=== PATIENT | female | born 1930 | race Caucasian/White ===

== ENCOUNTER → 2019-02-25 | Outpatient (CLI) | payer MEDICARE ==
[~2019-02-25] MED LIST: AMLO5TAB2 PO; CALC600T PO; CHOL2000 PO; GABA-488 PO; HYDR-3454 PO; LISI10TA2 PO; LVT.05T PO; MECL-106 PO; METH10TA5 PO; MULT-974 PO; RANI-10 PO; SIMV40TA4 PO; SULF-222 PO
--- NOTE | 2019-02-25 17:41 | Diagnostic Imaging Report ---
INDICATION: Shortness of breath. TIME OF EXAM: 02:31 p.m. Correlation is made with prior study from 02/04/2014. FINDINGS: Heart size is stable. There is some ectasia and tortuosity of the descending thoracic aorta. Lungs are clear. No free air is identified. Bowel gas pattern appears nonobstructed. No pathologic calcifications are seen. There are surgical clips in the right upper quadrant. There is moderate stool in the right and left colon. IMPRESSION: No acute abnormality is detected. Dictated by: Dictated on workstation # [id number]
== END ==
LOC: RAD FS 14:21
PROVIDERS: ATTEND Nurse Practitioner Family
DX: R10.13 Epigastric pain (principal); R53.83 Other fatigue; R53.1 Weakness; R06.02 Shortness of breath
CPT/HCPCS: 74022

== ENCOUNTER 2019-12-19 19:43 | Observation (INO) | payer MEDICARE ==
[~2019-12-19] VITALS: Ht 160 cm; Wt 66.4 kg
[2019-12-19] VITALS (11 sets, daily range): BP systolic 140–206; BP diastolic 67–108
[2019-12-19] MEDS ORDERED: ASPIRIN 81 MG CHEW (CHILDREN'S ASA) PO ONE (20:00)
[2019-12-19 20:09] LABS: ABG BASE EXCESS 3.4 MMOL/L (-2.5-2.5); ABG OXYGEN SATURATION 96 % (94-100); ABG PCO2 40 MMHG (35-45); ABG PH 7.44 (7.37-7.43); ABG PO2 90 MMHG (79-93); ABG TCO2 28.6 MMOL/L (21.0-31.0); ALLENS TEST YES-POS; INSPIRED O2 RA; PATIENT TEMP 36.4; VENTILATOR NO
[2019-12-19 20:12] LABS: BASOPHILS % (AUTO) 0 % (0-10); EOSINOPHILS # (AUTO) 0.1 10^3/uL (0.0-0.3); EOSINOPHILS % (AUTO) 1 % (0-10); HEMATOCRIT 43 % (35-52); HEMOGLOBIN 14.4 G/DL (11.5-16.0); LYMPHOCYTES # (AUTO) 1.5 X 10^3 (1.0-4.0); LYMPHOCYTES % (AUTO) 23 % (12-44); MEAN CORPUSCULAR HEMOGLOBIN 30 PG (25-34); MEAN CORPUSCULAR HGB CONC 33 G/DL (32-36); MEAN CORPUSCULAR VOLUME 91 FL (80-99); MEAN PLATELET VOLUME 8.5 FL (7.4-10.4); MONOCYTES # (AUTO) 0.6 X 10^3 (0.0-1.0); MONOCYTES % (AUTO) 9 % (0-12); NEUTROPHILS # (AUTO) 4.4 X 10^3 (1.8-7.8); NEUTROPHILS % (AUTO) 67 % (42-75); PLATELET COUNT 273 10^3/uL (130-400); RED CELL DISTRIBUTION WIDTH 13.4 % (10.0-14.5); WHITE BLOOD COUNT 6.7 10^3/uL (4.3-11.0)
--- NOTE | 2019-12-19 20:12 | ED Respiratory ---
General Chief Complaint: General Problems/Pain Stated Complaint: SOB/DIFF SWALLOWING Source: patient, family (son via phine) Exam Limitations: no limitations History of Present Illness Date Seen by Provider: Dec 19, 2019 Time Seen by Provider: 19:48 Initial Comments The patient presents to ER by private conveyance with her son and chief complaint the past couple days she's had shortness of breath worse when laying down. She feels a pressure in her chest. She has not taken anything for it. She denies a history of coronary disease stents heart attacks heart failure or dysrhythmias. She says she felt her heart beating fast but not irregularly. She follows with Dr. Turpin a neurologist for her Parkinson's disease and Dr. Tom, PCP. She takes Norvasc for blood pressure, Synthroid but no blood thinners area she has pantoprazole prescribed daily. 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 2019: Discussed the case with her son Nirav over the phone who brought her in. He said that she has not really reveal anything to him until this afternoon that she for the past couple days as had some tightness in her chest and shortness of air and wanted to be brought to the ER to be checked out. They live in [place] follow with Dr. Tom and he thinks that she had an echocardiogram at [facility] about 6 months ago in [place]. Allergies and Home Medications Allergies Coded Allergies: atenolol (Verified Allergy, Intermediate, RASH, 02/04/14) Home Medications Amlodipine Besylate 5 Mg Tablet, 5 MG PO 2100, (Reported) Calcium Carbonate 600 Mg Tablet, 600 MG PO TID Prescribed by: DARRON RICHARDSON on 03/23/14 1233 Cholecalciferol 2,000 Unit Capsule, 4,000 UNIT PO DAILY, (Reported) TAKES 2 (2000MG) CAPSULE Gabapentin 300 Mg Capsule, 600 MG PO HS, (Reported) TAKE 2 (300MG) TABS Hydrocodone Bit/Acetaminophen 1 Each Tablet, 1-2 EACH PO Q4H PRN for PAIN Prescribed by: DARRON RICHARDSON on 03/23/14 1233 Levothyroxine Sodium 50 Mcg Tablet, 1 EACH PO DAILY Prescribed by: DARRON RICHARDSON on 03/23/14 1233 Metoprolol Tartrate 50 Mg Tablet, 40 MG PO BID, (Reported) Multivitamin 1 Each Tablet, 1 TAB PO DAILY, (Reported) Patient Home Medication List Home Medication List Reviewed: Yes Review of Systems Review of Systems Constitutional: No chills, No fever; malaise EENTM: No ear discharge, No ear pain Respiratory: No cough; orthopnea, short of breath Cardiovascular: No chest pain, No Hx of Intervention, No palpitations, No vascular heart diseas Gastrointestinal: No abdominal pain, No nausea, No vomiting Genitourinary: No discharge, No dysuria Musculoskeletal: No back pain, No joint pain Skin: No change in color, No pruritus, No rash Psychiatric/Neurological: See HPI; Denies Headache, Denies Numbness, Denies Paresthesia All Other Systems Reviewed Negative Unless Noted: Yes Past Wvzwrzy-Allhbv-Novexx Hx Patient Social History Alcohol Use: Denies Use Recreational Drug Use: No Smoking Status: Never a Smoker Recent Foreign Travel: No Contact w/Someone Who Travel: No Immunizations Up To Date Date of Pneumonia Vaccine: Apr 19, 2012 Past Medical History Reproductive Disorders: No Female Reproductive Disorders: Denies Sexually Transmitted Disease: No HIV/AIDS: No Hyperthyroidism Loss of Vision: Left Hearing Impairment: Denies Adverse Reaction/Blood Tranf: No Family Medical History Arthritis 19 FATHER 19 MOTHER Cardiovascular disease 19 FATHER Dementia 19 MOTHER Hypertension 19 FATHER Myocardial infarction 19 FATHER No Family History of: AIDS Abdominal aortic aneurysm Alcoholism Alzheimer's disease Asthma Completed stroke Congenital disease Diabetes mellitus Parkinson's disease Prostate cancer Psychosocial problem Respiratory disorder Seizure disorder Thyroid disease Tuberculosis Physical Exam Vital Signs - First Documented 12/19/19 12/19/19 19:52 20:49 Temp 36.4 Pulse 93 Resp 21 B/P (MAP) 206/100 (135) Pulse Ox 96 O2 Delivery Room Air O2 Flow Rate 2.00 Capillary Refill : Height: 5'3.00" Weight: 140lbs. 0.0oz. 63.579896gs; BMI Method:Stated General Appearance: WD/WN, mild distress Eyes: Bilateral Eye Normal Inspection, Bilateral Eye PERRL, Bilateral Eye EOMI HEENT: PERRL/EOMI, normal ENT inspection, pharynx normal Neck: non-tender, full range of motion Respiratory: chest non-tender, lungs clear, normal breath sounds, no respiratory distress, no accessory muscle use Cardiovascular: normal peripheral pulses, regular rate, rhythm Gastrointestinal: non tender, soft Extremities: normal range of motion, non-tender, normal capillary refill Neurologic/Psychiatric: alert, oriented x 3 Skin: normal color, warm/dry Focused Exam Lactate Level 12/19/19 20:03: Lactic Acid Level 1.19 Lactic Acid Level Laboratory Tests Test 12/19/19 20:03 Lactic Acid Level 1.19 MMOL/L (0.50-2.00) Progress/Results/Core Measures Suspected Sepsis SIRS Temperature: Pulse: Respiratory Rate: Laboratory Tests 12/19/19 20:03: White Blood Count 6.7 Blood Pressure / Mean: 12/19/19 20:03: Lactic Acid Level 1.19 Laboratory Tests 12/19/19 20:03: Creatinine 0.84, INR Comment 0.9, Platelet Count 273, Total Bilirubin 0.3 Results/Orders Lab Results Laboratory Tests Test 12/19/19 20:03 12/19/19 20:49 Range/Units White Blood Count 6.7 4.3-11.0 10^3/uL Red Blood Count 4.73 4.35-5.85 10^6/uL Hemoglobin 14.4 11.5-16.0 G/DL Hematocrit 43 35-52 % Mean Corpuscular Volume 91 80-99 FL Mean Corpuscular Hemoglobin 30 25-34 PG Mean Corpuscular Hemoglobin Concent 33 32-36 G/DL Red Cell Distribution Width 13.4 10.0-14.5 % Platelet Count 273 130-400 10^3/uL Mean Platelet Volume 8.5 7.4-10.4 FL Neutrophils (%) (Auto) 67 42-75 % Lymphocytes (%) (Auto) 23 12-44 % Monocytes (%) (Auto) 9 0-12 % Eosinophils (%) (Auto) 1 0-10 % Basophils (%) (Auto) 0 0-10 % Neutrophils # (Auto) 4.4 1.8-7.8 X 10^3 Lymphocytes # (Auto) 1.5 1.0-4.0 X 10^3 Monocytes # (Auto) 0.6 0.0-1.0 X 10^3 Eosinophils # (Auto) 0.1 0.0-0.3 10^3/uL Basophils # (Auto) 0.0 0.0-0.1 10^3/uL Prothrombin Time 12.6 12.2-14.7 SEC INR Comment 0.9 0.8-1.4 Activated Partial Thromboplast Time 28 24-35 SEC Blood Gas Puncture Site L WRIST Blood Gas Patient Temperature 36.4 Arterial Blood pH 7.44 H 7.37-7.43 Arterial Blood Partial Pressure CO2 40 35-45 MMHG Arterial Blood Partial Pressure O2 90 79-93 MMHG Arterial Blood HCO3 27 23-27 MMOL/L Arterial Blood Total CO2 28.6 21.0-31.0 MMOL/L Arterial Blood Oxygen Saturation 96 94-100 % Arterial Blood Base Excess 3.4 H -2.5-2.5 MMOL/L Con Test YES-POS Blood Gas Ventilator Setting NO Blood Gas Inspired Oxygen RA Sodium Level 134 L 135-145 MMOL/L Potassium Level 4.2 3.6-5.0 MMOL/L Chloride Level 99 98-107 MMOL/L Carbon Dioxide Level 25 21-32 MMOL/L Anion Gap 10 5-14 MMOL/L Blood Urea Nitrogen 18 7-18 MG/DL Creatinine 0.84 0.60-1.30 MG/DL Estimat Glomerular Filtration Rate > 60 BUN/Creatinine Ratio 21 Glucose Level 124 H 70-105 MG/DL Lactic Acid Level 1.19 0.50-2.00 MMOL/L Calcium Level 9.4 8.5-10.1 MG/DL Corrected Calcium 9.2 8.5-10.1 MG/DL Total Bilirubin 0.3 0.1-1.0 MG/DL Aspartate Amino Transf (AST/SGOT) 19 5-34 U/L Alanine Aminotransferase (ALT/SGPT) 7 0-55 U/L Alkaline Phosphatase 76 40-136 U/L Troponin I < 0.028 <0.028 NG/ML B-Type Natriuretic Peptide 56.5 <100.0 PG/ML Total Protein 7.6 6.4-8.2 GM/DL Albumin 4.3 3.2-4.5 GM/DL Urine Color YELLOW Urine Clarity CLEAR Urine pH 7.0 5-9 Urine Specific Fiatt 1.015 L 1.016-1.022 Urine Protein NEGATIVE NEGATIVE Urine Glucose (UA) NEGATIVE NEGATIVE Urine Ketones TRACE H NEGATIVE Urine Nitrite NEGATIVE NEGATIVE Urine Bilirubin NEGATIVE NEGATIVE Urine Urobilinogen 0.2 < = 1.0 MG/DL Urine Leukocyte Esterase NEGATIVE NEGATIVE Urine RBC (Auto) 1+ H NEGATIVE Urine RBC 5-10 H /HPF Urine WBC NONE /HPF Urine Squamous Epithelial Cells RARE /HPF Urine Crystals NONE /LPF Urine Bacteria NEGATIVE /HPF Urine Casts NONE /LPF Urine Mucus NEGATIVE /LPF Urine Culture Indicated CULTURE PENDING My Orders Orders - RALPH METZ Cbc With Automated Diff (12/19/19 19:57) Comprehensive Metabolic Panel (12/19/19 19:57) Blood Culture (12/19/19 19:57) Sputum Culture (12/19/19 19:57) Urinalysis (12/19/19 19:57) Urine Culture (12/19/19 19:57) Protime With Inr (12/19/19 19:57) Partial Thromboplastin Time (12/19/19 19:57) Chest 1 View, Ap/Pa Only (12/19/19 19:57) Ed Iv/Invasive Line Start (12/19/19 19:57) Ed Iv/Invasive Line Start (12/19/19 19:57) Ekg Tracing (12/19/19 19:57) Troponin I (12/19/19 19:57) Vital Signs Adult Sepsis Patie Q15M (12/19/19 19:57) O2 (12/19/19 19:57) Remove Rings In Anticipation O (12/19/19 19:57) Lactic Acid Analyzer (12/19/19 19:57) BNP (12/19/19 19:57) Arterial Blood Gas (12/19/19 19:57) Aspirin Chewable Tablet (Baby Aspirin Ch (12/19/19 20:00) Nitroglycerin 0.4 Mg Btl 25's (Nitrostat (12/19/19 20:15) Ondansetron Injection (Zofran Injectio (12/19/19 21:00) Lidocaine 2% Viscous 15 Ml (Xylocaine Vi (12/19/19 21:00) Famotidine Tablet (Pepcid Tablet) (12/19/19 20:46) Antacid Suspension (Mylanta Suspension (12/19/19 21:00) Amlodipine Tablet (Norvasc Tablet) (12/19/19 21:30) Medications Given in ED Current Medications Medications Dose Ordered Sig/Jl Route Start Time Stop Time Status Last Admin Dose Admin Al Hydrox/Mg Hydrox/Simethicone 30 ml ONCE ONCE PO 12/19/19 21:00 12/19/19 21:01 DC 12/19/19 20:55 30 ML Amlodipine Besylate 10 mg ONCE ONCE PO 12/19/19 21:30 12/19/19 21:31 DC 12/19/19 21:28 10 MG Aspirin 324 mg ONCE ONCE PO 12/19/19 20:00 12/19/19 20:01 DC 12/19/19 20:16 324 MG Lidocaine HCl 15 ml ONCE ONCE PO 12/19/19 21:00 12/19/19 21:01 DC 12/19/19 20:55 15 ML Nitroglycerin 0.4 mg NEEDED PRN SL 12/19/19 20:15 12/19/19 20:16 0.4 MG Ondansetron HCl 4 mg ONCE ONCE IVP 12/19/19 21:00 12/19/19 21:01 DC 12/19/19 20:52 4 MG Vital Signs/I&O 12/19/19 12/19/19 19:52 20:49 Temp 36.4 Pulse 93 Resp 21 B/P (MAP) 206/100 (135) Pulse Ox 96 97 O2 Delivery Room Air Nasal Cannula O2 Flow Rate 2.00 Capillary Refill : Progress Note #1: Time: 20:14 Progress Note Hypertensive emergency with elevated blood pressure and chest pain. In the past she has responded well to clonidine. She's had 2 elevated blood pressure since arrival the first one being 225 systolic and the second being 205. Plan to give her some nitroglycerin as she is having orthopnea. She has only trace edema in her legs. Suspect she could be having CHF versus atypical angina. Initial EKG does not demonstrate ST-T wave changes. Her heart rates in the 90s and she's not on beta blockers. She's had no fever but she does complain of shortness of breath so we'll also initiate a septic workup if she has an elevated white coun t. At this time her to hold off giving any IV fluids or antibiotics until we have a clear picture of what happening. Oxygen sats of been 94-96% on room air. We'll see what nitroglycerin does for her symptoms. She is having some minor pressure in the center of her chest radiating up towards the bottom of her throat which she describes as tightness, pressure and fullness. GERD is also in the differential. Progress Note #2: Time: 20:46 Progress Note The patient's blood pressure did experience significant improvement down to 168 from 205 with a single dose of nitroglycerin. She says however her symptoms are unchanged. She still has pressure going up the middle of her chest and starting in her epigastric region. She has a nontender, nonsurgical abdomen on reexamination. She says she has a little bit nauseous or any give her some Zofran and then follow that with a GI cocktail. We discussed CODE STATUS and she is a full code at this time. We discussed staying in the hospital overnight and she is in agreement with this plan. ECG Initial ECG Impression Date: Dec 19, 2019 Initial ECG Impression Time: 19:55 Initial ECG Rate: 92 Initial ECG Rhythm: Normal Sinus Initial ECG Intervals: Normal Initial ECG Impression: Normal Comment Normal sinus rhythm without clinically relevant ST T wave elevation or depression. Diagnostic Imaging Diagonstic Imaging: Xray Plain Films/CT/US/NM/MRI: chest Comments NAME: JOSE ALBERTO DOWD [facility] REC#: [id number] PT STATUS: REG ER : [id number] PHYSICIAN: RALPH METZ MD ADMIT DATE: 12/19/19/ER Draft Date of Exam:12/19/19 CHEST 1 VIEW, AP/PA ONLY INDICATION: Shortness of breath EXAM: Portable chest at 3:36 PM FINDINGS: Heart size and pulmonary vascularity are normal. The lungs are clear. There are no effusions or pneumothoraces. IMPRESSION: Negative chest. Dictated on workstation # [id number] Dict: 12/19/192045 Trans: 12/19/192100 [facility] [phone] Interpreted by: AYANA BENSON MD Electronically signed by: Reviewed: Reviewed by Me Departure Communication (Admissions) Time/Spoke to Admitting Phy: 21:50 Dr. Peralta: Discussed the case and she agrees to accept the patient to the cardiac stepdown. Time/Spoke to Consulting Phy: 21:22 Dr. Calderón: Norvasc 10 mg, serial troponins and echocardiogram in the morning. Impression Primary Impression: Chest pain Qualified Codes: R07.9 - Chest pain, unspecified Additional Impression: Hypertensive emergency Disposition: ADMITTED INPATIENT Condition: Stable Admissions Decision to Admit Reason: Admit from ER (General) Decision to Admit/Date: Dec 19, 2019 Time/Decision to Admit Time: 20:26 Departure-Patient Inst. Referrals: AVEL TOM MD (PCP/Family) Primary Care Physician RALPH METZ Dec 19, 2019 20:12
[2019-12-19] MEDS ORDERED: NITROGLYCERIN 0.4 MG SL TABS BTL 25'S SL PRN ×2 (20:15→22:45)
[2019-12-19 20:25] LABS: INR 0.9 (0.8-1.4); PROTHROMBIN TIME PATIENT 12.6 SEC (12.2-14.7)
--- NOTE | 2019-12-19 20:30 | NUR ---
Pt assisted to bedside commode at this time, x1 assist.
[2019-12-19 20:39] LABS: ALANINE AMINOTRANSFERASE 7 U/L (0-55); ALBUMIN 4.3 GM/DL (3.2-4.5); ALKALINE PHOSPHATASE 76 U/L (40-136); BILIRUBIN,TOTAL 0.3 MG/DL (0.1-1.0); BUN/CREATININE RATIO 21; CALCIUM 9.4 MG/DL (8.5-10.1); CARBON DIOXIDE 25 MMOL/L (21-32); CHLORIDE 99 MMOL/L (98-107); CREATININE SERUM 0.84 MG/DL (0.60-1.30); GFR ESTIMATED > 60; GLUCOSE 124 MG/DL (70-105); POTASSIUM 4.2 MMOL/L (3.6-5.0); SODIUM 134 MMOL/L (135-145); TOTAL PROTEIN 7.6 GM/DL (6.4-8.2)
--- NOTE | 2019-12-19 20:45 | NUR ---
Pt states she still has some epigastric discomfort after 1 NTG
[2019-12-19] MEDS ORDERED: FAMOTIDINE 20 MG (PEPCID) TABLET PO STA (20:46)
[2019-12-19] MEDS ORDERED: LIDOCAINE 2% VISCOUS 15 ML UDC PO ONE (21:00)
[2019-12-19] MEDS ORDERED: ANTACID SUSP 30 ML UDC (MYLANTA) PO ONE (21:00)
[2019-12-19] MEDS ORDERED: ONDANSETRON 4 MG/2 ML (SDV) Z0FRAN IVP ONE (21:00)
[2019-12-19] MEDS ORDERED: CARB1TAB44 PO (21:01)
--- NOTE | 2019-12-19 21:02 | Diagnostic Imaging Report ---
INDICATION: Shortness of breath EXAM: Portable chest at 3:36 PM FINDINGS: Heart size and pulmonary vascularity are normal. The lungs are clear. There are no effusions or pneumothoraces. IMPRESSION: Negative chest. Dictated by: Dictated on workstation # [id number]
[2019-12-19] MEDS ORDERED: ALPR0.5T PO (21:03)
[2019-12-19] MEDS ORDERED: METO50TA15 PO (21:03)
[2019-12-19 21:04] LABS: BILIRUBIN,URINE NEGATIVE (NEGATIVE); CLARITY,URINE CLEAR; COLOR,URINE YELLOW; GLUCOSE, URINE (UA) NEGATIVE (NEGATIVE); KETONES,URINE TRACE (NEGATIVE); LEUKOCYTE ESTERASE ,URINE NEGATIVE (NEGATIVE); NITRITE,URINE NEGATIVE (NEGATIVE); PROTEIN,URINE NEGATIVE (NEGATIVE)
[2019-12-19 21:13] LABS: BACTERIA,URINE NEGATIVE /HPF; SQUAMOUS EPITHELIAL CELL,UR RARE /HPF
--- NOTE | 2019-12-19 21:14 | NUR ---
RECEIVED REPORT FROM CECILY HODGES.
--- NOTE | 2019-12-19 21:22 | NUR ---
Report called to CECILY Lechuga at this time.
[2019-12-19] MEDS ORDERED: amLODIPine 10 MG (NORVASC) TAB PO ONE (21:30)
[2019-12-19] MEDS ORDERED: hydrALAZINE (APESOLINE) 20 MG/ML VIAL IV PRN (22:15)
[2019-12-19] MEDS ORDERED: NITROGLYCERIN 2% OINT 1 GM UNIT DOSE PACKET TOP PRN (22:15)
[2019-12-19] MEDS ORDERED: LOPERAMIDE 2 MG (IMODIUM) TABLET PO PRN (22:15)
[2019-12-19] MEDS ORDERED: HYDROcodone/APAP 5 MG/325 MG (LORTAB) TAB PO PRN (22:15)
[2019-12-19] MEDS ORDERED: DOCUSATE SODIUM 100 MG (COLACE) CAP PO PRN (22:15)
[2019-12-19] MEDS ORDERED: SENNA W/DOCUSATE (SENOKOT S) TABLET PO PRN (22:15)
[2019-12-19] MEDS ORDERED: BISACODYL 10 MG SUPP (DULCOLAX) PR PRN (22:15)
[2019-12-19] MEDS ORDERED: polyethylene glycoL POWDER 17 GM (MIRALAX) PACK PO PRN (22:15)
[2019-12-19] MEDS ORDERED: ACETAMINOPHEN 325 MG TABLET PO PRN (22:15)
[2019-12-19] MEDS ORDERED: ONDANSETRON 4 MG/2 ML (SDV) Z0FRAN IVP PRN (22:15)
[2019-12-19] MEDS ORDERED: ALPRAZolam 0.25 MG (XANAX) TAB PO PRN (22:15)
[2019-12-19] MEDS ORDERED: CALCIUM CARBONATE 500 MG (TUMS) TAB.CHEW PO PRN (22:15)
[2019-12-19] MEDS ORDERED: cloNIDine 0.1 MG (CATAPRES) TAB PO PRN (22:15)
[2019-12-19] MEDS ORDERED: MELATONIN 3 MG TABLET PO PRN (22:15)
[2019-12-19] MEDS ORDERED: ENOXAPARIN 40 MG/0.4 ML (LOVENOX) SYR SC SCH (22:15)
[2019-12-19] MEDS ORDERED: diphenhydrAMINE 25 MG TAB (BENADRYL) PO PRN (22:15)
[2019-12-19] MEDS ORDERED: LACTULOSE SYRUP 10GM/15ML (ENULOSE) 30ML UDC PO PRN (22:15)
[2019-12-19] MEDS ORDERED: fentaNYL INJECTION 100 MCG/2 ML AMP IVP PRN (22:15)
[2019-12-19] MEDS ORDERED: ONDANSETRON 4 MG (ZOFRAN) ORAL DISSOLVE TAB PO PRN (22:15)
[2019-12-19] MEDS ORDERED: guaiFENesin/CODEINE (ROBITUSSIN AC) 10ML UDC PO PRN (22:15)
--- NOTE | 2019-12-19 22:18 | NUR ---
JOSE ALBERTO DOWD admitted to room CU4-1, with an admitting diagnosis of HYPERTENSIVE EMERGENCY AND ANGINA, on 12/19/19 from ER via STRETCHER, accompanied by STAFF. JOSE ALBERTO DOWD introduced to surroundings, call light, bed controls, phone, TV, temperature control, lights, meal times, smoking policy, visitor policy, side rail policy, bathrooms and showers. Patient Rights given to patient in the handbook.JOSE ALBERTO DOWD verbalizes understanding that [facility] is not responsible for the loss or damage to any personal effects or valuables that are kept in the patients possession during their hospitalization.
[2019-12-19] MEDS ORDERED: morphine INJ 4 MG/ML 1 ML (VIAL/SYRINGE) IV PRN (22:45)
[2019-12-19] MEDS ORDERED: ALPRAZolam 0.5 MG (XANAX) TAB PO PRN (22:45)
[2019-12-19] MEDS ORDERED: ANTACID SUSP 30 ML UDC (MYLANTA) PO PRN (22:45)
[2019-12-20 00:15] VITALS: BP 104/61
--- NOTE | 2019-12-20 00:35 | NUR ---
THIS RN CONTACTED DR. MARTÍNEZ ABOUT PT BP. THIS RN INFORMED DR. MARTÍNEZ THAT PT WAS GIVEN HYDRALAZINE 10MG IV FOR BP 170S/100S AND MOST RECENT BP IS 97/57. NEW ORDERS OBTAINED, SEE ORDER HX.
[2019-12-20] MEDS ORDERED: NS IV 1000 ML 1,000 ML IV SCH (00:45)
[2019-12-20 01:00] VITALS: BP 105/61
[2019-12-20 01:23] VITALS: BP 143/73
[2019-12-20 02:00] VITALS: BP 132/65
[2019-12-20 03:14] LABS: BASOPHILS % (AUTO) 0 % (0-10); EOSINOPHILS # (AUTO) 0.1 10^3/uL (0.0-0.3); EOSINOPHILS % (AUTO) 1 % (0-10); HEMATOCRIT 42 % (35-52); HEMOGLOBIN 14.2 G/DL (11.5-16.0); LYMPHOCYTES # (AUTO) 1.8 X 10^3 (1.0-4.0); LYMPHOCYTES % (AUTO) 24 % (12-44); MEAN CORPUSCULAR HEMOGLOBIN 31 PG (25-34); MEAN CORPUSCULAR HGB CONC 34 G/DL (32-36); MEAN CORPUSCULAR VOLUME 91 FL (80-99); MEAN PLATELET VOLUME 8.7 FL (7.4-10.4); MONOCYTES # (AUTO) 0.7 X 10^3 (0.0-1.0); MONOCYTES % (AUTO) 9 % (0-12); NEUTROPHILS # (AUTO) 4.8 X 10^3 (1.8-7.8); NEUTROPHILS % (AUTO) 65 % (42-75); PLATELET COUNT 284 10^3/uL (130-400); RED CELL DISTRIBUTION WIDTH 13.3 % (10.0-14.5); WHITE BLOOD COUNT 7.4 10^3/uL (4.3-11.0)
[2019-12-20 03:43] LABS: ALANINE AMINOTRANSFERASE 8 U/L (0-55); ALBUMIN 4.1 GM/DL (3.2-4.5); ALKALINE PHOSPHATASE 76 U/L (40-136); BILIRUBIN,TOTAL 0.4 MG/DL (0.1-1.0); BUN/CREATININE RATIO 21; CALCIUM 9.4 MG/DL (8.5-10.1); CARBON DIOXIDE 24 MMOL/L (21-32); CHLORIDE 101 MMOL/L (98-107); CREATININE SERUM 0.78 MG/DL (0.60-1.30); GFR ESTIMATED > 60; GLUCOSE 101 MG/DL (70-105); POTASSIUM 4.2 MMOL/L (3.6-5.0); SODIUM 136 MMOL/L (135-145); TOTAL PROTEIN 7.3 GM/DL (6.4-8.2)
[2019-12-20 04:00] VITALS: BP 145/80
--- NOTE | 2019-12-20 04:59 | NUR ---
THIS RN CALLED TELE ICU ABOUT PT ANXIETY LEVEL. THIS RN REPORTED THAT THE PT HAS PO XANAX BUT AT THIS TIME IS NPO. NEW ORDERS OBTAINED, SEE ORDER HX.
[2019-12-20] MEDS ORDERED: diphenhydrAMINE 50 MG/ML INJ (BENADRYL) IVP ONE (05:00)
[2019-12-20] MEDS ORDERED: LEVOTHYROXINE 112 MCG (LEVOTHROID) TAB PO SCH (06:30)
[2019-12-20 08:00] VITALS: BP 149/72
[2019-12-20] MEDS ORDERED: RT-ALBUTEROL SULF 2.5 MG/3 ML PRE-MIX VIAL INH SCH (08:00)
[2019-12-20] MEDS ORDERED: SINEMET 25/100 (CARBIDOPA/LEVODOPA) TAB PO SCH (09:00)
[2019-12-20] MEDS ORDERED: amLODIPine 10 MG (NORVASC) TAB PO SCH (09:00)
[2019-12-20] MEDS ORDERED: ASPIRIN E.C. 81 MG (ECOTRIN) TAB PO SCH (09:00)
--- NOTE | 2019-12-20 09:11 | Short Stay Summary-Hospitalist ---
History of Present Illness Date Seen 12/20/19 Attending Physician Majo Peralta DO PCP Jose Kang MD Referring Physician Date of Admission Dec 19, 2019 at 20:45 Home Medications & Allergies Home Medications Reviewed patient Home Medication Reconciliation performed by pharmacy medication reconciliations deburring technician and/or nursing. Patients Allergies have been reviewed. Allergies Allergies Coded Allergies atenolol (Verified Allergy, Intermediate, RASH, 02/04/14) Past Zxnljbg-Pxsjly-Fjslas Hx Patient Social History Alcohol Use: Denies Use Recreational Drug Use: No Smoking Status: Never a Smoker 2nd Hand Smoke Exposure: Yes ( SMOKED) Recent Foreign Travel: No Contact w/other who traveled: No Recent Hopitalizations: No Recent Infectious Disease Expo: No Immunizations Up To Date Tetanus Booster (TDap): Unknown Date of Pneumonia Vaccine: Apr 19, 2017 Date of Influenza Vaccine: Apr 20, 2019 Seasonal Allergies Seasonal Allergies: No Past Medical History Surgeries: Thyroidectomy Cardiac: Hypertension Reproductive: No Sexually Transmitted Disease: No HIV/AIDS: No Female Reproductive Disorders: Denies Endocrine: Hyperthyroidism Loss of Vision: Left Hearing Impairment: Denies Psychosocial: Sleep Difficulties History of Blood Disorders: No Adverse Reaction to Blood Arnold: No Family History Arthritis 19 FATHER 19 MOTHER Cardiovascular disease 19 FATHER Dementia 19 MOTHER Hypertension 19 FATHER Myocardial infarction 19 FATHER No Family History of: AIDS Abdominal aortic aneurysm Alcoholism Alzheimer's disease Asthma Completed stroke Congenital disease Diabetes mellitus Parkinson's disease Prostate cancer Psychosocial problem Respiratory disorder Seizure disorder Thyroid disease Tuberculosis Physical Exam Physical Exam Vital Signs Vital Signs - First Documented 12/19/19 12/19/19 19:52 20:49 Temp 36.4 Pulse 93 Resp 21 B/P (MAP) 206/100 (135) Pulse Ox 96 O2 Delivery Room Air O2 Flow Rate 2.00 Capillary Refill : Less Than 3 Seconds Height, Weight, BMI Height: 5'3.00" Weight: 140lbs. 0.0oz. 63.215352ck; 25.70 BMI Method:Stated Eyes: Bilateral Eye Normal Inspection, Bilateral Eye PERRL, Bilateral Eye EOMI Results Results/Procedures Labs Laboratory Tests 12/19/19 20:03 12/20/19 02:40 Patient resulted labs reviewed. Clinical Quality Measures DVT/VTE Risk/Contraindication: Risk Factor Score Per Nursin RFS Level Per Nursing on Admit: 3=High MAJO PERALTA DO Dec 20, 2019 09:11
--- NOTE | 2019-12-20 10:27 | History & Physical ---
History of Present Illness HPI/Chief Complaint CC: Hypertensive urgency HPI: This is an 89yoWF Pt of Dr. Kang, who has a PMH of Parkinson's, who presented to the ER with weakness and elevated BP with chest pain, Troponins all negative, hypertension managed with multiple meds, she was monitored on cardiac step-down unit and is currently stable. Pt appears to need inpatient rehab for progressive weakness due to Parkinson's and Dr. Conrad is her neurologist and she wants me to evaluate her home medications and restart. At this current time BP is 140/86. Echocardiogram was completed and cardiology was consulted. Source: patient Exam Limitations: no limitations Date Seen 12/20/19 Time Seen by a Provider: 09:30 Attending Physician Majo Martínez Pankaj K MD Referring Physician Date of Admission Dec 19, 2019 at 20:45 Home Medications & Allergies Home Medications Reviewed patient Home Medication Reconciliation performed by pharmacy medication reconciliations phone technician and/or nursing. Patients Allergies have been reviewed. Allergies Allergies Coded Allergies atenolol (Verified Allergy, Intermediate, RASH, 02/04/14) Past Lkeyiyx-Twvqwm-Tapaly Hx Past Med/Social Hx: Reviewed Nursing Past Med/Soc Hx, Reviewed and Corrections made Patient Social History Marrital Status: single Employed/Student: retired Alcohol Use: Denies Use Recreational Drug Use: No Smoking Status: Never a Smoker 2nd Hand Smoke Exposure: Yes ( SMOKED) Recent Foreign Travel: No Contact w/other who traveled: No Recent Hopitalizations: No Recent Infectious Disease Expo: No Immunizations Up To Date Tetanus Booster (TDap): Unknown Date of Pneumonia Vaccine: Apr 19, 2017 Date of Influenza Vaccine: Apr 20, 2019 Seasonal Allergies Seasonal Allergies: No Past Medical History Surgeries: Thyroidectomy Cardiac: Hypertension Neurological: Parkinson's Disease Reproductive: No Sexually Transmitted Disease: No HIV/AIDS: No Female Reproductive Disorders: Denies Endocrine: Hyperthyroidism Loss of Vision: Left Hearing Impairment: Denies Psychosocial: Sleep Difficulties History of Blood Disorders: No Adverse Reaction to Blood Arnold: No Family History Arthritis 19 FATHER 19 MOTHER Cardiovascular disease 19 FATHER Dementia 19 MOTHER Hypertension 19 FATHER Myocardial infarction 19 FATHER No Family History of: AIDS Abdominal aortic aneurysm Alcoholism Alzheimer's disease Asthma Completed stroke Congenital disease Diabetes mellitus Parkinson's disease Prostate cancer Psychosocial problem Respiratory disorder Seizure disorder Thyroid disease Tuberculosis Review of Systems Constitutional: see HPI Cardiovascular: chest pain Physical Exam Physical Exam Vital Signs Vital Signs - First Documented 12/19/19 12/19/19 19:52 20:49 Temp 36.4 Pulse 93 Resp 21 B/P (MAP) 206/100 (135) Pulse Ox 96 O2 Delivery Room Air O2 Flow Rate 2.00 Capillary Refill : Less Than 3 Seconds Height, Weight, BMI Height: 5'3.00" Weight: 140lbs. 0.0oz. 63.839657zf; 25.70 BMI Method:Stated General Appearance: No Apparent Distress, WD/WN Eyes: Bilateral Eye Normal Inspection, Bilateral Eye PERRL, Bilateral Eye EOMI HEENT: PERRL/EOMI, TMs Normal, Normal ENT Inspection, Pharynx Normal Neck: Full Range of Motion, Normal Inspection, Non Tender, Supple, Carotid Bruit Respiratory: Chest Non Tender, Lungs Clear, Normal Breath Sounds, No Accessory Muscle Use, No Respiratory Distress Cardiovascular: Regular Rate, Rhythm, No Edema, No Gallop, No JVD, No Murmur, Normal Peripheral Pulses Gastrointestinal: Normal Bowel Sounds, No Organomegaly, No Pulsatile Mass, Non Tender, Soft Back: Normal Inspection, No CVA Tenderness, No Vertebral Tenderness Extremity: Normal Capillary Refill, Normal Inspection, Normal Range of Motion, Non Tender, No Calf Tenderness, No Pedal Edema Neurologic/Psychiatric: Alert, Oriented x3, No Motor/Sensory Deficits, Normal Mood/Affect Skin: Normal Color, Warm/Dry Lymphatic: No Adenopathy Results Results/Procedures Labs Laboratory Tests 12/19/19 20:03 12/20/19 02:40 Patient resulted labs reviewed. Assessment/Plan Admission Diagnosis Assessment: Chest pain due to HTN urgency PD Weakness Plan: IRF BP meds Cards Admission Status: Observation Diagnosis/Problems Diagnosis/Problems (1) Chest pain Status: Acute Qualifiers: Chest pain type: unspecified Qualified Codes: R07.9 - Chest pain, unspecified (2) Hypertensive emergency Status: Acute Clinical Quality Measures DVT/VTE Risk/Contraindication: Risk Factor Score Per Nursin RFS Level Per Nursing on Admit: 3=High MAJO MARTÍNEZ DO Dec 20, 2019 10:26
--- NOTE | 2019-12-20 12:00 | NUR ---
pt transported to [facility] by PT via wheel chair.
--- NOTE | 2019-12-20 13:41 | Consultation-Cardiology ---
HPI-Cardiology Cardiology Consultation: Date of Consultation 12/20/19 Date of Admission Attending Physician Majo Peralta DO Admitting Physician Jose Kang MD Consulting Physician Ashok CALDERÓN MD HPI: Time Seen by a Provider: 09:00 Chief Complaint: Severe hypertension. This is a 89-year-old lady who presents with shortness of breath. She also presented with significant hypertension. She follows with a neurologist for Parkinson's. She also has history of Graves' disease. She also complained of chest tightness. She denies active smoking and pertinent family history. Review of Systems-Cardiology Review of Systems Constitutional: As described under HPI; No As described under HPI, No no symptoms reported, No chills, No fever, No lightheadedness Eyes: No As described under HPI, No no symptoms reported, No blindness, No blurred vision, No contact lenses, No drainage, No decreased acuity, No foreign body sensation, No pain, No vision change Ears/Nose/Throat: No As described under HPI, No no symptoms reported, No chronic hearing loss, No ear discharge, No ear pain, No nasal drainage, No ulcerations Respiratory: No no symptoms reported; As described under HPI; No As described under HPI, No cough, No orthopnea; shortness of breath; No SOB with excertion Cardiovascular: No no symptoms reported; As described under HPI; No As descri bed under HPI, No chest pain, No edema, No irregular heart rate, No lightheadedness, No palpitations; other (chest tightness.) Gastrointestinal: No no symptoms reported, No As described under HPI, No abdomen distended, No abdominal pain, No blood streaked bowels, No constipation, No diarrhea, No nausea, No vomiting, No stool coloration changes Genitourinary: No As described under HPI, No burning, No dysuria, No discharge, No frequency, No flank pain, No hematuria, No urgency : Yes : No Skin: No rash, No skin related problems, No ulcerations Psychiatric/Neurological: No anxiety, No depression, No seizure, No focal weakness, No syncope Hematologic: No bleeding abnormalities All Other Systems Reviewed Negative Unless Noted: Yes SYW-Upijtv-Fbmoyk Hx Patient Social History Alcohol Use: Denies Use Recreational Drug Use: No Smoking Status: Never a Smoker 2nd Hand Smoke Exposure: Yes ( SMOKED) Recent Foreign Travel: No Recent Infectious Disease Expo: No Hospitalization with Isolation: Denies Immunizations Up To Date Tetanus Booster (TDap): Unknown Date of Pneumonia Vaccine: Apr 19, 2017 Date of Influenza Vaccine: Apr 20, 2019 Past Medical History PMH As described under Assessment. Family Medical History Family History: Arthritis 19 FATHER 19 MOTHER Cardiovascular disease 19 FATHER Dementia 19 MOTHER Hypertension 19 FATHER Myocardial infarction 19 FATHER No Family History of: AIDS Abdominal aortic aneurysm Alcoholism Alzheimer's disease Asthma Completed stroke Congenital disease Diabetes mellitus Parkinson's disease Prostate cancer Psychosocial problem Respiratory disorder Seizure disorder Thyroid disease Tuberculosis Allergies and Home Medications Allergies Coded Allergies: atenolol (Verified Allergy, Intermediate, RASH, 02/04/14) Home Medications Amlodipine Besylate 5 Mg Tablet, 5 MG PO 2100, (Reported) Calcium Carbonate 600 Mg Tablet, 600 MG PO TID Prescribed by: DARRON RICHARDSON on 03/23/14 1233 Cholecalciferol 2,000 Unit Capsule, 4,000 UNIT PO DAILY, (Reported) TAKES 2 (2000MG) CAPSULE Gabapentin 300 Mg Capsule, 600 MG PO HS, (Reported) TAKE 2 (300MG) TABS Hydrocodone Bit/Acetaminophen 1 Each Tablet, 1-2 EACH PO Q4H PRN for PAIN Prescribed by: DARRON RICHARDSON on 03/23/14 1233 Levothyroxine Sodium 50 Mcg Tablet, 1 EACH PO DAILY Prescribed by: DARRON RICHARDSON on 03/23/14 1233 Metoprolol Tartrate 50 Mg Tablet, 40 MG PO BID, (Reported) Multivitamin 1 Each Tablet, 1 TAB PO DAILY, (Reported) Patient Home Medication List Home Medication List Reviewed: Yes Physical Exam-Cardiology Physical Exam Vital Signs/I&O 12/20/19 12/20/19 12/20/19 12/20/19 02:00 03:00 03:36 04:00 Temp 36.6 Pulse 92 96 99 Resp 14 9 15 B/P (MAP) 132/65 (87) 145/80 (101) Pulse Ox 93 96 96 O2 Delivery Room Air Room Air Room Air 12/20/19 12/20/19 12/20/19 12/20/19 06:48 07:01 08:00 12:00 Temp 36.7 Pulse 103 105 86 Resp 21 20 B/P (MAP) 149/72 (97) Pulse Ox 95 94 95 O2 Delivery Room Air Room Air Room Air Capillary Refill : Less Than 3 Seconds Constitutional: appears stated age, AAO x 3; No apparent distress; well- developed, well-nourished HEENT: PERRL; No discharge; hearing is well preserved, oral hygience is good; No ulceration, No xanthelasmas are seen Neck: No carotid bruit; carotid pulses are 2 + bilaterally Respiratory: chest is bilaterally symmetric, lungs clear to auscultation Cardiovascular: regular rate-rhythm, S1 and S2 Gastrointestinal: soft, audible bowel sounds; No spleenomegaly Rectal: deferred Extremities: normal range of motion, non-tender, normal inspection; No clubbing, No cyanosis; no lower extremity edema bilateral; No significant edema Neurologic/Psychiatric: no motor/sensory deficits, alert, normal mood/affect, oriented x 3, power is 5/5 both on sides Skin: normal color, warm/dry; No rash, No ulcerations Data Review Labs Laboratory Tests 12/19/19 20:03: White Blood Count 6.7, Red Blood Count 4.73, Hemoglobin 14.4, Hematocrit 43, Mean Corpuscular Volume 91, Mean Corpuscular Hemoglobin 30, Mean Corpuscular Hemoglobin Concent 33, Red Cell Distribution Width 13.4, Platelet Count 273, Mean Platelet Volume 8.5, Neutrophils (%) (Auto) 67, Lymphocytes (%) (Auto) 23, Monocytes (%) (Auto) 9, Eosinophils (%) (Auto) 1, Basophils (%) (Auto) 0, Neutrophils # (Auto) 4.4, Lymphocytes # (Auto) 1.5, Monocytes # (Auto) 0.6, Eosinophils # (Auto) 0.1, Basophils # (Auto) 0.0, Prothrombin Time 12.6, INR Comment 0.9, Activated Partial Thromboplast Time 28, Blood Gas Puncture Site L WRIST, Blood Gas Patient Temperature 36.4, Arterial Blood pH 7.44H, Arterial Blood Partial Pressure CO2 40, Arterial Blood Partial Pressure O2 90, Arterial Blood HCO3 27, Arterial Blood Total CO2 28.6, Arterial Blood Oxygen Saturation 96, Arterial Blood Base Excess 3.4H, Con Test YES-POS, Blood Gas Ventilator Setting NO, Blood Gas Inspired Oxygen RA, Sodium Level 134L, Potassium Level 4.2, Chloride Level 99, Carbon Dioxide Level 25, Anion Gap 10, Blood Urea Nitrogen 18, Creatinine 0.84, Estimat Glomerular Filtration Rate > 60, BUN/Creatinine Ratio 21, Glucose Level 124H, Lactic Acid Level 1.19, Calcium Level 9.4, Corrected Calcium 9.2, Total Bilirubin 0.3, Aspartate Amino Transf (AST/SGOT) 19, Alanine Aminotransferase (ALT/SGPT) 7, Alkaline Phosphatase 76, Troponin I < 0.028, B-Type Natriuretic Peptide 56.5, Total Protein 7.6, Albumin 4.3 12/19/19 20:49: Urine Color YELLOW, Urine Clarity CLEAR, Urine pH 7.0, Urine Specific Venus 1.015L, Urine Protein NEGATIVE, Urine Glucose (UA) NEGATIVE, Urine Ketones TRACEH, Urine Nitrite NEGATIVE, Urine Bilirubin NEGATIVE, Urine Urobilinogen 0.2, Urine Leukocyte Esterase NEGATIVE, Urine RBC (Auto) 1+H, Urine RBC 5-10H, Urine WBC NONE, Urine Squamous Epithelial Cells RARE, Urine Crystals NONE, Urine Bacteria NEGATIVE, Urine Casts NONE, Urine Mucus NEGATIVE, Urine Culture Indicated CULTURE PENDING 12/20/19 02:40: White Blood Count 7.4, Red Blood Count 4.62, Hemoglobin 14.2, Hematocrit 42, Mean Corpuscular Volume 91, Mean Corpuscular Hemoglobin 31, Mean Corpuscular Hem oglobin Concent 34, Red Cell Distribution Width 13.3, Platelet Count 284, Mean Platelet Volume 8.7, Neutrophils (%) (Auto) 65, Lymphocytes (%) (Auto) 24, Monocytes (%) (Auto) 9, Eosinophils (%) (Auto) 1, Basophils (%) (Auto) 0, Neutrophils # (Auto) 4.8, Lymphocytes # (Auto) 1.8, Monocytes # (Auto) 0.7, Eosinophils # (Auto) 0.1, Basophils # (Auto) 0.0, Sodium Level 136, Potassium Le sabrina 4.2, Chloride Level 101, Carbon Dioxide Level 24, Anion Gap 11, Blood Urea Nitrogen 16, Creatinine 0.78, Estimat Glomerular Filtration Rate > 60, BUN/Creatinine Ratio 21, Glucose Level 101, Calcium Level 9.4, Corrected Calcium 9.3, Total Bilirubin 0.4, Aspartate Amino Transf (AST/SGOT) 20, Alanine Aminotransferase (ALT/SGPT) 8, Alkaline Phosphatase 76, Total Protein 7.3, Albumin 4.1 ECG Impression ECG Initial ECG Rhythm: Normal Sinus Initial ECG Impression: Normal A/P-Cardiology Assessment/Admission Diagnosis Severe hypertension, Chest tightness, Hypertension, Parkinson's. Plan Severe hypertension, amlodipine 10 mg given overnight. Improved blood pressure. Chest tightness, troponin and EKG negative. Echocardiogram is recommended. Parkinson's. Defer to the primary team. Thank you for your consultation. Please call me if you have any questions. Miladys Calderón MD, FACP, FACC, FSCAI, FHRS, CCDS Interventional Cardiology Cardiac Electrophysiology Vascular Medicine and Endovascular Interventions Clinical Quality Measures DVT/VTE Risk/Contraindication: Risk Factor Score Per Nursin RFS Level Per Nursing on Admit: 3=High Ashok CALDERÓN MD Dec 20, 2019 13:41
[2019-12-20] MEDS ORDERED: AMLO5TAB9 PO (13:50)
[2019-12-20] MEDS ORDERED: CARB1TAB19 PO (13:50)
[2019-12-20] MEDS ORDERED: PANT40TA3 PO (13:50)
[2019-12-20] MEDS ORDERED: LEVO112T55 PO (13:50)
[2019-12-20] MEDS ORDERED: GABA300C PO ×2 (13:50)
[2019-12-20] MEDS ORDERED: DCS100C PO (14:06)
[2019-12-20] MEDS ORDERED: GABAPENTIN 600 MG (NEURONTIN) TAB PO SCH (21:00)
== END 2019-12-20 12:00 | disposition designated cancer center or children's hospital (05) ==
LOC: EDUNIT# 19:43 → ER 19:44 → ICU 20:45
PROVIDERS: ADMIT Internal Medicine; ATTEND Internal Medicine
DX: I16.1 Hypertensive emergency (principal); I10 Essential (primary) hypertension; R07.9 Chest pain, unspecified; E05.90 Thyrotoxicosis, unspecified without thyrotoxic crisis or storm; G47.9 Sleep disorder, unspecified; G20 Parkinson's disease; Z79.82 Long term (current) use of aspirin; Z79.899 Other long term (current) drug therapy; Z88.8 Allergy status to other drugs, medicaments and biological substances; Z79.891 Long term (current) use of opiate analgesic; Z82.61 Family history of arthritis
CPT/HCPCS: 36415; 71045; 80053; 81000; 82805; 83605; 83880; 84484; 85025; 85610; 85730; 87040; 87088; 93005; 93306

== ENCOUNTER 2019-12-20 10:45 | Inpatient (IN) | payer MEDICARE ==
[~2019-12-20] VITALS: Ht 160 cm; Wt 64.8 kg
[~2019-12-20 10:45] MED LIST changes: +ALPR0.5T PO; +CARB1TAB44 PO; +METO50TA15 PO
[2019-12-20 11:30] VITALS: BP 122/80
[2019-12-20] MEDS ORDERED: ONDANSETRON 4 MG (ZOFRAN) ORAL DISSOLVE TAB PO PRN (11:30)
[2019-12-20] MEDS ORDERED: ALPRAZolam 0.25 MG (XANAX) TAB PO PRN (11:30)
[2019-12-20] MEDS ORDERED: LACTULOSE SYRUP 10GM/15ML (ENULOSE) 30ML UDC PO PRN (11:30)
[2019-12-20] MEDS ORDERED: guaiFENesin/CODEINE (ROBITUSSIN AC) 10ML UDC PO PRN (11:30)
[2019-12-20] MEDS ORDERED: MELATONIN 3 MG TABLET PO PRN (11:30)
[2019-12-20] MEDS ORDERED: DOCUSATE SODIUM 100 MG (COLACE) CAP PO PRN (11:30)
[2019-12-20] MEDS ORDERED: BISACODYL 10 MG SUPP (DULCOLAX) PR PRN (11:30)
[2019-12-20] MEDS ORDERED: diphenhydrAMINE 25 MG TAB (BENADRYL) PO PRN (11:30)
[2019-12-20] MEDS ORDERED: LOPERAMIDE 2 MG (IMODIUM) TABLET PO PRN (11:30)
[2019-12-20] MEDS ORDERED: CALCIUM CARBONATE 500 MG (TUMS) TAB.CHEW PO PRN (11:30)
[2019-12-20] MEDS ORDERED: FLEET ENEMA ADULT 1 EA BTL PR PRN (11:30)
--- OUTSIDE RECORDS SUMMARY | 2019-12-20 12:40 | XMS REPORT ---
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[employer] [facility] [place] Address [address] [place] [address] Care Team Providers Care Hr Coordinator Name Role Phone NO, LOCAL PHYSICIAN Unavailable Unavailable RANDY PARIKH Unavailable Unavailable Unavailable Avel Tom Unavailable Unavailable RANDY PARIKH MD Unavailable Unavailable RANDY PARIKH MD Unavailable Unavailable LEIF ALSTON, MARIELLA Pulido Unavailable Unavailable Sita'HAKAN BERNAL SPECIAL EDUCATION CURRICULUM SPECIALIST Unavailable Unavailable AVEL TOM Unavailable Unavailable Unavailable Unavailable Unavailable Unavailable Unavailable Unavailable Unavailable Unavailable Allergies No Information Medications No Information Problems Active Problems Problem Normalized Date Last Normalized Normalized Provider Fa cility Classification Problem(s) Recorded Problem Problem Sta tus Duration Blindness and Diplopia Episodic Active MARIELLA YADAV [facility] Via vision defects , MD Cheema (1 source.) [facility] () Esophageal Esophageal Chronic Active MARIELLA LEIF [facility] V ia disorders (1 reflux , MD Cheema source.) [facility] ([id number]) 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 [facility] V ia lipid hypercholester , MD Cheema metabolism (1 [facility] source.) [place] ([address]) 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 [facility] Via disorders (6 goiter without , MD Cheema sources.) mention of [facility] thyrotoxic [place] crisis or ([address]) storm Translations: [ NONTOX MULTINODUL GOITER, IATROGEN HYPOTHYROID NEC, 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 Unspecified Chronic Active RANDY PARIKH [facility] V ia hypertension essential , MD Cheema (2 sources.) hypertension [facility] (50071) Past or Other Problems Problem Normalized Date Last Normalized Normalized Provider Fa cility Classification Problem(s) Recorded Problem Problem Sta tus Duration Abdominal pain Epigastric Episodic Completed HAKAN O'DELL [facility] Via (2 sources.) pain [facility] (14608) Other Follow-up Episodic Completed MARIELLA YADAV [facility] Via aftercare (1 examination, , [facility] source.) following Hospital - other surgery [place] ([address]) Other lower Shortness of Episodic Completed HAKAN CORDERO H V ia respiratory breath [facility] disease (2 Hospital - sources.) [place] ([address]) Procedures The data below is from unstructured sourcesNo known history of procedures. Immunizations Normalized Immunization Date Notes Care Provider Facili ty Immunization influenza, high dose 06-30-2019 no information no name Co [facility] seasonal, [facility] preservative-free - [facility] ([id number]) pneumococcal 05-02-2015 no information no name [facility] conjugate vaccine, [facility] (23220[facility] pneumococcal 06-30-2019 no information no name [facility] polysaccharide [facility] vaccine, 23 valent - [facility] (65778) zoster vaccine, live 08-23-2012 no information no name Co [facility] (98304) Results Test Name Value Interpretation Reference Range Date Time Fa cility (Normalized) (Normalized) (Medline Reference) laboratory on 2019-07-01 Albumin 3.9 g/dL (N) 3.4 - 5.4 g/dL [facility] [Mass/Vol] [facility] (89605) Albumin/Globulin 1.6 {ratio} (N) 1 - 2.5 {ratio} Comm [facility] [Mass ratio] [facility] (53871) ALP [Catalytic 82 U/L (N) 44 - 147 U/L [facility] Health activity/Vol] [facility] (37538) ALT [Catalytic 10 U/L (N) 4 - 40 U/L Community ealt activity/Vol] [facility] (89663) AST [Catalytic 13 U/L (N) 10 - 34 U/L [facility] Health activity/Vol] [facility] (06276) Basophils (Bld) 0.032 10*3/uL (N) 0 - 0.3 10*3/uL [facility] [#/Vol] [facility] (82812) Basophils/100 0.6 % (N) 0.5 - 1 % [facility] WBC (Bld) [facility] (75064) Bilirubin 0.5 mg/dL (N) 0.1 - 1.2 mg/dL [facility] Health [Mass/Vol] [facility] (42758) Calcium 9.3 mg/dL (N) 8.5 - 10.2 mg/dL [facility] [Mass/Vol] [facility] (71542) Chloride 100 mmol/L (N) 95 - 106 mmol/L [facility] Health [Moles/Vol] [facility] (29562) Cholesterol 233 mg/dL (H) 180 - 200 mg/dL [facility] [Mass/Vol] [facility] (00852) Cholesterol in 57 mg/dL (N) [facility] h HDL [Mass/Vol] [facility] (74271) Cholesterol in 154 mg/dL (H) 0 - 100 mg/dL [facility] LDL [Mass/Vol] [facility] (81739) Cholesterol non 176 mg/dL (H) [facility] HDL [Mass/Vol] [facility] (58052) Cholesterol.tota 4.1 {ratio} (N) [facility] Hea lth l/Cholesterol in [facility] HDL [Mass ratio] [facility] (04629) CO2 [Moles/Vol] 29 mmol/L (N) 23 - 29 mmol/L [facility] (66314) Creatinine 0.98 mg/dL (H) [facility] [Mass/Vol] [facility] (68772) Eosinophils 0.081 10*3/uL (N) 0.05 - 0.5 [facility] (Bld) [#/Vol] 10*3/uL [facility] (54322) Eosinophils/100 1.5 % (N) 1 - 4 % [facility] Health WBC (Bld) [facility] (68023) Erythrocyte 12.9 % (N) 11.6 - 14.6 % Community H ealth distribution [facility] width (RBC) [facility] [Ratio] (48190) GFR/1.73 sq M 60 (N) 90 - 120 Community [facility] alth predicted among mL/min/{1.73_m2} mL/min/{1.73_m2} Center o f [facility] blacks MDRD [facility] (S/P/Bld) [Vol (53618) rate/Area] GFR/1.73 sq 52 (L) 90 - 120 [facility]al th M.predicted MDRD mL/min/{1.73_m2} mL/min/{1.73_m2} [facility] (S/P/Bld) [Vol [facility] rate/Area] (89419) Globulin (S) 2.5 g/dL (N) 2 - 3.5 g/dL [facility] [Mass/Vol] [facility] (47597) Glucose 112 mg/dL (H) 60 - 125 mg/dL [facility] [Mass/Vol] [facility] (55725) Hematocrit (Bld) 41.8 % (N) 36.1 - 50.3 % [facility] [Volume [facility]] [facility] (35673) Hemoglobin (Bld) 13.8 g/dL (N) 12.1 - 17.2 g/dL [facility] [Mass/Vol] [facility] (48567) Lymphocytes 1.544 10*3/uL (N) 0.9 - 2.9 [facility] He alth (Bld) [#/Vol] 10*3/uL [facility] (88257) Lymphocytes/100 28.6 % (N) 20 - 40 % [facility] WBC (Bld) [facility] (52197) MCH (RBC) 30.9 pg (N) 27 - 31 pg [facility] [Entitic mass] [facility] (09767) MCHC (RBC) 33.0 g/dL (N) 32 - 36 g/dL [facility] [Mass/Vol] [facility] (80921) MCV (RBC) 93.7 fL (N) 80 - 100 fL [facility] [Entitic vol] [facility] (42352) Monocytes (Bld) 0.373 10*3/uL (N) 0.3 - 0.9 [facility] Health [#/Vol] 10*3/uL [facility] (92450) Monocytes/100 6.9 % (N) 2 - 8 % [facility] WBC (Bld) [facility] (08388) Neutrophils 3.37 10*3/uL (N) 1.7 - 7 10*3/uL [facility] Health (Bld) [#/Vol] [facility] (82985) Neutrophils/100 62.4 % (N) 40 - 60 % [facility] WBC (Bld) [facility] (94965) Platelet mean 9.1 fL (N) 7.2 - 11.7 fL [facility] volume (Bld) [facility] [Entitic vol] [facility] (40551) Platelets (Bld) 244 10*3/uL (N) 150 - 450 [facility] [#/Vol] 10*3/uL [facility] (46832) Potassium 4.2 mmol/L (N) 3.7 - 5.2 mmol/L [facility] [Moles/Vol] [facility] (85642) Protein 6.4 g/dL (N) 6.4 - 8.3 g/dL [facility] [Mass/Vol] [facility] (88244) RBC (Bld) 4.46 10*6/uL (N) 4.2 - 6.1 [facility] Hea lth [#/Vol] 10*6/uL [facility] (85330) Sodium 137 mmol/L (N) 135 - 145 mmol/L [facility] [Moles/Vol] [facility] (60333) Triglyceride 103 mg/dL (N) 0 - 150 mg/dL [facility] [Mass/Vol] [facility] (09822) TSH Qn 0.75 m[IU]/L (N) 0.4 - 4 m[IU]/L [facility] (59145) Urea nitrogen 16 mg/dL (N) 7 - 20 mg/dL [facility] [Mass/Vol] [facility] (49743) Urea 16 mg/mg (N) 6 - 22 mg/mg [facility] nitrogen/Creatin [facility] [Mass ratio] [facility] (52517) WBC (Bld) 5.4 10*3/uL (N) 3.5 - 10.5 [facility] [#/Vol] 10*3/uL [facility] (53648) laboratory on 2019-02-25 Albumin 4.2 g/dL (N) 3.4 - 5.4 g/dL [facility] Health [Mass/Vol] [facility] (90108) Albumin/Globulin 1.5 {ratio} (N) 1 - 2.5 {ratio} [facility] [Mass ratio] [facility] (46583) ALP [Catalytic 76 U/L (N) 44 - 147 U/L [facility] activity/Vol] [facility] (42914) ALT [Catalytic 10 U/L (N) 4 - 40 U/L Community ealth activity/Vol] [facility] (83884) AST [Catalytic 15 U/L (N) 10 - 34 U/L [facility] Health activity/Vol] [facility] (42431) Basophils (Bld) 0.032 10*3/uL (N) 0 - 0.3 10*3/uL [facility] [#/Vol] [facility] (76278) Basophils/100 0.5 % (N) 0.5 - 1 % [facility] WBC (Bld) [facility] (06035) Bilirubin 0.5 mg/dL (N) 0.1 - 1.2 mg/dL [facility] Health [Mass/Vol] [facility] (59063) Calcium 9.8 mg/dL (N) 8.5 - 10.2 mg/dL [facility] [Mass/Vol] [facility] (93615) Chloride 97 mmol/L (L) 95 - 106 mmol/L [facility] [Moles/Vol] [facility] (16807) CO2 [Moles/Vol] 29 mmol/L (N) 23 - 29 mmol/L [facility] (91801) Creatinine 0.79 mg/dL (N) [facility] Healt h [Mass/Vol] [facility] (51722) Eosinophils 0.013 10*3/uL (L) 0.05 - 0.5 [facility] He alth (Bld) [#/Vol] 10*3/uL [facility] (17105) Eosinophils/100 0.2 % (N) 1 - 4 % [facility] WBC (Bld) [facility] (26574) Erythrocyte 13.2 % (N) 11.6 - 14.6 % [facility] ealth distribution [facility] width (RBC) [facility] [Ratio] (48131) Free T4 1.8 ng/dL (N) 0.9 - 2.2 ng/dL [facility] [Mass/Vol] [facility] (47903) GFR/1.73 sq M 78 (N) 90 - 120 [facility] al[facility] predicted among mL/min/{1.73_m2} mL/min/{1.73_m2} [place] o f [facility] blacks MDRD [facility] (S/P/Bld) [Vol (15125) rate/Area] GFR/1.73 sq 67 (N) 90 - 120 [facility] M.predicted MDRD mL/min/{1.73_m2} mL/min/{1.73_m2} [facility] (S/P/Bld) [Vol [facility] rate/Area] (13923) Globulin (S) 2.8 g/dL (N) 2 - 3.5 g/dL [facility] [Mass/Vol] [facility] (25332) Glucose 91 mg/dL (N) 60 - 125 mg/dL [facility] [Mass/Vol] [facility] (26370) Hematocrit (Bld) 43.9 % (N) 36.1 - 50.3 % [facility] [Volume [facility]] [facility] (73150) Hemoglobin (Bld) 14.3 g/dL (N) 12.1 - 17.2 g/dL [facility] [Mass/Vol] [facility] (83685) Lymphocytes 1.312 10*3/uL (N) 0.9 - 2.9 [facility] alth (Bld) [#/Vol] 10*3/uL [facility] (06358) Lymphocytes/100 20.5 % (N) 20 - 40 % [facility] Health WBC (Bld) [facility] (83088) MCH (RBC) 30.5 pg (N) 27 - 31 pg [facility] [Entitic mass] [facility] (28337) MCHC (RBC) 32.6 g/dL (N) 32 - 36 g/dL [facility] He alth [Mass/Vol] [facility] (97389) MCV (RBC) 93.6 fL (N) 80 - 100 fL [facility] Hea lth [Entitic vol] [facility] (97577) Monocytes (Bld) 0.627 10*3/uL (N) 0.3 - 0.9 [facility] [#/Vol] 10*3/uL [facility] (32473) Monocytes/100 9.8 % (N) 2 - 8 % [facility] He alth WBC (Bld) [facility] (30716) Natriuretic 58 pg/mL (N) 0 - 100 pg/mL [facility] ealth peptide B (Bld) [facility] [Mass/Vol] [facility] (25519) Neutrophils 4.416 10*3/uL (N) 1.7 - 7 10*3/uL [facility] (Bld) [#/Vol] [facility] (79710) Neutrophils/100 69 % (N) 40 - 60 % [facility] WBC (Bld) [facility] (66734) Platelet mean 8.8 fL (N) 7.2 - 11.7 fL [facility] Health volume (Bld) [facility] [Entitic vol] [facility] (41370) Platelets (Bld) 333 10*3/uL (N) 150 - 450 [facility] Health [#/Vol] 10*3/uL [facility] (03471) Potassium 3.9 mmol/L (N) 3.7 - 5.2 mmol/L [facility] [Moles/Vol] [facility] (54792) Protein 7.0 g/dL (N) 6.4 - 8.3 g/dL [facility] [Mass/Vol] [facility] (70764) RBC (Bld) 4.69 10*6/uL (N) 4.2 - 6.1 [facility] [#/Vol] 10*6/uL [facility] () Sodium 135 mmol/L (N) 135 - 145 mmol/L [facility] [Moles/Vol] [facility] () TSH Qn 4.57 m[IU]/L (H) 0.4 - 4 m[IU]/L [facility] () Urea nitrogen 14 mg/dL (N) 7 - 20 mg/dL [facility] [Mass/Vol] [facility] () Urea NOT APPLICABLE (no code) [facility] h nitrogen/Creatin [facility] [Mass ratio] [facility] () WBC (Bld) 6.4 10*3/uL (N) 3.5 - 10.5 [facility] Heal th [#/Vol] 10*3/uL [facility] () Vital Signs The data below is from unstructured sources Vital Response Date/Time Temperature (Fahrenheit) 97.9 degree s F (97.6 - 99.5) Temperature (Calculated Celsius) 36. 24230 degrees C (36.4 - 37.5) Temperature Source Tympanic Pulse Rate (adult) 94 bpm (60 - 90) Respiratory Rate 20 bpm (12 - 24) O2 Sat by Pulse Oximetry 97 % (88 - 100) Blood Pressure 152/90 mm Hg Pain Pain Intensity 0 Height (Feet) 5 feet Height (Inches) 3.00 inches Height (Calculated Centimeters) 160. 523657 cm Weight (Pounds) 143 pounds Weight (Ounces) 0.0 oz Weight (Calculated Grams) 17801.710 gm Weight (Calculated Kilograms) 64.863 710 kilograms Calculated BMI 25.33 Vital Response Date/Time Temperature (Fahrenheit) 97.6 degree s F (97.6 - 99.5) Temperature (Calculated Celsius) 36. 27752 degrees C (36.4 - 37.5) Temperature Source Temporal Pulse Rate (adult) 99 bpm (60 - 90) Respiratory Rate 16 bpm (12 - 24) O2 Sat by Pulse Oximetry 98 % (88 - 100) Blood Pressure 167/85 mm Hg Pain Pain Intensity 0 Height (Feet) 5 feet Height (Inches) 3.00 inches Height (Calculated Centimeters) 160. 367010 cm Weight (Pounds) 140 pounds Weight (Ounces) 0.0 oz Weight (Calculated Grams) 85359.932 gm Weight (Calculated Kilograms) 63.502 932 kilograms Calculated BMI 24.80 Vital Response Date/Time Temperature (Fahrenheit) 97.6 degree s F (97.6 - 99.5) Temperature (Calculated Celsius) 36. 63730 degrees C (36.4 - 37.5) Temperature Source Temporal Pulse Rate (adult) 99 bpm (60 - 90) Respiratory Rate 16 bpm (12 - 24) O2 Sat by Pulse Oximetry 98 % (88 - 100) Blood Pressure 167/85 mm Hg Pain Pain Intensity 0 Height (Feet) 5 feet Height (Inches) 3.00 inches Height (Calculated Centimeters) 160. 100290 cm Weight (Pounds) 140 pounds Weight (Ounces) 0.0 oz Weight (Calculated Grams) 84126.932 gm Weight (Calculated Kilograms) 63.502 932 kilograms Calculated BMI 24.80 Interventions No Information Plan of Treatment The data below is from unstructured sources Discharge Date 02/08/14 3:20pm Disposition 30 STILL A PATIENT Instructions/Education Provided Hypo natremia (DC) Acute Abdominal Pain (ED) Forms Provided Follow-Up Appts. PDI Medical Prescriptions See Medications Sectio n Care Plan and Goals PT NEEDS AN APPT WITH DR. YADAV IN 2 WEEKS FROM DISCHARGE - DIAGNOSIS OF THYROID NODULE. PT NEEDS APPT WITH DR. PARIKH IN 2-3 WEEKS FROM DISCHARGE - NURSING STAFF TO MAKE THESE APPTS FOR THE PATIENT BEFORE SHE IS DISCHARGED TO HOME Discharge Date 03/23/14 2:15pm Disposition 30 STILL A PATIENT Instructions/Education Provided Tota l Thyroidectomy (DC) Forms Provided PDI Surgical Prescriptions See Medications Sectio n Referrals MARIELLA YADAV MD (Unspe cified) 2 Weeks Address: [address] [place] [id number] Discharge Date 03/23/14 2:15pm Disposition 30 STILL A PATIENT Instructions/Education Provided Tota l Thyroidectomy (DC) Forms Provided PDI Surgical Prescriptions See Medications Sectio n Referrals MARIELLA YADAV MD (Unspe cified) 2 Weeks [facility] [place] [id number] Goals No Information Social History No Information Functional Status The data below is from unstructured sources Query Response Date Volodymyr rded Patient Orientation Person Place Time Situation February 08, 2014 3:39pm Comprehension Ability Understands Co ncepts February 08, 2014 8:00am Query Response Date Volodymyr rded Patient Orientation Person Place Time Situation Normal For Age March 23, 2014 2:49pm Query Response Date Volodymyr rded Patient Orientation Person Place Time Situation Normal For Age March 23, 2014 2:49pm Mental Status No Information Encounters Encounter Normalized Encounter Encounter Diagnosis Care Provi meet Organization Date Type 02-04-2014 Evaluation and no information no name no organ ization name - management of 02-08-2014 inpatient 07-01-2019 Patient encounter no information no name no or ganization name procedure 02-25-2019 Patient encounter no information no name no or ganization name procedure 02-25-2019 Patient encounter no information no name no or ganization name procedure 01-26-2019 Patient encounter no information no name no or ganization name procedure 01-24-2019 Patient encounter no information no name no or ganization name procedure 01-24-2019 Patient encounter no information no name no or ganization name procedure 03-22-2014 Patient encounter no information no name no or ganization name - procedure 03-23-2014 no information Pre-operative no name no organization name examination, unspecified Medical Equipment No Information Payers No Information Advance Directives Directive Response Recor ded Date/Time Advance Directives No 8:56pm Health Care Power of Wound Care Coordinator No 02/04/14 8:56pm Organ Donor No 02/04/14 8:56pm Resuscitation Status Full Code 02/04/14 8:56pm Resuscitation Status Full Code 02/04/14 10:19pm Directive Response Recor ded Date/Time Advance Directives Yes 0 03/22/14 1:26pm Health Care Power of Wound Care Coordinator No 03/22/14 1:26pm Organ Donor No 03/22/14 1:26pm Directive Response Recor ded Date/Time Advance Directives Yes 0 03/22/14 1:26pm Health Care Power of Wound Care Coordinator No 03/22/14 1:26pm Organ Donor No 03/22/14 1:26pm Resuscitation Status Full Code 03/22/14 1:26pm Resuscitation Status Full Code 03/22/14 10:55am Discharge Instructions Patient Instructions Physician Instructions New, Converted, or Re-newed RX: Call to Patient Pharmacy Plan of Care/Instructions/FU: PT NEEDS AN APPT WITH DR. YADAV IN 2 WEEKS FROM DISCHARGE - DIAGNOSIS OF THYROID NODULE. PT NEEDS APPT WITH DR. PARIKH IN 2-3 WEEKS FROM DISCHARGE - NURSING STAFF TO MAKE THESE APPTS FOR THE PATIENT BEFORE SHE IS DISCHARGED TO HOME Activity as Tolerated: Yes Dicharge Diet: Regular Diet Return to the hospital for: CHEST PAIN, SHORTNESS OF BREATH, DIZZINESS, CONFUSION, SIGNS OR SYMPTOMS OF A LIFETHREATENING ILLNESS OR INJURY No hospital discharge instructions.No hospital discharge instructions. Additional Source Comments This clinical document has been generated using [employer] software that has been certified by the Office of the National Coordinator for Health Information Technology (ONC 15.99.04.3023.Diam.31.00.0.139526) and the National Committee for [employer] T[employer] (NCQA, as an eMeasure certified technology). FOR RECORDS PERTAINING TO PATIENTS WHO ARE OR HAVE BEEN ENROLLED IN A CHEMICAL D EPENDENCY/SUBSTANCE ABUSE PROGRAM, SOME INFORMATION MAY BE OMITTED. This clinica l summary was aggregated from multiple sources. Caution should be exercised in using it in the provision of clinical care. This summary normalizes information from multiple sources, and as a consequence, information in this document may ma terially change the coding, format and clinical context of patient data. In ivonne tion, data may be omitted in some cases. CLINICAL DECISIONS SHOULD BE BASED ON T HE PRIMARY CLINICAL RECORDS. [employer] provides no warranty or guara ntee of the accuracy or completeness of information in this document.The followi ng information is based on time limited clinical information
--- OUTSIDE RECORDS SUMMARY | 2019-12-20 12:41 | XMS REPORT | Continuity of Care Document ---
Author Organization Unknown Address Unknown Phone Unavailable Allergies Active Description Code Type Severity Reaction Onset Reported/Identified Relationship to Patient Clinical Status Yes atenolol Drug N/A N/A Yes NKA Drug N/A N/A Yes atenolol [id number] Drug Allergy Moderate RASH 02/04/2014 Medications There is no data. 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 03/23/2014 LEIF ALSTON, MARIELLA Pulido Ot 368.2 DIPLOPIA 03/23/2014 MARIELLA YADAV MD Ot 401.9 HYPERTENSION NOS 03/23/2014 LEIF ALSTON, MARIELLA Pulido Ot 530.81 ESOPHAGEAL REFLUX 01/13/2015 [place] Final 401.9 Unspecified Essential Hypertension 01/13/2015 [place] Admitting 788.41 Urinary Frequency 01/13/2015 [place] Final 788.64 Urinary Hesitancy 02/25/2019 LEIF ALSTON, MARIELLA Pulido Ot 241.0 NONTOX UNINODULAR GOITER 02/25/2019 MARIELLA YADAV MD Ot 241.0 NONTOX UNINODULAR GOITER 02/25/2019 MARIELLA YADAV MD Ot 241.0 NONTOX UNINODULAR GOITER 02/25/2019 MARIELLA YADAV MD Ot V72.84 EXAM PRE-OPERATIVE NOS 02/25/2019 LEIF ALSTON, MARIELLA Pulido Ot V67.09 SURGERY FOLLOW-UP, OTHER SURGERY 03/02/2019 O'DELL, HAKAN K UROLOGY TEACHER Ot R06.02 SHORTNESS OF BREATH 03/02/2019 O'DELL, HAKAN K UROLOGY TEACHER Ot R10.13 EPIGASTRIC PAIN 03/02/2019 O'DELL, HAKAN K UROLOGY TEACHER Ot R53 .1 WEAKNESS 03/02/2019 O'DELL, HAKAN K UROLOGY TEACHER Ot R53.83 OTHER FATIGUE 03/18/2019 O'DELL, HAKAN K UROLOGY TEACHER Ot R06.02 SHORTNESS OF BREATH 03/18/2019 O'DELL, HAKAN K UROLOGY TEACHER Ot R10.13 EPIGASTRIC PAIN 03/18/2019 O'DELL, HAKAN K UROLOGY TEACHER Ot R53 .1 WEAKNESS 03/18/2019 O'DELL, HAKAN K UROLOGY TEACHER Ot R53.83 OTHER FATIGUE 03/31/2019 O'DELL, HAKAN K UROLOGY TEACHER Ot R06.02 SHORTNESS OF BREATH 03/31/2019 O'DELL, HAKAN K UROLOGY TEACHER Ot R10.13 EPIGASTRIC PAIN 03/31/2019 O'DELL, HAKAN K UROLOGY TEACHER Ot R53 .1 WEAKNESS 03/31/2019 O'DELL, HAKAN K UROLOGY TEACHER Ot R53.83 OTHER FATIGUE Procedures There is no data. Results Test Result Range TSH w/ FREE T4 - 02/25/19 14:25 TSH 4.57 mIU/L 0.40-4.50 T4, FREE 1.8 ng/dL 0.8-1.8 BNP - 02/25/19 14:25 B TYPE NATRIURETIC PEPTIDE (BNP) 58 pg/mL <100 LIPID PANEL - 07/01/19 09:20 CHOLESTEROL, TOTAL 233 mg/dL <200 HDL CHOLESTEROL 57 mg/dL >50 TRIGLYCERIDES 103 mg/dL <150 LDL-CHOLESTEROL 154 mg/dL (calc) NRG CHOL/HDLC RATIO 4.1 (calc) <5.0 NON HDL CHOLESTEROL 176 mg/dL (calc) <13 0 CMP - 07/01/19 09:20 GLUCOSE 112 mg/dL 65-99 UREA NITROGEN (BUN) 16 mg/dL 7-25 CREATININE 0.98 mg/dL 0.60-0.88 eGFR NON-AFR. MACANESE 52 mL/min/1.73m2 > OR = 60 eGFR 60 mL/min/1.73m2 > OR = 60 BUN/CREATININE RATIO 16 (calc) 6-22 SODIUM 137 mmol/L 135-146 POTASSIUM 4.2 mmol/L 3.5-5.3 CHLORIDE 100 mmol/L 98-110 CARBON DIOXIDE 29 mmol/L 20-32 CALCIUM 9.3 mg/dL 8.6-10.4 PROTEIN, TOTAL 6.4 g/dL 6.1-8.1 ALBUMIN 3.9 g/dL 3.6-5.1 GLOBULIN 2.5 g/dL (calc) 1.9-3.7 ALBUMIN/GLOBULIN RATIO 1.6 (calc) 1.0-2. 5 BILIRUBIN, TOTAL 0.5 mg/dL 0.2-1.2 ALKALINE PHOSPHATASE 82 U/L 33-130 AST 13 U/L 10-35 ALT 10 U/L 6-29 CBC - 07/01/19 09:20 WHITE BLOOD CELL COUNT 5.4 Thousand/uL 3 .8-10.8 RED BLOOD CELL COUNT 4.46 Million/uL 3.8 0-5.10 HEMOGLOBIN 13.8 g/dL 11.7-15.5 HEMATOCRIT 41.8 % 35.0-45.0 MCV 93.7 fL 80.0-100.0 MCH 30.9 pg 27.0-33.0 MCHC 33.0 g/dL 32.0-36.0 RDW 12.9 % 11.0-15.0 PLATELET COUNT 244 Thousand/uL 140-400 MPV 9.1 fL 7.5-12.5 ABSOLUTE NEUTROPHILS 3370 cells/uL 1500- 7800 ABSOLUTE LYMPHOCYTES 1544 cells/uL 850-3 900 ABSOLUTE MONOCYTES 373 cells/uL 200-950 ABSOLUTE EOSINOPHILS 81 cells/uL 15-500 ABSOLUTE BASOPHILS 32 cells/uL 0-200 NEUTROPHILS 62.4 % NRG LYMPHOCYTES 28.6 % NRG MONOCYTES 6.9 % NRG EOSINOPHILS 1.5 % NRG BASOPHILS 0.6 % NRG TSH - 07/01/19 09:20 TSH 0.75 mIU/L 0.40-4.50 Arterial blood gas measurement - 0 20:03 Blood pCO2 40 mm[Hg] 35-45 Blood pO2 90 mm[Hg] 79-93 Arterial blood bicarbonate measurement (moles/volume) 27 mmol/L 23-27 Arterial blood base excess by calculation 3.4 mmol /L -2.5-2.5 Arterial blood oxygen saturation measurement 96 % 94-100 * Inhaled oxygen flow rate RA NRG Arterial blood pH measurement with patient temperature correction 7.44 7.37-7.43 Arterial blood carbon dioxide, total measurement (mole s/volume) 28.6 mmol/L 21.0-31.0 Body site L WRIST NRG Assessment of wrist artery patency prior to arterial p uncture YES-POS NRG Setting of ventilation mode NO NR G Measurement of body temperature 36.4 NRG Complete blood count (CBC) with automate d white blood cell (WBC) differential - 12/19/19 20:03 Blood leukocytes automated count (number/volume) 6.7 10*3/uL 4.3-11.0 Blood erythrocytes automated count (number/volume) 4.73 10*6/uL 4.35-5.85 Venous blood hemoglobin measurement (mass/volume) 14.4 g/dL 11.5-16.0 Blood hematocrit (volume fraction) 43 % 35-52 Automated erythrocyte mean corpuscular volume 91 [ foz_us] 80-99 Automated erythrocyte mean corpuscular h emoglobin (mass per erythrocyte) 30 pg 25-34 Automated erythrocyte mean corpuscular h emoglobin concentration measurement (mass/volume) 33 g/dL 32-36 Automated erythrocyte distribution width ratio 13. 4 % 10.0- 14.5 Automated blood platelet count (count/volume) 273 10*3/uL 130-400 Automated blood platelet mean volume measurement 8.5 [foz_us] 7.4-10.4 Automated blood neutrophils/100 leukocytes 67 % 42-75 Automated blood lymphocytes/100 leukocytes 23 % 12-44 Blood monocytes/100 leukocytes 9 % 0-12 Automated blood eosinophils/100 leukocytes 1 % 0-10 Automated blood basophils/100 leukocytes 0 % 0-10 Blood neutrophils automated count (number/volume) 4.4 10*3 1.8-7.8 Blood lymphocytes automated count (number/volume) 1.5 10*3 1.0-4.0 Blood monocytes automated count (number/volume) 0. 6 10*3 0.0-1.0 Automated eosinophil count 0.1 10*3/uL 0 .0-0.3 Automated blood basophil count (count/volume) 0.0 10*3/uL 0.0-0.1 Blood lactic acid measurement (moles/vol ume) - 12/19/19 20:03 Blood lactic acid measurement (moles/volume) 1.19 mmol/L 0.50-2.00 PT panel in platelet poor plasma by coag ulation assay - 12/19/19 20:03 Prothrombin time (PT) in platelet poor plasma by coagu lation assay 12.6 s 12.2-14.7 INR in platelet poor plasma or blood by coagulation as say 0.9 0.8-1.4 Activated partial thromboplastin time (a PTT) in platelet poor plasma bycoagulation assay - 12/19/19 20:03 Activated partial thromboplastin time (a PTT) in platelet poor plasma bycoagulation assay 28 s 24-35 Comprehensive metabolic panel - 12/19/19 20:03 Serum or plasma sodium measurement (moles/volume) 134 mmol/L 135-145 Serum or plasma potassium measurement (moles/volume) 4.2 mmol/L 3.6-5.0 Serum or plasma chloride measurement (moles/volume) 99 mmol/L 98-107 Carbon dioxide 25 mmol/L 21-32 Serum or plasma anion gap determination (moles/volume) 10 mmol/L 5-14 Serum or plasma urea nitrogen measurement (mass/volume ) 18 mg/dL 7-18 Serum or plasma creatinine measurement (mass/volume) 0.84 mg/dL 0.60-1.30 Serum or plasma urea nitrogen/creatinine mass ratio 21 NRG Serum or plasma creatinine measurement w ith calculation of estimated glomerular filtration rate > NRG Serum or plasma glucose measurement (mass/volume) 124 mg/dL 70-105 Serum or plasma calcium measurement (mass/volume) 9.4 mg/dL 8.5-10.1 Serum or plasma total bilirubin measurement (mass/volu me) 0.3 mg/dL 0.1-1.0 Serum or plasma alkaline phosphatase ankush surement (enzymatic activity/volume) 76 U/L 40-136 Serum or plasma aspartate aminotransfera se measurement (enzymatic activity/volume) 19 U/L 5-34 Serum or plasma alanine aminotransferase measurement (enzymatic activity/volume) 7 U/L 0-55 Serum or plasma protein measurement (mass/volume) 7.6 g/dL 6.4-8.2 Serum or plasma albumin measurement (mass/volume) 4.3 g/dL 3.2-4.5 CALCIUM CORRECTED 9.2 mg/dL 8.5-10.1 Serum or plasma troponin i.cardiac measu rement (mass/volume) - 12/19/19 20:03 Serum or plasma troponin i.cardiac measurement (mass/v olume) < ng/mL <0.028 Serum or plasma lithium measurement (mol es/volume) - 12/19/19 20:03 BNP PT 56.5 pg/mL <100.0 Complete urinalysis with reflex to cultu re - 12/19/19 20:49 Urine color determination YELLOW NRG Urine clarity determination CLEAR NR G Urine pH measurement by test strip 7.0 5-9 Specific gravity of urine by test strip 1.015 1.016-1.022 Urine protein assay by test strip, semi-quantitative NEGATIVE NEGATIVE Urine glucose detection by automated test strip NE GATIVE NEGATIVE Erythrocytes detection in urine sediment by light micr oscopy 1+ NEGATIVE Urine ketones detection by automated test strip TR NOA NEGATIVE Urine nitrite detection by test strip NEGATIVE NEGATIVE Urine total bilirubin detection by test strip NEGA TIVE NEGATIVE Urine urobilinogen measurement by automated test strip (mass/volume) 0.2 mg/dL < = 1.0 Urine leukocyte esterase detection by dipstick NEG ATIVE NEGATIVE Automated urine sediment erythrocyte cou nt by microscopy (number/high power field) [HPF] NRG Automated urine sediment leukocyte count by microscopy (number/high power field) NONE NRG Bacteria detection in urine sediment by light microsco py NEGATIVE NRG Squamous epithelial cells detection in u rine sediment by light microscopy RARE NRG Crystals detection in urine sediment by light microsco py NONE NRG Casts detection in urine sediment by light microscopy NONE NRG Mucus detection in urine sediment by light microscopy NEGATIVE NRG Complete urinalysis with reflex to culture CULTURE PENDING NRG Complete blood count (CBC) with automate d white blood cell (WBC) differential - 12/20/19 02:40 Blood leukocytes automated count (number/volume) 7.4 10*3/uL 4.3-11.0 Blood erythrocytes automated count (number/volume) 4.62 10*6/uL 4.35-5.85 Venous blood hemoglobin measurement (mass/volume) 14.2 g/dL 11.5-16.0 Blood hematocrit (volume fraction) 42 % 35-52 Automated erythrocyte mean corpuscular volume 91 [ foz_us] 80-99 Automated erythrocyte mean corpuscular h emoglobin (mass per erythrocyte) 31 pg 25-34 Automated erythrocyte mean corpuscular h emoglobin concentration measurement (mass/volume) 34 g/dL 32-36 Automated erythrocyte distribution width ratio 13. 3 % 10.0- 14.5 Automated blood platelet count (count/volume) 284 10*3/uL 130-400 Automated blood platelet mean volume measurement 8.7 [foz_us] 7.4-10.4 Automated blood neutrophils/100 leukocytes 65 % 42-75 Automated blood lymphocytes/100 leukocytes 24 % 12-44 Blood monocytes/100 leukocytes 9 % 0-12 Automated blood eosinophils/100 leukocytes 1 % 0-10 Automated blood basophils/100 leukocytes 0 % 0-10 Blood neutrophils automated count (number/volume) 4.8 10*3 1.8-7.8 Blood lymphocytes automated count (number/volume) 1.8 10*3 1.0-4.0 Blood monocytes automated count (number/volume) 0. 7 10*3 0.0-1.0 Automated eosinophil count 0.1 10*3/uL 0 .0-0.3 Automated blood basophil count (count/volume) 0.0 10*3/uL 0.0-0.1 Comprehensive metabolic panel - 12/20/19 02:40 Serum or plasma sodium measurement (moles/volume) 136 mmol/L 135-145 Serum or plasma potassium measurement (moles/volume) 4.2 mmol/L 3.6-5.0 Serum or plasma chloride measurement (moles/volume) 101 mmol/L 98-107 Carbon dioxide 24 mmol/L 21-32 Serum or plasma anion gap determination (moles/volume) 11 mmol/L 5-14 Serum or plasma urea nitrogen measurement (mass/volume ) 16 mg/dL 7-18 Serum or plasma creatinine measurement (mass/volume) 0.78 mg/dL 0.60-1.30 Serum or plasma urea nitrogen/creatinine mass ratio 21 NRG Serum or plasma creatinine measurement w ith calculation of estimated glomerular filtration rate > NRG Serum or plasma glucose measurement (mass/volume) 101 mg/dL 70-105 Serum or plasma calcium measurement (mass/volume) 9.4 mg/dL 8.5-10.1 Serum or plasma total bilirubin measurement (mass/volu me) 0.4 mg/dL 0.1-1.0 Serum or plasma alkaline phosphatase ankush surement (enzymatic activity/volume) 76 U/L 40-136 Serum or plasma aspartate aminotransfera se measurement (enzymatic activity/volume) 20 U/L 5-34 Serum or plasma alanine aminotransferase measurement (enzymatic activity/volume) 8 U/L 0-55 Serum or plasma protein measurement (mass/volume) 7.3 g/dL 6.4-8.2 Serum or plasma albumin measurement (mass/volume) 4.1 g/dL 3.2-4.5 CALCIUM CORRECTED 9.3 mg/dL 8.5-10.1 Encounters ACCT No. Visit Date/Time Discharge Status Pt. Type Provider Facility Loc./Unit Complaint [id number] 07/01/2019 09:15:00 07/01/2019 23:59: 59 CLS Outpatient [facility] [id number] 07/01/2019 09:15:00 Document Registration [id number] 02/25/2019 13:40:00 Document Registration [id number] 02/25/2019 14:21:00 019 23:59:59 CLS Outpatient HAKAN CORDERO APRN [facility] RAD FS R10.13 R53.83 R53.1 R06 .02 [id number] 04/14/2014 13:39:00 23:59:59 CLS Outpatient MARIELLA YADAV MD [facility] LAB TOTAL THYROIDECTOMY [id number] 03/22/2014 07:05:00 014 14:15:00 DIS Outpatient MARIELLA YADAV MD [facility] SDC THYROID NODULES [id number] 03/21/2014 10:47:00 014 23:59:59 CLS Outpatient MARIELLA YADAV MD [facility] PREOP THYROID NODULES [id number] 03/09/2014 13:30:00 014 23:59:59 CLS Outpatient MARIELLA YADAV MD [facility] RAD LEFT THYROID NODULE [id number] 02/23/2014 10:37:00 014 23:59:59 CLS Outpatient LEIF ALSTON, MARIELLA Pulido [facility] LAB THRYROID NODULES [id number] 02/04/2014 20:10:00 15:20:00 DIS Inpatient JL ALSTON, RANDY Chowdhury [facility] 4TH ACUTE HYPONATREMIA;WEAK NESS [id number] 12/19/2019 19:44:[address] Emergency ISAÍAS ALSTON, RALPH Marrufo [facility] ER SOB/DIFF SWALLOWING [id number] 01/13/2015 15:55:00 5 18:44:00 DIS Emergency Mendoza Barreto [facility] ER Genitourinary
--- OUTSIDE RECORDS SUMMARY | 2019-12-20 12:41 | XMS REPORT | Clinical Summary ---
Author Author [facility] Address Unknown Phone Unavailable Care Team Providers Care Binding Machine Operator Name Role Phone PCP Unavailable Allergies No Known Allergies Medications End Date Status Medication Sig Dispensed Refills Start Date Active methimazole (TAPAZOLE) 5 take 1 tablet 30 0 MG tablet (5MG) by 2 oral route every day Active simvastatin (ZOCOR) 40 MG take 1 tablet 0 06/19 tablet (40MG) by 0 oral route every day in the evening Active lisinopril take 1 tablet 0 (PRINIVIL,ZESTRIL) 5 MG (5MG) by 3 tablet oral route every day Active gabapentin (NEURONTIN) take 1 0 0 300 MG capsule capsule 0 (300MG) by oral route at bedtime daily Active .reconcile (MEDICATION No Sig 1 0 LIST IMPORTED) 3 Active Problems Problem Noted Date 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 Immunizations Name Administration Dates Next Due Influenza IIV3 PFree 06/02/2011 Family History Medical History Relation Name Comments Other Other Mother - Other Other Father - Other Other Family History Comm ents - granddaughters (daughter's daughters have hypothryoidi sm although her grandaughters' father had hypothyro idism) Relation Name Status Comments Father Alive Mother Alive Other Other Other Social History Date Tobacco Use Types Packs/Day Years Used Never Smoker Sex Assigned at Date Recorded Not on file Industry Job Start Date Occupation Not on file Not on file Not on file Travel End Travel History Travel Start No recent travel history available. Last Filed Vital Signs Reading Time Taken Comments Vital Sign 140/82 06/18/2011 1:14 PM [employer] Blood Pressure - - Pulse - - Temperature - - Respiratory Rate - - Oxygen Saturation - - Inhaled Oxygen Concentration 59.9 kg (132 lb) 06/18/2011 1:14 PM [employer] DEVELOP[employer]NA[employer] Weight 160 cm (5' 3") 03/06/2011 2:54 PM CDT Height 23.38 03/06/2011 2:54 PM CDT Body Mass Index Plan of Treatment Health Maintenance Due Date Last Done Comments DTaP,Tdap,and Td Vaccines 10/13/1950 (1 - Tdap) Zoster Recombinant 10/13/1981 Vaccine (RZV,Shingrix) (1 of 2 - [facility] 2 Dose Standard) Pneumo-Vaccine: 65+Yrs (1 10/13/1996 of 1 - PPSV23) Influenza Vaccine (Season 03/20/2020 06/02/2011 Ended) Pneumo-Vaccine: Peds (0-5 Aged Out No longer el igible based on patient's age to Yrs) & At-Risk Patients complete this topic (6-64 Yrs) Results Not on filefrom Last 3 Months
--- NOTE | 2019-12-20 13:36 | ST Cognitive Linguistic Eval ---
Speech Evaluation-General Medical Diagnosis Hypertensive Emergency, Angina Onset Date: Dec 19, 2019 Therapy Diagnosis Therapy Diagnosis: Cognitive-communication Referral Referring Physician: Dr. Peralta Medical History Pertinent Medical History: HTN, Parkinson's Reviewed History: Yes Social History Current Living Status: Alone Speech PLF-Current Status Prior Level of Function Patient lives home alone, however her son does live next door and frequently checks on her. She states her son does "everything" for me. Subjective Patient was pleasant and compliant for the cognitive assessment. Language Eval: Auditory Comprehends Simple Yes/No Ques: Functional Indent/Objects Multiple Rahman: Functional Ident/Pics in Multiple Rahman: Functional Follows 1-Step Commands: Functional Follows Complex Directions: Mild Follows General Conversations: Mild Patient participated in q/a, however she does require additional response time for most questions presented related to self and needs. Language Eval: Verbal Language Completes Spontaneous Greeting: Functional Produces Auto, Serial Info: Functional Imitates Simple Words/Phrases: Functional Word Finding: Mild Requests Basic Needs: Functional States Basic Personal Info: Mild Expresses Complex Ideas: Moderate Objective Cognitive Domain Attention: WNL Memory: Mild Problem Solving: Functional Executive Functions: Mild Visuospatial Skills: Moderate Composite Severity Rating: Mild Objective Formal/Standardized Tests [facility] Mental Status ([facility]) Results 23/30, Mild Neurocognitive Disorder range of function Oral Motor/Speech Production Within normal limits given processing time Impression Patient is a pleasant 89 y/o female who was admitted via ED due to Hypertensive Emergency and Angina. Patient was given the SLUMS with a score of 23/30 obtained. Patient's score is within the MNCD range of function. This score qualifies the patient for further ST services. ST services will focus on safety and independence in order to return home safely. Speech Patient Assess Expression of Ideas/Wants: Exhibits (3) Understanding Verbal Content: Usually Understands (3) Brief Interview-Mental Status: Yes Repetition of Three Words: Three (3) Temporal Orientation: Year: Correct (3) Temporal Orientation: Month: Accurate within 5 days(2) Temporal Orientation: Day: Correct (1) Recall : Wear to say "Sock": Yes,after cueing (1) Recall : Color: Yes, after cueing (1) Recall : Bed: Yes,after cueing (1) Memory/Recall Ability: Current season, That he or she is in a hsp/hsp unit Speech Short Term Goals Short Term Goals Short Term Goals 1) Patient will complete memory tasks related to her daily needs at 90% with minimal cuing. 2) Patient will complete problem solving tasks related to her daily needs at 90% with minimal cuing. 3) Patient will complete safety awareness tasks related to her daily needs at 90% with minimal cuing. Speech Inbound Sales Representative Goals Shelter Goals Patient will improve cognitive-communication necessary for safety and daily living tasks with minimal assist. Speech-Plan Patient/Family Goals Patient/Family Goals: Patient plans on returning home where she lives alone. Her son lives next door and attends to her needs. Treatment Plan Speech Therapy Treatment Plan: Continue Plan of Care Treatment Duration: Dec 30, 2019 Frequency: 5 times per week Estimated Hrs Per Day: .5 hour per day Rehab Potential: Fair Barriers to Learning: Patient's decreased cognitive status Pt/Family Agrees to Plan: Yes Safety Risks/Education Teaching Recipient: Patient Teaching Methods: Discussion Response to Teaching: Verbalize Understanding Education Topics Provided: Safety within her room and communication of wants/needs Time Speech Therapy Time In: 13:10 Speech Therapy Time Out: 13:25 Total Billed Time: 15 Billed Treatment Time 1, SPSNDCOMFAUSTO Ambrosio Dec 20, 2019 13:36
[2019-12-20 13:45] VITALS: BP 120/73
[2019-12-20] MEDS ORDERED: LEVO112T55 PO (13:50)
[2019-12-20] MEDS ORDERED: PANT40TA3 PO (13:50)
[2019-12-20] MEDS ORDERED: CARB1TAB19 PO (13:50)
[2019-12-20] MEDS ORDERED: AMLO5TAB9 PO (13:50)
[2019-12-20] MEDS ORDERED: GABA300C PO ×2 (13:50)
[2019-12-20] MEDS ORDERED: DCS100C PO (14:06)
--- NOTE | 2019-12-20 14:08 | NUR ---
PT WAS TRANSFERRED FROM ICU TO IRF- I DID NOT SPEAK WITH THIS PT BEFORE SHE WAS SENT TO IRF I HAVE SPOKEN WITH THE PT (SHE HAD HER BOTTLES WITH HER) AND HER SON AND WENT THRU THE EXT MED HISTORY TO COMPLETE THE MED REC AMLODIPINE 5MG- THE BOTTLE SAYS 1 TAB BID HOWEVER THE PT WAS TOLD FROM HER PCP TO DECREASE AND ONLY TAKE TAB ONCE DAILY. THE LAST TIME IT WAS PICKED UP WAS 03-17-2019 #180- THE PT THEN HAD A YEAR SUPPLY AFTER THE DIRECTION CHANGE. SON (VIKY) TAKES CARE OF HER MEDICATION AND WHEN I SPOKE WITH HIM HE CONFIRMED HOW SHE TAKES ALL HER MEDS OTC MEDS: DOK 100MG
--- NOTE | 2019-12-20 14:30 | Physical Therapy Evaluation ---
PT Evaluation-General Medical Diagnosis Admission Date Dec 20, 2019 at 11:30 Medical Diagnosis: Hypertensive Emergency, Angina Onset Date: Dec 19, 2019 Therapy Diagnosis Therapy Diagnosis: impaired mobility, strength, endurance, balance Height/Weight Height (Feet): 5 Height (Inches): 3.00 Weight (Pounds): 140 Weight (Ounces): 0.0 Precautions Precautions/Isolations: Fall Prevention, Standard Precautions Referral Physician: Majo Peralta DO Reason for Referral: Evaluation/Treatment Medical History Pertinent Medical History: HTN, Parkinson's Reviewed History: Yes Social History Current Living Status: Alone Entry Into Home: Level Entry Patient states her son lives by her and can assist her. Prior Prior Level of Function SCALE: Activities may be completed with or without assistive devices. 3-Ktrhurpmbx-msdikle completes the activity by him/herself with no assistance from a helper. 5-Set-up or Clean-up Assistance-helper sets up or cleans up; patient completes activity. [place] assists only prior to or following the activity. 4-Supervision or Touching Assistance-helper provides verbal cues and/or touching/steadying and/or contact guard assistance as patient completes activity. Assistance may be provided throughout the activity or intermittently. 3-Partial/Moderate Assistance-helper does LESS THAN HALF the effort. [place] lifts, holds or supports trunk or limbs, but provides less than half the effort. 2-Substantial/Maximal Assistance-helper does MORE THAN HALF the effort. [place] lifts or holds trunk or limbs and provides more than half the effort. 7-Atzgccqsh-gxxduk does ALL the effort. Patient does none of the effort to complete the activity. Or, the assistance of 2 or more helpers is required for the patient to complete the activity. If activity was not attempted, code reason: 7-Patient Refused. 9-Not Applicable-not attempted and the patient did not perform the activity before the current illness, exacerbation or injury. 10-Not Attempted due to Environmental Limitations-(lack of equipment, weather restraints, etc.). 88-Not Attempted due to Medical Conditions or Safety Concerns. Bed Mobility: 6 Transfers (B,C,W/C): 6 Gait: 6 Indoor Mobility (Ambulation): Independent Patient states she was ambulating independently using a rolling walker in her home. PT Evaluation-Current Subjective Patient in bed pre tx, agrees to PT, has no complaints of pain. Pt/Family Goals to be independent at home Objective Patient Orientation: Person, Confused, Place ROM/Strength ROM Lower Extremities WNL Strength Lower Extremities 4/5 gross BLE Neuromuscular (Tone, Coordination, Reflexes) no abnormal clonus, negative babinski Sensory Vision: Hearing: Sensation Right Lower Extremit: Intact Sensation Left Lower Extremity: Intact Transfers Roll Left to Right (QC): 6 Sit to Lying (QC): 4 Lying to Sitting/Side of Bed(Q: 3 Sit to Stand (QC): 3 Chair/Qpw-yt-Xufyd Xfer(QC): 3 Toilet Transfer (QC): 3 Car Transfer (QC): 3 Patient performs bed mobility with independence, supine to sit with min assist, sit to supine with independence, sit <-> stand min assist, transfers min assist, toilet transfer min assist, car transfer min assist. Patient needs assist with balance immediately after standing and help guiding walker, cues for positioning and hand placement. Gait Does the Patient Walk?: Yes Mode of Locomotion: Walk Anticipated Mode of Locomotion: Walk Walk 10 feet (QC): 4 Walk 50 ft with 2 Turns(QC): 88 Walk 150 ft (QC): 88 Walking 10ft/uneven surface-QC: 88 Distance: 40' Gait Assistive Device: FWW Comments/Gait Description Patient can ambulate 40' with a rolling walker with CGA. She has a festinating gait, needs cues for larger steps, tends to veer to the left. Wheelchair Training Does the Pt Use a Wheelchair?: Yes Wheel 50 ft with 2 turns (QC): 1 Wheel 150 ft (QC): 1 Type of Wheelchair: Manual Stairs 1 Step (curb) (QC): 88 4 Steps (QC): 88 12 Steps (QC): 88 Balance Sitting Static: Normal Sitting Dynamic: Normal Standing Static: Poor Standing Dynamic: Poor Picking up an Object (QC): 88 Treatment Co-treated with OT for 10 min, PT performed bed mobility, transfers, ambulation, OT performed UE positioning and safety cues and assistance. Assessment/Needs Patient has impaired mobility, strength, endurance, balance. She has poor safety awareness. Patient in recliner post tx with nurse call, phone, tray, all needs met. Rehab Potential: Fair PT Short Term Goals Short Term Goals Time Frame: Dec 27, 2019 Roll Left & Right: 6 Sit to lyin Lying to sitting on side of be: 4 Sit to stand: 4 Chair/bvq-ix-chukd transfer: 4 Walk 10 feet: 4 Walk 50 feet with two turns: 4 PT [facility] Goals Manufacturing Technologist Goals PT Manufacturing Technologist Goals Time Frame: Jan 10, 2020 Roll Left & Right (QC): 6 Sit to Lying (QC): 6 Lying-Sitting on Side/Bed(QC): 6 Sit to Stand (QC): 5 Chair/Bza-fq-Zybnp Xfer(QC): 5 Toilet Transfer (QC): 5 Car Transfer (QC): 5 Does the Patient Walk: Yes Walk 10 feet (QC): 5 Walk 50ft with 2 Turns (QC): 5 Walk 150 ft (QC): 5 Walking 10ft on Uneven Surface: 4 1 Step (curb) (QC): 88 4 Steps (QC): 88 12 Steps (QC): 88 Picking up an Object (QC): 88 Wheel 50 feet with 2 turns (QC: 9 Wheel 150 feet: 9 PT Plan Problem List Problem List: Activity Tolerance, Functional Strength, Safety, Balance, Gait, Transfer, Bed Mobility, ROM Treatment/Plan Treatment Plan: Continue Plan of Care Treatment Plan: Bed Mobility, Education, Functional Activity Victor Manuel, Functional Strength, Group Therapy, Gait, Safety, Therapeutic Exercise, Transfers Treatment Duration: Jan 10, 2020 Frequency: At least 5 of 7 days/Wk (IRF) Estimated Hrs Per Day: 1.5 hours per day Patient and/or Family Agrees t: Yes Safety Risks/Education Patient Education: Gait Training, Transfer Techniques, Correct Positioning, Safety Issues Teaching Recipient: Patient Teaching Methods: Demonstration, Discussion Response to Teaching: Reinforcement Needed Discharge Recommendations Plan Patient will perform bed mobility and transfer training, balance and endurance training, functional strengthening, stair training, gait training, and education, to improve functional mobility and independence at home. Therapy Discharge Recommendati: Other, See Comments (NH), Home & Family Time/GCodes Time In: 1130 Time Out: 1200 Total Billed Treatment Time: 20 Total Billed Treatment 1 visit EVM 10' PT eval from [id number], OT eval from [id number], co-treat from [id number]. ROBY THOMPSON PT Dec 20, 2019 14:30
--- NOTE | 2019-12-20 14:38 | Occupational Therapy Eval ---
OT Evaluation-General/PLF Medical Diagnosis Admission Date Dec 20, 2019 at 11:30 Medical Diagnosis: Hypertensive Emergency, Angina Onset Date: Dec 19, 2019 Therapy Diagnosis Therapy Diagnosis: Weakness Height/Weight Height (Feet): 5 Height (Inches): 3.00 Weight (Pounds): 140 Weight (Ounces): 0.0 Precautions Precautions/Isolations: Fall Prevention, Standard Precautions Weight Bear Status Weight Bearing Restriction: Weight Bearing/Tolerated Referral Physician: Dr. Peralta Referral Reason: Activity Tolerance, Self Care, Evaluation/Treatment, Strength ening/ROM Medical History Pertinent Medical History: HTN, Parkinson's Additional Medical History Thyroidectomy, HTN, Parkinsons, blindness in left eye Current History Pt. states that she began not feeling well at home. States that she called her son. Pt. is unable to give more information. Reviewed History: Yes Social History Home: Single Level Current Living Status: Alone Entry Into Home: Stairs With Railing Steps Into Home: 2 ADL-Prior Level of Function SCALE: Activities may be completed with or without assistive devices. 9-Utwdavrzap-xmosnjw completes the activity by him/herself with no assistance from a helper. 5-Set-up or Clean-up Assistance-helper sets up or cleans up; patient completes activity. [place] assists only prior to or following the activity. 4-Supervision or Touching Assistance-helper provides verbal cues and/or touching/steadying and/or contact guard assistance as patient completes activity. Assistance may be provided throughout the activity or intermittently. 3-Partial/Moderate Assistance-helper does LESS THAN HALF the effort. [place] lifts, holds or supports trunk or limbs, but provides less than half the effort. 2-Substantial/Maximal Assistance-helper does MORE THAN HALF the effort. [place] lifts or holds trunk or limbs and provides more than half the effort. 7-Godczwhrp-zvkdbj does ALL the effort. Patient does none of the effort to complete the activity. Or, the assistance of 2 or more helpers is required for the patient to complete the activity. If activity was not attempted, code reason: 7-Patient Refused. 9-Not Applicable-not attempted and the patient did not perform the activity before the current illness, exacerbation or injury. 10-Not Attempted due to Environmental Limitations-(lack of equipment, weather restraints, etc.). 88-Not Attempted due to Medical Conditions or Safety Concerns. ADL PLOF Comments Pt. reports that she was independent with daily tasks. States that she only sponge bathes, as she is afraid of getting into the shower at home. Pt. reports that she ambulates with a walker, but does not usually leave the house. States that her son gets her groceries for her. Self Care: Unknown Functional Cognition: Unknown Drive Self: No OT Current Status Subjective No pain reported. Appearance Pt. is agreeable to therapy. Mental Status/Objective Patient Orientation: Person, Place Attachments: IV Current Glasses/Contacts: Yes Upper Extremity ROM Pt. is able to flex bilateral shoulders to approximately 90 degrees. ADL-Treatment Eating (QC): 5 Oral Hygiene (QC): 4 Shower/Bathe Self (QC): 3 (Mod assist for balance in stance.) Upper Body Dressing (QC): 88 Lower Body Dressing (QC): 88 On/Off Footwear (QC): 3 Toileting Hygiene (QC): 3 (Mod assist for balance in stance.) Other Treatments Pt. participated in co-treatment throughout day with OT/PT due to fatigue, and need of two skilled therapists. Pt. demonstrates difficulty with balance and endurance overall. Pt. demonstrates slow movements with activity. OT facilitated ADL skills while PT facilitated transfers and mobility. Pt. spongebathed in room with need of assistance for balance and mobility, as well as reaching all placed efficiently. Pt. transferred with mod x 1-2 for balance and progression of steps. Stood in parallel bar several times with cues to weight shift and reach overhead. Worked on dynamic balance and standing. Pt. taken back to room and transferred to bed with mod assist. SBA for sit-supine. All needs met. Education OT Patient Education: Correct positioning, Exercise program, Modified ADL techniques, Progress toward Goal/Update tx plan, Purpose of tx/functional activities, Reviewed precautions, Rehab process, Transfer techniques Teaching Recipient: Patient Teaching Methods: Demonstration, Discussion Response to Teaching: Verbalize Understanding, Return Demonstration OT Short Term Goals Short Term Goals Time Frame: Dec 27, 2019 Eatin Oral hygiene: 5 Toileting hygiene: 4 Shower/bathe self: 4 Upper body dressin Lower body dressin Putting on/taking off footwear: 4 OT Group Home Goals Group Home Goals Time Frame: Jan 03, 2020 Eating (QC): 6 Oral Hygiene (QC): 5 Toileting Hygiene (QC): 4 Shower/Bathe Self (QC): 4 Upper Body Dressing (QC): 5 Lower Body Dressing (QC): 4 On/Off Footwear (QC): 4 Additional Goals: 1-Demonstrate ADL Tasks, 2-Verbalize Understanding, 3- ImproveStrength/Victor Manuel 1=Demonstrate adherence to instructed precautions during ADL tasks. 2=Patient will verbalize/demonstrate understanding of assistive devices/modifications for ADL. 3=Patient will improve strength/tolerance for activity to enable patient to perform ADL's. OT Education/Plan Problem List/Assessment Assessment: Decreased Activ Tolerance, Decreased UE Strength, Dependent Transfers, Impaired Funct Balance, Impaired I ADL's, Impaired Self-Care Skills Discharge Recommendations Plan/Recommendations: Continue POC Therapy Discharge Recommendati: Post Acute OT Treatment Plan/Plan of Care Treatment,Training & Education: Yes Patient would benefit from OT for education, treatment and training to promote independence in ADL's, mobility, safety and/or upper extremity function for ADL's. Plan of Care: ADL Retraining, Functional Mobility, UE Funct Exercise/Act Treatment Duration: Jan 03, 2020 Frequency: At least 5 of 7 days/Wk (IRF) Estimated Hrs Per Day: 1.5 hours per day Agreement: Yes Rehab Potential: Fair Time/GCodes Start Time: 11:40 Stop Time: 14:30 Total Time Billed (hr/min): 90 Billed Treatment Time 4231-7888- 1, EVH x 10minutes [id number] Co-treatment with PT x 10. No charge. 8187-0093 1, FA x 15minutes 9094-5202 1, ADL x 30minutes, FA x 25minutes. Co-treatment with PT. Please see above note for designated roles. LILIAN MOLINA OT Dec 20, 2019 14:38
--- NOTE | 2019-12-20 15:06 | Physical Therapy Daily Note ---
PT Daily Note-Current Subjective Patient in recliner pre tx, agrees to PT, has no complaints of pain. Will be co-treating with OT due to poor patient mobility, strength, endurance, balance, poor safety awareness, the need to coordinate UE and LE during activity, to reduce risk of falls. Appearance Patient in bed post tx with nurse call, phone, tray, all needs met, bed alarm on. Mental Status Patient Orientation: Person, Place, Situation Transfers SCALE: Activities may be completed with or without assistive devices. 7-Lxezsqynoq-oosmjtw completes the activity by him/herself with no assistance from a helper. 5-Set-up or Clean-up Assistance-helper sets up or cleans up; patient completes activity. [place] assists only prior to or following the activity. 4-Supervision or Touching Assistance-helper provides verbal cues and/or touching/steadying and/or contact guard assistance as patient completes activity. Assistance may be provided throughout the activity or intermittently. 3-Partial/Moderate Assistance-helper does LESS THAN HALF the effort. [place] lifts, holds or supports trunk or limbs, but provides less than half the effort. 2-Substantial/Maximal Assistance-helper does MORE THAN HALF the effort. [place] lifts or holds trunk or limbs and provides more than half the effort. 8-Guefqtpsh-edmfrx does ALL the effort. Patient does none of the effort to complete the activity. Or, the assistance of 2 or more helpers is required for the patient to complete the activity. If activity was not attempted, code reason: 7-Patient Refused. 9-Not Applicable-not attempted and the patient did not perform the activity before the current illness, exacerbation or injury. 10-Not Attempted due to Environmental Limitations-(lack of equipment, weather restraints, etc.). 88-Not Attempted due to Medical Conditions or Safety Concerns. Roll Left & Right (QC): 6 Sit to Lying (QC): 6 Lying to Sitting/Side of Bed(Q: 6 Sit to Stand (QC): 3 Chair/Uvk-iu-Oyvir Xfer(QC): 3 Toilet Transfer (QC): 3 Patient bathes in the recliner with OT, PT assists with standing balance and safety, then she has to use the restroom, ambulates to restroom and uses toilet, min assist for toilet transfer. Gait Training Distance: 10'x2 Walk 10 feet (QC): 3 Gait Assistive Device: FWW slow ambulation, festinating gait, needs assist guiding walker and with balance and cues to take bigger steps Exercises activity standing in parallel bars reaching activity (3 tries) Treatments bathing, dressing, bed mobility and transfers, ambulation, balance training, standing. PT worked on bed mobility and transfers, ambulation, standing balance, balance and positioning during bathing, toileting, OT worked on b athing, toileting, reaching activity Assessment Current Status: Fair Progress Needs frequent safety cues, forgets to lock WC wheels or reach for armrests. PT Short Term Goals Short Term Goals Time Frame: Dec 27, 2019 Roll Left & Right: 6 Sit to lyin Lying to sitting on side of be: 4 Sit to stand: 4 Chair/bdk-bh-jcksr transfer: 4 Walk 10 feet: 4 Walk 50 feet with two turns: 4 PT Usp Goals Usp Goals PT Fire Equipment Operator Goals Time Frame: Jan 10, 2020 Roll Left & Right (QC): 6 Sit to Lying (QC): 6 Lying-Sitting on Side/Bed(QC): 6 Sit to Stand (QC): 5 Chair/Lfl-ud-Sniuu Xfer(QC): 5 Toilet Transfer (QC): 5 Car Transfer (QC): 5 Does the Patient Walk: Yes Walk 10 feet (QC): 5 Walk 50ft with 2 Turns (QC): 5 Walk 150 ft (QC): 5 Walking 10ft on Uneven Surface: 4 1 Step (curb) (QC): 88 4 Steps (QC): 88 12 Steps (QC): 88 Picking up an Object (QC): 88 Wheel 50 feet with 2 turns (QC: 9 Wheel 150 feet: 9 PT Plan Problem List Problem List: Activity Tolerance, Functional Strength, Safety, Balance, Gait, Transfer, Bed Mobility, ROM Treatment/Plan Treatment Plan: Continue Plan of Care Treatment Plan: Bed Mobility, Education, Functional Activity Victor Manuel, Functional Strength, Group Therapy, Gait, Safety, Therapeutic Exercise, Transfers Treatment Duration: Jan 10, 2020 Frequency: At least 5 of 7 days/Wk (IRF) Estimated Hrs Per Day: 1.5 hours per day Patient and/or Family Agrees t: Yes Safety Risks/Education Patient Education: Gait Training, Transfer Techniques, Correct Positioning, Safety Issues Teaching Recipient: Patient Teaching Methods: Demonstration, Discussion Response to Teaching: Reinforcement Needed Time/GCodes Time In: 1335 Time Out: 1430 Total Billed Treatment Time: 55 Total Billed Treatment 1 visit FA 55' Co-treated with OT for 55' ROBY THOMPSON PT Dec 20, 2019 15:05
[2019-12-20 16:43] VITALS: BP 146/76
--- NOTE | 2019-12-20 17:54 | PM&R Post Admission Assessment ---
PM&R HP Date of Visit: Dec 20, 2019 Time of Visit: 12:00 History of Present Illness CC: HTN urgency with increasing weakness and worsened Parkinson's disease HPI: This is an 89yoWF clinic patient of Dr Kang who presents to IRF in need of close BP monitoring and med changes along with strengthening in order to return home and live independently and lives next door to her son. She sees Dr Johnson for PD and recently saw him and changed some meds last month at the visit. Patient reports weakness and near falls at home. Cardiology will continue to monitor her closely given advanced age and HTN labile status. Past Rmoffub-Juqxng-Gtvmvp Hx Past Med/Social Hx: Reviewed Nursing Past Med/Soc Hx, Reviewed and Corrections made Patient Social History Marrital Status: single Employed/Student: retired Alcohol Use: Denies Use Recreational Drug Use: No Smoking Status: Never a Smoker 2nd Hand Smoke Exposure: Yes ( SMOKED) Physical Abuse Screen: No Sexual Abuse: No Recent Foreign Travel: No Contact w/other who traveled: No Recent Hopitalizations: No Recent Infectious Disease Expo: No Immunizations Up To Date Tetanus Booster (TDap): Unknown Date of Pneumonia Vaccine: Apr 19, 2017 Date of Influenza Vaccine: Apr 20, 2019 Seasonal Allergies Seasonal Allergies: No Past Medical History Surgeries: Orthopedic, Thyroidectomy Cardiac: High Cholesterol, Hypertension Neurological: Parkinson's Disease Reproductive: No Sexually Transmitted Disease: No HIV/AIDS: No Female Reproductive Disorders: Denies Gastrointestinal: Chronic Constipation Musculoskeletal: Arthritis, Chronic Back Pain Endocrine: Hyperthyroidism Loss of Vision: Left Hearing Impairment: Denies Psychosocial: Sleep Difficulties, Anxiety History of Blood Disorders: No Adverse Reaction to Blood Arnold: No Family History Arthritis 19 FATHER 19 MOTHER Cardiovascular disease 19 FATHER Dementia 19 MOTHER Hypertension 19 FATHER Myocardial infarction 19 FATHER No Family History of: AIDS Abdominal aortic aneurysm Alcoholism Alzheimer's disease Asthma Completed stroke Congenital disease Diabetes mellitus Parkinson's disease Prostate cancer Psychosocial problem Respiratory disorder Seizure disorder Thyroid disease Tuberculosis Prior Level of Function Bed Mobility: 6 Transfers: 6 Gait: 6 Indoor Mobility (Ambulation): Independent Self Care: Unknown Functional Cognition: Unknown Drive Self: No Current Level of Fuctioning Roll Left to Right: 6 Sit to Lyin Lying to Sitting/Side of Bed: 6 Sit to Stand: 3 Chair/Nbq-mj-Rykni Xfer: 3 Car Transfer: 3 Does the Patient Walk: Yes Mode of Locomotion: Walk Anticipated Mode of Locomotion: Walk Walk 10 feet: 3 Walk 50 ft with 2 Turns: 88 Walk 150 ft: 88 Walking 10ft on uneven surface: 88 Gait Assistive Device: FWW Does the Pt Use a Wheelchair: Yes Wheel 50 ft with 2 turns: 1 Wheel 150 ft: 1 Type of Wheelchair: Manual 1 Step (curb): 88 4 Steps: 88 12 Steps: 88 Picking up an Object: 88 Eatin Oral Hygiene: 4 Shower/Bathe Self: 3 (Mod assist for balance in stance.) Upper Body Dressin Lower Body Dressin On/Off Footwear: 3 Toileting Hygiene: 3 (Mod assist for balance in stance.) PM&R Allergy/Meds/Data Review Allergies Coded Allergies: atenolol (Verified Allergy, Intermediate, RASH, 02/04/14) Home Medications Scheduled Alprazolam (Xanax), 0.5 MG PO HS, (Reported) Amlodipine Besylate (Amlodipine Besylate), 2.5 MG PO DAILY, (Reported) Carbidopa/Levodopa (Carbidopa-Levodopa 25-100 Tab), 1 EA PO Q2H, (Reported) Docusate Sodium (Dok), 100 MG PO DAILY, (Reported) Gabapentin (Neurontin), 600 MG PO HS, (Reported) Gabapentin (Neurontin), 300 MG PO DAILY, (Reported) Levothyroxine Sodium (Levothyroxine Sodium), 112 MCG PO DAILY, (Reported) Pantoprazole Sodium (Pantoprazole Sodium), 40 MG PO DAILY, (Reported) Discontinued Medications Amlodipine Besylate (Amlodipine Besylate), 5 MG PO 2100, (Reported) Discontinued Reason: No Longer Taking Calcium Carbonate (Calcarb 600), 600 MG PO TID Discontinued Reason: No Longer Taking Carbidopa/Levodopa (Carbidopa-Levo 25-100 mg Odt), 1 EACH PO, (Reported) Discontinued Reason: Duplicate Order Cholecalciferol (Vitamin D), 4,000 UNIT PO DAILY, (Reported) Discontinued Reason: No Longer Taking Hydrocodone Bit/Acetaminophen (Vicodin 5-300 Mg Tablet), 1-2 EACH PO Q4H PRN for PAIN Discontinued Reason: No Longer Taking Levothyroxine Sodium (Levothyroxine 50 Mcg Tab), 1 EACH PO DAILY Discontinued Reason: Duplicate Order Metoprolol Tartrate (Metoprolol Tartrate), 40 MG PO BID, (Reported) Discontinued Reason: No Longer Taking Current Medications Current Medications Reviewed Review of Systems Constitutional: see HPI, malaise, weakness EENTM: no symptoms reported Respiratory: no symptoms reported Cardiovascular: chest pain Gastrointestinal: constipation Genitourinary: no symptoms reported Musculoskeletal: joint pain, muscle stiffness Skin: no symptoms reported Psychiatric/Neurological: Anxiety, Depressed All Other Systems Reviewed Negative Unless Noted: Yes Physical Exam Physical Exam Vital Signs Vital Signs - First Documented 12/20/19 12/20/19 11:30 16:43 Temp 36.4 Pulse 90 Resp 18 B/P (MAP) 122/80 Pulse Ox 96 O2 Delivery Room Air Capillary Refill : Height, Weight, BMI Height: 5'3.00" Weight: 140lbs. 0.0oz. [id number]; 26.01 BMI Method:Stated General Appearance: No Apparent Distress, WD/WN, Chronically ill Eyes: Bilateral Eye Normal Inspection, Bilateral Eye PERRL HEENT: PERRL/EOMI, Normal ENT Inspection, Pharynx Normal Neck: Full Range of Motion, Normal Inspection, Non Tender, Supple, Carotid Bruit Respiratory: Chest Non Tender, Lungs Clear, Normal Breath Sounds, No Accessory Muscle Use, No Respiratory Distress Cardiovascular: Regular Rate, Rhythm, No Edema, No Gallop, No JVD, No Murmur, Normal Peripheral Pulses Gastrointestinal: Normal Bowel Sounds, No Organomegaly, No Pulsatile Mass, Non Tender, Soft Back: Normal Inspection, No CVA Tenderness, No Vertebral Tenderness Extremity: Normal Capillary Refill, Normal Inspection, Normal Range of Motion, Non Tender, No Calf Tenderness, No Pedal Edema Neurologic/Psychiatric: Alert, Oriented x3, No Motor/Sensory Deficits, Normal Mood/Affect, meat puller II-XII Norm as Tested, Abnormal Gait, Depressed Affect, Other (tremor noted upper extremities) Skin: Normal Color, Warm/Dry Lymphatic: No Adenopathy PM&R Medical Assessment & Plan REHAB/MEDICAL ASSESSMENT AND PLAN: REHAB IMPAIRMENT GROUP: HTN urgency with PD ETIOLOGIC DIAGNOSIS: HTN urgency with PD The comorbidities that impact the patients function and/or functional outcome by: lives alone next door to son, severe PD, advanced age, HTN urgency requiring multiple med additions, fall risk REHAB PLAN: The patient is being admitted to our comprehensive inpatient rehabilitation facility and can tolerate the intensity of service consisting of at least: 180 minutes of therapy a day, 5 out of 7 days a week Rehab treatment will consist of: PT OT will focus on regaining function in order to strengthen and prevent falls and improve ADL independence in order to return home to live independently The patient/family has a good understanding of our discharge process and will benefit from an interdisciplinary inpatient rehabilitation program. The patient has potential to make improvement and is in need of at least two of the [facility] multidisciplinary therapies including but not limited to physical, occupational, speech, and prosthetics and orthotics. Additionally the patient will need services from respiratory, nutritional services, wound care, psychology, etc. (Customize this to each patient). Given the patients complex condition and risk of further medical complications, rehabilitation services cannot be safely or effectively provided at a lower level of care such as a jail facility. BARRIERS TO DISCHARGE: lives alone, advanced age ESTIMATED LOS: 7 days DISPOSITION: Home RELEVANT CHANGES SINCE PREADMISSION SCREENING: I have compared the patients medical and functional status at the time of the preadmission screening and there are: no changes PROGNOSIS: Good REHABILITATION GOALS: 1. PT OT will focus on regaining function in order to strengthen and prevent falls and improve ADL independence in order to return home to live independently All the above goals were reviewed with the patient and he/she is in agreement. By signing this document, I acknowledge that I have personally performed a full physical examination on this patient within 24 hours of admission to this inpatient rehabilitation facility and have determined the patient to be able to tolerate the above course of treatment at an intensive level for a reasonable period of time. I will be completing a detailed individualized Plan of Care for this patient by day #4 of the patients stay based upon the Preadmission Screen, the Post-Admission Evaluation, and the therapy evaluations. Admission Dx/Comorbidities: (1) Parkinson disease ICD Codes: G20 - Parkinson's disease (2) Constipation ICD Codes: K59.00 - Constipation, unspecified (3) Weakness Status: Acute ICD Codes: R53.1 - Weakness (4) Hyponatremia Status: Acute ICD Codes: E87.1 - Hypo-osmolality and hyponatremia (5) Hypertensive emergency Status: Acute ICD Codes: I16.1 - Hypertensive emergency (6) Chest pain Status: Acute ICD Codes: R07.9 - Chest pain, unspecified TIMUR MARTÍNEZ DO Dec 20, 2019 17:53
[2019-12-20] MEDS: SINEMET 25/100 (CARBIDOPA/LEVODOPA) TAB PO SCH ×3 (18:06→22:12)
--- NOTE | 2019-12-20 19:07 | NUR ---
bedside report received from YAMILEX TONY, assume care of pt
[2019-12-20] MEDS: GABAPENTIN 300 MG (NEURONTIN) CAP PO SCH (20:50)
[2019-12-20] MEDS: ALPRAZolam 0.5 MG (XANAX) TAB PO SCH (20:50)
[2019-12-20] MEDS: SENNA W/DOCUSATE (SENOKOT S) TABLET PO SCH (20:50)
--- NOTE | 2019-12-20 20:50 | NUR ---
pt states very sensitive to laxatives if you give me too many I will have it dripping into bathroom, took Senokot but refused miralax, pt stated wanted to sleep tonight, I informed pt has med due every 2hrs, she stated you can give it to me when i am awake
[2019-12-20] MEDS: polyethylene glycoL POWDER 17 GM (MIRALAX) PACK PO SCH (20:54)
[2019-12-20] MEDS ORDERED: DOCUSATE SODIUM 100 MG (COLACE) CAP PO SCH (21:00)
[2019-12-20 22:10] VITALS: BP 127/68
[2019-12-20] MEDS: ENOXAPARIN 40 MG/0.4 ML (LOVENOX) SYR SC SCH (22:13)
[2019-12-21] MEDS: SINEMET 25/100 (CARBIDOPA/LEVODOPA) TAB PO SCH ×12 (02:00→22:25)
[2019-12-21 04:53] LABS: BASOPHILS % (AUTO) 0 % (0-10); EOSINOPHILS # (AUTO) 0.2 10^3/uL (0.0-0.3); EOSINOPHILS % (AUTO) 3 % (0-10); HEMATOCRIT 39 % (35-52); HEMOGLOBIN 12.9 G/DL (11.5-16.0); LYMPHOCYTES % (AUTO) 32 % (12-44); MEAN CORPUSCULAR HEMOGLOBIN 31 PG (25-34); MEAN CORPUSCULAR HGB CONC 34 G/DL (32-36); MEAN CORPUSCULAR VOLUME 93 FL (80-99); MEAN PLATELET VOLUME 8.8 FL (7.4-10.4); MONOCYTES # (AUTO) 0.7 X 10^3 (0.0-1.0); MONOCYTES % (AUTO) 11 % (0-12); NEUTROPHILS # (AUTO) 3.4 X 10^3 (1.8-7.8); NEUTROPHILS % (AUTO) 54 % (42-75); PLATELET COUNT 265 10^3/uL (130-400); RED CELL DISTRIBUTION WIDTH 13.4 % (10.0-14.5); WHITE BLOOD COUNT 6.2 10^3/uL (4.3-11.0)
[2019-12-21 05:06] LABS: ALBUMIN 3.7 GM/DL (3.2-4.5); CHLORIDE 102 MMOL/L (98-107); SODIUM 136 MMOL/L (135-145)
[2019-12-21 05:07] LABS: CALCIUM 8.8 MG/DL (8.5-10.1)
[2019-12-21 05:08] LABS: GLUCOSE 86 MG/DL (70-105); TOTAL PROTEIN 6.3 GM/DL (6.4-8.2)
[2019-12-21 05:09] LABS: CARBON DIOXIDE 26 MMOL/L (21-32)
[2019-12-21 05:10] LABS: BILIRUBIN,TOTAL 0.6 MG/DL (0.1-1.0)
[2019-12-21 05:12] LABS: ALKALINE PHOSPHATASE 72 U/L (40-136); CREATININE SERUM 0.84 MG/DL (0.60-1.30); GFR ESTIMATED > 60
[2019-12-21 05:13] LABS: BUN/CREATININE RATIO 26
[2019-12-21 05:15] LABS: ALANINE AMINOTRANSFERASE < 6 U/L (0-55)
[2019-12-21 05:27] VITALS: BP 144/76
[2019-12-21] MEDS: LEVOTHYROXINE 112 MCG (LEVOTHROID) TAB PO SCH (06:13)
--- NOTE | 2019-12-21 09:13 | PM&R Progress Note ---
Subjective HPI/CC On Admission Date Seen by Provider: Dec 21, 2019 Time Seen by Provider: 09:15 Subjective/Events-last exam Pt is incontinent a bit Slight confusion noted, speech therapy will see her for cognition today Bowels are not moving, she likes to take prune juice Has a lot of random questions, unsure of really how to answer some of them May need some additional help at home, she lives next door to her son Denies any SOB or chest pain Conferred with RN Reviewed therapy notes Checked meds and labs Review of Systems General: Fatigue Neurological: Weakness, Numbness, Incoordination, Confusion Objective Exam Vital Signs Vital Signs Date Time Temp Pulse Resp B/P (MAP) Pulse Ox O2 Delivery O2 Flow Rate FiO2 12/21/19 17:33 36.6 71 18 143/79 (100) 94 Room Air Capillary Refill : Less Than 3 Seconds General Appearance: No Apparent Distress, WD/WN, Chronically ill HEENT: PERRL/EOMI, Normal ENT Inspection, Pharynx Normal Neck: Full Range of Motion, Normal Inspection, Non Tender, Supple, Carotid Bruit Respiratory: Chest Non Tender, Lungs Clear, Normal Breath Sounds, No Accessory Muscle Use, No Respiratory Distress Cardiovascular: Regular Rate, Rhythm, No Edema, No Gallop, No JVD, No Murmur, Normal Peripheral Pulses Gastrointestinal: Normal Bowel Sounds, No Organomegaly, No Pulsatile Mass, Non Tender, Soft Back: Normal Inspection, No CVA Tenderness, No Vertebral Tenderness Extremity: Normal Capillary Refill, Normal Inspection, Normal Range of Motion, Non Tender, No Calf Tenderness, No Pedal Edema Neurologic/Psychiatric: Alert, Oriented x3, No Motor/Sensory Deficits, Normal Mood/Affect, community relations director II-XII Norm as Tested, Abnormal Gait, Depressed Affect, Other (tremor noted upper extremities) Skin: Normal Color, Warm/Dry Lymphatic: No Adenopathy Results/Procedures Lab Laboratory Tests 12/21/19 04:33 Patient resulted labs reviewed. FIM Transfers Therapy Code Descriptions/Definitions Functional [place] Measure: 0=Not Assessed/NA 4=Minimal Assistance 1=Total Assistance 5=Supervision or Setup 2=Maximal Assistance 6=Modified [place] 3=Moderate Assistance 7=Complete IndependenceSCALE: Activities may be completed with or without assistive devices. 0-Bjfuuuiqew-vdfmnia completes the activity by him/herself with no assistance from a helper. 5-Set-up or Clean-up Assistance-helper sets up or cleans up; patient completes activity. [place] assists only prior to or following the activity. 4-Supervision or Touching Assistance-helper provides verbal cues and/or touching/steadying and/or contact guard assistance as patient completes activity. Assistance may be provided throughout the activity or intermittently. 3-Partial/Moderate Assistance-helper does LESS THAN HALF the effort. [place] lifts, holds or supports trunk or limbs, but provides less than half the effort. 2-Substantial/Maximal Assistance-helper does MORE THAN HALF the effort. [place] l ifts or holds trunk or limbs and provides more than half the effort. 1-Xruwzuezj-dnnqau does ALL the effort. Patient does none of the effort to complete the activity. Or, the assistance of 2 or more helpers is required for the patient to complete the activity. If activity was not attempted, code reason: 7-Patient Refused. 9-Not Applicable-not attempted and the patient did not perform the activity before the current illness, exacerbation or injury. 10-Not Attempted due to Environmental Limitations-(lack of equipment, weather restraints, etc.). 88-Not Attempted due to Medical Conditions or Safety Concerns. Roll Left to Right (QC): 6 Sit to Lying (QC): 6 Sit to Stand (QC): 3 Chair/Sco-dj-Xowxk Xfer(QC): 3 Car Transfer (QC): 3 Gait Training Does the Patient Walk?: Yes Distance: 10'x2 Walk 10 feet (QC): 3 Walk 50 ft with 2 Turns(QC): 88 Walk 150 ft (QC): 88 Walking 10ft/uneven surface-QC: 88 Gait Assistive Device: FWW Wheelchair Training Does the Pt Use a Wheelchair?: Yes Wheel 50 ft with 2 turns (QC): 1 Wheel 150 ft (QC): 1 Type of Wheelchair: Manual Stair Training 1 Step (curb) (QC): 88 4 Steps (QC): 88 12 Steps (QC): 88 Balance Picking up an Object (QC): 88 ADL-Treatment Eating (QC): 5 Oral Hygiene (QC): 4 Shower/Bathe Self (QC): 3 (Mod assist for balance in stance.) Upper Body Dressing (QC): 88 Lower Body Dressing (QC): 88 On/Off Footwear (QC): 3 Toileting Hygiene (QC): 3 (Mod assist for balance in stance.) Assessment/Plan Assessment and Plan Assess & Plan/Chief Complaint Assessment: Parkinson's Weakness Near falls HTN urgency Advanced age Plan: IRF protocol ST management Evaluate social needs for DC at home Monitor closely especially BP (1) Parkinson disease (2) Constipation (3) Weakness Status: Acute (4) Hyponatremia Status: Acute (5) Hypertensive emergency Status: Acute (6) Chest pain Status: Acute TIMUR MARTÍNEZ DO Dec 21, 2019 09:13
--- NOTE | 2019-12-21 09:13 | Individualized Plan of Care ---
Individualized Plan of Care Rehab Nursing IPOC Order Admission Date Dec 20, 2019 at 11:30 Current Orders Orders Admission Order(Inpt,Obs,Sdc) (12/20/19 11:19) Vital Signs: Per Unit Policy ( 08,16,00 (12/20/19 11:19) Skinny Lara 09,21 (12/20/19 11:19) Sequential Compression Device Q4H (12/20/19 11:19) Transcriber-Inpt Rehab Con (12/20/19 11:19) Rehab Nursing Orders-Ipoc (12/20/19 11:19) Physical Therapy Rehab Orders (12/20/19 11:19) Occupational Therapy Rehab Ord (12/20/19 11:19) Speech Therapy Rehab Orders (12/20/19 11:19) Cbc With Automated Diff (12/21/19 06:00) Comprehensive Metabolic Panel (12/21/19 06:00) General/Regular (12/20/19 Dinner) Intake & Output 06,14, (12/20/19 11:19) Precautions (Aru) (12/20/19 11:19) Weekly Weight WEEK (12/20/19 11:19) Rehab-Intensity Of Therapy (12/20/19 11:19) Initiate Admission Nursing Pro .admission (12/20/19 11:19) Alprazolam Tablet (Xanax Tablet) (12/20/19 11:30) Calcium Carbonate Chew Tablet (Antacid C (12/20/19 11:30) Diphenhydramine Tablet (Benadryl Tablet) (12/20/19 11:30) Docusate Sodium Capsule (Colace Capsule) (12/20/19 21:00) Docusate Sodium Capsule (Colace Capsule) (12/20/19 11:30) Bisacodyl Suppository (Dulcolax Supposit (12/20/19 11:30) Lactulose Oral Solution (Enulose Oral So (12/20/19 11:30) Na Phos/Na Biphos Enema (Fleet Enema Km (12/20/19 11:30) Guaifenesin/Codeine Syrup (Robitussin Ac (12/20/19 11:30) Loperamide Tablet (Imodium Tablet) (12/20/19 11:30) Enoxaparin Injection (Lovenox Injection) (12/20/19 23:00) Melatonin Tablet (Melatonin Tablet) (12/20/19 11:30) Polyethylene Glycol Powder Pkt (Miralax (12/20/19 21:00) Ondansetron Oral Dissolve Tab (Zofran (12/20/19 11:30) Senna S Tablet (Senokot S Tablet) (12/20/19 21:00) Transfer - Bed/Room/Location (12/20/19 11:30) Ambulate 08,12,20 (12/20/19 13:12) Sequential Compression Device Q4H (12/20/19 13:12) Dvt/Vte Risk - Notifiy Physici Q4H (12/20/19 13:12) Clonidine Tablet (Catapres Tablet) (12/20/19 13:30) Patient Visit (12/20/19 ) Speech Sound Lang Comp (12/20/19 ) Patient Visit (12/20/19 ) Pt Eval Moderate Complexity (12/20/19 ) Functional Activities, Ea 15 (12/20/19 ) Alprazolam Tablet (Xanax Tablet) (12/20/19 21:00) Amlodipine Tablet (Norvasc Tablet) (12/21/19 09:00) Carbidopa/Levodopa 25/100 (Sinemet 25/10 (12/20/19 18:00) Docusate Sodium Capsule (Colace Capsule) (12/21/19 09:00) Gabapentin Capsule/Tablet (Neurontin Cap (12/21/19 09:00) Gabapentin Capsule/Tablet (Neurontin Cap (12/20/19 21:00) Levothyroxine Tablet (Synthroid Tablet) (12/21/19 06:30) Pantoprazole Tablet (Protonix Tablet) (12/21/19 09:00) Patient Visit (12/21/19 ) Gait Training, Ea 15 Min (12/21/19 ) Exercise Therap, Ea 15 Min (12/21/19 ) Patient Visit (12/21/19 ) Treat. Speech/Lang/Voice (12/21/19 ) Patient Visit (12/21/19 ) Functional Activities, Ea 15 (12/21/19 ) Exercise Therap, Ea 15 Min (12/21/19 ) Rehab Nursing Orders: Ongoing Assess. of Function Status, Bladder Management, Bladder Scan, Bladder Training, Bowel Management, Bowel Training, Disease Management & Educaiton, DVT Prophylaxis, Fall Prevention, Fluid/Electrolyte/Nutrition Mgmt, Infection Prevention, Medication Management & Education, Management of Risks & Complications, Management of Skin Intergrity, Nutrition Management, Pain Management, Patient/Family Support, Safety Management Intensity of Therapy to be met Patient to be seen: Min.3h per day/5 of 7d PT IPOC Problem List: Activity Tolerance, Functional Strength, Safety, Balance, Gait, Transfer, Bed Mobility, ROM Treatment Plan: Continue Plan of Care Bed Mobility, Education, Functional Activity Victor Manuel, Functional Strength, Group Therapy, Gait, Safety, Therapeutic Exercise, Transfers Treatment Duration: Jan 10, 2020 Frequency: At least 5 of 7 days/Wk (IRF) Estimated Hrs Per Day: 1.5 hours per day OT IPOC Problems: Decreased Activ Tolerance, Decreased UE Strength, Dependent Transfers, Impaired Funct Balance, Impaired I ADL's, Impaired Self-Care Skills OT Treatment, Training and Edu: Yes Plan of Care: ADL Retraining, Functional Mobility, UE Funct Exercise/Act Treatment Duration: Jan 03, 2020 Frequency: At least 5 of 7 days/Wk (IRF) Estimated Hrs Per Day: 1.[address] IPOC Speech Therapy Treatment Plan: Continue Plan of Care Treatment Duration: Dec 30, 2019 Frequency: 5 times per week Estimated Hrs Per Day: .5 hour per day Transcriber/Case Mgmt Transcriber/Case Managemen: Discharge Planning Dietitian/Product Development Scientist Dietitian/Product Development Scientist to monitor nutritional status and make changes and/or recommendations as needed and work with speech pathology on dietary upgrades as the occur. Physician IPOC Medical Issues being managed closely and that require the 24 hour availability of a physician: Recent HTN urgency with PD and advanced age at risk for decompensation and further decline in status requiring close 24/7 physician supervision Medical Issues: Bowel/Bladder Function, DVT Prophylaxis, Falls Precautions, Flu id/Electrolyte/Nutrition Balance, Infection Protection, Pain Management Brief Synthesis of Preadmission Screen, Post-Admission Evaluation, and Therapy Evaluations: PT OT ST will all focus on regaining function in all areas of ADL's and ambulation and fall prevention skills in order to safely return home Medical Prognosis: Good Anticipated Length of Stay: 7 days TIMUR MARTÍNEZ DO Dec 21, 2019 09:13
--- NOTE | 2019-12-21 09:16 | Physical Therapy Daily Note ---
PT Daily Note-Current Subjective Pt sitting in recliner upon arrival. Pt agrees to PT, reporting slept well and no pain when asked. Pain Location: No Pain Reported Mental Status Patient Orientation: Person, Place Transfers SCALE: Activities may be completed with or without assistive devices. 7-Ahjsmcnzaa-xuihfeu completes the activity by him/herself with no assistance from a helper. 5-Set-up or Clean-up Assistance-helper sets up or cleans up; patient completes activity. [place] assists only prior to or following the activity. 4-Supervision or Touching Assistance-helper provides verbal cues and/or touching/steadying and/or contact guard assistance as patient completes activity. Assistance may be provided throughout the activity or intermittently. 3-Partial/Moderate Assistance-helper does LESS THAN HALF the effort. [place] lifts, holds or supports trunk or limbs, but provides less than half the effort. 2-Substantial/Maximal Assistance-helper does MORE THAN HALF the effort. [place] lifts or holds trunk or limbs and provides more than half the effort. 9-Juupacjbu-homawy does ALL the effort. Patient does none of the effort to complete the activity. Or, the assistance of 2 or more helpers is required for the patient to complete the activity. If activity was not attempted, code reason: 7-Patient Refused. 9-Not Applicable-not attempted and the patient did not perform the activity before the current illness, exacerbation or injury. 10-Not Attempted due to Environmental Limitations-(lack of equipment, weather restraints, etc.). 88-Not Attempted due to Medical Conditions or Safety Concerns. Sit to Stand (QC): 4 Weight Bearing Full Weight Bearing Full Weight Bearing Gait Training Does the Patient Walk?: Yes Distance: 150' Walk 10 feet (QC): 4 Walk 50 ft with 2 Turns(QC): 4 Walk 150 ft (QC): 4 Gait Persons Needed: 1 Wheelchair Training Does the Pt Use a Wheelchair?: Yes Wheel 50 ft with 2 turns (QC): 4 Wheel 150 ft (QC): 4 Type of Wheelchair: Manual Exercises Seated Therapy Exercises: Ankle pumps, Long arc quads, Hip flexion, Kicking activity, Hip abd/add, Glut set Seated Reps: 15 NuStep Minutes: 10 NuStep Workload: 2 Treatments Pt completes Seated EX in chair before transferring to standing. Pt ambulates in hallway. Pt uses NuStep for 10m at 2. Pt propels WCH back to room to rest awaiting OT. Pt has all needs met. Assessment Current Status: Good Progress Pt demonstrates Parkinson behavior during Rx. PT Short Term Goals Short Term Goals Time Frame: Dec 27, 2019 Roll Left & Right: 6 Sit to lyin Lying to sitting on side of be: 4 Sit to stand: 4 Chair/irb-us-xumxb transfer: 4 Walk 10 feet: 4 Walk 50 feet with two turns: 4 PT Retirement Benefits Specialist Goals Senior Care Goals PT Retirement Benefits Specialist Goals Time Frame: Jan 10, 2020 Roll Left & Right (QC): 6 Sit to Lying (QC): 6 Lying-Sitting on Side/Bed(QC): 6 Sit to Stand (QC): 5 Chair/Iwq-xq-Apqil Xfer(QC): 5 Toilet Transfer (QC): 5 Car Transfer (QC): 5 Does the Patient Walk: Yes Walk 10 feet (QC): 5 Walk 50ft with 2 Turns (QC): 5 Walk 150 ft (QC): 5 Walking 10ft on Uneven Surface: 4 1 Step (curb) (QC): 88 4 Steps (QC): 88 12 Steps (QC): 88 Picking up an Object (QC): 88 Wheel 50 feet with 2 turns (QC: 9 Wheel 150 feet: 9 PT Plan Problem List Problem List: Activity Tolerance, Functional Strength, Safety, Balance, Gait Treatment/Plan Treatment Plan: Continue Plan of Care Treatment Plan: Bed Mobility, Education, Functional Activity Victor Manuel, Functional Strength, Group Therapy, Gait, Safety, Therapeutic Exercise, Transfers Treatment Duration: Jan 10, 2020 Frequency: At least 5 of 7 days/Wk (IRF) Estimated Hrs Per Day: 1.5 hours per day Patient and/or Family Agrees t: Yes Safety Risks/Education Patient Education: Gait Training, Transfer Techniques, Correct Positioning, W/C Management, Safety Issues Teaching Recipient: Patient Teaching Methods: Discussion Response to Teaching: Reinforcement Needed Time/GCodes Time In: 815 Time Out: 900 Total Billed Treatment Time: 45 Total Billed Treatment 1, GT (15m) & EX x2 (30m) DAVID SY SERVICE CONTROL OPERATOR Dec 21, 2019 09:16
[2019-12-21] MEDS: GABAPENTIN 300 MG (NEURONTIN) CAP PO SCH ×2 (09:35→20:46)
[2019-12-21] MEDS: SENNA W/DOCUSATE (SENOKOT S) TABLET PO SCH ×2 (09:35→20:46)
[2019-12-21] MEDS: DOCUSATE SODIUM 100 MG (COLACE) CAP PO SCH (09:35)
[2019-12-21] MEDS: PANTOPRAZOLE 40 MG (PROTONIX) TAB PO SCH (09:38)
[2019-12-21] MEDS: polyethylene glycoL POWDER 17 GM (MIRALAX) PACK PO SCH ×2 (09:38→20:47)
[2019-12-21] MEDS: amLODIPine 5 MG (NORVASC) TAB PO SCH (09:48)
--- NOTE | 2019-12-21 10:45 | NUR ---
Pastoral care visit.
--- NOTE | 2019-12-21 11:05 | Occupational Ther Daily Note ---
OT Current Status-Daily Note Subjective No pain reported. Appearance Pt. up in chair. Agrees to work with OT. Mental Status/Objective Patient Orientation: Person ADL-Treatment Therapy Code Descriptions/Definitions Functional [place] Measure: 0=Not Assessed/NA 4=Minimal Assistance 1=Total Assistance 5=Supervision or Setup 2=Maximal Assistance 6=Modified [place] 3=Moderate Assistance 7=Complete IndependenceSCALE: Activities may be completed with or without assistive devices. 1-Dtdwtqvsdi-beuuyws completes the activity by him/herself with no assistance from a helper. 5-Set-up or Clean-up Assistance-helper sets up or cleans up; patient completes activity. [place] assists only prior to or following the activity. 4-Supervision or Touching Assistance-helper provides verbal cues and/or touching/steadying and/or contact guard assistance as patient completes activity. Assistance may be provided throughout the activity or intermittently. 3-Partial/Moderate Assistance-helper does LESS THAN HALF the effort. [place] lifts, holds or supports trunk or limbs, but provides less than half the effort. 2-Substantial/Maximal Assistance-helper does MORE THAN HALF the effort. [place] lifts or holds trunk or limbs and provides more than half the effort. 7-Gvuprswcc-mpdjtt does ALL the effort. Patient does none of the effort to complete the activity. Or, the assistance of 2 or more helpers is required for the patient to complete the activity. If activity was not attempted, code reason: 7-Patient Refused. 9-Not Applicable-not attempted and the patient did not perform the activity before the current illness, exacerbation or injury. 10-Not Attempted due to Environmental Limitations-(lack of equipment, weather restraints, etc.). 88-Not Attempted due to Medical Conditions or Safety Concerns. Oral Hygiene (QC): 4 (SBA) Shower/Bathe Self (QC): 4 (CGA in stance and cues for initiating tasks. Increased time needed.) Upper Body Dressing (QC): 4 (SBA) Lower Body Dressing (QC): 3 (Mod assist to don brief and pants over feet and over hips in stance.) On/Off Footwear: 4 Other Treatment Pt. agrees to shower. Increased time needed to complete tasks. Pt. able to bring feet up to her to doff/don slipper socks. Pt. dressed after shower with assist to get pants over feet and over hips in stance. Transferred back to wheelchair and completed grooming tasks at sink. Pt. practiced propelling wheelchair to therapy gym and back. Mod assist needed and increased time. Pt. transferred to chair in room and all needs met. Education OT Patient Education: Correct positioning, Modified ADL techniques, Progress toward Goal/Update tx plan, Purpose of tx/functional activities, Reviewed precautions, Rehab process, Transfer techniques Teaching Recipient: Patient Teaching Methods: Demonstration, Discussion Response to Teaching: Return Demonstration, Reinforcement Needed OT Short Term Goals Short Term Goals Time Frame: Dec 27, 2019 Eatin Oral hygiene: 5 Toileting hygiene: 4 Shower/bathe self: 4 Upper body dressin Lower body dressin Putting on/taking off footwear: 4 OT Junior Designer Goals Junior Designer Goals Time Frame: Jan 03, 2020 Eating (QC): 6 Oral Hygiene (QC): 5 Toileting Hygiene (QC): 4 Shower/Bathe Self (QC): 4 Upper Body Dressing (QC): 5 Lower Body Dressing (QC): 4 On/Off Footwear (QC): 4 Additional Goals: 1-Demonstrate ADL Tasks, 2-Verbalize Understanding, 3- ImproveStrength/Victor Manuel 1=Demonstrate adherence to instructed precautions during ADL tasks. 2=Patient will verbalize/demonstrate understanding of assistive devices/modifications for ADL. 3=Patient will improve strength/tolerance for activity to enable patient to perform ADL's. OT Education/Plan Problem List/Assessment Assessment: Decreased Activ Tolerance, Impaired Bed Mobility, Impaired Funct Balance, Impaired I ADL's, Impaired Self-Care Skills Discharge Recommendations Plan/Recommendations: Continue POC Therapy Discharge Recommendati: Scheduled Assistance, Meals on Wheels, Home & Family, Post Acute OT Treatment Plan/Plan of Care Treatment,Training & Education: Yes Patient would benefit from OT for education, treatment and training to promote independence in ADL's, mobility, safety and/or upper extremity function for ADL's. Plan of Care: ADL Retraining, Functional Mobility, UE Funct Exercise/Act Treatment Duration: Jan 03, 2020 Frequency: At least 5 of 7 days/Wk (IRF) Estimated Hrs Per Day: 1.5 hours per day Agreement: Yes Rehab Potential: Fair Time/GCodes Start Time: 09:00 Stop Time: 10:15 Total Time Billed (hr/min): 75 Billed Treatment Time 1, ADL x 5 LILIAN MOLINA OT Dec 21, 2019 11:05
--- NOTE | 2019-12-21 11:46 | Speech Therapy Daily Note ---
Speech Daily Progress Note Subjective Date Seen by Provider: Dec 21, 2019 Time Seen by Provider: 00:30 Patient was pleasant and compliant with therapy today. Patient was very talkative. Objective Patient completed a series of q/a related to her daily needs with 85% given minimal cues. Assessment Assessment Current Status: Good Progress Treatment Plan Continue Plan of Care Speech Short Term Goals Short Term Goals Short Term Goals 1) Patient will complete memory tasks related to her daily needs at 90% with minimal cuing. 2) Patient will complete problem solving tasks related to her daily needs at 90% with minimal cuing. 3) Patient will complete safety awareness tasks related to her daily needs at 90% with minimal cuing. Speech Commercial Real Estate Assistant Goals Commercial Real Estate Assistant Goals Patient will improve cognitive-communication necessary for safety and daily living tasks with minimal assist. Speech-Plan Patient/Family Goals Patient/Family Goals: Patient plans on returning to her home where she receives assistance from her son. Treatment Plan Speech Therapy Treatment Plan: Continue Plan of Care Treatment Duration: Dec 30, 2019 Frequency: 5 times per week Estimated Hrs Per Day: .5 hour per day Rehab Potential: Fair Barriers to Learning: Patient's mild cognitive deficits Pt/Family Agrees to Plan: Yes Safety Risks/Education Teaching Recipient: Patient Teaching Methods: Demonstration, Discussion Response to Teaching: Verbalize Understanding, Return Demonstration Education Topics Provided: Continued safety within her room and communication of wants/needs Time Speech Therapy Time In: 11:00 Speech Therapy Time Out: 11:30 Total Billed Time: 30 Billed Treatment Time 1ENRIKE [address] ST Dec 21, 2019 11:46
--- NOTE | 2019-12-21 13:43 | Physical Therapy Daily Note ---
PT Daily Note-Current Subjective Pt sitting in recliner upon arrival. Pt agrees to PT. Mental Status Patient Orientation: Person, Place Transfers SCALE: Activities may be completed with or without assistive devices. 0-Psktynwmfb-ijbzron completes the activity by him/herself with no assistance from a helper. 5-Set-up or Clean-up Assistance-helper sets up or cleans up; patient completes activity. [place] assists only prior to or following the activity. 4-Supervision or Touching Assistance-helper provides verbal cues and/or touchi ng/steadying and/or contact guard assistance as patient completes activity. Assistance may be provided throughout the activity or intermittently. 3-Partial/Moderate Assistance-helper does LESS THAN HALF the effort. [place] lifts, holds or supports trunk or limbs, but provides less than half the effort. 2-Substantial/Maximal Assistance-helper does MORE THAN HALF the effort. [place] lifts or holds trunk or limbs and provides more than half the effort. 0-Njtfivocb-aalgng does ALL the effort. Patient does none of the effort to complete the activity. Or, the assistance of 2 or more helpers is required for the patient to complete the activity. If activity was not attempted, code reason: 7-Patient Refused. 9-Not Applicable-not attempted and the patient did not perform the activity before the current illness, exacerbation or injury. 10-Not Attempted due to Environmental Limitations-(lack of equipment, weather restraints, etc.). 88-Not Attempted due to Medical Conditions or Safety Concerns. Sit to Stand (QC): 4 Toilet Transfer (QC): 4 Weight Bearing Full Weight Bearing Full Weight Bearing Treatments Pt transfers from recliner to standing and uses restroom before returning to recliner. Pt completes Seated EX in chair before resting, all needs met & call light in hand. PT Short Term Goals Short Term Goals Time Frame: Dec 27, 2019 Roll Left & Right: 6 Sit to lyin Lying to sitting on side of be: 4 Sit to stand: 4 Chair/ytq-tu-dspdf transfer: 4 Walk 10 feet: 4 Walk 50 feet with two turns: 4 PT Half-Way Goals Supervisor Powdered Metal Goals PT Supervisor Powdered Metal Goals Time Frame: Jan 10, 2020 Roll Left & Right (QC): 6 Sit to Lying (QC): 6 Lying-Sitting on Side/Bed(QC): 6 Sit to Stand (QC): 5 Chair/Plv-ep-Noljs Xfer(QC): 5 Toilet Transfer (QC): 5 Car Transfer (QC): 5 Does the Patient Walk: Yes Walk 10 feet (QC): 5 Walk 50ft with 2 Turns (QC): 5 Walk 150 ft (QC): 5 Walking 10ft on Uneven Surface: 4 1 Step (curb) (QC): 88 4 Steps (QC): 88 12 Steps (QC): 88 Picking up an Object (QC): 88 Wheel 50 feet with 2 turns (QC: 9 Wheel 150 feet: 9 PT Plan Problem List Problem List: Activity Tolerance, Functional Strength, Safety, Balance, Gait, Transfer Treatment/Plan Treatment Plan: Continue Plan of Care Treatment Plan: Bed Mobility, Education, Functional Activity Victor Manuel, Functional Strength, Group Therapy, Gait, Safety, Therapeutic Exercise, Transfers Treatment Duration: Jan 10, 2020 Frequency: At least 5 of 7 days/Wk (IRF) Estimated Hrs Per Day: 1.5 hours per day Patient and/or Family Agrees t: Yes Safety Risks/Education Patient Education: Gait Training, Transfer Techniques, Correct Positioning, Safety Issues Teaching Recipient: Patient Teaching Methods: Discussion Response to Teaching: Verbalize Understanding Time/GCodes Time In: 1300 Time Out: 1330 Total Billed Treatment Time: 30 Total Billed Treatment 1, FA (15m) & EX (15m) DAVID SY TOOL DESIGN DRAFTER Dec 21, 2019 13:43
--- NOTE | 2019-12-21 14:17 | NUR ---
"RD ASSESSMENT PMHx: hypercholesterolemia; HTN; Parkinson's disease; chronic constipation PT INTERACTION: Pt was awake and pleasant during nutrition assessment. Pt states current appetite is pretty good, and it is better here than it was at home. Note avg PO intake 50% x1d, per chart review. Pt states following a regular diet at home and has no issues with chewing/swallowing food. Pt states some recent issues with nausea, and constipation, and that she is unsure of her last BM. Note pt currently on bowel regimen of colace BID; senna BID; and miralax BID, per chart review. Pt states she has probably gained some weight, but unsure of amount/timeframe. Note unable to determine recent wt hx, per chart review. ABNORMAL NUTRITION-RELATED LAB VALUES LOW: Pro 6.3 HIGH: BUN 22 Est. kcal needs: 3184-5072 kcal | 25-30 kcal/kg Est. Pro needs: 53-67 g Pro | 0.8-1.0 g Pro/kg PES STATEMENT: Inadequate oral intake (NI-2.1) related to loss of appetite | nausea | constipation as evidenced by pt interview | avg PO intake 50% x1d INTERVENTION: Continue with current diet order of Regular diet. Pt may benefit from nutrition supplementation if PO intake declines. Encouraged pt to eat when able. Will continue to follow and reassess as pt needs, intake, and status change. MONITOR/EVALUATE: PO Intake; Plan of Care; Hydration Status; Weight Status; Lab Values Jazmin Donaldson, MS, RD, LD"
[2019-12-21 17:33] VITALS: BP 143/79
--- NOTE | 2019-12-21 19:20 | NUR ---
bedside report received from ARMANI TONY
[2019-12-21 20:24] VITALS: BP 137/81
--- NOTE | 2019-12-21 20:27 | NUR ---
took all laxatives, v/s [id number]
[2019-12-21] MEDS: ALPRAZolam 0.5 MG (XANAX) TAB PO SCH (20:46)
--- NOTE | 2019-12-21 22:15 | NUR ---
to bathroom then back to bed, side rails up x4, bed alarm on
[2019-12-21] MEDS: ENOXAPARIN 40 MG/0.4 ML (LOVENOX) SYR SC SCH (22:26)
[2019-12-22] MEDS: SINEMET 25/100 (CARBIDOPA/LEVODOPA) TAB PO SCH ×11 (02:00→20:52)
[2019-12-22 05:23] VITALS: BP 137/70
[2019-12-22] MEDS: LEVOTHYROXINE 112 MCG (LEVOTHROID) TAB PO SCH (06:22)
--- NOTE | 2019-12-22 07:05 | PM&R Progress Note ---
Subjective HPI/CC On Admission Date Seen by Provider: Dec 22, 2019 Time Seen by Provider: 09:30 Subjective/Events-last exam Dr. Johnson was notified on the Sinemet and we have a good regimen scheduled that she doesn't have to take Sinemet during the night Bowels are moving Pt a little bit confused Improved incontinence overall She reports that her bowels are moving so unsure on that Conferred with RN Reviewed therapy notes Checked meds and labs Review of Systems General: Fatigue Gastrointestinal: Constipation Neurological: Weakness, Incoordination, Confusion Objective Exam Vital Signs Vital Signs Date Time Temp Pulse Resp B/P (MAP) Pulse Ox O2 Delivery O2 Flow Rate FiO2 12/22/19 21:00 Room Air 12/22/19 17:28 36.3 77 18 159/84 (109) 96 Capillary Refill : Less Than 3 Seconds General Appearance: No Apparent Distress, WD/WN, Chronically ill HEENT: PERRL/EOMI, Normal ENT Inspection, Pharynx Normal Neck: Full Range of Motion, Normal Inspection, Non Tender, Supple, Carotid Bruit Respiratory: Chest Non Tender, Lungs Clear, Normal Breath Sounds, No Accessory Muscle Use, No Respiratory Distress Cardiovascular: Regular Rate, Rhythm, No Edema, No Gallop, No JVD, No Murmur, Normal Peripheral Pulses Gastrointestinal: Normal Bowel Sounds, No Organomegaly, No Pulsatile Mass, Non Tender, Soft Back: Normal Inspection, No CVA Tenderness, No Vertebral Tenderness Extremity: Normal Capillary Refill, Normal Inspection, Normal Range of Motion, Non Tender, No Calf Tenderness, No Pedal Edema Neurologic/Psychiatric: Alert, Oriented x3, No Motor/Sensory Deficits, Normal Mood/Affect, supervisor alteration workroom II-XII Norm as Tested, Abnormal Gait, Depressed Affect, Other (tremor noted upper extremities) Skin: Normal Color, Warm/Dry Lymphatic: No Adenopathy Results/Procedures Lab Patient resulted labs reviewed. FIM Transfers Therapy Code Descriptions/Definitions Functional [place] Measure: 0=Not Assessed/NA 4=Minimal Assistance 1=Total Assistance 5=Supervision or Setup 2=Maximal Assistance 6=Modified [place] 3=Moderate Assistance 7=Complete IndependenceSCALE: Activities may be completed with or without assistive devices. 6-Fekeyrozxz-dorzefv completes the activity by him/herself with no assistance from a helper. 5-Set-up or Clean-up Assistance-helper sets up or cleans up; patient completes activity. [place] assists only prior to or following the activity. 4-Supervision or Touching Assistance-helper provides verbal cues and/or touching/steadying and/or contact guard assistance as patient completes activity. Assistance may be provided throughout the activity or intermittently. 3-Partial/Moderate Assistance-helper does LESS THAN HALF the effort. [place] lifts, holds or supports trunk or limbs, but provides less than half the effort. 2-Substantial/Maximal Assistance-helper does MORE THAN HALF the effort. [place] lifts or holds trunk or limbs and provides more than half the effort. 0-Ugguvwsmk-mewucs does ALL the effort. Patient does none of the effort to complete the activity. Or, the assistance of 2 or more helpers is required for the patient to complete the activity. If activity was not attempted, code reason: 7-Patient Refused. 9-Not Applicable-not attempted and the patient did not perform the activity before the current illness, exacerbation or injury. 10-Not Attempted due to Environmental Limitations-(lack of equipment, weather restraints, etc.). 88-Not Attempted due to Medical Conditions or Safety Concerns. Roll Left to Right (QC): 6 Sit to Lying (QC): 6 Sit to Stand (QC): 4 Chair/Aoq-fe-Nxagc Xfer(QC): 3 Car Transfer (QC): 3 Gait Training Does the Patient Walk?: Yes Distance: 150' Walk 10 feet (QC): 4 Walk 50 ft with 2 Turns(QC): 4 Walk 150 ft (QC): 4 Walking 10ft/uneven surface-QC: 88 Gait Persons Needed: 1 Gait Assistive Device: FWW Wheelchair Training Does the Pt Use a Wheelchair?: Yes Wheel 50 ft with 2 turns (QC): 4 Wheel 150 ft (QC): 4 Type of Wheelchair: Manual Stair Training 1 Step (curb) (QC): 88 4 Steps (QC): 88 12 Steps (QC): 88 Balance Picking up an Object (QC): 88 ADL-Treatment Eating (QC): 5 Oral Hygiene (QC): 4 (SBA) Shower/Bathe Self (QC): 4 (CGA in stance and cues for initiating tasks. Increased time needed.) Upper Body Dressing (QC): 4 (SBA) Lower Body Dressing (QC): 3 (Mod assist to don brief and pants over feet and over hips in stance.) On/Off Footwear (QC): 4 Toileting Hygiene (QC): 3 (Mod assist for balance in stance.) Assessment/Plan Assessment and Plan Assess & Plan/Chief Complaint Assessment: Parkinson's Weakness Near falls HTN urgency Advanced age Plan: IRF protocol ST management Evaluate social needs for DC at home Monitor closely especially BP Change Sinemet to Dr Alex mora (1) Parkinson disease (2) Constipation (3) Weakness Status: Acute (4) Hyponatremia Status: Acute (5) Hypertensive emergency Status: Acute (6) Chest pain Status: Acute TIMUR MARTÍNEZ DO Dec 22, 2019 07:05
[2019-12-22] MEDS: GABAPENTIN 300 MG (NEURONTIN) CAP PO SCH ×2 (08:21→20:52)
[2019-12-22] MEDS: PANTOPRAZOLE 40 MG (PROTONIX) TAB PO SCH (08:22)
[2019-12-22] MEDS: amLODIPine 5 MG (NORVASC) TAB PO SCH (08:23)
[2019-12-22] MEDS: DOCUSATE SODIUM 100 MG (COLACE) CAP PO SCH (08:25)
[2019-12-22] MEDS: SENNA W/DOCUSATE (SENOKOT S) TABLET PO SCH ×2 (08:25→20:52)
[2019-12-22] MEDS: polyethylene glycoL POWDER 17 GM (MIRALAX) PACK PO SCH ×2 (08:25→20:56)
--- NOTE | 2019-12-22 09:11 | Physical Therapy Daily Note ---
PT Daily Note-Current Subjective Pt sitting in recliner upon arrival. Pt agrees to PT. Mental Status Patient Orientation: Person, Place, Situation Transfers SCALE: Activities may be completed with or without assistive devices. 2-Gwuiejexsl-jbzdfsi completes the activity by him/herself with no assistance from a helper. 5-Set-up or Clean-up Assistance-helper sets up or cleans up; patient completes activity. [place] assists only prior to or following the activity. 4-Supervision or Touching Assistance-helper provides verbal cues and/or touching/steadying and/or contact guard assistance as patient completes activity. Assistance may be provided throughout the activity or intermittently. 3-Partial/Moderate Assistance-helper does LESS THAN HALF the effort. [place] lifts, holds or supports trunk or limbs, but provides less than half the effort. 2-Substantial/Maximal Assistance-helper does MORE THAN HALF the effort. [place] lifts or holds trunk or limbs and provides more than half the effort. 2-Vsnmvxlzy-bygidv does ALL the effort. Patient does none of the effort to complete the activity. Or, the assistance of 2 or more helpers is required for the patient to complete the activity. If activity was not attempted, code reason: 7-Patient Refused. 9-Not Applicable-not attempted and the patient did not perform the activity before the current illness, exacerbation or injury. 10-Not Attempted due to Environmental Limitations-(lack of equipment, weather restraints, etc.). 88-Not Attempted due to Medical Conditions or Safety Concerns. Sit to Stand (QC): 4 Toilet Transfer (QC): 4 Weight Bearing Full Weight Bearing Full Weight Bearing Gait Training Does the Patient Walk?: Yes Distance: 150' Walk 10 feet (QC): 4 Walk 50 ft with 2 Turns(QC): 4 Walk 150 ft (QC): 4 Gait Persons Needed: 1 Gait Assistive Device: FWW Pt walks with festinating gait but is able to correct with standing break and picking up feet when advancing. Exercises Seated Therapy Exercises: Ankle pumps, Long arc quads, Hip flexion, Kicking activity, Hip abd/add, Glut set Seated Reps: 15 Treatments Pt completes Seated Ex in recliner before needing to use restroom. Pt ambulates in hallway before taking RB, then more ambulating. Pt returns to room at end of Rx to rest with all needs met, call light in hand. Assessment Current Status: Good Progress Pt takes RB as needed and is improving with activity tolerance and strength during activity. PT Short Term Goals Short Term Goals Time Frame: Dec 27, 2019 Roll Left & Right: 6 Sit to lyin Lying to sitting on side of be: 4 Sit to stand: 4 Chair/nxy-jx-kqdll transfer: 4 Walk 10 feet: 4 Walk 50 feet with two turns: 4 PT Longterm Goals Longterm Goals PT C Software Developer Goals Time Frame: Jan 10, 2020 Roll Left & Right (QC): 6 Sit to Lying (QC): 6 Lying-Sitting on Side/Bed(QC): 6 Sit to Stand (QC): 5 Chair/Esk-nq-Lfkzs Xfer(QC): 5 Toilet Transfer (QC): 5 Car Transfer (QC): 5 Does the Patient Walk: Yes Walk 10 feet (QC): 5 Walk 50ft with 2 Turns (QC): 5 Walk 150 ft (QC): 5 Walking 10ft on Uneven Surface: 4 1 Step (curb) (QC): 88 4 Steps (QC): 88 12 Steps (QC): 88 Picking up an Object (QC): 88 Wheel 50 feet with 2 turns (QC: 9 Wheel 150 feet: 9 PT Plan Problem List Problem List: Activity Tolerance, Functional Strength, Gait Treatment/Plan Treatment Plan: Continue Plan of Care Treatment Plan: Bed Mobility, Education, Functional Activity Victor Manuel, Functional Strength, Group Therapy, Gait, Safety, Therapeutic Exercise, Transfers Treatment Duration: Jan 10, 2020 Frequency: At least 5 of 7 days/Wk (IRF) Estimated Hrs Per Day: 1.5 hours per day Patient and/or Family Agrees t: Yes Safety Risks/Education Patient Education: Gait Training, Transfer Techniques, Correct Positioning, Safety Issues Teaching Recipient: Patient Teaching Methods: Discussion Response to Teaching: Verbalize Understanding Time/GCodes Time In: 815 Time Out: 900 Total Billed Treatment Time: 45 Total Billed Treatment 1, GT x2 (25m) & EX (20m) DAVID SY FIREFIGHTING EQUIPMENT SPECIALIST Dec 22, 2019 09:10
--- NOTE | 2019-12-22 10:48 | Occupational Ther Daily Note ---
OT Current Status-Daily Note Subjective No pain reported. Pt. does report that she feels very hungry at one point, and requests a snack. Appearance Pt. is sitting up in chair. Agrees to work with OT. Mental Status/Objective Patient Orientation: Person, Place ADL-Treatment Therapy Code Descriptions/Definitions Functional [place] Measure: 0=Not Assessed/NA 4=Minimal Assistance 1=Total Assistance 5=Supervision or Setup 2=Maximal Assistance 6=Modified [place] 3=Moderate Assistance 7=Complete IndependenceSCALE: Activities may be completed with or without assistive devices. 1-Udbklsjgkj-dchizcp completes the activity by him/herself with no assistance from a helper. 5-Set-up or Clean-up Assistance-helper sets up or cleans up; patient completes activity. [place] assists only prior to or following the activity. 4-Supervision or Touching Assistance-helper provides verbal cues and/or touching/steadying and/or contact guard assistance as patient completes activity. Assistance may be provided throughout the activity or intermittently. 3-Partial/Moderate Assistance-helper does LESS THAN HALF the effort. [place] lifts, holds or supports trunk or limbs, but provides less than half the effort. 2-Substantial/Maximal Assistance-helper does MORE THAN HALF the effort. [place] lifts or holds trunk or limbs and provides more than half the effort. 2-Rluwwwemj-kowxxs does ALL the effort. Patient does none of the effort to complete the activity. Or, the assistance of 2 or more helpers is required for the patient to complete the activity. If activity was not attempted, code reason: 7-Patient Refused. 9-Not Applicable-not attempted and the patient did not perform the activity before the current illness, exacerbation or injury. 10-Not Attempted due to Environmental Limitations-(lack of equipment, weather restraints, etc.). 88-Not Attempted due to Medical Conditions or Safety Concerns. Eating (QC): 5 (Set up with leeroy crackers and peanut butter.) Oral Hygiene (QC): 4 (SBA to open containers, hand pt. bucket to spit, and cues to sequence.) Shower/Bathe Self (QC): 7 (Pt. showered yesterday and so declines bathing this date.) Upper Body Dressing (QC): 4 Lower Body Dressing (QC): 3 (Min assist to don brief and pants with AE. Increased time and cues needed.) On/Off Footwear: 4 (SBA to doff/don slipper socks. OT brought in sock aide, but pt. is able to bring feet up to her.) Toileting Hygiene (QC): 4 (CGA in stance to pull pants over hips.) Toilet Transfer (QC): 4 Other Treatment After ADLs in room, pt. was taken to therapy gym. Completed 5 minutes on arm bike at min resistance for overall strengthening for daily tasks. Pt. able to complete. Works on self propulsion back to room. Very slow and cues for grasping wheelchair in correct places. Pt. transferred back to chair in room with CGA. All needs met. Education OT Patient Education: Correct positioning, Modified ADL techniques, Progress toward Goal/Update tx plan, Purpose of tx/functional activities, Reviewed precau tions, Rehab process, Transfer techniques Teaching Recipient: Patient Teaching Methods: Demonstration, Discussion Response to Teaching: Verbalize Understanding, Return Demonstration OT Short Term Goals Short Term Goals Time Frame: Dec 27, 2019 Eatin Oral hygiene: 5 Toileting hygiene: 4 Shower/bathe self: 4 Upper body dressin Lower body dressin Putting on/taking off footwear: 4 OT M[facility] Goals [employer] Goals Time Frame: Jan 03, 2020 Eating (QC): 6 Oral Hygiene (QC): 5 Toileting Hygiene (QC): 4 Shower/Bathe Self (QC): 4 Upper Body Dressing (QC): 5 Lower Body Dressing (QC): 4 On/Off Footwear (QC): 4 Additional Goals: 1-Demonstrate ADL Tasks, 2-Verbalize Understanding, 3- ImproveStrength/Victor Manuel 1=Demonstrate adherence to instructed precautions during ADL tasks. 2=Patient will verbalize/demonstrate understanding of assistive devices/modifications for ADL. 3=Patient will improve strength/tolerance for activity to enable patient to perform ADL's. OT Education/Plan Problem List/Assessment Assessment: Decreased Activ Tolerance, Dependent Transfers, Impaired Bed Mobility, Impaired Funct Balance, Impaired I ADL's, Impaired Self-Care Skills Discharge Recommendations Plan/Recommendations: Continue POC Therapy Discharge Recommendati: Scheduled Assistance, Home & Family, Post Acute OT Equpiment Recommendations-D/C: Hip Kit Treatment Plan/Plan of Care Treatment,Training & Education: Yes Patient would benefit from OT for education, treatment and training to promote independence in ADL's, mobility, safety and/or upper extremity function for ADL's. Plan of Care: ADL Retraining, Functional Mobility, UE Funct Exercise/Act Treatment Duration: Jan 03, 2020 Frequency: At least 5 of 7 days/Wk (IRF) Estimated Hrs Per Day: 1.5 hours per day Agreement: Yes Rehab Potential: Fair Time/GCodes Start Time: 09:00 Stop Time: 10:15 Total Time Billed (hr/min): 75 Billed Treatment Time 1, ADL x 60minutes, Ex x 15minutes LILIAN MOLINA OT Dec 22, 2019 10:48
--- NOTE | 2019-12-22 10:50 | NUR ---
This RN spoke with Dr. Johnson, pt's neurologist in [place], who stated that pt does need her Sinemet Q2 hours but gave this RN spacific times to administer. also told this RN that if pt starts to hallucinate or have delusions, to call him and he would make changes to her medication as Sinemet can have that side effect.
--- NOTE | 2019-12-22 12:04 | Physical Therapy Daily Note ---
PT Daily Note-Current Subjective Pt sitting in recliner upon arrival. Pt agrees to PT. Pain Location: No Pain Reported Mental Status Patient Orientation: Person, Place Transfers SCALE: Activities may be completed with or without assistive devices. 9-Ynuwpijeld-ynfvvzf completes the activity by him/herself with no assistance from a helper. 5-Set-up or Clean-up Assistance-helper sets up or cleans up; patient completes activity. [place] assists only prior to or following the activity. 4-Supervision or Touching Assistance-helper provides verbal cues and/or touching/steadying and/or contact guard assistance as patient completes activity. Assistance may be provided throughout the activity or intermittently. 3-Partial/Moderate Assistance-helper does LESS THAN HALF the effort. [place] lifts, holds or supports trunk or limbs, but provides less than half the effort. 2-Substantial/Maximal Assistance-helper does MORE THAN HALF the effort. [place] lifts or holds trunk or limbs and provides more than half the effort. 5-Jkvlwfotv-xaxolk does ALL the effort. Patient does none of the effort to complete the activity. Or, the assistance of 2 or more helpers is required for the patient to complete the activity. If activity was not attempted, code reason: 7-Patient Refused. 9-Not Applicable-not attempted and the patient did not perform the activity before the current illness, exacerbation or injury. 10-Not Attempted due to Environmental Limitations-(lack of equipment, weather restraints, etc.). 88-Not Attempted due to Medical Conditions or Safety Concerns. Sit to Stand (QC): 4 Toilet Transfer (QC): 4 Weight Bearing Full Weight Bearing Full Weight Bearing Gait Training Does the Patient Walk?: Yes Distance: 20' Walk 10 feet (QC): 4 Gait Persons Needed: 1 Gait Assistive Device: FWW Pt working through festinating gait by picking feet up to advance. Treatments Pt reviewing Ex with pt and pt needs to use restroom. Pt transfers to standing, uses restroom then returns to recliner to rest. Pt has all needs met at end of Rx, call light in hand. Assessment Current Status: Good Progress Pt is gaining strength, demonstrated with improved body control. PT Short Term Goals Short Term Goals Time Frame: Dec 27, 2019 Roll Left & Right: 6 Sit to lyin Lying to sitting on side of be: 4 Sit to stand: 4 Chair/vkv-yp-jhpaf transfer: 4 Walk 10 feet: 4 Walk 50 feet with two turns: 4 PT Usp Goals Inspector Packer Goals PT Inspector Packer Goals Time Frame: Jan 10, 2020 Roll Left & Right (QC): 6 Sit to Lying (QC): 6 Lying-Sitting on Side/Bed(QC): 6 Sit to Stand (QC): 5 Chair/Afp-qj-Hqvxp Xfer(QC): 5 Toilet Transfer (QC): 5 Car Transfer (QC): 5 Does the Patient Walk: Yes Walk 10 feet (QC): 5 Walk 50ft with 2 Turns (QC): 5 Walk 150 ft (QC): 5 Walking 10ft on Uneven Surface: 4 1 Step (curb) (QC): 88 4 Steps (QC): 88 12 Steps (QC): 88 Picking up an Object (QC): 88 Wheel 50 feet with 2 turns (QC: 9 Wheel 150 feet: 9 PT Plan Problem List Problem List: Activity Tolerance, Safety, Gait Treatment/Plan Treatment Plan: Continue Plan of Care Treatment Plan: Bed Mobility, Education, Functional Activity Victor Manuel, Functional Strength, Group Therapy, Gait, Safety, Therapeutic Exercise, Transfers Treatment Duration: Jan 10, 2020 Frequency: At least 5 of 7 days/Wk (IRF) Estimated Hrs Per Day: 1.5 hours per day Patient and/or Family Agrees t: Yes Safety Risks/Education Patient Education: Gait Training, Correct Positioning, Safety Issues Teaching Recipient: Patient Teaching Methods: Discussion Response to Teaching: Verbalize Understanding Time/GCodes Time In: 1130 Time Out: 1200 Total Billed Treatment Time: 30 Total Billed Treatment 1, FA x2 (30m) DAVID SY PTA Dec 22, 2019 12:04
--- NOTE | 2019-12-22 14:33 | NUR ---
CM/SS ADMISSION Patient was admitted to ARU for Hypertensive Emergency, Angina, from [facility] 12/20/19 after a two day OBS stay. Patient resides home alone and plans to return there upon discharge. She has 3 children, her son resides "next door" and is available to assist as needed. Her two daughters reside in [place] but have reached out to designer writer regarding assisting with discharge planning. PCP: Jose Kang MD, [facility] PHARMACY: [facility] INSURANCE: Medicare, [employer] Supplement DME: Patient has 4WW with seat. Cast Associate is partnering with OT regarding tub transfer bench exploration and with therapy team regarding other recommendations. HHC: Recommended for RN to monitor Rx changes, HTN, etc, PT/OT for Parkinson's Disease and weakness, and Bath Aid. HOME DELIVERED MEALS: Patient requested meal service, designer writer contacted [facility]Claire, . Coordinated a call between patient and Claire, patient will be accepted into service upon discharge. BARRIERS TO DISCHARGE: Patient is age 89, resides alone, has likely been functioning at home within her own limitations, adjusting to her limits as they progress. Bath assistance is highly recommended, patient has been sponge bathing but said it sure would be great to shower at home. Discussed assisted living options, patient had good understanding of the amenities and also the cost, which seemed to be the hold back. She stated she wanted to remain at home at this time. CONTACTS: Nirav Coleman, Son [address] [place], [place] [address] Nirav owns [employer] in [facility]. Geeta Hawkins, Daughter [address] [place] [address] Jeane Minor, Daughter [address] [place] [address] Patient, and daughter Geeta, understand the purpose and process of the weekly patient care conference and that her next review will be Thursday, December 28, 2019. 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
--- NOTE | 2019-12-22 15:02 | Speech Therapy Daily Note ---
Speech Daily Progress Note Subjective Date Seen by Provider: Dec 22, 2019 Time Seen by Provider: 00:30 Patient was resting in her recliner watching television when I entered her room. Objective Patient completed a series of problem solving scenarios presented verbally with 85% accuracy given minimal cues. Assessment Assessment Current Status: Good Progress Treatment Plan Continue Plan of Care Speech Short Term Goals Short Term Goals Short Term Goals 1) Patient will complete memory tasks related to her daily needs at 90% with minimal cuing. 2) Patient will complete problem solving tasks related to her daily needs at 90% with minimal cuing. 3) Patient will complete safety awareness tasks related to her daily needs at 90% with minimal cuing. Speech Physical Education Aide Goals Prison Goals Patient will improve cognitive-communication necessary for safety and daily living tasks with minimal assist. Speech-Plan Patient/Family Goals Patient/Family Goals: Patient plans on returning to her home where she lives alone. Her son lives next door and assists with her daily needs. Treatment Plan Speech Therapy Treatment Plan: Continue Plan of Care Treatment Duration: Dec 30, 2019 Frequency: 5 times per week Estimated Hrs Per Day: .5 hour per day Rehab Potential: Fair Barriers to Learning: Patient has mild cognitive deficits. Pt/Family Agrees to Plan: Yes Safety Risks/Education Teaching Recipient: Patient Teaching Methods: Discussion Response to Teaching: Verbalize Understanding Education Topics Provided: Continued safety within her room and communication of wants/needs Time Speech Therapy Time In: 13:30 Speech Therapy Time Out: 14:00 Total Billed Time: 30 Billed Treatment Time [address] Dec 22, 2019 15:02
[2019-12-22 17:28] VITALS: BP 159/84
[2019-12-22] MEDS: ALPRAZolam 0.5 MG (XANAX) TAB PO SCH (20:51)
[2019-12-22] MEDS: ENOXAPARIN 40 MG/0.4 ML (LOVENOX) SYR SC SCH (23:07)
[2019-12-23] MEDS: cloNIDine 0.1 MG (CATAPRES) TAB PO PRN (02:03)
[2019-12-23] MEDS: LEVOTHYROXINE 112 MCG (LEVOTHROID) TAB PO SCH (05:40)
[2019-12-23] MEDS: SINEMET 25/100 (CARBIDOPA/LEVODOPA) TAB PO SCH ×8 (05:40→21:56)
[2019-12-23 06:00] VITALS: BP 130/63
--- NOTE | 2019-12-23 06:43 | PM&R Progress Note ---
Subjective HPI/CC On Admission Date Seen by Provider: Dec 23, 2019 Time Seen by Provider: 10:00 Subjective/Events-last exam I told her we spoke to Dr. Johnson and we were notified on the Sinemet and we have a good regimen scheduled that she doesn't have to take Sinemet during the night Bowels are moving Pt a little bit confused at times and asks us to let her son know everything about her meds since he takes care of all of that for her and she tells me this every single day SLUMS 23 Improved incontinence overall She reports that her bowels are moving so unsure on that Conferred with RN Reviewed therapy notes Checked meds and labs Review of Systems General: Fatigue Neurological: Weakness, Incoordination, Confusion Objective Exam Vital Signs Vital Signs Date Time Temp Pulse Resp B/P (MAP) Pulse Ox O2 Delivery O2 Flow Rate FiO2 12/23/19 06:00 36.3 94 18 130/63 (85) 95 Room Air Capillary Refill : Less Than 3 Seconds General Appearance: No Apparent Distress, WD/WN, Chronically ill HEENT: PERRL/EOMI, Normal ENT Inspection, Pharynx Normal Neck: Full Range of Motion, Normal Inspection, Non Tender, Supple, Carotid Bruit Respiratory: Chest Non Tender, Lungs Clear, Normal Breath Sounds, No Accessory Muscle Use, No Respiratory Distress Cardiovascular: Regular Rate, Rhythm, No Edema, No Gallop, No JVD, No Murmur, Normal Peripheral Pulses Gastrointestinal: Normal Bowel Sounds, No Organomegaly, No Pulsatile Mass, Non Tender, Soft Back: Normal Inspection, No CVA Tenderness, No Vertebral Tenderness Extremity: Normal Capillary Refill, Normal Inspection, Normal Range of Motion, Non Tender, No Calf Tenderness, No Pedal Edema Neurologic/Psychiatric: Alert, Oriented x3, No Motor/Sensory Deficits, Normal Mood/Affect, academic associate II-XII Norm as Tested, Abnormal Gait, Depressed Affect, Other (tremor noted upper extremities) Skin: Normal Color, Warm/Dry Lymphatic: No Adenopathy Results/Procedures Lab Patient resulted labs reviewed. FIM Transfers Therapy Code Descriptions/Definitions Functional [place] Measure: 0=Not Assessed/NA 4=Minimal Assistance 1=Total Assistance 5=Supervision or Setup 2=Maximal Assistance 6=Modified [place] 3=Moderate Assistance 7=Complete IndependenceSCALE: Activities may be completed with or without assistive devices. 1-Iwziutdeex-enkkqrm completes the activity by him/herself with no assistance from a helper. 5-Set-up or Clean-up Assistance-helper sets up or cleans up; patient completes activity. [place] assists only prior to or following the activity. 4-Supervision or Touching Assistance-helper provides verbal cues and/or touching/steadying and/or contact guard assistance as patient completes activity. Assistance may be provided throughout the activity or intermittently. 3-Partial/Moderate Assistance-helper does LESS THAN HALF the effort. [place] lifts, holds or supports trunk or limbs, but provides less than half the effort. 2-Substantial/Maximal Assistance-helper does MORE THAN HALF the effort. [place] lifts or holds trunk or limbs and provides more than half the effort. 6-Zdcvfwxve-rayisj does ALL the effort. Patient does none of the effort to complete the activity. Or, the assistance of 2 or more helpers is required for the patient to complete the activity. If activity was not attempted, code reason: 7-Patient Refused. 9-Not Applicable-not attempted and the patient did not perform the activity before the current illness, exacerbation or injury. 10-Not Attempted due to Environmental Limitations-(lack of equipment, weather restraints, etc.). 88-Not Attempted due to Medical Conditions or Safety Concerns. Roll Left to Right (QC): 6 Sit to Lying (QC): 6 Sit to Stand (QC): 4 Chair/Ozc-qz-Jxpfy Xfer(QC): 3 Car Transfer (QC): 3 Gait Training Does the Patient Walk?: Yes Distance: 20' Walk 10 feet (QC): 4 Walk 50 ft with 2 Turns(QC): 4 Walk 150 ft (QC): 4 Walking 10ft/uneven surface-QC: 88 Gait Persons Needed: 1 Gait Assistive Device: FWW Wheelchair Training Does the Pt Use a Wheelchair?: Yes Wheel 50 ft with 2 turns (QC): 4 Wheel 150 ft (QC): 4 Type of Wheelchair: Manual Stair Training 1 Step (curb) (QC): 88 4 Steps (QC): 88 12 Steps (QC): 88 Balance Picking up an Object (QC): 88 ADL-Treatment Eating (QC): 5 (Set up with leeroy crackers and peanut butter.) Oral Hygiene (QC): 4 (SBA to open containers, hand pt. bucket to spit, and cues to sequence.) Shower/Bathe Self (QC): 7 (Pt. showered yesterday and so declines bathing this date.) Upper Body Dressing (QC): 4 Lower Body Dressing (QC): 3 (Min assist to don brief and pants with AE. Increased time and cues needed.) On/Off Footwear (QC): 4 (SBA to doff/don slipper socks. OT brought in sock aide, but pt. is able to bring feet up to her.) Toileting Hygiene (QC): 4 (CGA in stance to pull pants over hips.) Toilet Transfer (QC): 4 Assessment/Plan Assessment and Plan Assess & Plan/Chief Complaint Assessment: Parkinson's Weakness Near falls HTN urgency Advanced age Cognitive deficit SLUMS Plan: IRF protocol ST management Evaluate social needs for DC at home Monitor closely especially BP Change Sinemet to Dr Alex mora (1) Parkinson disease (2) Constipation (3) Weakness Status: Acute (4) Hyponatremia Status: Acute (5) Hypertensive emergency Status: Acute (6) Chest pain Status: Acute TIMUR MARTÍNEZ DO Dec 23, 2019 06:42
--- NOTE | 2019-12-23 08:57 | Physical Therapy Daily Note ---
PT Daily Note-Current Subjective Pt. pleasant and cooperative, agrees to Rx. States she didnt go to bed til late and feels tired. Pt. comments on her right knee "crunching" but states she really doesnt have pain in it Pain Location: No Pain Reported Mental Status Patient Orientation: Person, Place pt. confused at times and states that she realizes it and asks questions to be reoriented etc. Transfers SCALE: Activities may be completed with or without assistive devices. 6-Lqtslefqlr-figqirh completes the activity by him/herself with no assistance from a helper. 5-Set-up or Clean-up Assistance-helper sets up or cleans up; patient completes activity. [place] assists only prior to or following the activity. 4-Supervision or Touching Assistance-helper provides verbal cues and/or touching/steadying and/or contact guard assistance as patient completes activity. Assistance may be provided throughout the activity or intermittently. 3-Partial/Moderate Assistance-helper does LESS THAN HALF the effort. [place] lifts, holds or supports trunk or limbs, but provides less than half the effort. 2-Substantial/Maximal Assistance-helper does MORE THAN HALF the effort. [place] lifts or holds trunk or limbs and provides more than half the effort. 1-Nejkgirop-qekpgm does ALL the effort. Patient does none of the effort to complete the activity. Or, the assistance of 2 or more helpers is required for the patient to complete the activity. If activity was not attempted, code reason: 7-Patient Refused. 9-Not Applicable-not attempted and the patient did not perform the activity before the current illness, exacerbation or injury. 10-Not Attempted due to Environmental Limitations-(lack of equipment, weather restraints, etc.). 88-Not Attempted due to Medical Conditions or Safety Concerns. Sit to Stand (QC): 6 Chair/Ivs-ru-Mnktd Xfer(QC): 5 Toilet Transfer (QC): 6 Weight Bearing Full Weight Bearing Full Weight Bearing Gait Training Does the Patient Walk?: Yes Walk 10 feet (QC): 4 Walk 50 ft with 2 Turns(QC): 4 Walk 150 ft (QC): 4 Gait Persons Needed: 1 Gait Assistive Device: FWW pt. flexed over FWW, veers to left throughout entire walk. some festination w hich pt. self corrected with instruction. poor clearance L foot. Slow but no LOB Stair Training Stair Training: Handrails/: 2 handrails #of Steps: 4 4 Steps (QC): 4 Stairs: Pattern: Step to pt. with audible crepitus right knee upon descending step initiating with left on 1st step and pt. was then instructed to initiate descent with right LE. pt. nervous on steps but managed well with min assist and instruction for sequence Exercises Seated Therapy Exercises: Ankle pumps, Sit to stand, Long arc quads, Hip flexion, Hip abd/add Seated Reps: 15 NuStep Minutes: 12 NuStep Workload: 4 Neuromuscular pt. utilized nustep to facilitate larger movement coordinating upper and lower extremity movement mimicking gait etc. Pt also did leg presses on Nustep x 15. Assessment Current Status: Good Progress gives full effort and shows progress in all phases. PT Short Term Goals Short Term Goals Time Frame: Dec 27, 2019 Roll Left & Right: 6 Sit to lyin Lying to sitting on side of be: 4 Sit to stand: 4 Chair/ybk-hs-wcuni transfer: 4 Walk 10 feet: 4 Walk 50 feet with two turns: 4 PT Correction Goals [place] Machine Operator Helper Goals PT Correction Goals Time Frame: Jan 10, 2020 Roll Left & Right (QC): 6 Sit to Lying (QC): 6 Lying-Sitting on Side/Bed(QC): 6 Sit to Stand (QC): 5 Chair/Zim-io-Hmzze Xfer(QC): 5 Toilet Transfer (QC): 5 Car Transfer (QC): 5 Does the Patient Walk: Yes Walk 10 feet (QC): 5 Walk 50ft with 2 Turns (QC): 5 Walk 150 ft (QC): 5 Walking 10ft on Uneven Surface: 4 1 Step (curb) (QC): 88 4 Steps (QC): 88 12 Steps (QC): 88 Picking up an Object (QC): 88 Wheel 50 feet with 2 turns (QC: 9 Wheel 150 feet: 9 PT Plan Treatment/Plan Treatment Plan: Continue Plan of Care Treatment Plan: Bed Mobility, Education, Functional Activity Victor Manuel, Functional Strength, Group Therapy, Gait, Safety, Therapeutic Exercise, Transfers Treatment Duration: Jan 10, 2020 Frequency: At least 5 of 7 days/Wk (IRF) Estimated Hrs Per Day: 1.5 hours per day Patient and/or Family Agrees t: Yes Safety Risks/Education Patient Education: Gait Training, Transfer Techniques, Steps, Correct Positioning, Disease Process, Safety Issues Teaching Recipient: Patient Teaching Methods: Demonstration, Discussion Response to Teaching: Verbalize Understanding, Return Demonstration, Reinforcement Needed Time/GCodes Time In: 800 Time Out: 900 Total Billed Treatment Time: 60 Total Billed Treatment 1,EX35m,GT15m,FA10m ELOY WARD METAL BED ASSEMBLER Dec 23, 2019 08:57
[2019-12-23] MEDS: PANTOPRAZOLE 40 MG (PROTONIX) TAB PO SCH (09:15)
[2019-12-23] MEDS: amLODIPine 5 MG (NORVASC) TAB PO SCH (09:16)
[2019-12-23] MEDS: GABAPENTIN 300 MG (NEURONTIN) CAP PO SCH ×2 (09:16→21:56)
[2019-12-23] MEDS: SENNA W/DOCUSATE (SENOKOT S) TABLET PO SCH ×2 (09:21→21:55)
[2019-12-23] MEDS: DOCUSATE SODIUM 100 MG (COLACE) CAP PO SCH (09:22)
[2019-12-23] MEDS: polyethylene glycoL POWDER 17 GM (MIRALAX) PACK PO SCH ×2 (09:23→21:56)
--- NOTE | 2019-12-23 10:50 | Occupational Ther Daily Note ---
OT Current Status-Daily Note Subjective Pt seen in room, up in recliner, agreeable to OT and ADLs. No pain mentioned. Appearance Alert, cooperative ADL-Treatment Pt got up from recliner with SBA and walked CGA, FWW to shower. Cues for shower transfer but done CGA. Pt able to get up/down from shower bench with SBA, using grab bars. Pt completed shower, including washing her hair, with setup, just needing help to wash her back. Used hand held shower. Able to wash and dry feet without help. Doffed/pants and slipper socks using dressing stick, with cues to sit to take pants off, supervision. Donned shirt with setup. Donned underwear but struggled a little with L LE. Pt reported, "I always have trouble with this leg". Pt educ to dress L leg first and she was able to put slacks on easier. SBA to stand to pull pants up. Pt walked CGA, FWW to recliner to don socks with setup. Walked SBA, FWW to sink, cue to get closer to sing to brush her teeth. Pt educ mod technique for applying toothpaste. Pt brushed teeth SBA and combed hair mod I. All ADLs took longer than usual. Therapy Code Descriptions/Definitions Functional [place] Measure: 0=Not Assessed/NA 4=Minimal Assistance 1=Total Assistance 5=Supervision or Setup 2=Maximal Assistance 6=Modified [place] 3=Moderate Assistance 7=Complete IndependenceSCALE: Activities may be completed with or without assistive devices. 7-Gzusnjvifw-vqiaket completes the activity by him/herself with no assistance from a helper. 5-Set-up or Clean-up Assistance-helper sets up or cleans up; patient completes activity. [place] assists only prior to or following the activity. 4-Supervision or Touching Assistance-helper provides verbal cues and/or touching/steadying and/or contact guard assistance as patient completes activity. Assistance may be provided throughout the activity or intermittently. 3-Partial/Moderate Assistance-helper does LESS THAN HALF the effort. [place] lifts, holds or supports trunk or limbs, but provides less than half the effort. 2-Substantial/Maximal Assistance-helper does MORE THAN HALF the effort. [place] lifts or holds trunk or limbs and provides more than half the effort. 8-Nxtkwodmp-jdvdwq does ALL the effort. Patient does none of the effort to complete the activity. Or, the assistance of 2 or more helpers is required for the patient to complete the activity. If activity was not attempted, code reason: 7-Patient Refused. 9-Not Applicable-not attempted and the patient did not perform the activity before the current illness, exacerbation or injury. 10-Not Attempted due to Environmental Limitations-(lack of equipment, weather restraints, etc.). 88-Not Attempted due to Medical Conditions or Safety Concerns. Oral Hygiene (QC): 4 (SBA) Shower/Bathe Self (QC): 5 (setup) Upper Body Dressing (QC): 5 (setup) Lower Body Dressing (QC): 4 (Supervision) On/Off Footwear: 5 (setup) Other Treatment Pt walked CGA, FWW to gym, taking two standing recovery breaks. Able to manage FWW well walking to gym but when walking back to room, had more difficulty with walker drifting to L side. No LOB observed. In gym, pt completed 8 minutes bilat UE exercise on arm bike set at 20W resistance, taking a couple brief recovery periods throughout. To strengthen arms to help with transfers, ADLs and functional mobility. Cues for hand and walker placement when transferring to chairs, for safety. Pt returned to room and was left up in recliner, all needs met, chair alarm on. Education OT Patient Education: Modified ADL techniques, Progress toward Goal/Update tx plan, Purpose of tx/functional activities, Safety issues, Transfer techniques Teaching Recipient: Patient Teaching Methods: Demonstration, Discussion Response to Teaching: Verbalize Understanding, Return Demonstration, Reinforcement Needed OT Short Term Goals Short Term Goals Time Frame: Dec 27, 2019 Eatin Oral hygiene: 5 Toileting hygiene: 4 Shower/bathe self: 4 Upper body dressin Lower body dressin Putting on/taking off footwear: 4 OT Ingredient Handler Goals [facility] Goals Time Frame: Jan 03, 2020 Eating (QC): 6 Oral Hygiene (QC): 5 Toileting Hygiene (QC): 4 Shower/Bathe Self (QC): 4 Upper Body Dressing (QC): 5 Lower Body Dressing (QC): 4 On/Off Footwear (QC): 4 Additional Goals: 1-Demonstrate ADL Tasks, 2-Verbalize Understanding, 3- ImproveStrength/Victor Manuel 1=Demonstrate adherence to instructed precautions during ADL tasks. 2=Patient will verbalize/demonstrate understanding of assistive devices/modifications for ADL. 3=Patient will improve strength/tolerance for activity to enable patient to perform ADL's. OT Education/Plan Discharge Recommendations Plan/Recommendations: Continue POC Treatment Plan/Plan of Care Patient would benefit from OT for education, treatment and training to promote independence in ADL's, mobility, safety and/or upper extremity function for ADL's. Plan of Care: ADL Retraining, Functional Mobility, UE Funct Exercise/Act Treatment Duration: Jan 03, 2020 Frequency: At least 5 of 7 days/Wk (IRF) Estimated Hrs Per Day: 1.5 hours per day Agreement: Yes Rehab Potential: Fair Time/GCodes Start Time: 09:00 Stop Time: 10:30 Total Time Billed (hr/min): 90 Billed Treatment Time visit, 55 minutes ADL, 35 minutes exercise MANNY RECINOS OT Dec 23, 2019 10:50
--- NOTE | 2019-12-23 13:25 | Physical Therapy Daily Note ---
PT Daily Note-Current Subjective Pt. up in recliner, agrees to Rx. Pain Location: No Pain Reported Mental Status Patient Orientation: Person, Place Transfers SCALE: Activities may be completed with or without assistive devices. 0-Nutivkbjnn-ddzllky completes the activity by him/herself with no assistance from a helper. 5-Set-up or Clean-up Assistance-helper sets up or cleans up; patient completes activity. [place] assists only prior to or following the activity. 4-Supervision or Touching Assistance-helper provides verbal cues and/or touching/steadying and/or contact guard assistance as patient completes act ivity. Assistance may be provided throughout the activity or intermittently. 3-Partial/Moderate Assistance-helper does LESS THAN HALF the effort. [place] lifts, holds or supports trunk or limbs, but provides less than half the effort. 2-Substantial/Maximal Assistance-helper does MORE THAN HALF the effort. [place] lifts or holds trunk or limbs and provides more than half the effort. 2-Kdqsqgogo-fpilui does ALL the effort. Patient does none of the effort to complete the activity. Or, the assistance of 2 or more helpers is required for the patient to complete the activity. If activity was not attempted, code reason: 7-Patient Refused. 9-Not Applicable-not attempted and the patient did not perform the activity before the current illness, exacerbation or injury. 10-Not Attempted due to Environmental Limitations-(lack of equipment, weather restraints, etc.). 88-Not Attempted due to Medical Conditions or Safety Concerns. Roll Left & Right (QC): 6 Sit to Lying (QC): 6 Lying to Sitting/Side of Bed(Q: 6 Sit to Stand (QC): 6 Chair/Nxp-sf-Qinlq Xfer(QC): 5 Toilet Transfer (QC): 6 Weight Bearing Full Weight Bearing Full Weight Bearing Gait Training Does the Patient Walk?: Yes Gait Assistive Device: FWW 165 ft x 2 slow, veers left, needs instruction for = use R and L on FWW. head down posture, needs instruction for alignment Exercises Supine Ex: Bridging, Ankle pumps, Quad Set, Rolling, Glut sets, Lower trunk rotation, Heel Slides, Short Arc Quads, Scooting, Straight leg raise, Hip abd/add Supine Reps: 20 Assessment Current Status: Good Progress PT Short Term Goals Short Term Goals Time Frame: Dec 27, 2019 Roll Left & Right: 6 Sit to lyin Lying to sitting on side of be: 4 Sit to stand: 4 Chair/fug-eg-xanvf transfer: 4 Walk 10 feet: 4 Walk 50 feet with two turns: 4 PT Milling Machine Operator Goals Senior Care Goals PT Senior Care Goals Time Frame: Jan 10, 2020 Roll Left & Right (QC): 6 Sit to Lying (QC): 6 Lying-Sitting on Side/Bed(QC): 6 Sit to Stand (QC): 5 Chair/Cnp-pi-Ujskw Xfer(QC): 5 Toilet Transfer (QC): 5 Car Transfer (QC): 5 Does the Patient Walk: Yes Walk 10 feet (QC): 5 Walk 50ft with 2 Turns (QC): 5 Walk 150 ft (QC): 5 Walking 10ft on Uneven Surface: 4 1 Step (curb) (QC): 88 4 Steps (QC): 88 12 Steps (QC): 88 Picking up an Object (QC): 88 Wheel 50 feet with 2 turns (QC: 9 Wheel 150 feet: 9 PT Plan Treatment/Plan Treatment Plan: Continue Plan of Care Treatment Plan: Bed Mobility, Education, Functional Activity Victor Manuel, Functional Strength, Group Therapy, Gait, Safety, Therapeutic Exercise, Transfers Treatment Duration: Jan 10, 2020 Frequency: At least 5 of 7 days/Wk (IRF) Estimated Hrs Per Day: 1.5 hours per day Patient and/or Family Agrees t: Yes Safety Risks/Education Patient Education: Gait Training, Transfer Techniques, Correct Positioning, Disease Process, Safety Issues Teaching Recipient: Patient Teaching Methods: Demonstration, Discussion Response to Teaching: Verbalize Understanding, Return Demonstration, Reinforcement Needed Time/GCodes Time In: 1300 Time Out: 1330 Total Billed Treatment Time: 30 Total Billed Treatment 1,GT15m,EX15m ELOY WARD 3RD PRESSMAN Dec 23, 2019 13:25
[2019-12-23 16:40] VITALS: BP 147/82
[2019-12-23] MEDS: ALPRAZolam 0.5 MG (XANAX) TAB PO SCH (21:55)
[2019-12-23] MEDS: ENOXAPARIN 40 MG/0.4 ML (LOVENOX) SYR SC SCH (23:34)
[2019-12-24] MEDS: cloNIDine 0.1 MG (CATAPRES) TAB PO PRN (02:35)
[2019-12-24 05:20] VITALS: BP 171/79
[2019-12-24] MEDS: SINEMET 25/100 (CARBIDOPA/LEVODOPA) TAB PO SCH ×8 (06:28→20:31)
[2019-12-24] MEDS: LEVOTHYROXINE 112 MCG (LEVOTHROID) TAB PO SCH (06:28)
--- NOTE | 2019-12-24 07:54 | PM&R Progress Note ---
Subjective HPI/CC On Admission Date Seen by Provider: Dec 24, 2019 Time Seen by Provider: 13:00 Subjective/Events-last exam Talked about her chronic constipation and she would like to use something on a regular basis but does not like Miralax Bowels are moving Pt a little bit confused at times and asks us to let her son know everything about her meds since he takes care of all of that for her and she tells me this every single day SLUMS 23 Improved incontinence overall She reports that her bowels are moving since she had a large one this morning Conferred with RN Reviewed therapy notes Checked meds and labs Review of Systems General: Fatigue Neurological: Weakness, Confusion Objective Exam Vital Signs Vital Signs Date Time Temp Pulse Resp B/P (MAP) Pulse Ox O2 Delivery O2 Flow Rate FiO2 12/24/19 09:00 Room Air 12/24/19 05:20 36.0 85 18 171/79 (109) 95 Capillary Refill : Less Than 3 Seconds General Appearance: No Apparent Distress, WD/WN, Chronically ill HEENT: PERRL/EOMI, Normal ENT Inspection, Pharynx Normal Neck: Full Range of Motion, Normal Inspection, Non Tender, Supple, Carotid Bruit Respiratory: Chest Non Tender, Lungs Clear, Normal Breath Sounds, No Accessory Muscle Use, No Respiratory Distress Cardiovascular: Regular Rate, Rhythm, No Edema, No Gallop, No JVD, No Murmur, Normal Peripheral Pulses Gastrointestinal: Normal Bowel Sounds, No Organomegaly, No Pulsatile Mass, Non Tender, Soft Back: Normal Inspection, No CVA Tenderness, No Vertebral Tenderness Extremity: Normal Capillary Refill, Normal Inspection, Normal Range of Motion, Non Tender, No Calf Tenderness, No Pedal Edema Neurologic/Psychiatric: Alert, Oriented x3, No Motor/Sensory Deficits, Normal Mood/Affect, 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 FIM Transfers Therapy Code Descriptions/Definitions Functional [place] Measure: 0=Not Assessed/NA 4=Minimal Assistance 1=Total Assistance 5=Supervision or Setup 2=Maximal Assistance 6=Modified [place] 3=Moderate Assistance 7=Complete IndependenceSCALE: Activities may be completed with or without assistive devices. 7-Tihgrmyjqq-oyhvtyx completes the activity by him/herself with no assistance from a helper. 5-Set-up or Clean-up Assistance-helper sets up or cleans up; patient completes activity. [place] assists only prior to or following the activity. 4-Supervision or Touching Assistance-helper provides verbal cues and/or touching/steadying and/or contact guard assistance as patient completes activity. Assistance may be provided throughout the activity or intermittently. 3-Partial/Moderate Assistance-helper does LESS THAN HALF the effort. [place] lifts, holds or supports trunk or limbs, but provides less than half the effort. 2-Substantial/Maximal Assistance-helper does MORE THAN HALF the effort. [place] lifts or holds trunk or limbs and provides more than half the effort. 8-Zwsjnfaov-fuwavy does ALL the effort. Patient does none of the effort to c omplete the activity. Or, the assistance of 2 or more helpers is required for the patient to complete the activity. If activity was not attempted, code reason: 7-Patient Refused. 9-Not Applicable-not attempted and the patient did not perform the activity before the current illness, exacerbation or injury. 10-Not Attempted due to Environmental Limitations-(lack of equipment, weather restraints, etc.). 88-Not Attempted due to Medical Conditions or Safety Concerns. Roll Left to Right (QC): 6 Sit to Lying (QC): 6 Sit to Stand (QC): 6 Chair/Wpv-co-Ryzec Xfer(QC): 5 Car Transfer (QC): 3 Gait Training Does the Patient Walk?: Yes Distance: 20' Walk 10 feet (QC): 4 Walk 50 ft with 2 Turns(QC): 4 Walk 150 ft (QC): 4 Walking 10ft/uneven surface-QC: 88 Gait Persons Needed: 1 Gait Assistive Device: FWW Wheelchair Training Does the Pt Use a Wheelchair?: Yes Wheel 50 ft with 2 turns (QC): 4 Wheel 150 ft (QC): 4 Type of Wheelchair: Manual Stair Training Stair Training: Handrails/: 2 handrails #of Steps: 4 1 Step (curb) (QC): 88 4 Steps (QC): 4 12 Steps (QC): 88 Stairs: Pattern: Step to Balance Picking up an Object (QC): 88 ADL-Treatment Eating (QC): 5 (Set up with leeroy crackers and peanut butter.) Oral Hygiene (QC): 4 (SBA) Shower/Bathe Self (QC): 5 (setup) Upper Body Dressing (QC): 5 (setup) Lower Body Dressing (QC): 4 (Supervision) On/Off Footwear (QC): 5 (setup) Toileting Hygiene (QC): 4 (CGA in stance to pull pants over hips.) Toilet Transfer (QC): 4 Assessment/Plan Assessment and Plan Assess & Plan/Chief Complaint Assessment: Parkinson's Weakness Near falls HTN urgency Advanced age Cognitive deficit 23/30 SLUMS Plan: IRF protocol ST management Evaluate social needs for DC at home Monitor closely especially BP Change Sinemet to Dr Alex mora BM regimen and maintain at home at DC (1) Parkinson disease (2) Constipation (3) Weakness Status: Acute (4) Hyponatremia Status: Acute (5) Hypertensive emergency Status: Acute (6) Chest pain Status: Acute TIMUR MARTÍNEZ DO Dec 24, 2019 07:54
[2019-12-24] MEDS: DOCUSATE SODIUM 100 MG (COLACE) CAP PO SCH (08:44)
[2019-12-24] MEDS: SENNA W/DOCUSATE (SENOKOT S) TABLET PO SCH ×2 (08:44→20:31)
[2019-12-24] MEDS: GABAPENTIN 300 MG (NEURONTIN) CAP PO SCH ×2 (08:44→20:34)
[2019-12-24] MEDS: PANTOPRAZOLE 40 MG (PROTONIX) TAB PO SCH (08:44)
[2019-12-24] MEDS: polyethylene glycoL POWDER 17 GM (MIRALAX) PACK PO SCH ×2 (08:45→20:34)
[2019-12-24] MEDS: amLODIPine 5 MG (NORVASC) TAB PO SCH (12:03)
--- NOTE | 2019-12-24 12:04 | Physical Therapy Daily Note ---
PT Daily Note-Current Subjective Pt in recliner upon arrival; agrees to PT tx. Pain Numeric Pain Scale: 0-No Pain Location: No Pain Reported Mental Status Patient Orientation: Person, Time, Situation Transfers SCALE: Activities may be completed with or without assistive devices. 6-Horpiymcpf-ztclfzv completes the activity by him/herself with no assistance from a helper. 5-Set-up or Clean-up Assistance-helper sets up or cleans up; patient completes activity. [place] assists only prior to or following the activity. 4-Supervision or Touching Assistance-helper provides verbal cues and/or touching/steadying and/or contact guard assistance as patient completes activity. Assistance may be provided throughout the activity or intermittently. 3-Partial/Moderate Assistance-helper does LESS THAN HALF the effort. [place] lifts, holds or supports trunk or limbs, but provides less than half the effort. 2-Substantial/Maximal Assistance-helper does MORE THAN HALF the effort. [place] lifts or holds trunk or limbs and provides more than half the effort. 7-Gvrobtcdo-rwgbzx does ALL the effort. Patient does none of the effort to complete the activity. Or, the assistance of 2 or more helpers is required for the patient to complete the activity. If activity was not attempted, code reason: 7-Patient Refused. 9-Not Applicable-not attempted and the patient did not perform the activity before the current illness, exacerbation or injury. 10-Not Attempted due to Environmental Limitations-(lack of equipment, weather restraints, etc.). 88-Not Attempted due to Medical Conditions or Safety Concerns. Weight Bearing Full Weight Bearing Full Weight Bearing Gait Training Does the Patient Walk?: Yes Distance: 15' x2 Gait Persons Needed: 1 Gait Assistive Device: FWW Pt ambulates w/ FWW to and from the bathroom at [facility]. Exercises Seated Therapy Exercises: Ankle pumps, Long arc quads, Kicking activity, Hip abd/add (Manual resistance) Seated Reps: 20 Treatments Seated ex completed. Pt ambulates to the bathroom w/ FWW at [facility]. Pt scoots forward/backward independently in recliner; transfers at [facility]. Pt in recliner w/ chair alarm on, bed side table and call light w/in reach and all needs met at end of tx. Assessment Current Status: Fair Progress Pt cheerful and optimistic to complete therapy tx. PT Short Term Goals Short Term Goals Time Frame: Dec 27, 2019 Roll Left & Right: 6 Sit to lyin Lying to sitting on side of be: 4 Sit to stand: 4 Chair/kpw-nf-tenlg transfer: 4 Walk 10 feet: 4 Walk 50 feet with two turns: 4 PT Care Home Goals Large Animal Veterinarian Goals PT Care Home Goals Time Frame: Jan 10, 2020 Roll Left & Right (QC): 6 Sit to Lying (QC): 6 Lying-Sitting on Side/Bed(QC): 6 Sit to Stand (QC): 5 Chair/Pil-fd-Kijer Xfer(QC): 5 Toilet Transfer (QC): 5 Car Transfer (QC): 5 Does the Patient Walk: Yes Walk 10 feet (QC): 5 Walk 50ft with 2 Turns (QC): 5 Walk 150 ft (QC): 5 Walking 10ft on Uneven Surface: 4 1 Step (curb) (QC): 88 4 Steps (QC): 88 12 Steps (QC): 88 Picking up an Object (QC): 88 Wheel 50 feet with 2 turns (QC: 9 Wheel 150 feet: 9 PT Plan Problem List Problem List: Safety, Balance, Gait, Transfer Treatment/Plan Treatment Plan: Continue Plan of Care Treatment Plan: Bed Mobility, Education, Functional Activity Victor Manuel, Functional Strength, Group Therapy, Gait, Safety, Therapeutic Exercise, Transfers Treatment Duration: Jan 10, 2020 Frequency: At least 5 of 7 days/Wk (IRF) Estimated Hrs Per Day: 1.5 hours per day Patient and/or Family Agrees t: Yes Safety Risks/Education Patient Education: Gait Training, Correct Positioning, Safety Issues Teaching Recipient: Patient Teaching Methods: Discussion Response to Teaching: Verbalize Understanding Time/GCodes Time In: 1108 Time Out: 1122 Total Billed Treatment Time: 14 Total Billed Treatment 1, Ex (14m) GABRIELLA ULRICH ROUSTABOUT Dec 24, 2019 12:04
[2019-12-24 16:30] VITALS: BP 124/74
[2019-12-24] MEDS: ALPRAZolam 0.5 MG (XANAX) TAB PO SCH (20:31)
[2019-12-24] MEDS: ENOXAPARIN 40 MG/0.4 ML (LOVENOX) SYR SC SCH (23:44)
[2019-12-25 06:00] VITALS: BP 151/74
[2019-12-25] MEDS: SINEMET 25/100 (CARBIDOPA/LEVODOPA) TAB PO SCH ×8 (06:06→20:40)
[2019-12-25] MEDS: LEVOTHYROXINE 112 MCG (LEVOTHROID) TAB PO SCH (06:06)
[2019-12-25 08:00] VITALS: BP 129/64
[2019-12-25] MEDS: GABAPENTIN 300 MG (NEURONTIN) CAP PO SCH ×2 (08:46→20:40)
[2019-12-25] MEDS: PANTOPRAZOLE 40 MG (PROTONIX) TAB PO SCH (08:46)
[2019-12-25] MEDS: amLODIPine 5 MG (NORVASC) TAB PO SCH (08:46)
[2019-12-25] MEDS: SENNA W/DOCUSATE (SENOKOT S) TABLET PO SCH ×2 (08:46→19:57)
[2019-12-25] MEDS: DOCUSATE SODIUM 100 MG (COLACE) CAP PO SCH (08:47)
[2019-12-25] MEDS: polyethylene glycoL POWDER 17 GM (MIRALAX) PACK PO SCH ×2 (08:48→19:57)
--- NOTE | 2019-12-25 11:00 | NUR ---
NO CONFUSION NOTED. COMPLAIN SOB AGAIN. ROOM SAT 95%. DOES HAVE INCREASED EDEMA IN LOWER EXTREMITIES. KNEE HIGH TEDS PUT ON AND WILL INFORM DR. MARTÍNEZ.
--- NOTE | 2019-12-25 11:46 | PM&R Progress Note ---
Subjective HPI/CC On Admission Date Seen by Provider: Dec 25, 2019 Time Seen by Provider: 11:45 Subjective/Events-last exam Talked about her chronic constipation again although she had a large BM this morning per RN and she did not seem to remember that Pt a little bit confused at times and asks us to let her son know everything about her meds since he takes care of all of that for her and she tells me this every single day SLUMS 23 but she seems to have a focus on her bowels Improved incontinence overall Edema noted in lower legs Conferred with RN Reviewed therapy notes Checked meds and labs Review of Systems General: Fatigue Cardiovascular: Edema Neurological: Confusion Objective Exam Vital Signs Vital Signs Date Time Temp Pulse Resp B/P (MAP) Pulse Ox O2 Delivery O2 Flow Rate FiO2 12/25/19 09:00 Room Air 12/25/19 06:00 36.9 70 18 151/74 (99) 93 Capillary Refill : Less Than 3 Seconds General Appearance: No Apparent Distress, WD/WN, Chronically ill HEENT: PERRL/EOMI, Normal ENT Inspection, Pharynx Normal Neck: Full Range of Motion, Normal Inspection, Non Tender, Supple, Carotid Bruit Respiratory: Chest Non Tender, Lungs Clear, Normal Breath Sounds, No Accessory Muscle Use, No Respiratory Distress Cardiovascular: Regular Rate, Rhythm, No Edema, No Gallop, No JVD, No Murmur, Normal Peripheral Pulses Gastrointestinal: Normal Bowel Sounds, No Organomegaly, No Pulsatile Mass, Non Tender, Soft Back: Normal Inspection, No CVA Tenderness, No Vertebral Tenderness Extremity: Normal Capillary Refill, Normal Inspection, Normal Range of Motion, Non Tender, No Calf Tenderness, No Pedal Edema Neurologic/Psychiatric: Alert, Oriented x3, No Motor/Sensory Deficits, Normal Mood/Affect, 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 FIM Transfers Therapy Code Descriptions/Definitions Functional [place] Measure: 0=Not Assessed/NA 4=Minimal Assistance 1=Total Assistance 5=Supervision or Setup 2=Maximal Assistance 6=Modified [place] 3=Moderate Assistance 7=Complete IndependenceSCALE: Activities may be completed with or without assistive devices. 8-Emrxkjgjtm-sfchjhd completes the activity by him/herself with no assistance from a helper. 5-Set-up or Clean-up Assistance-helper sets up or cleans up; patient completes activity. [place] assists only prior to or following the activity. 4-Supervision or Touching Assistance-helper provides verbal cues and/or touching/steadying and/or contact guard assistance as patient completes activity. Assistance may be provided throughout the activity or intermittently. 3-Partial/Moderate Assistance-helper does LESS THAN HALF the effort. [place] lifts, holds or supports trunk or limbs, but provides less than half the effort. 2-Substantial/Maximal Assistance-helper does MORE THAN HALF the effort. [place] l ifts or holds trunk or limbs and provides more than half the effort. 4-Pwvmojyqe-cyknxg does ALL the effort. Patient does none of the effort to complete the activity. Or, the assistance of 2 or more helpers is required for the patient to complete the activity. If activity was not attempted, code reason: 7-Patient Refused. 9-Not Applicable-not attempted and the patient did not perform the activity before the current illness, exacerbation or injury. 10-Not Attempted due to Environmental Limitations-(lack of equipment, weather restraints, etc.). 88-Not Attempted due to Medical Conditions or Safety Concerns. Roll Left to Right (QC): 6 Sit to Lying (QC): 6 Sit to Stand (QC): 6 Chair/Mgr-mp-Xspeu Xfer(QC): 5 Car Transfer (QC): 3 Gait Training Does the Patient Walk?: Yes Distance: 15' x2 Walk 10 feet (QC): 4 Walk 50 ft with 2 Turns(QC): 4 Walk 150 ft (QC): 4 Walking 10ft/uneven surface-QC: 88 Gait Persons Needed: 1 Gait Assistive Device: FWW Wheelchair Training Does the Pt Use a Wheelchair?: Yes Wheel 50 ft with 2 turns (QC): 4 Wheel 150 ft (QC): 4 Type of Wheelchair: Manual Stair Training Stair Training: Handrails/: 2 handrails #of Steps: 4 1 Step (curb) (QC): 88 4 Steps (QC): 4 12 Steps (QC): 88 Stairs: Pattern: Step to Balance Picking up an Object (QC): 88 ADL-Treatment Eating (QC): 5 (Set up with leeroy crackers and peanut butter.) Oral Hygiene (QC): 4 (SBA) Shower/Bathe Self (QC): 5 (setup) Upper Body Dressing (QC): 5 (setup) Lower Body Dressing (QC): 4 (Supervision) On/Off Footwear (QC): 5 (setup) Toileting Hygiene (QC): 4 (CGA in stance to pull pants over hips.) Toilet Transfer (QC): 4 Assessment/Plan Assessment and Plan Assess & Plan/Chief Complaint Assessment: Parkinson's Weakness Near falls HTN urgency Advanced age Cognitive deficit 23/30 SLUMS Edema Plan: IRF protocol ST management Evaluate social needs for DC at home Monitor closely especially BP Change Sinemet to Dr Alex mora BM regimen and maintain at home at DC Lasix 20mg once VITA/NOA wraps (1) Parkinson disease (2) Constipation (3) Weakness Status: Acute (4) Hyponatremia Status: Acute (5) Hypertensive emergency Status: Acute (6) Chest pain Status: Acute TIMUR MARTÍNEZ DO Dec 25, 2019 11:46
[2019-12-25] MEDS ORDERED: FUROSEMIDE 20 MG (LASIX) TAB PO NR (15:00)
[2019-12-25 17:05] VITALS: BP 157/75
[2019-12-25] MEDS: ALPRAZolam 0.5 MG (XANAX) TAB PO SCH (20:40)
[2019-12-25] MEDS: ENOXAPARIN 40 MG/0.4 ML (LOVENOX) SYR SC SCH (22:52)
[2019-12-26 05:15] VITALS: BP 185/79
[2019-12-26 05:59] LABS: BASOPHILS % (AUTO) 0 % (0-10); EOSINOPHILS # (AUTO) 0.1 10^3/uL (0.0-0.3); EOSINOPHILS % (AUTO) 3 % (0-10); HEMATOCRIT 38 % (35-52); HEMOGLOBIN 12.6 G/DL (11.5-16.0); LYMPHOCYTES # (AUTO) 1.6 X 10^3 (1.0-4.0); LYMPHOCYTES % (AUTO) 32 % (12-44); MEAN CORPUSCULAR HEMOGLOBIN 30 PG (25-34); MEAN CORPUSCULAR HGB CONC 33 G/DL (32-36); MEAN CORPUSCULAR VOLUME 93 FL (80-99); MEAN PLATELET VOLUME 8.8 FL (7.4-10.4); MONOCYTES # (AUTO) 0.6 X 10^3 (0.0-1.0); MONOCYTES % (AUTO) 12 % (0-12); NEUTROPHILS # (AUTO) 2.6 X 10^3 (1.8-7.8); NEUTROPHILS % (AUTO) 53 % (42-75); PLATELET COUNT 292 10^3/uL (130-400); RED CELL DISTRIBUTION WIDTH 13.4 % (10.0-14.5); WHITE BLOOD COUNT 4.8 10^3/uL (4.3-11.0)
[2019-12-26 06:10] LABS: ALBUMIN 3.7 GM/DL (3.2-4.5); CHLORIDE 100 MMOL/L (98-107); POTASSIUM 4.3 MMOL/L (3.6-5.0); SODIUM 136 MMOL/L (135-145)
[2019-12-26 06:11] LABS: CALCIUM 8.9 MG/DL (8.5-10.1)
[2019-12-26 06:12] LABS: GLUCOSE 86 MG/DL (70-105); TOTAL PROTEIN 6.3 GM/DL (6.4-8.2)
[2019-12-26 06:13] LABS: CARBON DIOXIDE 28 MMOL/L (21-32)
[2019-12-26 06:14] LABS: BILIRUBIN,TOTAL 0.3 MG/DL (0.1-1.0)
[2019-12-26 06:15] LABS: ALKALINE PHOSPHATASE 65 U/L (40-136)
[2019-12-26] MEDS: LEVOTHYROXINE 112 MCG (LEVOTHROID) TAB PO SCH (06:15)
[2019-12-26] MEDS: SINEMET 25/100 (CARBIDOPA/LEVODOPA) TAB PO SCH ×8 (06:15→20:14)
[2019-12-26 06:16] LABS: CREATININE SERUM 0.85 MG/DL (0.60-1.30); GFR ESTIMATED > 60
[2019-12-26 06:17] LABS: BUN/CREATININE RATIO 20
[2019-12-26 06:19] LABS: ALANINE AMINOTRANSFERASE 27 U/L (0-55)
--- NOTE | 2019-12-26 09:36 | PM&R Progress Note ---
Subjective HPI/CC On Admission Date Seen by Provider: Dec 26, 2019 Time Seen by Provider: 09:45 Subjective/Events-last exam Had to have TUMS for indigestion Bowels are moving very well Overall doing very well but she seems to have some confidence problems Confusion persists at times No falls Participating in all therapy HTN seems to be doing well Gave her one dose of Lasix 20 Mg by mouth and that really helped the lower extremity edema Conferred with RN Reviewed therapy notes Checked meds and labs Review of Systems General: Fatigue Neurological: Weakness Objective Exam Vital Signs Vital Signs Date Time Temp Pulse Resp B/P (MAP) Pulse Ox O2 Delivery O2 Flow Rate FiO2 12/26/19 17:26 37.2 82 16 158/82 (107) 94 Room Air Capillary Refill : Less Than 3 Seconds General Appearance: No Apparent Distress, WD/WN, Chronically ill HEENT: PERRL/EOMI, Normal ENT Inspection, Pharynx Normal Neck: Full Range of Motion, Normal Inspection, Non Tender, Supple, Carotid Bruit Respiratory: Chest Non Tender, Lungs Clear, Normal Breath Sounds, No Accessory Muscle Use, No Respiratory Distress Cardiovascular: Regular Rate, Rhythm, No Edema, No Gallop, No JVD, No Murmur, Normal Peripheral Pulses Gastrointestinal: Normal Bowel Sounds, No Organomegaly, No Pulsatile Mass, Non Tender, Soft Back: Normal Inspection, No CVA Tenderness, No Vertebral Tenderness Extremity: Normal Capillary Refill, Normal Inspection, Normal Range of Motion, Non Tender, No Calf Tenderness, No Pedal Edema Neurologic/Psychiatric: Alert, Oriented x3, No Motor/Sensory Deficits, Normal Mood/Affect, 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 FIM Transfers Therapy Code Descriptions/Definitions Functional [place] Measure: 0=Not Assessed/NA 4=Minimal Assistance 1=Total Assistance 5=Supervision or Setup 2=Maximal Assistance 6=Modified [place] 3=Moderate Assistance 7=Complete IndependenceSCALE: Activities may be completed with or without assistive devices. 6-Ddsvhqqxab-njyquhg completes the activity by him/herself with no assistance from a helper. 5-Set-up or Clean-up Assistance-helper sets up or cleans up; patient completes activity. [place] assists only prior to or following the activity. 4-Supervision or Touching Assistance-helper provides verbal cues and/or touching/steadying and/or contact guard assistance as patient completes activity. Assistance may be provided throughout the activity or intermittently. 3-Partial/Moderate Assistance-helper does LESS THAN HALF the effort. [place] lif ts, holds or supports trunk or limbs, but provides less than half the effort. 2-Substantial/Maximal Assistance-helper does MORE THAN HALF the effort. [place] lifts or holds trunk or limbs and provides more than half the effort. 6-Spvvzkvxp-uymzop does ALL the effort. Patient does none of the effort to complete the activity. Or, the assistance of 2 or more helpers is required for the patient to complete the activity. If activity was not attempted, code reason: 7-Patient Refused. 9-Not Applicable-not attempted and the patient did not perform the activity before the current illness, exacerbation or injury. 10-Not Attempted due to Environmental Limitations-(lack of equipment, weather restraints, etc.). 88-Not Attempted due to Medical Conditions or Safety Concerns. Roll Left to Right (QC): 6 Sit to Lying (QC): 6 Sit to Stand (QC): 6 Chair/Cvq-tn-Dsnkl Xfer(QC): 5 Car Transfer (QC): 3 Gait Training Does the Patient Walk?: Yes Distance: 15' x2 Walk 10 feet (QC): 4 Walk 50 ft with 2 Turns(QC): 4 Walk 150 ft (QC): 4 Walking 10ft/uneven surface-QC: 88 Gait Persons Needed: 1 Gait Assistive Device: FWW Wheelchair Training Does the Pt Use a Wheelchair?: Yes Wheel 50 ft with 2 turns (QC): 4 Wheel 150 ft (QC): 4 Type of Wheelchair: Manual Stair Training Stair Training: Handrails/: 2 handrails #of Steps: 4 1 Step (curb) (QC): 88 4 Steps (QC): 4 12 Steps (QC): 88 Stairs: Pattern: Step to Balance Picking up an Object (QC): 88 ADL-Treatment Eating (QC): 5 (Set up with leeroy crackers and peanut butter.) Oral Hygiene (QC): 4 (SBA) Shower/Bathe Self (QC): 5 (setup) Upper Body Dressing (QC): 5 (setup) Lower Body Dressing (QC): 4 (Supervision) On/Off Footwear (QC): 5 (setup) Toileting Hygiene (QC): 4 (CGA in stance to pull pants over hips.) Toilet Transfer (QC): 4 Assessment/Plan Assessment and Plan Assess & Plan/Chief Complaint Assessment: Parkinson's Weakness Near falls HTN urgency Advanced age Cognitive deficit 23/30 SLUMS Edema Plan: IRF protocol ST management Evaluate social needs for DC at home Monitor closely especially BP Change Sinemet to Dr Alex mora BM regimen and maintain at home at DC Lasix 20mg once yesterday with good results VITA/NOA wraps (1) Parkinson disease (2) Constipation (3) Weakness Status: Acute (4) Hyponatremia Status: Acute (5) Hypertensive emergency Status: Acute (6) Chest pain Status: Acute TIMUR MARTÍNEZ DO Dec 26, 2019 09:35
--- NOTE | 2019-12-26 09:37 | Physical Therapy Daily Note ---
PT Daily Note-Current Subjective Pt. up in recliner, agrees to Rx. Pain Location: No Pain Reported Mental Status Patient Orientation: Person, Place Transfers SCALE: Activities may be completed with or without assistive devices. 1-Hlfhjoojqi-erytyyq completes the activity by him/herself with no assistance from a helper. 5-Set-up or Clean-up Assistance-helper sets up or cleans up; patient completes activity. [place] assists only prior to or following the activity. 4-Supervision or Touching Assistance-helper provides verbal cues and/or touching/steadying and/or contact guard assistance as patient completes act ivity. Assistance may be provided throughout the activity or intermittently. 3-Partial/Moderate Assistance-helper does LESS THAN HALF the effort. [place] lifts, holds or supports trunk or limbs, but provides less than half the effort. 2-Substantial/Maximal Assistance-helper does MORE THAN HALF the effort. [place] lifts or holds trunk or limbs and provides more than half the effort. 1-Qsoflemgv-vxemkc does ALL the effort. Patient does none of the effort to complete the activity. Or, the assistance of 2 or more helpers is required for the patient to complete the activity. If activity was not attempted, code reason: 7-Patient Refused. 9-Not Applicable-not attempted and the patient did not perform the activity before the current illness, exacerbation or injury. 10-Not Attempted due to Environmental Limitations-(lack of equipment, weather restraints, etc.). 88-Not Attempted due to Medical Conditions or Safety Concerns. Roll Left & Right (QC): 6 Sit to Lying (QC): 6 Lying to Sitting/Side of Bed(Q: 6 Sit to Stand (QC): 6 Chair/Mlg-rb-Ljewl Xfer(QC): 6 Toilet Transfer (QC): 6 Car Transfer (QC): 6 instructed in safe car TRF with pt. following well Weight Bearing Full Weight Bearing Full Weight Bearing Gait Training Does the Patient Walk?: Yes Walk 10 feet (QC): 5 Walk 50 ft with 2 Turns(QC): 5 Walk 150 ft (QC): 5 Gait Persons Needed: 1 Gait Assistive Device: FWW festination episodes today, some freezing x 3 with cuing pt. able to initiate movement and responds to instruction successfully Exercises Supine Ex: Bridging, Ankle pumps, Rolling, Heel Slides, Scooting, Straight leg raise Supine Reps: 15 NuStep Minutes: 10 NuStep Workload: 3 Neuromuscular Nustep utilized to promote larger steps and arm swing simulation Treatments toileted SBA and directed to TP and hand soap etc. stood to wash hands SBA Assessment Current Status: Good Progress follows instruction , has some difficulty steering FWW and needs directed where to go during gait training PT Short Term Goals Short Term Goals Time Frame: Dec 27, 2019 Roll Left & Right: 6 Sit to lyin Lying to sitting on side of be: 4 Sit to stand: 4 Chair/rcr-he-taklt transfer: 4 Walk 10 feet: 4 Walk 50 feet with two turns: 4 PT Buyer [place] Goals Skilled Nursing Goals PT Buyer [place] Goals Time Frame: Jan 10, 2020 Roll Left & Right (QC): 6 Sit to Lying (QC): 6 Lying-Sitting on Side/Bed(QC): 6 Sit to Stand (QC): 5 Chair/Rhd-uy-Wdvfv Xfer(QC): 5 Toilet Transfer (QC): 5 Car Transfer (QC): 5 Does the Patient Walk: Yes Walk 10 feet (QC): 5 Walk 50ft with 2 Turns (QC): 5 Walk 150 ft (QC): 5 Walking 10ft on Uneven Surface: 4 1 Step (curb) (QC): 88 4 Steps (QC): 88 12 Steps (QC): 88 Picking up an Object (QC): 88 Wheel 50 feet with 2 turns (QC: 9 Wheel 150 feet: 9 PT Plan Treatment/Plan Treatment Plan: Continue Plan of Care Treatment Plan: Bed Mobility, Education, Functional Activity Victor Manuel, Functional Strength, Group Therapy, Gait, Safety, Therapeutic Exercise, Transfers Treatment Duration: Jan 10, 2020 Frequency: At least 5 of 7 days/Wk (IRF) Estimated Hrs Per Day: 1.5 hours per day Patient and/or Family Agrees t: Yes Safety Risks/Education Patient Education: Gait Training, Transfer Techniques, Correct Positioning, Disease Process, Safety Issues Teaching Recipient: Patient Teaching Methods: Demonstration, Discussion Response to Teaching: Verbalize Understanding, Return Demonstration, Reinforcement Needed Time/GCodes Time In: 845 Time Out: 930 Total Billed Treatment Time: 45 Total Billed Treatment 1,GT15m,EX20m,FA10m ELOY WARD ADOLESCENT COUNSELOR Dec 26, 2019 09:37
--- NOTE | 2019-12-26 10:29 | NUR ---
Delay in 0800 Sinemet dose patient takes med every 2 hours. This rn called pharmacy to see if should give 0800 dose or non admin since it is already after 1000 and next Sinemet dose is due. Pharmacist states to hold 0800 dose.
[2019-12-26] MEDS: DOCUSATE SODIUM 100 MG (COLACE) CAP PO SCH (10:35)
[2019-12-26] MEDS: SENNA W/DOCUSATE (SENOKOT S) TABLET PO SCH ×2 (10:35→20:16)
[2019-12-26] MEDS: polyethylene glycoL POWDER 17 GM (MIRALAX) PACK PO SCH ×2 (10:35→20:16)
[2019-12-26] MEDS: GABAPENTIN 300 MG (NEURONTIN) CAP PO SCH ×2 (10:39→20:16)
[2019-12-26] MEDS: PANTOPRAZOLE 40 MG (PROTONIX) TAB PO SCH (10:39)
[2019-12-26] MEDS: amLODIPine 5 MG (NORVASC) TAB PO SCH (11:05)
[2019-12-26] MEDS: cloNIDine 0.1 MG (CATAPRES) TAB PO PRN (11:46)
--- NOTE | 2019-12-26 11:46 | Occupational Ther Daily Note ---
OT Current Status-Daily Note Subjective Pt. does not report pain. Appearance Pt. up in chair. Agrees to work with OT. Mental Status/Objective Patient Orientation: Person ADL-Treatment Therapy Code Descriptions/Definitions Functional [place] Measure: 0=Not Assessed/NA 4=Minimal Assistance 1=Total Assistance 5=Supervision or Setup 2=Maximal Assistance 6=Modified [place] 3=Moderate Assistance 7=Complete IndependenceSCALE: Activities may be completed with or without assistive devices. 0-Paqcotyjct-istyldb completes the activity by him/herself with no assistance from a helper. 5-Set-up or Clean-up Assistance-helper sets up or cleans up; patient completes activity. [place] assists only prior to or following the activity. 4-Supervision or Touching Assistance-helper provides verbal cues and/or touching/steadying and/or contact guard assistance as patient completes activity. Assistance may be provided throughout the activity or intermittently. 3-Partial/Moderate Assistance-helper does LESS THAN HALF the effort. [place] lifts, holds or supports trunk or limbs, but provides less than half the effort. 2-Substantial/Maximal Assistance-helper does MORE THAN HALF the effort. [place] lifts or holds trunk or limbs and provides more than half the effort. 9-Fnrzjbzbj-joztrg does ALL the effort. Patient does none of the effort to complete the activity. Or, the assistance of 2 or more helpers is required for the patient to complete the activity. If activity was not attempted, code reason: 7-Patient Refused. 9-Not Applicable-not attempted and the patient did not perform the activity before the current illness, exacerbation or injury. 10-Not Attempted due to Environmental Limitations-(lack of equipment, weather restraints, etc.). 88-Not Attempted due to Medical Conditions or Safety Concerns. Eating (QC): 5 (Set up) Shower/Bathe Self (QC): 3 (Min assist to wash rear briana area and cues for sequencing and safety.) Upper Body Dressing (QC): 4 (SBA) Lower Body Dressing (QC): 3 (Pt. required assistance to don brief and pants over left foot. Attempted using DS and different techniques. Pt. able to don over right foot, and over hips in stance.) On/Off Footwear: 2 Toileting Hygiene (QC): 1 (Pt. incontinent of bowel in brief. Pt. able to urinate in toilet and cleanse front briana area, but unable to reach effectively t o cleanse rear briana area.) Toilet Transfer (QC): 4 (CGA) Other Treatment Pt. agrees to shower. Pt. ambulates to toilet and doffs brief. Noted incontinence of stool. Pt. unaware she had gone. After toileting, ambulated to shower. Noted that pt. did not attempt to use washcloths, or soap, but held water on self. Stated that she was "all done." OT gently encouraged her to use the cloth and soap, and assisted with briana area. After drying in shower, pt. donned clothing with assist. Transferred to chair in room and stated that she was very shaky, and needed something to eat quickly. Pt. states that she does this a lot at home, and does not know why. OT notified nursing who checked pt. out. Blood sugar 95, and BP 153/97. 02 sats at 95%. Pt. sat and rested, and then ambulated to bed. Transferred to bed with SBA. Pt. laid and did not attempt to cover self up. OT encouraged pt., as though she were home. Required assistance for this. OT brought in tub transfer bench and educated pt. on use while pt. in bed. Will attempt transfer at another time. Pt. is apprehensive of using shower at all. OT encouraged her to have someone in the house while showering, even with chair. OT is concerned about pt's safety at home, without constant supervision. All needs met in room. Education OT Patient Education: Correct positioning, Modified ADL techniques, Progress toward Goal/Update tx plan, Purpose of tx/functional activities, Reviewed p recautions, Rehab process, Transfer techniques Teaching Recipient: Patient Teaching Methods: Demonstration, Discussion Response to Teaching: Verbalize Understanding, Return Demonstration OT Short Term Goals Short Term Goals Time Frame: Dec 27, 2019 Eatin Oral hygiene: 5 Toileting hygiene: 4 Shower/bathe self: 4 Upper body dressin Lower body dressin Putting on/taking off footwear: 4 OT Dean Of Faculty Goals [facility] Goals Time Frame: Jan 03, 2020 Eating (QC): 6 Oral Hygiene (QC): 5 Toileting Hygiene (QC): 4 Shower/Bathe Self (QC): 4 Upper Body Dressing (QC): 5 Lower Body Dressing (QC): 4 On/Off Footwear (QC): 4 Additional Goals: 1-Demonstrate ADL Tasks, 2-Verbalize Understanding, 3- ImproveStrength/Victor Manuel 1=Demonstrate adherence to instructed precautions during ADL tasks. 2=Patient will verbalize/demonstrate understanding of assistive devices/modifications for ADL. 3=Patient will improve strength/tolerance for activity to enable patient to perform ADL's. OT Education/Plan Problem List/Assessment Assessment: Decreased Activ Tolerance, Decreased Safety Aware, Decreased UE Strength, Dependent Transfers, Impaired Bed Mobility, Impaired Cognition, Impaired Funct Balance, Impaired I ADL's, Impaired Self-Care Skills Discharge Recommendations Plan/Recommendations: Continue POC Therapy Discharge Recommendati: 24 Hour Supervision, Post Acute OT Equpiment Recommendations-D/C: Extended Bath Bench, Hip Kit Treatment Plan/Plan of Care Treatment,Training & Education: Yes Patient would benefit from OT for education, treatment and training to promote independence in ADL's, mobility, safety and/or upper extremity function for ADL's. Plan of Care: ADL Retraining, Functional Mobility, UE Funct Exercise/Act Treatment Duration: Jan 03, 2020 Frequency: At least 5 of 7 days/Wk (IRF) Estimated Hrs Per Day: 1.5 hours per day Agreement: Yes Rehab Potential: Fair Time/GCodes Start Time: 10:15 Stop Time: 11:30 Total Time Billed (hr/min): 75 Billed Treatment Time 1, ADL x 5 LILIAN MOLINA OT Dec 26, 2019 11:46
--- NOTE | 2019-12-26 13:44 | Speech Therapy Daily Note ---
Speech Daily Progress Note Subjective Date Seen by Provider: Dec 26, 2019 Time Seen by Provider: 00:30 Patient stated she had a bad day yesterday (Thursday) due to difficulty breathing. Objective Patient completed a series of q/a for safety awareness with 95% with minimal cues. Assessment Assessment Current Status: Good Progress Treatment Plan Continue Plan of Care Speech Short Term Goals Short Term Goals Short Term Goals 1) Patient will complete memory tasks related to her daily needs at 90% with minimal cuing. 2) Patient will complete problem solving tasks related to her daily needs at 90% with minimal cuing. 3) Patient will complete safety awareness tasks related to her daily needs at 90% with minimal cuing. Speech Fpc Goals Fpc Goals Patient will improve cognitive-communication necessary for safety and daily living tasks with minimal assist. Speech-Plan Patient/Family Goals Patient/Family Goals: Patient plans on returning home where her son lives next door and is very involved with her daily. Treatment Plan Speech Therapy Treatment Plan: Continue Plan of Care Treatment Duration: Dec 30, 2019 Frequency: 5 times per week Estimated Hrs Per Day: .5 hour per day Rehab Potential: Fair Barriers to Learning: Patient's recent health needs. Pt/Family Agrees to Plan: Yes Safety Risks/Education Teaching Recipient: Patient Teaching Methods: Demonstration, Discussion Response to Teaching: Verbalize Understanding, Return Demonstration Education Topics Provided: Continued safety and communication Time Speech Therapy Time In: 09:30 Speech Therapy Time Out: 10:00 Total Billed Time: 30 Billed Treatment Time 1EN[address] Dec 26, 2019 13:44
--- NOTE | 2019-12-26 14:13 | Physical Therapy Daily Note ---
PT Daily Note-Current Subjective Pt. in bed, just finished lunch. Agrees to Rx. Pain Location: No Pain Reported Transfers SCALE: Activities may be completed with or without assistive devices. 7-Kweuaneoia-fmfxnpb completes the activity by him/herself with no assistance from a helper. 5-Set-up or Clean-up Assistance-helper sets up or cleans up; patient completes activity. [place] assists only prior to or following the activity. 4-Supervision or Touching Assistance-helper provides verbal cues and/or touching/steadying and/or contact guard assistance as patient completes activity. Assistance may be provided throughout the activity or intermittently. 3-Partial/Moderate Assistance-helper does LESS THAN HALF the effort. [place] lifts, holds or supports trunk or limbs, but provides less than half the effort. 2-Substantial/Maximal Assistance-helper does MORE THAN HALF the effort. [place] lifts or holds trunk or limbs and provides more than half the effort. 7-Tbqvkfknk-qtpwqk does ALL the effort. Patient does none of the effort to complete the activity. Or, the assistance of 2 or more helpers is required for the patient to complete the activity. If activity was not attempted, code reason: 7-Patient Refused. 9-Not Applicable-not attempted and the patient did not perform the activity before the current illness, exacerbation or injury. 10-Not Attempted due to Environmental Limitations-(lack of equipment, weather restraints, etc.). 88-Not Attempted due to Medical Conditions or Safety Concerns. sup to sit and sit to stand and sit to sup all CGA. Pt. required instruction in efficient sit to stand as she was retropulsive initially Weight Bearing Full Weight Bearing Full Weight Bearing Gait Training Does the Patient Walk?: Yes Gait Assistive Device: FWW 150ft, 100 ft FWW CG to SBA practicing chair approaches for safety etc. instructed again in this Exercises Supine Ex: Bridging, Ankle pumps, Heel Slides, Hip abd/add Supine Reps: 8 Seated Therapy Exercises: Ankle pumps, Sit to stand, Long arc quads, Hip flexion, Hip abd/add Seated Reps: 15 Assessment Current Status: Good Progress PT Short Term Goals Short Term Goals Time Frame: Dec 27, 2019 Roll Left & Right: 6 Sit to lyin Lying to sitting on side of be: 4 Sit to stand: 4 Chair/ije-tz-ervim transfer: 4 Walk 10 feet: 4 Walk 50 feet with two turns: 4 PT Entry Level Civil Engineer Goals Jail Goals PT Entry Level Civil Engineer Goals Time Frame: Jan 10, 2020 Roll Left & Right (QC): 6 Sit to Lying (QC): 6 Lying-Sitting on Side/Bed(QC): 6 Sit to Stand (QC): 5 Chair/Suv-qg-Gxsca Xfer(QC): 5 Toilet Transfer (QC): 5 Car Transfer (QC): 5 Does the Patient Walk: Yes Walk 10 feet (QC): 5 Walk 50ft with 2 Turns (QC): 5 Walk 150 ft (QC): 5 Walking 10ft on Uneven Surface: 4 1 Step (curb) (QC): 88 4 Steps (QC): 88 12 Steps (QC): 88 Picking up an Object (QC): 88 Wheel 50 feet with 2 turns (QC: 9 Wheel 150 feet: 9 PT Plan Treatment/Plan Treatment Plan: Continue Plan of Care Treatment Plan: Bed Mobility, Education, Functional Activity Victor Manuel, Functional Strength, Group Therapy, Gait, Safety, Therapeutic Exercise, Transfers Treatment Duration: Jan 10, 2020 Frequency: At least 5 of 7 days/Wk (IRF) Estimated Hrs Per Day: 1.5 hours per day Patient and/or Family Agrees t: Yes Safety Risks/Education Patient Education: Gait Training, Transfer Techniques, Correct Positioning, Disease Process, Safety Issues Teaching Recipient: Patient Teaching Methods: Demonstration, Discussion Response to Teaching: Verbalize Understanding, Return Demonstration, Reinforcement Needed Time/GCodes Time In: 1330 Time Out: 1400 Total Billed Treatment Time: 30 Total Billed Treatment 1,GT20,EX10 ELOY WARD ROUGH PLANER TENDER Dec 26, 2019 14:13
[2019-12-26 17:26] VITALS: BP 158/82
--- NOTE | 2019-12-26 19:12 | NUR ---
bedside report received from YAMILEX TONY, assume care of pt
[2019-12-26] MEDS: ALPRAZolam 0.5 MG (XANAX) TAB PO SCH (20:14)
--- NOTE | 2019-12-26 20:14 | NUR ---
pt refused Senokot & miralax, pt alert & oriented x4, side rails up x4, bed alarm on
[2019-12-26 20:25] VITALS: BP 129/56
[2019-12-26] MEDS: ENOXAPARIN 40 MG/0.4 ML (LOVENOX) SYR SC SCH (23:07)
[2019-12-27 06:00] VITALS: BP 122/64
[2019-12-27] MEDS: SINEMET 25/100 (CARBIDOPA/LEVODOPA) TAB PO SCH ×8 (06:15→21:43)
[2019-12-27] MEDS: LEVOTHYROXINE 112 MCG (LEVOTHROID) TAB PO SCH (06:15)
--- NOTE | 2019-12-27 06:23 | PM&R Progress Note ---
Subjective HPI/CC On Admission Date Seen by Provider: Dec 27, 2019 Time Seen by Provider: 09:30 Subjective/Events-last exam Pt doing pretty well Confusion is chronic Talks about her bowels a lot Very somatic now reporting feeling shaky and there is really no evidence of any organic basis to that symptom Tried to reassure Talked about her medication that her son manages DC planning Conferred with RN Reviewed therapy notes Checked meds and labs Review of Systems General: Fatigue Neurological: Confusion Objective Exam Vital Signs Vital Signs Date Time Temp Pulse Resp B/P (MAP) Pulse Ox O2 Delivery O2 Flow Rate FiO2 12/27/19 19:07 79 119/72 (88) 12/27/19 17:44 36.4 18 95 Room Air Capillary Refill : Less Than 3 Seconds General Appearance: No Apparent Distress, WD/WN, Chronically ill HEENT: PERRL/EOMI, Normal ENT Inspection, Pharynx Normal Neck: Full Range of Motion, Normal Inspection, Non Tender, Supple, Carotid Bruit Respiratory: Chest Non Tender, Lungs Clear, Normal Breath Sounds, No Accessory Muscle Use, No Respiratory Distress Cardiovascular: Regular Rate, Rhythm, No Edema, No Gallop, No JVD, No Murmur, Normal Peripheral Pulses Gastrointestinal: Normal Bowel Sounds, No Organomegaly, No Pulsatile Mass, Non Tender, Soft Back: Normal Inspection, No CVA Tenderness, No Vertebral Tenderness Extremity: Normal Capillary Refill, Normal Inspection, Normal Range of Motion, Non Tender, No Calf Tenderness, No Pedal Edema Neurologic/Psychiatric: Alert, Oriented x3, No Motor/Sensory Deficits, Normal Mood/Affect, bookmobile clerk II-XII Norm as Tested, Abnormal Gait, Depressed Affect, Other (tremor noted upper extremities) Skin: Normal Color, Warm/Dry Lymphatic: No Adenopathy Results/Procedures Lab Patient resulted labs reviewed. FIM Transfers Therapy Code Descriptions/Definitions Functional [place] Measure: 0=Not Assessed/NA 4=Minimal Assistance 1=Total Assistance 5=Supervision or Setup 2=Maximal Assistance 6=Modified Mower 3=Moderate Assistance 7=Complete IndependenceSCALE: Activities may be completed with or without assistive devices. 5-Cvwgltaety-itiwbnl completes the activity by him/herself with no assistance from a helper. 5-Set-up or Clean-up Assistance-helper sets up or cleans up; patient completes activity. [place] assists only prior to or following the activity. 4-Supervision or Touching Assistance-helper provides verbal cues and/or touching/steadying and/or contact guard assistance as patient completes acti vity. Assistance may be provided throughout the activity or intermittently. 3-Partial/Moderate Assistance-helper does LESS THAN HALF the effort. [place] lifts, holds or supports trunk or limbs, but provides less than half the effort. 2-Substantial/Maximal Assistance-helper does MORE THAN HALF the effort. [place] lifts or holds trunk or limbs and provides more than half the effort. 3-Dkgjljtmz-duyxvw does ALL the effort. Patient does none of the effort to complete the activity. Or, the assistance of 2 or more helpers is required for the patient to complete the activity. If activity was not attempted, code reason: 7-Patient Refused. 9-Not Applicable-not attempted and the patient did not perform the activity before the current illness, exacerbation or injury. 10-Not Attempted due to Environmental Limitations-(lack of equipment, weather restraints, etc.). 88-Not Attempted due to Medical Conditions or Safety Concerns. Roll Left to Right (QC): 6 Sit to Lying (QC): 6 Sit to Stand (QC): 6 Chair/Nfr-gk-Hjdaf Xfer(QC): 6 Car Transfer (QC): 6 Gait Training Does the Patient Walk?: Yes Distance: 15' x2 Walk 10 feet (QC): 5 Walk 50 ft with 2 Turns(QC): 5 Walk 150 ft (QC): 5 Walking 10ft/uneven surface-QC: 88 Gait Persons Needed: 1 Gait Assistive Device: FWW Wheelchair Training Does the Pt Use a Wheelchair?: Yes Wheel 50 ft with 2 turns (QC): 4 Wheel 150 ft (QC): 4 Type of Wheelchair: Manual Stair Training Stair Training: Handrails/: 2 handrails #of Steps: 4 1 Step (curb) (QC): 88 4 Steps (QC): 4 12 Steps (QC): 88 Stairs: Pattern: Step to Balance Picking up an Object (QC): 88 ADL-Treatment Eating (QC): 5 (Set up) Oral Hygiene (QC): 4 (SBA) Shower/Bathe Self (QC): 3 (Min assist to wash rear briana area and cues for sequencing and safety.) Upper Body Dressing (QC): 4 (SBA) Lower Body Dressing (QC): 3 (Pt. required assistance to don brief and pants over left foot. Attempted using DS and different techniques. Pt. able to don over right foot, and over hips in stance.) On/Off Footwear (QC): 2 Toileting Hygiene (QC): 1 (Pt. incontinent of bowel in brief. Pt. able to urinate in toilet and cleanse front briana area, but unable to reach effectively to cleanse rear briana area.) Toilet Transfer (QC): 4 (CGA) Assessment/Plan Assessment and Plan Assess & Plan/Chief Complaint Assessment: Parkinson's Weakness Near falls HTN urgency Advanced age Cognitive deficit SLUMS Edema-improved Plan: IRF protocol ST management Evaluate social needs for DC at home Monitor closely especially BP Change Sinemet to Dr Alex mora BM regimen and maintain at home at DC VITA/NOA wraps (1) Parkinson disease (2) Constipation (3) Weakness Status: Acute (4) Hyponatremia Status: Acute (5) Hypertensive emergency Status: Acute (6) Chest pain Status: Acute TIMUR MARTÍNEZ DO Dec 27, 2019 06:23
--- NOTE | 2019-12-27 08:51 | Physical Therapy Daily Note ---
PT Daily Note-Current Subjective Pt sitting up in recliner upon arrival. Pt agrees to PT but reports needing to use restroom before leaving room. Pain Location: No Pain Reported Mental Status Patient Orientation: Person, Place, Situation Pt's vision is impaired but reports this has been ongoing & will followup with [facility] after DC. Transfers SCALE: Activities may be completed with or without assistive devices. 7-Bxrzfhbozk-fkzqtwt completes the activity by him/herself with no assistance from a helper. 5-Set-up or Clean-up Assistance-helper sets up or cleans up; patient completes activity. [place] assists only prior to or following the activity. 4-Supervision or Touching Assistance-helper provides verbal cues and/or touching/steadying and/or contact guard assistance as patient completes activity. Assistance may be provided throughout the activity or intermittently. 3-Partial/Moderate Assistance-helper does LESS THAN HALF the effort. [place] lifts, holds or supports trunk or limbs, but provides less than half the effort. 2-Substantial/Maximal Assistance-helper does MORE THAN HALF the effort. [place] lifts or holds trunk or limbs and provides more than half the effort. 3-Dwgocbdlv-yyhcul does ALL the effort. Patient does none of the effort to complete the activity. Or, the assistance of 2 or more helpers is required for the patient to complete the activity. If activity was not attempted, code reason: 7-Patient Refused. 9-Not Applicable-not attempted and the patient did not perform the activity before the current illness, exacerbation or injury. 10-Not Attempted due to Environmental Limitations-(lack of equipment, weather restraints, etc.). 88-Not Attempted due to Medical Conditions or Safety Concerns. Sit to Stand (QC): 5 Toilet Transfer (QC): 5 Weight Bearing Full Weight Bearing Full Weight Bearing Gait Training Does the Patient Walk?: Yes Distance: 150' x2 Walk 10 feet (QC): 5 Walk 50 ft with 2 Turns(QC): 5 Walk 150 ft (QC): 5 Gait Persons Needed: 1 Gait Assistive Device: FWW COTTAGE ATTENDANT gives VC for staying closer to FWW as well as standing up taller w/in FWW. Wheelchair Training Does the Pt Use a Wheelchair?: No Exercises NuStep Minutes: 12 NuStep Workload: 4 Treatments Pt transfers to standing then uses restroom before leaving room. Pt ambulates in hallway followed by using NuStep for 12m at WL 4. Pt again ambulates in hallway before returning to room to rest in recliner. Pt has all needs met, call light in hand. Assessment Current Status: Good Progress Pt demonstrates improved cognition, strength & mobility. PT Short Term Goals Short Term Goals Time Frame: Dec 27, 2019 Roll Left & Right: 6 Sit to lyin Lying to sitting on side of be: 4 Sit to stand: 4 Chair/gqa-td-pntwy transfer: 4 Walk 10 feet: 4 Walk 50 feet with two turns: 4 PT Clamshell Operator Goals [facility] Goals PT Clamshell Operator Goals Time Frame: Jan 10, 2020 Roll Left & Right (QC): 6 Sit to Lying (QC): 6 Lying-Sitting on Side/Bed(QC): 6 Sit to Stand (QC): 5 Chair/Zvf-rt-Ogcbi Xfer(QC): 5 Toilet Transfer (QC): 5 Car Transfer (QC): 5 Does the Patient Walk: Yes Walk 10 feet (QC): 5 Walk 50ft with 2 Turns (QC): 5 Walk 150 ft (QC): 5 Walking 10ft on Uneven Surface: 4 1 Step (curb) (QC): 88 4 Steps (QC): 88 12 Steps (QC): 88 Picking up an Object (QC): 88 Wheel 50 feet with 2 turns (QC: 9 Wheel 150 feet: 9 PT Plan Problem List Problem List: Activity Tolerance, Safety, Gait Treatment/Plan Treatment Plan: Continue Plan of Care Treatment Plan: Bed Mobility, Education, Functional Activity Victor Manuel, Functional Strength, Group Therapy, Gait, Safety, Therapeutic Exercise, Transfers Treatment Duration: Jan 10, 2020 Frequency: At least 5 of 7 days/Wk (IRF) Estimated Hrs Per Day: 1.5 hours per day Patient and/or Family Agrees t: Yes Safety Risks/Education Patient Education: Gait Training, Correct Positioning, Safety Issues Teaching Recipient: Patient Teaching Methods: Discussion Response to Teaching: Verbalize Understanding Time/GCodes Time In: 800 Time Out: 845 Total Billed Treatment Time: 45 Total Billed Treatment 1, GT (15m), FA (15m) & EX (15m) DAVID SY COTTAGE ATTENDANT Dec 27, 2019 08:51
[2019-12-27] MEDS: GABAPENTIN 300 MG (NEURONTIN) CAP PO SCH ×2 (10:05→21:43)
[2019-12-27] MEDS: PANTOPRAZOLE 40 MG (PROTONIX) TAB PO SCH (10:06)
[2019-12-27] MEDS: DOCUSATE SODIUM 100 MG (COLACE) CAP PO SCH ×2 (10:06→21:44)
[2019-12-27] MEDS: amLODIPine 5 MG (NORVASC) TAB PO SCH (10:06)
[2019-12-27] MEDS: SENNA W/DOCUSATE (SENOKOT S) TABLET PO SCH ×2 (10:07→21:59)
[2019-12-27] MEDS: polyethylene glycoL POWDER 17 GM (MIRALAX) PACK PO SCH ×2 (10:07→21:59)
--- NOTE | 2019-12-27 11:00 | Occupational Ther Daily Note ---
OT Current Status-Daily Note Subjective Pt sitting in chair, agrees to therapy. Pt reports feeling "shaky", states she thinks she needs her pills. RN is present to provide medication and states pt okay to participate in therapy as tolerated. ADL-Treatment Pt requests to use restroom. Sit to stand with supervision. Gait to restroom with FWW, slow pace. Transfer to toilet with CGA. Pt able to complete toileting hygiene, requires CGA for balance during clothing management. Pt stood at sink to wash hands with CGA. Pt declined shower, but would like to clean up and change clothes. Pt doffed shirt with SBA. Upper body bathing completed with SBA. Pt doffed pants with min assist. Pt stood with CGA to wash buttocks and briana area. Min assist for lower body bathing. Don pullover shirt with SBA. Pt required assist to thread Depends and pants over feet. Stood with min assist for pant hike. Increased time required for ADL tasks. Pt requests to return to bed. Sit to supine with SBA. Pt resting in bed with needs met after session. Therapy Code Descriptions/Definitions Functional [place] Measure: 0=Not Assessed/NA 4=Minimal Assistance 1=Total Assistance 5=Supervision or Setup 2=Maximal Assistance 6=Modified [place] 3=Moderate Assistance 7=Complete IndependenceSCALE: Activities may be completed with or without assistive devices. 1-Etqkpmzbgo-vssslri completes the activity by him/herself with no assistance from a helper. 5-Set-up or Clean-up Assistance-helper sets up or cleans up; patient completes activity. [place] assists only prior to or following the activity. 4-Supervision or Touching Assistance-helper provides verbal cues and/or touching/steadying and/or contact guard assistance as patient completes activity. Assistance may be provided throughout the activity or intermittently. 3-Partial/Moderate Assistance-helper does LESS THAN HALF the effort. [place] lifts, holds or supports trunk or limbs, but provides less than half the effort. 2-Substantial/Maximal Assistance-helper does MORE THAN HALF the effort. [place] lifts or holds trunk or limbs and provides more than half the effort. 7-Mhkwclygm-tqvpuu does ALL the effort. Patient does none of the effort to complete the activity. Or, the assistance of 2 or more helpers is required for the patient to complete the activity. If activity was not attempted, code reason: 7-Patient Refused. 9-Not Applicable-not attempted and the patient did not perform the activity before the current illness, exacerbation or injury. 10-Not Attempted due to Environmental Limitations-(lack of equipment, weather restraints, etc.). 88-Not Attempted due to Medical Conditions or Safety Concerns. Shower/Bathe Self (QC): 3 Upper Body Dressing (QC): 4 Lower Body Dressing (QC): 3 Toileting Hygiene (QC): 4 Toilet Transfer (QC): 4 OT Short Term Goals Short Term Goals Time Frame: Dec 27, 2019 Eatin Oral hygiene: 5 Toileting hygiene: 4 Shower/bathe self: 4 Upper body dressin Lower body dressin Putting on/taking off footwear: 4 OT Usp Goals Usp Goals Time Frame: Jan 03, 2020 Eating (QC): 6 Oral Hygiene (QC): 5 Toileting Hygiene (QC): 4 Shower/Bathe Self (QC): 4 Upper Body Dressing (QC): 5 Lower Body Dressing (QC): 4 On/Off Footwear (QC): 4 Additional Goals: 1-Demonstrate ADL Tasks, 2-Verbalize Understanding, 3- ImproveStrength/Victor Manuel 1=Demonstrate adherence to instructed precautions during ADL tasks. 2=Patient will verbalize/demonstrate understanding of assistive devices/modifications for ADL. 3=Patient will improve strength/tolerance for activity to enable patient to perform ADL's. OT Education/Plan Discharge Recommendations Plan/Recommendations: Continue POC Treatment Plan/Plan of Care Patient would benefit from OT for education, treatment and training to promote independence in ADL's, mobility, safety and/or upper extremity function for A DL's. Plan of Care: ADL Retraining, Functional Mobility, UE Funct Exercise/Act Treatment Duration: Jan 03, 2020 Frequency: At least 5 of 7 days/Wk (IRF) Estimated Hrs Per Day: 1.5 hours per day Agreement: Yes Rehab Potential: Fair Time/GCodes Start Time: 10:00 Stop Time: 10:45 Total Time Billed (hr/min): 45 Billed Treatment Time 1 visit, ADLx3(45minutes) SYED PARK OT Dec 27, 2019 10:59
--- NOTE | 2019-12-27 13:38 | Speech Therapy Daily Note ---
Speech Daily Progress Note Subjective Date Seen by Provider: Dec 27, 2019 Time Seen by Provider: 00:30 Patient stated she was feeling shaky in her arms and legs. She couldn't remember when she had her Parkinson's meds last. Nursing was advised. Objective Patient completed a series of q/a of fill in the blank for safety awareness at 90% with minimal cues. Assessment Assessment Current Status: Good Progress Treatment Plan Continue Plan of Care Speech Short Term Goals Short Term Goals Short Term Goals 1) Patient will complete memory tasks related to her daily needs at 90% with minimal cuing. 2) Patient will complete problem solving tasks related to her daily needs at 90% with minimal cuing. 3) Patient will complete safety awareness tasks related to her daily needs at 90% with minimal cuing. Speech [place] Supervisor Goals Skilled Nursing Goals Patient will improve cognitive-communication necessary for safety and daily living tasks with minimal assist. Speech-Plan Patient/Family Goals Patient/Family Goals: Patient plans on returning to her home and prior living situation. Treatment Plan Speech Therapy Treatment Plan: Continue Plan of Care Treatment Duration: Dec 30, 2019 Frequency: 5 times per week Estimated Hrs Per Day: .5 hour per day Rehab Potential: Fair Barriers to Learning: Patient's medical status Pt/Family Agrees to Plan: Yes Safety Risks/Education Teaching Recipient: Patient Teaching Methods: Demonstration, Discussion Response to Teaching: Verbalize Understanding, Return Demonstration Education Topics Provided: Continued safety and communication of wants/needs Time Speech Therapy Time In: 09:30 Speech Therapy Time Out: 10:00 Total Billed Time: 30 Billed Treatment Time [address] Dec 27, 2019 13:38
--- NOTE | 2019-12-27 14:08 | Physical Therapy Daily Note ---
PT Daily Note-Current Subjective Pt sitting in recliner upon arrival. Pt agrees to PT but fixated on Blood Sugar not staying acceptable level. Nurse advises shaky from Parkinson's and Blood Sugar has been at acceptable levels. Pain Location: No Pain Reported Mental Status Patient Orientation: Person, Confused, Place Transfers SCALE: Activities may be completed with or without assistive devices. 6-Wkybwqxibk-fsxmzuc completes the activity by him/herself with no assistance from a helper. 5-Set-up or Clean-up Assistance-helper sets up or cleans up; patient completes activity. [place] assists only prior to or following the activity. 4-Supervision or Touching Assistance-helper provides verbal cues and/or touching/steadying and/or contact guard assistance as patient completes activity. Assistance may be provided throughout the activity or intermittently. 3-Partial/Moderate Assistance-helper does LESS THAN HALF the effort. [place] lifts, holds or supports trunk or limbs, but provides less than half the effort. 2-Substantial/Maximal Assistance-helper does MORE THAN HALF the effort. [place] lifts or holds trunk or limbs and provides more than half the effort. 6-Notliwhnb-vmvefx does ALL the effort. Patient does none of the effort to com plete the activity. Or, the assistance of 2 or more helpers is required for the patient to complete the activity. If activity was not attempted, code reason: 7-Patient Refused. 9-Not Applicable-not attempted and the patient did not perform the activity before the current illness, exacerbation or injury. 10-Not Attempted due to Environmental Limitations-(lack of equipment, weather restraints, etc.). 88-Not Attempted due to Medical Conditions or Safety Concerns. Weight Bearing Full Weight Bearing Full Weight Bearing Exercises Supine Ex: Quad Set Supine Reps: 15 Seated Therapy Exercises: Ankle pumps, Long arc quads, Hip flexion, Kicking activity, Glut set Seated Reps: 15 Treatments Pt completes Seated Ex as well as GS to work through hamstring tightness. GRAIN ELEVATOR OPERATOR also gives pt instruction over Parkinson's vs Blood Sugar and what is helpful dietary shah to aid with Blood Sugar and feeling full. Pt resting in recliner with all needs met, call light in hand. Assessment Current Status: Good Progress Pt has difficulty at times fixating on health concerns that jewel bearing turner to not be a concern. GRAIN ELEVATOR OPERATOR tries to give redirection, focusing back on Rx. PT Short Term Goals Short Term Goals Time Frame: Dec 27, 2019 Roll Left & Right: 6 Sit to lyin Lying to sitting on side of be: 4 Sit to stand: 4 Chair/jtb-za-tpwtf transfer: 4 Walk 10 feet: 4 Walk 50 feet with two turns: 4 PT Correction Goals Correction Goals PT Supervisor Press Room Goals Time Frame: Jan 10, 2020 Roll Left & Right (QC): 6 Sit to Lying (QC): 6 Lying-Sitting on Side/Bed(QC): 6 Sit to Stand (QC): 5 Chair/Mvj-kn-Gkhwt Xfer(QC): 5 Toilet Transfer (QC): 5 Car Transfer (QC): 5 Does the Patient Walk: Yes Walk 10 feet (QC): 5 Walk 50ft with 2 Turns (QC): 5 Walk 150 ft (QC): 5 Walking 10ft on Uneven Surface: 4 1 Step (curb) (QC): 88 4 Steps (QC): 88 12 Steps (QC): 88 Picking up an Object (QC): 88 Wheel 50 feet with 2 turns (QC: 9 Wheel 150 feet: 9 PT Plan Problem List Problem List: Activity Tolerance, Functional Strength Treatment/Plan Treatment Plan: Continue Plan of Care Treatment Plan: Bed Mobility, Education, Functional Activity Victor Manuel, Functional Strength, Group Therapy, Gait, Safety, Therapeutic Exercise, Transfers Treatment Duration: Jan 10, 2020 Frequency: At least 5 of 7 days/Wk (IRF) Estimated Hrs Per Day: 1.5 hours per day Patient and/or Family Agrees t: Yes Safety Risks/Education Patient Education: Correct Positioning, Safety Issues Teaching Recipient: Patient Teaching Methods: Discussion Response to Teaching: Verbalize Understanding Time/GCodes Time In: 1330 Time Out: 1400 Total Billed Treatment Time: 30 Total Billed Treatment 1, EX x2 (30m) DAVID SY GRAIN ELEVATOR OPERATOR Dec 27, 2019 14:08
--- NOTE | 2019-12-27 14:31 | Occupational Ther Daily Note ---
OT Current Status-Daily Note Subjective Pt sitting in chair, agrees to therapy. No reports of pain, but states she is tired. ADL-Treatment Therapy Code Descriptions/Definitions Functional [place] Measure: 0=Not Assessed/NA 4=Minimal Assistance 1=Total Assistance 5=Supervision or Setup 2=Maximal Assistance 6=Modified [place] 3=Moderate Assistance 7=Complete IndependenceSCALE: Activities may be completed with or without assistive devices. 7-Vkfehqcxji-ddvaebh completes the activity by him/herself with no assistance from a helper. 5-Set-up or Clean-up Assistance-helper sets up or cleans up; patient completes activity. [place] assists only prior to or following the activity. 4-Supervision or Touching Assistance-helper provides verbal cues and/or touching/steadying and/or contact guard assistance as patient completes activity. Assistance may be provided throughout the activity or intermittently. 3-Partial/Moderate Assistance-helper does LESS THAN HALF the effort. [place] lifts, holds or supports trunk or limbs, but provides less than half the effort. 2-Substantial/Maximal Assistance-helper does MORE THAN HALF the effort. [place] lifts or holds trunk or limbs and provides more than half the effort. 0-Jdgthsokt-csxztf does ALL the effort. Patient does none of the effort to complete the activity. Or, the assistance of 2 or more helpers is required for the patient to complete the activity. If activity was not attempted, code reason: 7-Patient Refused. 9-Not Applicable-not attempted and the patient did not perform the activity before the current illness, exacerbation or injury. 10-Not Attempted due to Environmental Limitations-(lack of equipment, weather restraints, etc.). 88-Not Attempted due to Medical Conditions or Safety Concerns. Other Treatment Pt performed sit to stand x5 with supervision. Gait to therapy gym with slow pace. Occasional assist to safely manage FWW during turns. Pt completed arm bike [id number] to increase overall strength and activity tolerance needed for functional task completion. Pt performed task with minimal resistance and slow pace. Rest break taken after completion of activity. Pt returned to room with slow pace. Transfer to chair with supervision. Pt sitting in chair with needs me t and chair alarm in place after session. OT Short Term Goals Short Term Goals Time Frame: Dec 27, 2019 Eatin Oral hygiene: 5 Toileting hygiene: 4 Shower/bathe self: 4 Upper body dressin Lower body dressin Putting on/taking off footwear: 4 OT Dividend Deposit Voucher Clerk Goals Dividend Deposit Voucher Clerk Goals Time Frame: Jan 03, 2020 Eating (QC): 6 Oral Hygiene (QC): 5 Toileting Hygiene (QC): 4 Shower/Bathe Self (QC): 4 Upper Body Dressing (QC): 5 Lower Body Dressing (QC): 4 On/Off Footwear (QC): 4 Additional Goals: 1-Demonstrate ADL Tasks, 2-Verbalize Understanding, 3- ImproveStrength/Victor Manuel 1=Demonstrate adherence to instructed precautions during ADL tasks. 2=Patient will verbalize/demonstrate understanding of assistive devices/modifications for ADL. 3=Patient will improve strength/tolerance for activity to enable patient to perform ADL's. OT Education/Plan Discharge Recommendations Plan/Recommendations: Continue POC Treatment Plan/Plan of Care Patient would benefit from OT for education, treatment and training to promote independence in ADL's, mobility, safety and/or upper extremity function for ADL's. Plan of Care: ADL Retraining, Functional Mobility, UE Funct Exercise/Act Treatment Duration: Jan 03, 2020 Frequency: At least 5 of 7 days/Wk (IRF) Estimated Hrs Per Day: 1.5 hours per day Agreement: Yes Rehab Potential: Fair Time/GCodes Start Time: 13:00 Stop Time: 13:30 Total Time Billed (hr/min): 30 Billed Treatment Time 1 visit, FA(15minutes), EX(15minutes) SYED PARK OT Dec 27, 2019 14:31
[2019-12-27] MEDS: cloNIDine 0.1 MG (CATAPRES) TAB PO PRN (16:59)
[2019-12-27 17:44] VITALS: BP 166/101
[2019-12-27 19:07] VITALS: BP 119/72
[2019-12-27] MEDS: ALPRAZolam 0.5 MG (XANAX) TAB PO SCH (21:43)
[2019-12-27] MEDS: ENOXAPARIN 40 MG/0.4 ML (LOVENOX) SYR SC SCH (22:00)
[2019-12-28 06:00] VITALS: BP 154/73
--- NOTE | 2019-12-28 07:21 | PM&R Progress Note ---
Subjective HPI/CC On Admission Date Seen by Provider: Dec 28, 2019 Time Seen by Provider: 10:00 Subjective/Events-last exam Dizzy and shaking after breakfast but there was no evidence of hypoglycemia Multiple somatic complaints continue No major concerns Discharge planned for Thursday on 01/02/20 DC planning for Thursday Conferred with RN Reviewed therapy notes Checked meds and labs Review of Systems General: Fatigue Neurological: Weakness, Incoordination Objective Exam Vital Signs Vital Signs Date Time Temp Pulse Resp B/P (MAP) Pulse Ox O2 Delivery O2 Flow Rate FiO2 12/28/19 18:57 131/62 (85) 12/28/19 17:46 36.6 82 19 96 Room Air Capillary Refill : Less Than 3 Seconds General Appearance: No Apparent Distress, WD/WN, Chronically ill HEENT: PERRL/EOMI, Normal ENT Inspection, Pharynx Normal Neck: Full Range of Motion, Normal Inspection, Non Tender, Supple, Carotid Bruit Respiratory: Chest Non Tender, Lungs Clear, Normal Breath Sounds, No Accessory Muscle Use, No Respiratory Distress Cardiovascular: Regular Rate, Rhythm, No Edema, No Gallop, No JVD, No Murmur, Normal Peripheral Pulses Gastrointestinal: Normal Bowel Sounds, No Organomegaly, No Pulsatile Mass, Non Tender, Soft Back: Normal Inspection, No CVA Tenderness, No Vertebral Tenderness Extremity: Normal Capillary Refill, Normal Inspection, Normal Range of Motion, Non Tender, No Calf Tenderness, No Pedal Edema Neurologic/Psychiatric: Alert, Oriented x3, No Motor/Sensory Deficits, Normal Mood/Affect, medical radiation dosimetrist II-XII Norm as Tested, Abnormal Gait, Depressed Affect, Other (tremor noted upper extremities) Skin: Normal Color, Warm/Dry Lymphatic: No Adenopathy Results/Procedures Lab Patient resulted labs reviewed. FIM Transfers Therapy Code Descriptions/Definitions Functional [place] Measure: 0=Not Assessed/NA 4=Minimal Assistance 1=Total Assistance 5=Supervision or Setup 2=Maximal Assistance 6=Modified [place] 3=Moderate Assistance 7=Complete IndependenceSCALE: Activities may be completed with or without assistive devices. 2-Zpaqqdfwmy-ysiflgx completes the activity by him/herself with no assistance from a helper. 5-Set-up or Clean-up Assistance-helper sets up or cleans up; patient completes activity. [place] assists only prior to or following the activity. 4-Supervision or Touching Assistance-helper provides verbal cues and/or touching/steadying and/or contact guard assistance as patient completes activity. Assistance may be provided throughout the activity or intermittently. 3-Partial/Moderate Assistance-helper does LESS THAN HALF the effort. [place] lifts, holds or supports trunk or limbs, but provides less than half the effort. 2-Substantial/Maximal Assistance-helper does MORE THAN HALF the effort. [place] lifts or holds trunk or limbs and provides more than half the effort. 7-Tadmhlvdd-ltogon does ALL the effort. Patient does none of the effort to complete the activity. Or, the assistance of 2 or more helpers is required for the patient to complete the activity. If activity was not attempted, code reason: 7-Patient Refused. 9-Not Applicable-not attempted and the patient did not perform the activity before the current illness, exacerbation or injury. 10-Not Attempted due to Environmental Limitations-(lack of equipment, weather restraints, etc.). 88-Not Attempted due to Medical Conditions or Safety Concerns. Roll Left to Right (QC): 6 Sit to Lying (QC): 6 Sit to Stand (QC): 5 Chair/Ojs-uy-Cjxhm Xfer(QC): 6 Car Transfer (QC): 6 Gait Training Does the Patient Walk?: Yes Distance: 150' x2 Walk 10 feet (QC): 5 Walk 50 ft with 2 Turns(QC): 5 Walk 150 ft (QC): 5 Walking 10ft/uneven surface-QC: 88 Gait Persons Needed: 1 Gait Assistive Device: FWW Wheelchair Training Does the Pt Use a Wheelchair?: No Wheel 50 ft with 2 turns (QC): 4 Wheel 150 ft (QC): 4 Stair Training Stair Training: Handrails/: 2 handrails #of Steps: 4 1 Step (curb) (QC): 88 4 Steps (QC): 4 12 Steps (QC): 88 Stairs: Pattern: Step to Balance Picking up an Object (QC): 88 ADL-Treatment Eating (QC): 5 (Set up) Oral Hygiene (QC): 4 (SBA) Shower/Bathe Self (QC): 3 Upper Body Dressing (QC): 4 Lower Body Dressing (QC): 3 On/Off Footwear (QC): 2 Toileting Hygiene (QC): 4 Toilet Transfer (QC): 4 Assessment/Plan Assessment and Plan Assess & Plan/Chief Complaint Assessment: Parkinson's Weakness Near falls HTN urgency Advanced age Cognitive deficit SLUMS Edema-improved Somatic complaints Plan: IRF protocol ST management Evaluate social needs for DC at home Monitor closely especially BP Change Sinemet to Dr Alex mora BM regimen and maintain at home at DC VITA/NOA wraps (1) Parkinson disease (2) Constipation (3) Weakness Status: Acute (4) Hyponatremia Status: Acute (5) Hypertensive emergency Status: Acute (6) Chest pain Status: Acute TIMUR MARTÍNEZ DO Dec 28, 2019 07:21
[2019-12-28] MEDS: SINEMET 25/100 (CARBIDOPA/LEVODOPA) TAB PO SCH ×8 (07:49→21:40)
[2019-12-28] MEDS: LEVOTHYROXINE 112 MCG (LEVOTHROID) TAB PO SCH (07:49)
[2019-12-28] MEDS: amLODIPine 5 MG (NORVASC) TAB PO SCH (08:41)
[2019-12-28] MEDS: GABAPENTIN 300 MG (NEURONTIN) CAP PO SCH ×2 (08:41→21:40)
[2019-12-28] MEDS: polyethylene glycoL POWDER 17 GM (MIRALAX) PACK PO SCH ×2 (08:41→21:43)
[2019-12-28] MEDS: PANTOPRAZOLE 40 MG (PROTONIX) TAB PO SCH (08:42)
[2019-12-28] MEDS: SENNA W/DOCUSATE (SENOKOT S) TABLET PO SCH ×2 (08:42→21:40)
--- NOTE | 2019-12-28 08:50 | Physical Therapy Daily Note ---
PT Daily Note-Current Subjective Pt asleep laying Supine in bed upon arrival. Pt agrees to PT. Pain Location: No Pain Reported Mental Status Patient Orientation: Person, Place Transfers SCALE: Activities may be completed with or without assistive devices. 1-Fzdvkeuyve-epsyclg completes the activity by him/herself with no assistance from a helper. 5-Set-up or Clean-up Assistance-helper sets up or cleans up; patient completes activity. [place] assists only prior to or following the activity. 4-Supervision or Touching Assistance-helper provides verbal cues and/or touching/steadying and/or contact guard assistance as patient completes activity. Assistance may be provided throughout the activity or intermittently. 3-Partial/Moderate Assistance-helper does LESS THAN HALF the effort. [place] lifts, holds or supports trunk or limbs, but provides less than half the effort. 2-Substantial/Maximal Assistance-helper does MORE THAN HALF the effort. [place] lifts or holds trunk or limbs and provides more than half the effort. 3-Mermqwppi-rhrexk does ALL the effort. Patient does none of the effort to complete the activity. Or, the assistance of 2 or more helpers is required for the patient to complete the activity. If activity was not attempted, code reason: 7-Patient Refused. 9-Not Applicable-not attempted and the patient did not perform the activity before the current illness, exacerbation or injury. 10-Not Attempted due to Environmental Limitations-(lack of equipment, weather restraints, etc.). 88-Not Attempted due to Medical Conditions or Safety Concerns. Lying to Sitting/Side of Bed(Q: 5 Sit to Stand (QC): 5 Toilet Transfer (QC): 5 Weight Bearing Full Weight Bearing Full Weight Bearing Gait Training Does the Patient Walk?: Yes Distance: 150' x2 Walk 10 feet (QC): 5 Walk 50 ft with 2 Turns(QC): 5 Walk 150 ft (QC): 5 Gait Persons Needed: 1 Gait Assistive Device: FWW Pt had not taken morning meds so walked with more pronounced Parkinson's gait shuffling. SENIOR HOUSEKEEPER encouraged pt to pick up attendant feet and walking improves. Wheelchair Training Does the Pt Use a Wheelchair?: No Exercises Seated Therapy Exercises: Ankle pumps, Long arc quads, Hip flexion, Kicking activity Seated Reps: 15 NuStep Minutes: 3 NuStep Workload: 4 Treatments Pt trasnfers to EOB then stands at SBA. Pt ambulates in hallway then completes Seated EX in chair. Pt completes NuStep for 3m at WL 3 before needing to use restroom. Pt ambulates back to room to uses restroom. Pt resting in recliner at end of Rx. Pt has all needs met, call light in hand. Assessment Current Status: Good Progress Pt demonstrates confusion at times with sequencing, SENIOR HOUSEKEEPER gives VC. PT Short Term Goals Short Term Goals Time Frame: Dec 27, 2019 Roll Left & Right: 6 Sit to lyin Lying to sitting on side of be: 4 Sit to stand: 4 Chair/zhh-hs-beoml transfer: 4 Walk 10 feet: 4 Walk 50 feet with two turns: 4 PT Usp Goals Canopy Inspector Goals PT Canopy Inspector Goals Time Frame: Jan 10, 2020 Roll Left & Right (QC): 6 Sit to Lying (QC): 6 Lying-Sitting on Side/Bed(QC): 6 Sit to Stand (QC): 5 Chair/Anc-dn-Upgmc Xfer(QC): 5 Toilet Transfer (QC): 5 Car Transfer (QC): 5 Does the Patient Walk: Yes Walk 10 feet (QC): 5 Walk 50ft with 2 Turns (QC): 5 Walk 150 ft (QC): 5 Walking 10ft on Uneven Surface: 4 1 Step (curb) (QC): 88 4 Steps (QC): 88 12 Steps (QC): 88 Picking up an Object (QC): 88 Wheel 50 feet with 2 turns (QC: 9 Wheel 150 feet: 9 PT Plan Problem List Problem List: Activity Tolerance, Functional Strength, Safety Treatment/Plan Treatment Plan: Continue Plan of Care Treatment Plan: Bed Mobility, Education, Functional Activity Victor Manuel, Functional Strength, Group Therapy, Gait, Safety, Therapeutic Exercise, Transfers Treatment Duration: Jan 10, 2020 Frequency: At least 5 of 7 days/Wk (IRF) Estimated Hrs Per Day: 1.5 hours per day Patient and/or Family Agrees t: Yes Safety Risks/Education Patient Education: Gait Training, Correct Positioning, Safety Issues Teaching Recipient: Patient Teaching Methods: Discussion Response to Teaching: Verbalize Understanding Time/GCodes Time In: 800 Time Out: 845 Total Billed Treatment Time: 45 Total Billed Treatment 1, GT (15m), FA (15m) & EX (15m) DAVID SY SENIOR HOUSEKEEPER Dec 28, 2019 08:50
--- NOTE | 2019-12-28 10:12 | Speech Therapy Daily Note ---
Speech Daily Progress Note Subjective Date Seen by Provider: Dec 28, 2019 Time Seen by Provider: 00:30 Patient states she thinks she is feeling better this date. Objective Patient completed a series of q/a related to her needs upon her return home. Assessment Assessment Current Status: Good Progress Treatment Plan Continue Plan of Care Speech Short Term Goals Short Term Goals Short Term Goals 1) Patient will complete memory tasks related to her daily needs at 90% with minimal cuing. 2) Patient will complete problem solving tasks related to her daily needs at 90% with minimal cuing. 3) Patient will complete safety awareness tasks related to her daily needs at 90% with minimal cuing. Speech Fci Goals Fci Goals Patient will improve cognitive-communication necessary for safety and daily living tasks with minimal assist. Speech-Plan Patient/Family Goals Patient/Family Goals: Patient plans on returning home where she lives alone. Her son lives next door and assists with her daily needs. Treatment Plan Speech Therapy Treatment Plan: Continue Plan of Care Treatment Duration: Dec 30, 2019 Frequency: 5 times per week Estimated Hrs Per Day: .5 hour per day Rehab Potential: Fair Barriers to Learning: Patient's medical status and visual debility Pt/Family Agrees to Plan: Yes Safety Risks/Education Teaching Recipient: Patient Teaching Methods: Demonstration, Discussion Response to Teaching: Verbalize Understanding, Return Demonstration Education Topics Provided: Education of the to continue exercise upon her return home. Time Speech Therapy Time In: 09:00 Speech Therapy Time Out: 09:30 Total Billed Time: 30 Billed Treatment Time [address] Dec 28, 2019 10:12
--- NOTE | 2019-12-28 11:01 | Occupational Ther Daily Note ---
OT Current Status-Daily Note Subjective Pt sitting in chair, agrees to treatment. Pt has no reports of pain, but states she is tired today. ADL-Treatment Pt sit to stand with supervision. Gait to restroom with FWW. Pt transferred to toilet with CGA. Pt required min assist for thorough toileting hygiene. Pt declined shower today, but agrees to sponge bath seated at sink. Pt doffed clothing with SBA. Upper body bathing completed with set up. Pt washed lower body with min assist to wash buttocks. Don pullover shirt with set up. Pt able to thread bilateral LE into Depends. Required min assist to thread right LE into pants. Pt stood with supervision for balance during pant hike. Pt doffed/donned socks with SBA. Grooming tasks completed standing at sink. Pt brushed teeth and combed hair with SBA for balance. Transfer to chair with supervision using FWW. Pt moves slowly and requires increased time for ADL tasks. Pt sitting in chair with needs met after session. Chair alarm in place. Therapy Code Descriptions/Definitions Functional [place] Measure: 0=Not Assessed/NA 4=Minimal Assistance 1=Total Assistance 5=Supervision or Setup 2=Maximal Assistance 6=Modified [place] 3=Moderate Assistance 7=Complete IndependenceSCALE: Activities may be completed with or without assistive devices. 4-Kgjeangqva-hdlbdaj completes the activity by him/herself with no assistance from a helper. 5-Set-up or Clean-up Assistance-helper sets up or cleans up; patient completes activity. [place] assists only prior to or following the activity. 4-Supervision or Touching Assistance-helper provides verbal cues and/or touching/steadying and/or contact guard assistance as patient completes activity. Assistance may be provided throughout the activity or intermittently. 3-Partial/Moderate Assistance-helper does LESS THAN HALF the effort. [place] lifts, holds or supports trunk or limbs, but provides less than half the effort. 2-Substantial/Maximal Assistance-helper does MORE THAN HALF the effort. [place] lifts or holds trunk or limbs and provides more than half the effort. 5-Udstqqqqg-qvrbrw does ALL the effort. Patient does none of the effort to complete the activity. Or, the assistance of 2 or more helpers is required for the patient to complete the activity. If activity was not attempted, code reason: 7-Patient Refused. 9-Not Applicable-not attempted and the patient did not perform the activity before the current illness, exacerbation or injury. 10-Not Attempted due to Environmental Limitations-(lack of equipment, weather restraints, etc.). 88-Not Attempted due to Medical Conditions or Safety Concerns. Oral Hygiene (QC): 4 Shower/Bathe Self (QC): 3 Upper Body Dressing (QC): 5 Lower Body Dressing (QC): 3 On/Off Footwear: 4 Toileting Hygiene (QC): 3 Toilet Transfer (QC): 4 OT Short Term Goals Short Term Goals Time Frame: Dec 27, 2019 Eatin Oral hygiene: 5 Toileting hygiene: 4 Shower/bathe self: 4 Upper body dressin Lower body dressin Putting on/taking off footwear: 4 OT Jail Goals Jail Goals Time Frame: Jan 03, 2020 Eating (QC): 6 Oral Hygiene (QC): 5 Toileting Hygiene (QC): 4 Shower/Bathe Self (QC): 4 Upper Body Dressing (QC): 5 Lower Body Dressing (QC): 4 On/Off Footwear (QC): 4 Additional Goals: 1-Demonstrate ADL Tasks, 2-Verbalize Understanding, 3- ImproveStrength/Victor Manuel 1=Demonstrate adherence to instructed precautions during ADL tasks. 2=Patient will verbalize/demonstrate understanding of assistive devices/modifications for ADL. 3=Patient will improve strength/tolerance for activity to enable patient to perform ADL's. OT Education/Plan Discharge Recommendations Plan/Recommendations: Continue POC Treatment Plan/Plan of Care Patient would benefit from OT for education, treatment and training to promote independence in ADL's, mobility, safety and/or upper extremity function for ADL's. Plan of Care: ADL Retraining, Functional Mobility, UE Funct Exercise/Act Treatment Duration: Jan 03, 2020 Frequency: At least 5 of 7 days/Wk (IRF) Estimated Hrs Per Day: 1.5 hours per day Agreement: Yes Rehab Potential: Fair Time/GCodes Start Time: 09:30 Stop Time: 10:30 Total Time Billed (hr/min): 60 Billed Treatment Time 1 visit, ADLx4(60minutes) SYED PARK OT Dec 28, 2019 11:01
--- NOTE | 2019-12-28 14:08 | NUR ---
"RD ASSESSMENT PMHx: hypercholesterolemia; HTN; Parkinson's disease; chronic constipation PT INTERACTION: Pt was awake and pleasant during nutrition follow-up. Pt states she has been eating pretty well since last assessment. Note avg PO intake 60% of meals, per chart review. Pt states no issues with nausea or vomiting since last assessment. Pt states some issues with constipation and diarrhea since last assessment. Note last BM was 12/26 and pt currently on bowel regimen of colace qd; senna BID; and miralax BID, per chart review. ABNORMAL NUTRITION-RELATED LAB VALUES LOW: Pro 6.3; HIGH: AST 48 Est. kcal needs: 6177-3744 kcal | 25-30 kcal/kg Est. Pro needs: 52-65 g Pro | 0.8-1.0 g Pro/kg PES STATEMENT: Inadequate oral intake (NI-2.1) related to constipation | diarrhea as evidenced by pt interview | avg PO intake 60% meals INTERVENTION: Continue with current diet order of Regular diet. Pt may benefit from nutrition supplementation if PO intake declines. Encouraged pt to eat when able. Will continue to follow and reassess as pt needs, intake, and status change. MONITOR/EVALUATE: PO Intake; Plan of Care; Hydration Status; Weight Status; Lab Values Jazmin Donaldson, MS, RD, LD"
--- NOTE | 2019-12-28 14:54 | Therapy Group Daily Note ---
Therapy Daily Group Note Patient Education Topic Home Safety, Exercises Session Ratio (pt:therapist): 4:1 Goal of Session: Home Safety Strategies, UE/LE Strengthing, Safety with Transfers, Use of Adaptive Equipment Goal Met for this Session: Yes Pt Benefit of Group: F/U Use of Strategies @Home, Increased Functional Safety, Increased Functional Strength, Improved Cognition, Recognition of Peers, Socialization Other/Notes Pt transfers to standing and pt ambulates to PT Group. Pt participates Group including Introductions (Name, Where from? & Favorite Summertime Activity), as well as focus on Home Safety & ways to improves it and UE/LE Ex using household items. Pt actively participated in Group giving personal examples of safety dean hniques and hazard pt has experienced. Pt is able to complete Ex well and returns to room at end of Group to rest in recliner. with all needs met. Start Time: 13:00 Stop Time: 14:00 Total Billed Treatment Time: 60 Total Billed Treatment 1, GRP (60m) DAVID SY PERSONAL SECURITY SPECIALIST Dec 28, 2019 14:53
[2019-12-28] MEDS: cloNIDine 0.1 MG (CATAPRES) TAB PO PRN (17:38)
[2019-12-28 17:46] VITALS: BP 184/69
[2019-12-28 18:57] VITALS: BP 131/62
[2019-12-28] MEDS: ALPRAZolam 0.5 MG (XANAX) TAB PO SCH (21:39)
[2019-12-28] MEDS: ENOXAPARIN 40 MG/0.4 ML (LOVENOX) SYR SC SCH (23:00)
[2019-12-29 05:39] VITALS: BP 153/73
--- NOTE | 2019-12-29 06:29 | PM&R Progress Note ---
Subjective HPI/CC On Admission Date Seen by Provider: Dec 29, 2019 Time Seen by Provider: 10:00 Subjective/Events-last exam No incontinence Talked once again about her medications and her son takes care of all that so will make sure he has an accurate list Talks about the same topic everyday Dementia no doubt is apparent Arianne to participate in all therapies Discharge planned for Thursday on 01/02/20 Conferred with RN Reviewed therapy notes Checked meds and labs Review of Systems General: Fatigue Neurological: Weakness, Confusion Objective Exam Vital Signs Vital Signs Date Time Temp Pulse Resp B/P (MAP) Pulse Ox O2 Delivery O2 Flow Rate FiO2 12/29/19 16:41 36.4 70 16 155/79 (104) 95 Room Air Capillary Refill : Less Than 3 SecondsLess Than 3 Seconds General Appearance: No Apparent Distress, WD/WN, Chronically ill HEENT: PERRL/EOMI, Normal ENT Inspection, Pharynx Normal Neck: Full Range of Motion, Normal Inspection, Non Tender, Supple, Carotid Bruit Respiratory: Chest Non Tender, Lungs Clear, Normal Breath Sounds, No Accessory Muscle Use, No Respiratory Distress Cardiovascular: Regular Rate, Rhythm, No Edema, No Gallop, No JVD, No Murmur, Normal Peripheral Pulses Gastrointestinal: Normal Bowel Sounds, No Organomegaly, No Pulsatile Mass, Non Tender, Soft Back: Normal Inspection, No CVA Tenderness, No Vertebral Tenderness Extremity: Normal Capillary Refill, Normal Inspection, Normal Range of Motion, Non Tender, No Calf Tenderness, No Pedal Edema Neurologic/Psychiatric: Alert, Oriented x3, No Motor/Sensory Deficits, Normal Mood/Affect, 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 FIM Transfers Therapy Code Descriptions/Definitions Functional [place] Measure: 0=Not Assessed/NA 4=Minimal Assistance 1=Total Assistance 5=Supervision or Setup 2=Maximal Assistance 6=Modified [place] 3=Moderate Assistance 7=Complete IndependenceSCALE: Activities may be completed with or without assistive devices. 3-Mxdfwlsujg-aafpgqr completes the activity by him/herself with no assistance from a helper. 5-Set-up or Clean-up Assistance-helper sets up or cleans up; patient completes activity. [place] assists only prior to or following the activity. 4-Supervision or Touching Assistance-helper provides verbal cues and/or touching/steadying and/or contact guard assistance as patient completes activity. Assistance may be provided throughout the activity or intermittently. 3-Partial/Moderate Assistance-helper does LESS THAN HALF the effort. [place] lifts, holds or supports trunk or limbs, but provides less than half the effort. 2-Substantial/Maximal Assistance-helper does MORE THAN HALF the effort. [place] lifts or holds trunk or limbs and provides more than half the effort. 4-Energlmnd-gjisfe does ALL the effort. Patient does none of the effort to complete the activity. Or, the assistance of 2 or more helpers is required for the patient to complete the activity. If activity was not attempted, code reason: 7-Patient Refused. 9-Not Applicable-not attempted and the patient did not perform the activity before the current illness, exacerbation or injury. 10-Not Attempted due to Environmental Limitations-(lack of equipment, weather restraints, etc.). 88-Not Attempted due to Medical Conditions or Safety Concerns. Roll Left to Right (QC): 6 Sit to Lying (QC): 6 Sit to Stand (QC): 5 Chair/Pas-dh-Kwomi Xfer(QC): 6 Car Transfer (QC): 6 Gait Training Does the Patient Walk?: Yes Distance: 150' x2 Walk 10 feet (QC): 5 Walk 50 ft with 2 Turns(QC): 5 Walk 150 ft (QC): 5 Walking 10ft/uneven surface-QC: 88 Gait Persons Needed: 1 Gait Assistive Device: FWW Wheelchair Training Does the Pt Use a Wheelchair?: No Wheel 50 ft with 2 turns (QC): 4 Wheel 150 ft (QC): 4 Stair Training Stair Training: Handrails/: 2 handrails #of Steps: 4 1 Step (curb) (QC): 88 4 Steps (QC): 4 12 Steps (QC): 88 Stairs: Pattern: Step to Balance Picking up an Object (QC): 88 ADL-Treatment Eating (QC): 5 (Set up) Oral Hygiene (QC): 4 Shower/Bathe Self (QC): 3 Upper Body Dressing (QC): 5 Lower Body Dressing (QC): 3 On/Off Footwear (QC): 4 Toileting Hygiene (QC): 3 Toilet Transfer (QC): 4 Assessment/Plan Assessment and Plan Assess & Plan/Chief Complaint Assessment: Parkinson's Weakness Near falls HTN urgency Advanced age Cognitive deficit SLUMS Edema-improved Somatic complaints Plan: IRF protocol ST management Evaluate social needs for DC at home Monitor closely especially BP Change Sinemet to Dr Alex mora BM regimen and maintain at home at DC VITA/NOA wraps (1) Parkinson disease (2) Constipation (3) Weakness Status: Acute (4) Hyponatremia Status: Acute (5) Hypertensive emergency Status: Acute (6) Chest pain Status: Acute TIMUR MARTÍNEZ DO Dec 29, 2019 06:29
[2019-12-29 06:30] LABS: HEMOGLOBIN 12.1 G/DL (11.5-16.0); MEAN PLATELET VOLUME 8.9 FL (7.4-10.4); WHITE BLOOD COUNT 4.8 10^3/uL (4.3-11.0)
[2019-12-29] MEDS: LEVOTHYROXINE 112 MCG (LEVOTHROID) TAB PO SCH (06:33)
[2019-12-29] MEDS: SINEMET 25/100 (CARBIDOPA/LEVODOPA) TAB PO SCH ×8 (06:33→21:54)
--- NOTE | 2019-12-29 07:59 | Physical Therapy Daily Note ---
PT Daily Note-Current Subjective Pt. agrees to Rx. Just finished breakfast. Requests to go to bathroom. Pain Location: No Pain Reported Mental Status Patient Orientation: Person, Place, Time, Situation, Normal For Age Transfers SCALE: Activities may be completed with or without assistive devices. 6-Kosuesmisl-oqsflkh completes the activity by him/herself with no assistance from a helper. 5-Set-up or Clean-up Assistance-helper sets up or cleans up; patient completes activity. [place] assists only prior to or following the activity. 4-Supervision or Touching Assistance-helper provides verbal cues and/or touc robbi/steadying and/or contact guard assistance as patient completes activity. Assistance may be provided throughout the activity or intermittently. 3-Partial/Moderate Assistance-helper does LESS THAN HALF the effort. [place] lifts, holds or supports trunk or limbs, but provides less than half the effort. 2-Substantial/Maximal Assistance-helper does MORE THAN HALF the effort. [place] lifts or holds trunk or limbs and provides more than half the effort. 1-Fdxywptzm-dqyluj does ALL the effort. Patient does none of the effort to complete the activity. Or, the assistance of 2 or more helpers is required for the patient to complete the activity. If activity was not attempted, code reason: 7-Patient Refused. 9-Not Applicable-not attempted and the patient did not perform the activity before the current illness, exacerbation or injury. 10-Not Attempted due to Environmental Limitations-(lack of equipment, weather restraints, etc.). 88-Not Attempted due to Medical Conditions or Safety Concerns. Sit to Stand (QC): 6 Chair/Cgm-ne-Mxllj Xfer(QC): 5 Toilet Transfer (QC): 5 Weight Bearing Full Weight Bearing Full Weight Bearing Gait Training Does the Patient Walk?: Yes Walk 10 feet (QC): 4 Walk 50 ft with 2 Turns(QC): 4 Walk 150 ft (QC): 4 Gait Persons Needed: 1 Gait Assistive Device: FWW Pt. with much festinating today and needed many stop breaks for balance and refocus. Gait was very slow with increased difficulty today and increased festination, kyphotic posture , , pt.expressing that she needs to look down to floor to manage balance etc Stair Training Stair Training: Handrails/: 2 handrails #of Steps: 4 4 Steps (QC): 4 Stairs: Pattern: Step to needs many cues and sequence instruction for stairs Exercises Seated Therapy Exercises: Ankle pumps, Sit to stand, Long arc quads, Hip fl exion, Hip abd/add Seated Reps: 20 NuStep Minutes: 11 NuStep Workload: 3 Treatments toileted with SBA for TRFs and mod assist to clean after BM Assessment Current Status: Good Progress increased gait difficulty today PT Short Term Goals Short Term Goals Time Frame: Dec 27, 2019 Roll Left & Right: 6 Sit to lyin Lying to sitting on side of be: 4 Sit to stand: 4 Chair/eep-vj-uzclw transfer: 4 Walk 10 feet: 4 Walk 50 feet with two turns: 4 PT Assisted Goals Power Truck Driver Goals PT Power Truck Driver Goals Time Frame: Jan 10, 2020 Roll Left & Right (QC): 6 Sit to Lying (QC): 6 Lying-Sitting on Side/Bed(QC): 6 Sit to Stand (QC): 5 Chair/Zpj-vs-Wjysj Xfer(QC): 5 Toilet Transfer (QC): 5 Car Transfer (QC): 5 Does the Patient Walk: Yes Walk 10 feet (QC): 5 Walk 50ft with 2 Turns (QC): 5 Walk 150 ft (QC): 5 Walking 10ft on Uneven Surface: 4 1 Step (curb) (QC): 88 4 Steps (QC): 88 12 Steps (QC): 88 Picking up an Object (QC): 88 Wheel 50 feet with 2 turns (QC: 9 Wheel 150 feet: 9 PT Plan Treatment/Plan Treatment Plan: Continue Plan of Care Treatment Plan: Bed Mobility, Education, Functional Activity Victor Manuel, Functional Strength, Group Therapy, Gait, Safety, Therapeutic Exercise, Transfers Treatment Duration: Jan 10, 2020 Frequency: At least 5 of 7 days/Wk (IRF) Estimated Hrs Per Day: 1.5 hours per day Patient and/or Family Agrees t: Yes Safety Risks/Education Patient Education: Gait Training, Transfer Techniques, Correct Positioning, Disease Process, Safety Issues Teaching Recipient: Patient Teaching Methods: Demonstration, Discussion Response to Teaching: Verbalize Understanding, Return Demonstration, Reinforcement Needed Time/GCodes Time In: 700 Time Out: 800 Total Billed Treatment Time: 60 Total Billed Treatment 1,GT20m,EX25m,FA15m ELOY WARD HUMAN CAPITAL CONSULTANT Dec 29, 2019 07:59
[2019-12-29] MEDS: GABAPENTIN 300 MG (NEURONTIN) CAP PO SCH ×2 (08:56→21:54)
[2019-12-29] MEDS: PANTOPRAZOLE 40 MG (PROTONIX) TAB PO SCH (08:57)
[2019-12-29] MEDS: amLODIPine 5 MG (NORVASC) TAB PO SCH (08:57)
[2019-12-29] MEDS: SENNA W/DOCUSATE (SENOKOT S) TABLET PO SCH ×2 (09:01→21:53)
[2019-12-29] MEDS: DOCUSATE SODIUM 100 MG (COLACE) CAP PO SCH (09:01)
[2019-12-29] MEDS: polyethylene glycoL POWDER 17 GM (MIRALAX) PACK PO SCH ×2 (09:04→21:56)
--- NOTE | 2019-12-29 10:25 | Occupational Ther Daily Note ---
OT Current Status-Daily Note Subjective Pt seen in chair. Pt agrees to OT tx session with goals of showering. pt states she just received Parkinsons medication and has been "shaky" and desires OT to "just do it for (her)." Pt seen once more in bed, pt states need for bathroom. Pt agrees to OT tx session. ADL-Treatment Therapy Code Descriptions/Definitions Functional [place] Measure: 0=Not Assessed/NA 4=Minimal Assistance 1=Total Assistance 5=Supervision or Setup 2=Maximal Assistance 6=Modified [place] 3=Moderate Assistance 7=Complete IndependenceSCALE: Activities may be completed with or without assistive devices. 2-Rkgriremdc-mbmaknp completes the activity by him/herself with no assistance from a helper. 5-Set-up or Clean-up Assistance-helper sets up or cleans up; patient completes activity. [place] assists only prior to or following the activity. 4-Supervision or Touching Assistance-helper provides verbal cues and/or touching/steadying and/or contact guard assistance as patient completes activity. Assistance may be provided throughout the activity or intermittently. 3-Partial/Moderate Assistance-helper does LESS THAN HALF the effort. [place] lifts, holds or supports trunk or limbs, but provides less than half the effort. 2-Substantial/Maximal Assistance-helper does MORE THAN HALF the effort. [place] lifts or holds trunk or limbs and provides more than half the effort. 4-Kgkmqpiux-gmaacd does ALL the effort. Patient does none of the effort to complete the activity. Or, the assistance of 2 or more helpers is required for the patient to complete the activity. If activity was not attempted, code reason: 7-Patient Refused. 9-Not Applicable-not attempted and the patient did not perform the activity before the current illness, exacerbation or injury. 10-Not Attempted due to Environmental Limitations-(lack of equipment, weather restraints, etc.). 88-Not Attempted due to Medical Conditions or Safety Concerns. Eating (QC): 6 (opens grahm cracker package with multiple attempts and eats with success without utensils) Oral Hygiene (QC): 7 Bathing Location: L Arm, R Arm, L Upper Leg, R Upper Leg, L Lower Leg (including foot), R Lower Leg (including foot), Chest, Abdomen, Perineal Area Shower/Bathe Self (QC): 3 (Pt completes sponge bath in chair/ on commode on this date. Pt requires min A for bottom thoroughness due to BM. Pt able to complete rest with cues and CGA in stance.) Upper Body Dressing (QC): 5 (s/u) Lower Body Dressing (QC): 3 (cues for use of AE (utilizes trailer sections assembler and dressing stick for doffing/ donning). ) On/Off Footwear: 3 (assist to doff, dons with success.) Toileting Hygiene (QC): 3 (min A bottom thoroughness in stance.) Toilet Transfer (QC): 4 (CGA with use of walker and gbs) Other Treatment 0900: Pt states inability to complete tasks due to shakiness. Pt agrees to attempt. Pt ambulates with CGA due to increased shuffled gait. Pt able to complete in bathroom/ on commode with min A at times and CGA in stance. Pt returns to recliner, educated on Big and Loud program for Parkinsons pts and importance of continued exercise at home. Pt agrees to attempt, desires more information. Pt completes minimal resistance exercises while in recliner with max cues for use of theraband/ positioning. Pt encouraged to complete AROM multiple time through day and resistance ex at least 1x. Pt agrees. 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 Pt states son completes home medication management. Pt desires bed, sits with CGA and bed mob with SBA. Pt in bed with bed alarm set, all needs met, call light in reach. 1100: Pt completes bed mob with SBA, stands to walker level with SBA. Pt ambulates to toilet with CGA and completes with SUP. Pt stands to complete briana hygiene, SBA. pt returns to recliner. Pt educated on [facility] Big program for Parkinson's HEP. Pt agrees, pt educated on purpose of treatment and benefits of large motor movements. Pt completes 3/3 exercises bilaterally while seated in chair, completes with mod cues for positioning with demonstration throughout (mirror-image for pt.) Pt able to monitor breath and joints during process, states ability to continue through extra repetitions. Pt left in recliner with all needs met, call light in reach, chair alarm on. Education OT Patient Education: Correct positioning, Exercise program, Home exercise program, Modified ADL techniques, Progress toward Goal/Update tx plan, Purpose of tx/functional activities, Use of adapted equipment Teaching Recipient: Patient Teaching Methods: Demonstration, Discussion Response to Teaching: Verbalize Understanding, Return Demonstration OT Short Term Goals Short Term Goals Time Frame: Dec 27, 2019 Eatin Oral hygiene: 5 Toileting hygiene: 4 Shower/bathe self: 4 Upper body dressin Lower body dressin Putting on/taking off footwear: 4 OT Jail Goals Craniologist Goals Time Frame: Jan 03, 2020 Eating (QC): 6 Oral Hygiene (QC): 5 Toileting Hygiene (QC): 4 Shower/Bathe Self (QC): 4 Upper Body Dressing (QC): 5 Lower Body Dressing (QC): 4 On/Off Footwear (QC): 4 Additional Goals: 1-Demonstrate ADL Tasks, 2-Verbalize Understanding, 3- ImproveStrength/Victor Manuel 1=Demonstrate adherence to instructed precautions during ADL tasks. 2=Patient will verbalize/demonstrate understanding of assistive devices/modifications for ADL. 3=Patient will improve strength/tolerance for activity to enable patient to perform ADL's. OT Education/Plan Problem List/Assessment Assessment: Decreased Activ Tolerance, Decreased UE Strength, Dependent Transfers, Impaired Cognition, Impaired Funct Balance, Impaired I ADL's, Impaired Self-Care Skills Discharge Recommendations Plan/Recommendations: Continue POC Therapy Discharge Recommendati: Scheduled Assistance Equpiment Recommendations-D/C: Pattern Fitter, Dressing Stick Treatment Plan/Plan of Care Treatment,Training & Education: Yes Patient would benefit from OT for education, treatment and training to promote independence in ADL's, mobility, safety and/or upper extremity function for ADL's. Plan of Care: ADL Retraining, Functional Mobility, UE Funct Exercise/Act Treatment Duration: Jan 03, 2020 Frequency: At least 5 of 7 days/Wk (IRF) Estimated Hrs Per Day: 1.5 hours per day Agreement: Yes Rehab Potential: Fair Time/GCodes Start Time: 09:00 (1100) Stop Time: 10:10 (1115) Total Time Billed (hr/min): 85 (70+ 15= 85) Billed Treatment Time [id number]: 1, ADL 3 (45), EX (15), FA (10)= 70 [id number]: 1, EX (15) Total: 85 JAZIEL COOK OTR Dec 29, 2019 10:25
--- NOTE | 2019-12-29 10:58 | Physical Therapy Daily Note ---
PT Daily Note-Current Subjective Pt. in bed and agrees to supine therex Pain Location: No Pain Reported Mental Status Patient Orientation: Person, Place Transfers SCALE: Activities may be completed with or without assistive devices. 2-Stfppzhpmn-efypnra completes the activity by him/herself with no assistance from a helper. 5-Set-up or Clean-up Assistance-helper sets up or cleans up; patient completes activity. [place] assists only prior to or following the activity. 4-Supervision or Touching Assistance-helper provides verbal cues and/or touching/steadying and/or contact guard assistance as patient completes activity. Assistance may be provided throughout the activity or intermittently. 3-Partial/Moderate Assistance-helper does LESS THAN HALF the effort. [place] lifts, holds or supports trunk or limbs, but provides less than half the effort. 2-Substantial/Maximal Assistance-helper does MORE THAN HALF the effort. [place] lifts or holds trunk or limbs and provides more than half the effort. 2-Jlqccxdre-yemzub does ALL the effort. Patient does none of the effort to complete the activity. Or, the assistance of 2 or more helpers is required for the patient to complete the activity. If activity was not attempted, code reason: 7-Patient Refused. 9-Not Applicable-not attempted and the patient did not perform the activity before the current illness, exacerbation or injury. 10-Not Attempted due to Environmental Limitations-(lack of equipment, weather restraints, etc.). 88-Not Attempted due to Medical Conditions or Safety Concerns. Roll Left & Right (QC): 6 Weight Bearing Full Weight Bearing Full Weight Bearing Exercises Supine Ex: Bridging, Ankle pumps, Quad Set, Rolling, Glut sets, Lower trunk rotation, Heel Slides, Short Arc Quads, Scooting (up in bed indep x 2 with instruction), Straight leg raise, Hip abd/add Supine Reps: 12 (x2 sets) Assessment Current Status: Good Progress PT Short Term Goals Short Term Goals Time Frame: Dec 27, 2019 Roll Left & Right: 6 Sit to lyin Lying to sitting on side of be: 4 Sit to stand: 4 Chair/bgd-ru-vykvb transfer: 4 Walk 10 feet: 4 Walk 50 feet with two turns: 4 PT Pharmacist Critical Care Goals [facility] Goals PT Pharmacist Critical Care Goals Time Frame: Jan 10, 2020 Roll Left & Right (QC): 6 Sit to Lying (QC): 6 Lying-Sitting on Side/Bed(QC): 6 Sit to Stand (QC): 5 Chair/Ist-fp-Mhkcg Xfer(QC): 5 Toilet Transfer (QC): 5 Car Transfer (QC): 5 Does the Patient Walk: Yes Walk 10 feet (QC): 5 Walk 50ft with 2 Turns (QC): 5 Walk 150 ft (QC): 5 Walking 10ft on Uneven Surface: 4 1 Step (curb) (QC): 88 4 Steps (QC): 88 12 Steps (QC): 88 Picking up an Object (QC): 88 Wheel 50 feet with 2 turns (QC: 9 Wheel 150 feet: 9 PT Plan Treatment/Plan Treatment Plan: Continue Plan of Care Treatment Plan: Bed Mobility, Education, Functional Activity Victor Manuel, Functional Strength, Group Therapy, Gait, Safety, Therapeutic Exercise, Transfers Treatment Duration: Jan 10, 2020 Frequency: At least 5 of 7 days/Wk (IRF) Estimated Hrs Per Day: 1.5 hours per day Patient and/or Family Agrees t: Yes Safety Risks/Education Patient Education: Correct Positioning Teaching Methods: Discussion Response to Teaching: Return Demonstration, Reinforcement Needed Time/GCodes Time In: 1040 Time Out: 1055 Total Billed Treatment Time: 15 Total Billed Treatment 1,Ex15m ELOY WARD CONSTRUCTION FRAMER Dec 29, 2019 10:58
--- NOTE | 2019-12-29 11:14 | Speech Therapy Daily Note ---
Speech Daily Progress Note Subjective Date Seen by Provider: Dec 29, 2019 Time Seen by Provider: 00:30 Patient was alert and sitting in her recliner. She was waiting on her Parkinson's meds. Objective Patient completed a series of personal safety awareness q/a related to her daily needs at 90%. Assessment Assessment Current Status: Good Progress Treatment Plan Continue Plan of Care Speech Short Term Goals Short Term Goals Short Term Goals 1) Patient will complete memory tasks related to her daily needs at 90% with minimal cuing. 2) Patient will complete problem solving tasks related to her daily needs at 90% with minimal cuing. 3) Patient will complete safety awareness tasks related to her daily needs at 90% with minimal cuing. Speech Hammer Shop Supervisor Goals Skilled Nursing Goals Patient will improve cognitive-communication necessary for safety and daily living tasks with minimal assist. Speech-Plan Patient/Family Goals Patient/Family Goals: Patient will return to her home on Thursday where she has her son to help with her daily needs. Treatment Plan Speech Therapy Treatment Plan: Continue Plan of Care Treatment Duration: Dec 30, 2019 Frequency: 5 times per week Estimated Hrs Per Day: .5 hour per day Rehab Potential: Fair Barriers to Learning: Patient's medical status, age, self limitiing Pt/Family Agrees to Plan: Yes Safety Risks/Education Teaching Recipient: Patient Teaching Methods: Demonstration, Discussion Response to Teaching: Verbalize Understanding, Return Demonstration Education Topics Provided: Safety within her home upon her return Time Speech Therapy Time In: 08:30 Speech Therapy Time Out: 09:00 Total Billed Time: 30 Billed Treatment Time [address] Dec 29, 2019 11:14
[2019-12-29 16:41] VITALS: BP 155/79
--- NOTE | 2019-12-29 16:45 | NUR ---
CM/SS WEEKLY PATIENT CARE CONFERENCE Reviewed Summary with patient and her son Nirav Coleman by phone. They are both in agreement to the target discharge of Thursday01/02/20. Immigration Case Manager had a discussion earlier in the week with daughter Geeta about someone staying with patient a few days after discharge to insure she was doing well alone in her home. Geeta deferred to Nirav who shared today his sisters, both in [place], are not participatory with patient caregiving. Nirav has agreed to come to unit tomorrow at 1330 to observe/participate in patient therapy. He will bring the handed down walker she is using at home, sounds like a 4WW with seat, so therapy team can assess for safety. Alternatives to home alone include assisted living, but neither patient nor Nirav are ready to move forward on this option. Nirav goes to patient home now at 0800, 1100, and 1300 and is available for her calls at other times if needed. He has a private line supervisor for her who may be able to stay extra hours, but line supervisor is male which limits assistance that can be given for more personal needs. HHC: Patient and Nirav agree to participate, team recommended RN PT and OT. Presented the two agencies in her service area and Medicare Compare. Nirav prefers [facility] then [facility] depending on who can respond timely. DME: Immigration Case Manager informed Nirav patient could benefit from a tub transfer bench and hip kit, he will pursue these private pay items from [facility]. Followup tomorrow.
[2019-12-29] MEDS: ALPRAZolam 0.5 MG (XANAX) TAB PO SCH (21:53)
[2019-12-29] MEDS: ENOXAPARIN 40 MG/0.4 ML (LOVENOX) SYR SC SCH (22:01)
[2019-12-30 04:30] VITALS: BP 172/91
[2019-12-30 05:47] VITALS: BP 144/64
--- NOTE | 2019-12-30 06:15 | PM&R Progress Note ---
Subjective HPI/CC On Admission Date Seen by Provider: Dec 30, 2019 Time Seen by Provider: 10:15 Subjective/Events-last exam No incontinence noted now Talked to her again about her medications and her son takes care of all that so will make sure he has an accurate list and I reassured her again Talks about the same topic everyday so confirmed dementia level No noted Able to participate in all therapies and she seems to be in a better place now Discharge planned for Thursday on 01/02/20 Clonidine will be changed to scheduled BID with parameters in prep for DC Conferred with RN Reviewed therapy notes Checked meds and labs Review of Systems General: Fatigue Neurological: Weakness, Confusion Objective Exam Vital Signs Vital Signs Date Time Temp Pulse Resp B/P (MAP) Pulse Ox O2 Delivery O2 Flow Rate FiO2 12/30/19 08:09 Room Air 12/30/19 05:47 36.4 80 18 144/64 (90) 92 Capillary Refill : Less Than 3 SecondsLess Than 3 Seconds General Appearance: No Apparent Distress, WD/WN, Chronically ill HEENT: PERRL/EOMI, Normal ENT Inspection, Pharynx Normal Neck: Full Range of Motion, Normal Inspection, Non Tender, Supple, Carotid Bruit Respiratory: Chest Non Tender, Lungs Clear, Normal Breath Sounds, No Accessory Muscle Use, No Respiratory Distress Cardiovascular: Regular Rate, Rhythm, No Edema, No Gallop, No JVD, No Murmur, Normal Peripheral Pulses Gastrointestinal: Normal Bowel Sounds, No Organomegaly, No Pulsatile Mass, Non Tender, Soft Back: Normal Inspection, No CVA Tenderness, No Vertebral Tenderness Extremity: Normal Capillary Refill, Normal Inspection, Normal Range of Motion, Non Tender, No Calf Tenderness, No Pedal Edema Neurologic/Psychiatric: Alert, Oriented x3, No Motor/Sensory Deficits, Normal Mood/Affect, reel and rewinder operator II-XII Norm as Tested, Abnormal Gait, Depressed Affect, Other (tremor noted upper extremities) Skin: Normal Color, Warm/Dry Lymphatic: No Adenopathy Results/Procedures Lab Patient resulted labs reviewed. FIM Transfers Therapy Code Descriptions/Definitions Functional [place] Measure: 0=Not Assessed/NA 4=Minimal Assistance 1=Total Assistance 5=Supervision or Setup 2=Maximal Assistance 6=Modified [place] 3=Moderate Assistance 7=Complete IndependenceSCALE: Activities may be completed with or without assistive devices. 9-Wagkqdcoqx-jkktcze completes the activity by him/herself with no assistance from a helper. 5-Set-up or Clean-up Assistance-helper sets up or cleans up; patient completes activity. [place] assists only prior to or following the activity. 4-Supervision or Touching Assistance-helper provides verbal cues and/or touching/steadying and/or contact guard assistance as patient completes activity. Assistance may be provided throughout the activity or intermittently. 3-Partial/Moderate Assistance-helper does LESS THAN HALF the effort. [place] lifts, holds or supports trunk or limbs, but provides less than half the effort. 2-Substantial/Maximal Assistance-helper does MORE THAN HALF the effort. [place] lifts or holds trunk or limbs and provides more than half the effort. 9-Qfdzrbeks-untgrs does ALL the effort. Patient does none of the effort to complete the activity. Or, the assistance of 2 or more helpers is required for the patient to complete the activity. If activity was not attempted, code reason: 7-Patient Refused. 9-Not Applicable-not attempted and the patient did not perform the activity before the current illness, exacerbation or injury. 10-Not Attempted due to Environmental Limitations-(lack of equipment, weather restraints, etc.). 88-Not Attempted due to Medical Conditions or Safety Concerns. Roll Left to Right (QC): 6 Sit to Lying (QC): 6 Sit to Stand (QC): 6 Chair/Gku-cd-Slcso Xfer(QC): 5 Car Transfer (QC): 6 Gait Training Does the Patient Walk?: Yes Distance: 150' x2 Walk 10 feet (QC): 4 Walk 50 ft with 2 Turns(QC): 4 Walk 150 ft (QC): 4 Walking 10ft/uneven surface-QC: 88 Gait Persons Needed: 1 Gait Assistive Device: FWW Wheelchair Training Does the Pt Use a Wheelchair?: No Wheel 50 ft with 2 turns (QC): 4 Wheel 150 ft (QC): 4 Stair Training Stair Training: Handrails/: 2 handrails #of Steps: 4 1 Step (curb) (QC): 88 4 Steps (QC): 4 12 Steps (QC): 88 Stairs: Pattern: Step to Balance Picking up an Object (QC): 88 ADL-Treatment Eating (QC): 6 (opens grahm cracker package with multiple attempts and eats with success without utensils) Oral Hygiene (QC): 7 Bathing Location: L Arm, R Arm, L Upper Leg, R Upper Leg, L Lower Leg (including foot), R Lower Leg (including foot), Chest, Abdomen, Perineal Area Shower/Bathe Self (QC): 3 (Pt completes sponge bath in chair/ on commode on this date. Pt requires min A for bottom thoroughness due to BM. Pt able to complete rest with cues and CGA in stance.) Upper Body Dressing (QC): 5 (s/u) Lower Body Dressing (QC): 3 (cues for use of AE (utilizes planer setter and dressing stick for doffing/ donning). ) On/Off Footwear (QC): 3 (assist to doff, dons with success.) Toileting Hygiene (QC): 3 (min A bottom thoroughness in stance.) Toilet Transfer (QC): 4 (CGA with use of walker and gbs) Assessment/Plan Assessment and Plan Assess & Plan/Chief Complaint Assessment: Parkinson's Weakness Near falls HTN urgency Advanced age Cognitive deficit 23/30 SLUMS Edema-improved Somatic complaints Plan: IRF protocol ST management Evaluate social needs for DC at home Monitor closely especially BP Change Sinemet to Dr Alex mora BM regimen and maintain at home at DC VITA/NOA wraps Increase Norvasc to 5mg daily and schedule Clonidine 0.1mg PO BID (1) Parkinson disease (2) Constipation (3) Weakness Status: Acute (4) Hyponatremia Status: Acute (5) Hypertensive emergency Status: Acute (6) Chest pain Status: Acute TIMUR MARTÍNEZ DO Dec 30, 2019 06:14
[2019-12-30] MEDS: SINEMET 25/100 (CARBIDOPA/LEVODOPA) TAB PO SCH ×8 (06:49→20:23)
[2019-12-30] MEDS: LEVOTHYROXINE 112 MCG (LEVOTHROID) TAB PO SCH (06:49)
[2019-12-30] MEDS: cloNIDine 0.1 MG (CATAPRES) TAB PO PRN ×2 (06:49→18:11)
[2019-12-30] MEDS: amLODIPine 5 MG (NORVASC) TAB PO SCH (08:00)
[2019-12-30] MEDS: GABAPENTIN 300 MG (NEURONTIN) CAP PO SCH ×2 (08:00→20:24)
[2019-12-30] MEDS: PANTOPRAZOLE 40 MG (PROTONIX) TAB PO SCH (08:00)
[2019-12-30] MEDS: DOCUSATE SODIUM 100 MG (COLACE) CAP PO SCH (08:01)
[2019-12-30] MEDS: SENNA W/DOCUSATE (SENOKOT S) TABLET PO SCH ×2 (08:01→20:30)
[2019-12-30] MEDS: polyethylene glycoL POWDER 17 GM (MIRALAX) PACK PO SCH ×2 (08:06→20:26)
--- NOTE | 2019-12-30 09:05 | Occupational Ther Daily Note ---
OT Current Status-Daily Note Subjective Pt seen in recliner this am. States no pain. States higher energy and decrease in PD sx on this date. Pt agrees to shower. Pt seen in recliner this afternoon, treatment from [id number]. Family training completed 1330 this afternoon as well, completed from 1343-3406 (30) with son. ADL-Treatment Therapy Code Descriptions/Definitions Functional [place] Measure: 0=Not Assessed/NA 4=Minimal Assistance 1=Total Assistance 5=Supervision or Setup 2=Maximal Assistance 6=Modified [place] 3=Moderate Assistance 7=Complete IndependenceSCALE: Activities may be completed with or without assistive devices. 1-Mfvyyggktx-fdfjzfy completes the activity by him/herself with no assistance from a helper. 5-Set-up or Clean-up Assistance-helper sets up or cleans up; patient completes activity. [place] assists only prior to or following the activity. 4-Supervision or Touching Assistance-helper provides verbal cues and/or touching/steadying and/or contact guard assistance as patient completes activity. Assistance may be provided throughout the activity or intermittently. 3-Partial/Moderate Assistance-helper does LESS THAN HALF the effort. [place] lifts, holds or supports trunk or limbs, but provides less than half the effort. 2-Substantial/Maximal Assistance-helper does MORE THAN HALF the effort. [place] lifts or holds trunk or limbs and provides more than half the effort. 9-Uvxubkbsu-mgikbc does ALL the effort. Patient does none of the effort to complete the activity. Or, the assistance of 2 or more helpers is required for the patient to complete the activity. If activity was not attempted, code reason: 7-Patient Refused. 9-Not Applicable-not attempted and the patient did not perform the activity before the current illness, exacerbation or injury. 10-Not Attempted due to Environmental Limitations-(lack of equipment, weather restraints, etc.). 88-Not Attempted due to Medical Conditions or Safety Concerns. Eating (QC): 6 Oral Hygiene (QC): 4 (SBA in stance at sink.) Bathing Location: L Arm, R Arm, L Upper Leg, R Upper Leg, L Lower Leg (including foot), R Lower Leg (including foot), Chest, Abdomen, Perineal Area Shower/Bathe Self (QC): 3 (min A for bottom hygiene. SBA in stance.) Upper Body Dressing (QC): 5 (s/u) Lower Body Dressing (QC): 4 (SBA in stance, CGA intermittently. ) On/Off Footwear: 6 (Completes with IND edge of chair.) Toileting Hygiene (QC): 2 (max A for BM clean up due to fatigue post-shower. Pt has 3 episodes of loose stool, fatigue post BMs.) Toilet Transfer (QC): 4 (SBA, use of walker.) Other Treatment 0800: Pt stands at walker level, sit to stands and ambulation SBA-CGA. Pt completes shower transfer with CGA, ADLs to follow as above. All ADLs without AE. Pt requests urination post-showering, utilizes toilet and 3 loose BMs completed; nursing notified. Pt requests to wash clothes this date, completes with min A to manipulate buttons and settings. Difficulty managing walker in small space, running in to wall. Fair problem solving, pt's eye sight is decreased. LOB 1x due to person appearing in her vision, able to self-correct with CGA throughout. Pt returns to sit, requests a break. OT to return for additional strength training later on. Pt in chair, all needs met, chair alarm on, call light in lap. [id number] (20): Pt completes UE exercises 10 reps 5 bilaterally with mirror- demonstration. Pt completes with mod cues. Pt requires SBA for toileting. Pt returns to recliner. All needs met. [id number] (30): Family training with OT/ PT and pt's son. OT discussed ADL function, use of AE during increased PKD sx and energy. Pt and son educated on HEP with demonstration for pt's son's reference. Discussion of home environment and placement of grab bars/ sc/ commode height. Pt and son's questions answered. Son denies additional questions, pt left in chair with all needs met, and call light in reach/ son present. Education OT Patient Education: Correct positioning, Energy conservation, Progress toward Goal/Update tx plan, Safety issues Teaching Recipient: Patient Teaching Methods: Demonstration, Discussion Response to Teaching: Verbalize Understanding, Return Demonstration OT Short Term Goals Short Term Goals Time Frame: Dec 27, 2019 Eatin Oral hygiene: 5 Toileting hygiene: 4 Shower/bathe self: 4 Upper body dressin Lower body dressin Putting on/taking off footwear: 4 OT Electrical Engineering Intern Goals Electrical Engineering Intern Goals Time Frame: Jan 03, 2020 Eating (QC): 6 Oral Hygiene (QC): 5 Toileting Hygiene (QC): 4 Shower/Bathe Self (QC): 4 Upper Body Dressing (QC): 5 Lower Body Dressing (QC): 4 On/Off Footwear (QC): 4 Additional Goals: 1-Demonstrate ADL Tasks, 2-Verbalize Understanding, 3- ImproveStrength/Victor Manuel 1=Demonstrate adherence to instructed precautions during ADL tasks. 2=Patient will verbalize/demonstrate understanding of assistive devices/modifications for ADL. 3=Patient will improve strength/tolerance for activity to enable patient to perform ADL's. OT Education/Plan Problem List/Assessment Assessment: Decreased Activ Tolerance, Decreased UE Strength, Dependent Transfers, Impaired Funct Balance, Impaired I ADL's, Impaired Self-Care Skills Discharge Recommendations Plan/Recommendations: Continue POC Therapy Discharge Recommendati: Intermittent Supervision Treatment Plan/Plan of Care Treatment,Training & Education: Yes Patient would benefit from OT for education, treatment and training to promote independence in ADL's, mobility, safety and/or upper extremity function for ADL's. Plan of Care: ADL Retraining, Functional Mobility, UE Funct Exercise/Act Treatment Duration: Jan 03, 2020 Frequency: At least 5 of 7 days/Wk (IRF) Estimated Hrs Per Day: 1.5 hours per day Agreement: Yes Rehab Potential: Fair Time/GCodes Start Time: 08:00 (1300; 1350) Stop Time: 09:00 (1320; 1420) Total Time Billed (hr/min): 110 Billed Treatment Time 1, ADL 3 (45), FA (15)= 60 1, EX (20) 1, ADL 2 (30) 110 JAZIEL COOK OTR Dec 30, 2019 09:05
--- NOTE | 2019-12-30 11:28 | Speech Therapy Daily Note ---
Speech Daily Progress Note Subjective Date Seen by Provider: Dec 30, 2019 Time Seen by Provider: 00:30 Patient was resting in her recliner, she requested a snack. Objective Patient completed a series of q/a related to her daily needs with 90% given minimal cues. Assessment Assessment Current Status: Good Progress Treatment Plan Continue Plan of Care Speech Short Term Goals Short Term Goals Short Term Goals 1) Patient will complete memory tasks related to her daily needs at 90% with minimal cuing. 2) Patient will complete problem solving tasks related to her daily needs at 90% with minimal cuing. 3) Patient will complete safety awareness tasks related to her daily needs at 90% with minimal cuing. Speech Snf Goals Medical Interpreter Goals Patient will improve cognitive-communication necessary for safety and daily living tasks with minimal assist. Speech-Plan Patient/Family Goals Patient/Family Goals: Patient plans on returning to her home where she lives alone. She does have a son who is attentive to her daily needs. Treatment Plan Speech Therapy Treatment Plan: Continue Plan of Care Treatment Duration: Dec 30, 2019 Frequency: 5 times per week Estimated Hrs Per Day: .5 hour per day Rehab Potential: Fair Barriers to Learning: Patient's health and age Pt/Family Agrees to Plan: Yes Safety Risks/Education Teaching Recipient: Patient Teaching Methods: Demonstration, Discussion Response to Teaching: Verbalize Understanding, Return Demonstration Education Topics Provided: Continued safety upon her return home. Time Speech Therapy Time In: 09:30 Speech Therapy Time Out: 10:00 Total Billed Time: 30 Billed Treatment Time [address] Dec 30, 2019 11:28
--- NOTE | 2019-12-30 13:13 | Physical Therapy Daily Note ---
PT Daily Note-Current Subjective Pt sitting in recliner upon arrival. Pt agrees to PT. Mental Status Patient Orientation: Person, Confused, Place Pt has difficulty seeing and GROUP INSURANCE SPECIAL AGENT again encourages pt to see Eye Dr upon DC for change in vision. Pt also has GROUP INSURANCE SPECIAL AGENT talk to pt's on about DC time of 1100. Transfers SCALE: Activities may be completed with or without assistive devices. 9-Wllssbecgy-tkkwvrr completes the activity by him/herself with no assistance from a helper. 5-Set-up or Clean-up Assistance-helper sets up or cleans up; patient completes activity. [place] assists only prior to or following the activity. 4-Supervision or Touching Assistance-helper provides verbal cues and/or touching/steadying and/or contact guard assistance as patient completes activity. Assistance may be provided throughout the activity or intermittently. 3-Partial/Moderate Assistance-helper does LESS THAN HALF the effort. [place] lifts, holds or supports trunk or limbs, but provides less than half the effort. 2-Substantial/Maximal Assistance-helper does MORE THAN HALF the effort. [place] lifts or holds trunk or limbs and provides more than half the effort. 2-Logllyuev-jrxdqs does ALL the effort. Patient does none of the effort to complete the activity. Or, the assistance of 2 or more helpers is required for the patient to complete the activity. If activity was not attempted, code reason: 7-Patient Refused. 9-Not Applicable-not attempted and the patient did not perform the activity before the current illness, exacerbation or injury. 10-Not Attempted due to Environmental Limitations-(lack of equipment, weather restraints, etc.). 88-Not Attempted due to Medical Conditions or Safety Concerns. Sit to Stand (QC): 5 Toilet Transfer (QC): 5 Weight Bearing Full Weight Bearing Full Weight Bearing Gait Training Does the Patient Walk?: Yes Distance: 150',150' Walk 10 feet (QC): 5 Walk 50 ft with 2 Turns(QC): 5 Walk 150 ft (QC): 5 Gait Persons Needed: 1 Gait Assistive Device: FWW Stair Training Stair Training: Handrails/: 2 handrails #of Steps: 4 1 Step (curb) (QC): 4 4 Steps (QC): 4 Stairs: Pattern: Step to Exercises Seated Therapy Exercises: Ankle pumps, Long arc quads, Hip flexion, Kicking activity, Glut set Seated Reps: 15 NuStep Minutes: 15 NuStep Workload: 4 Treatments Pt transfers to standing then uses restroom. Pt uses NuStep for 15m at WL 4 followed by Seated Ex. Pt ambulates in hallway before returning to room. Pt has all needs met, call light in hand. Afternoon/ Rx: GROUP INSURANCE SPECIAL AGENT & OT complete Family Training with pt & pt's son. GROUP INSURANCE SPECIAL AGENT reviews proper use of FWW vs 4WW, LE EX as well as mobility and medication given as early as possible so pt can move better. Pt & son visiting at end of Rx. Assessment Current Status: Good Progress Pt continues to demonstrate Parkinson's gait pattern but know how to correct. Afternoon Rx: Pt & son feel confident with pt going home. PT Short Term Goals Short Term Goals Time Frame: Dec 27, 2019 Roll Left & Right: 6 Sit to lyin Lying to sitting on side of be: 4 Sit to stand: 4 Chair/aet-oc-skpbk transfer: 4 Walk 10 feet: 4 Walk 50 feet with two turns: 4 PT Director Hris Goals Director Hris Goals PT Director Hris Goals Time Frame: Jan 10, 2020 Roll Left & Right (QC): 6 Sit to Lying (QC): 6 Lying-Sitting on Side/Bed(QC): 6 Sit to Stand (QC): 5 Chair/Nsf-vp-Pnhfm Xfer(QC): 5 Toilet Transfer (QC): 5 Car Transfer (QC): 5 Does the Patient Walk: Yes Walk 10 feet (QC): 5 Walk 50ft with 2 Turns (QC): 5 Walk 150 ft (QC): 5 Walking 10ft on Uneven Surface: 4 1 Step (curb) (QC): 88 4 Steps (QC): 88 12 Steps (QC): 88 Picking up an Object (QC): 88 Wheel 50 feet with 2 turns (QC: 9 Wheel 150 feet: 9 PT Plan Problem List Problem List: Activity Tolerance, Functional Strength, Safety, Gait Treatment/Plan Treatment Plan: Continue Plan of Care Treatment Plan: Bed Mobility, Education, Functional Activity Victor [place], Functional Strength, Group Therapy, Gait, Safety, Therapeutic Exercise, Transfers Treatment Duration: Jan 10, 2020 Frequency: At least 5 of 7 days/Wk (IRF) Estimated Hrs Per Day: 1.5 hours per day Patient and/or Family Agrees t: Yes Safety Risks/Education Patient Education: Gait Training, Transfer Techniques, Correct Positioning, Safety Issues Teaching Recipient: Patient, Family Teaching Methods: Discussion Response to Teaching: Verbalize Understanding Time/GCodes Time In: 1030 Time Out: 1145 Total Billed Treatment Time: 75 Total Billed Treatment 1, GT x2 (25m), FA (15m), EX x2 (35m) Afternoon: [id number] 1, FA x2 (30m) DAVID SY GROUP INSURANCE SPECIAL AGENT Dec 30, 2019 13:13
--- NOTE | 2019-12-30 15:48 | NUR ---
CM/SS DISCHARGE PLANNING Patient will discharge 01/02/20. HHC: Referral completed with [facility]. Spoke with nacho/Enrique, he will get patient scheduled for 01/02/20, first available.
[2019-12-30 18:06] VITALS: BP 171/77
[2019-12-30 18:54] VITALS: BP 167/79
--- NOTE | 2019-12-30 19:21 | NUR ---
bedside report received from CHARO TONY, assume care of pt
[2019-12-30 20:22] VITALS: BP 149/77
[2019-12-30] MEDS: ALPRAZolam 0.5 MG (XANAX) TAB PO SCH (20:23)
[2019-12-30] MEDS: cloNIDine 0.1 MG (CATAPRES) TAB PO SCH (20:24)
--- NOTE | 2019-12-30 20:24 | NUR ---
pt took miralax but refused Senokot, b/p 149/77
[2019-12-30] MEDS: ENOXAPARIN 40 MG/0.4 ML (LOVENOX) SYR SC SCH (22:38)
[2019-12-31 05:06] VITALS: BP 124/74
[2019-12-31] MEDS: LEVOTHYROXINE 112 MCG (LEVOTHROID) TAB PO SCH (06:21)
[2019-12-31] MEDS: SINEMET 25/100 (CARBIDOPA/LEVODOPA) TAB PO SCH ×8 (06:21→20:28)
[2019-12-31 08:00] VITALS: BP 77/41
--- NOTE | 2019-12-31 08:26 | PM&R Progress Note ---
Subjective HPI/CC On Admission Date Seen by Provider: Dec 31, 2019 Time Seen by Provider: 11:00 Subjective/Events-last exam BP very labile so stopped the am scheduled clonidine and only will give in evening Talked to her again about her medications and her son takes care of all that so will make sure he has an accurate list and I reassured her again Talks about the same topic everyday so confirmed dementia level No noted Able to participate in all therapies and she seems to be in a better place now Discharge planned for Thursday on 01/02/20 and she is ok with this plan Conferred with RN Reviewed therapy notes Checked meds and labs Review of Systems General: Fatigue Neurological: Confusion Objective Exam Vital Signs Vital Signs Date Time Temp Pulse Resp B/P (MAP) Pulse Ox O2 Delivery O2 Flow Rate FiO2 12/31/19 18:02 37.0 80 18 137/74 (95) 95 Room Air Capillary Refill : Less Than 3 SecondsLess Than 3 Seconds General Appearance: No Apparent Distress, WD/WN, Chronically ill HEENT: PERRL/EOMI, Normal ENT Inspection, Pharynx Normal Neck: Full Range of Motion, Normal Inspection, Non Tender, Supple, Carotid Bruit Respiratory: Chest Non Tender, Lungs Clear, Normal Breath Sounds, No Accessory Muscle Use, No Respiratory Distress Cardiovascular: Regular Rate, Rhythm, No Edema, No Gallop, No JVD, No Murmur, Normal Peripheral Pulses Gastrointestinal: Normal Bowel Sounds, No Organomegaly, No Pulsatile Mass, Non Tender, Soft Back: Normal Inspection, No CVA Tenderness, No Vertebral Tenderness Extremity: Normal Capillary Refill, Normal Inspection, Normal Range of Motion, Non Tender, No Calf Tenderness, No Pedal Edema Neurologic/Psychiatric: Alert, Oriented x3, No Motor/Sensory Deficits, Normal Mood/Affect, data typist II-XII Norm as Tested, Abnormal Gait, Depressed Affect, Other (tremor noted upper extremities) Skin: Normal Color, Warm/Dry Lymphatic: No Adenopathy Results/Procedures Lab Patient resulted labs reviewed. FIM Transfers Therapy Code Descriptions/Definitions Functional [place] Measure: 0=Not Assessed/NA 4=Minimal Assistance 1=Total Assistance 5=Supervision or Setup 2=Maximal Assistance 6=Modified [place] 3=Moderate Assistance 7=Complete IndependenceSCALE: Activities may be completed with or without assistive devices. 7-Sorqdivcsa-xgxozzq completes the activity by him/herself with no assistance from a helper. 5-Set-up or Clean-up Assistance-helper sets up or cleans up; patient completes activity. [place] assists only prior to or following the activity. 4-Supervision or Touching Assistance-helper provides verbal cues and/or touching/steadying and/or contact guard assistance as patient completes activity. Assistance may be provided throughout the activity or intermittently. 3-Partial/Moderate Assistance-helper does LESS THAN HALF the effort. [place] lifts, holds or supports trunk or limbs, but provides less than half the effort. 2-Substantial/Maximal Assistance-helper does MORE THAN HALF the effort. [place] l ifts or holds trunk or limbs and provides more than half the effort. 1-Vxfezntlt-arupxw does ALL the effort. Patient does none of the effort to complete the activity. Or, the assistance of 2 or more helpers is required for the patient to complete the activity. If activity was not attempted, code reason: 7-Patient Refused. 9-Not Applicable-not attempted and the patient did not perform the activity before the current illness, exacerbation or injury. 10-Not Attempted due to Environmental Limitations-(lack of equipment, weather restraints, etc.). 88-Not Attempted due to Medical Conditions or Safety Concerns. Roll Left to Right (QC): 6 Sit to Lying (QC): 6 Sit to Stand (QC): 5 Chair/Mrv-wg-Ohpzy Xfer(QC): 5 Car Transfer (QC): 6 Gait Training Does the Patient Walk?: Yes Distance: 150',150' Walk 10 feet (QC): 5 Walk 50 ft with 2 Turns(QC): 5 Walk 150 ft (QC): 5 Walking 10ft/uneven surface-QC: 88 Gait Persons Needed: 1 Gait Assistive Device: FWW Wheelchair Training Does the Pt Use a Wheelchair?: No Wheel 50 ft with 2 turns (QC): 4 Wheel 150 ft (QC): 4 Stair Training Stair Training: Handrails/: 2 handrails #of Steps: 4 1 Step (curb) (QC): 4 4 Steps (QC): 4 12 Steps (QC): 88 Stairs: Pattern: Step to Balance Picking up an Object (QC): 88 ADL-Treatment Eating (QC): 6 Oral Hygiene (QC): 4 (SBA in stance at sink.) Bathing Location: L Arm, R Arm, L Upper Leg, R Upper Leg, L Lower Leg (including foot), R Lower Leg (including foot), Chest, Abdomen, Perineal Area Shower/Bathe Self (QC): 3 (min A for bottom hygiene. SBA in stance.) Upper Body Dressing (QC): 5 (s/u) Lower Body Dressing (QC): 4 (SBA in stance, CGA intermittently. ) On/Off Footwear (QC): 6 (Completes with IND edge of chair.) Toileting Hygiene (QC): 2 (max A for BM clean up due to fatigue post-shower. Pt has 3 episodes of loose stool, fatigue post BMs.) Toilet Transfer (QC): 4 (SBA, use of walker.) Assessment/Plan Assessment and Plan Assess & Plan/Chief Complaint Assessment: Parkinson's Weakness Near falls HTN urgency Advanced age Cognitive deficit 23/30 SLUMS Edema-improved Somatic complaints Plan: IRF protocol ST management Evaluate social needs for DC at home Monitor closely especially BP Change Sinemet to Dr Alex mora BM regimen and maintain at home at DC VITA/NOA wraps Increase Norvasc to 5mg daily and schedule Clonidine 0.1mg PO in evening only (1) Parkinson disease (2) Constipation (3) Weakness Status: Acute (4) Hyponatremia Status: Acute (5) Hypertensive emergency Status: Acute (6) Chest pain Status: Acute TIMUR MARTÍNEZ DO Dec 31, 2019 08:26
--- NOTE | 2019-12-31 08:33 | Physical Therapy Daily Note ---
PT Daily Note-Current Subjective Patient in recliner pre tx, agrees to PT, no complaints of pain. Appearance Patient in recliner post tx with nurse call,phone, tray, chair alarm on. Mental Status Patient Orientation: Person, Place, Situation Transfers SCALE: Activities may be completed with or without assistive devices. 7-Shrxeuvtpy-hpxzrsj completes the activity by him/herself with no assistance from a helper. 5-Set-up or Clean-up Assistance-helper sets up or cleans up; patient completes activity. [place] assists only prior to or following the activity. 4-Supervision or Touching Assistance-helper provides verbal cues and/or touchin g/steadying and/or contact guard assistance as patient completes activity. Assistance may be provided throughout the activity or intermittently. 3-Partial/Moderate Assistance-helper does LESS THAN HALF the effort. [place] lifts, holds or supports trunk or limbs, but provides less than half the effort. 2-Substantial/Maximal Assistance-helper does MORE THAN HALF the effort. [place] lifts or holds trunk or limbs and provides more than half the effort. 7-Dugzuaisn-towihl does ALL the effort. Patient does none of the effort to complete the activity. Or, the assistance of 2 or more helpers is required for the patient to complete the activity. If activity was not attempted, code reason: 7-Patient Refused. 9-Not Applicable-not attempted and the patient did not perform the activity before the current illness, exacerbation or injury. 10-Not Attempted due to Environmental Limitations-(lack of equipment, weather restraints, etc.). 88-Not Attempted due to Medical Conditions or Safety Concerns. Sit to Stand (QC): 4 Chair/Byh-ei-Grsim Xfer(QC): 4 sit to stand SBA, transfers, CGA Weight Bearing Full Weight Bearing Full Weight Bearing Gait Training Distance: 150', 120' Walk 10 feet (QC): 4 Walk 50 ft with 2 Turns(QC): 4 Walk 150 ft (QC): 4 Gait Assistive Device: FWW CGA, slow ambulation, festinating gait, veers to the left side Treatments transfers, ambulation Assessment Current Status: Fair Progress cues for direction PT Short Term Goals Short Term Goals Time Frame: Dec 27, 2019 Roll Left & Right: 6 Sit to lyin Lying to sitting on side of be: 4 Sit to stand: 4 Chair/jnt-lu-wzbvj transfer: 4 Walk 10 feet: 4 Walk 50 feet with two turns: 4 PT Call Center Support Representative Goals Call Center Support Representative Goals PT Call Center Support Representative Goals Time Frame: Jan 10, 2020 Roll Left & Right (QC): 6 Sit to Lying (QC): 6 Lying-Sitting on Side/Bed(QC): 6 Sit to Stand (QC): 5 Chair/Uuu-yp-Fqmaa Xfer(QC): 5 Toilet Transfer (QC): 5 Car Transfer (QC): 5 Does the Patient Walk: Yes Walk 10 feet (QC): 5 Walk 50ft with 2 Turns (QC): 5 Walk 150 ft (QC): 5 Walking 10ft on Uneven Surface: 4 1 Step (curb) (QC): 88 4 Steps (QC): 88 12 Steps (QC): 88 Picking up an Object (QC): 88 Wheel 50 feet with 2 turns (QC: 9 Wheel 150 feet: 9 PT Plan Problem List Problem List: Activity Tolerance, Functional Strength, Safety, Balance, Gait, Transfer, Bed Mobility, ROM Treatment/Plan Treatment Plan: Continue Plan of Care Treatment Plan: Bed Mobility, Education, Functional Activity Victor [place], Functional Strength, Group Therapy, Gait, Safety, Therapeutic Exercise, Transfers Treatment Duration: Jan 10, 2020 Frequency: At least 5 of 7 days/Wk (IRF) Estimated Hrs Per Day: 1.5 hours per day Patient and/or Family Agrees t: Yes Safety Risks/Education Patient Education: Gait Training, Transfer Techniques, Correct Positioning, Safety Issues Teaching Recipient: Patient Teaching Methods: Demonstration, Discussion Response to Teaching: Reinforcement Needed Time/GCodes Time In: 816 Time Out: 08 Total Billed Treatment Time: 15 Total Billed Treatment 1 visit GT 15' ROBY THOMPSON PT Dec 31, 2019 08:33
[2019-12-31 09:00] VITALS: BP 105/63
[2019-12-31] MEDS: GABAPENTIN 300 MG (NEURONTIN) CAP PO SCH ×2 (09:08→20:28)
[2019-12-31] MEDS: SENNA W/DOCUSATE (SENOKOT S) TABLET PO SCH ×2 (09:08→20:27)
[2019-12-31] MEDS: PANTOPRAZOLE 40 MG (PROTONIX) TAB PO SCH (09:09)
[2019-12-31] MEDS: DOCUSATE SODIUM 100 MG (COLACE) CAP PO SCH (09:09)
[2019-12-31] MEDS: polyethylene glycoL POWDER 17 GM (MIRALAX) PACK PO SCH ×2 (09:12→20:28)
[2019-12-31] MEDS: cloNIDine 0.1 MG (CATAPRES) TAB PO SCH ×2 (09:47→20:27)
[2019-12-31] MEDS: amLODIPine 5 MG (NORVASC) TAB PO SCH (09:48)
[2019-12-31 09:50] VITALS: BP 147/74
[2019-12-31 18:02] VITALS: BP 137/74
--- NOTE | 2019-12-31 19:05 | NUR ---
bedside report received from TING TONY, assume care of pt
[2019-12-31 20:24] VITALS: BP 146/77
[2019-12-31] MEDS: ALPRAZolam 0.5 MG (XANAX) TAB PO SCH (20:27)
--- NOTE | 2019-12-31 20:28 | NUR ---
pt had no stool today, took all of her laxatives today, v/s [id number]%-146/77- 0/10 on numeric scale
[2019-12-31] MEDS: ENOXAPARIN 40 MG/0.4 ML (LOVENOX) SYR SC SCH (23:14)
[2020-01-01 05:31] VITALS: BP 147/76
[2020-01-01] MEDS: LEVOTHYROXINE 112 MCG (LEVOTHROID) TAB PO SCH (06:18)
[2020-01-01] MEDS: SINEMET 25/100 (CARBIDOPA/LEVODOPA) TAB PO SCH ×8 (06:18→20:18)
--- NOTE | 2020-01-01 06:21 | PM&R Progress Note ---
Subjective HPI/CC On Admission Date Seen by Provider: Jan 01, 2020 Time Seen by Provider: 10:00 Subjective/Events-last exam BP dramatically improved today Talked to her again about her medications and her son takes care of all that so will make sure he has an accurate list and I reassured her again Talks about the same topic everyday so confirmed dementia level No noted and she seems clear today Able to participate in all therapies and she seems to be in a better place now Discharge planned for Thursday on 01/02/20 and she is ok with this plan Conferred with RN Reviewed therapy notes Checked meds and labs Review of Systems Neurological: Weakness, Confusion Objective Exam Vital Signs Vital Signs Date Time Temp Pulse Resp B/P (MAP) Pulse Ox O2 Delivery O2 Flow Rate FiO2 01/01/20 05:31 36.3 73 16 147/76 (99) 93 Room Air Capillary Refill : Less Than 3 SecondsLess Than 3 Seconds General Appearance: No Apparent Distress, WD/WN, Chronically ill HEENT: PERRL/EOMI, Normal ENT Inspection, Pharynx Normal Neck: Full Range of Motion, Normal Inspection, Non Tender, Supple, Carotid Bruit Respiratory: Chest Non Tender, Lungs Clear, Normal Breath Sounds, No Accessory Muscle Use, No Respiratory Distress Cardiovascular: Regular Rate, Rhythm, No Edema, No Gallop, No JVD, No Murmur, Normal Peripheral Pulses Gastrointestinal: Normal Bowel Sounds, No Organomegaly, No Pulsatile Mass, Non Tender, Soft Back: Normal Inspection, No CVA Tenderness, No Vertebral Tenderness Extremity: Normal Capillary Refill, Normal Inspection, Normal Range of Motion, Non Tender, No Calf Tenderness, No Pedal Edema Neurologic/Psychiatric: Alert, Oriented x3, No Motor/Sensory Deficits, Normal Mood/Affect, 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 FIM Transfers Therapy Code Descriptions/Definitions Functional [place] Measure: 0=Not Assessed/NA 4=Minimal Assistance 1=Total Assistance 5=Supervision or Setup 2=Maximal Assistance 6=Modified [place] 3=Moderate Assistance 7=Complete IndependenceSCALE: Activities may be completed with or without assistive devices. 1-Chabbofbnn-cgighqk completes the activity by him/herself with no assistance from a helper. 5-Set-up or Clean-up Assistance-helper sets up or cleans up; patient completes activity. [place] assists only prior to or following the activity. 4-Supervision or Touching Assistance-helper provides verbal cues and/or touching/steadying and/or contact guard assistance as patient completes activity. Assistance may be provided throughout the activity or intermittently. 3-Partial/Moderate Assistance-helper does LESS THAN HALF the effort. [place] lifts, holds or supports trunk or limbs, but provides less than half the effort. 2-Substantial/Maximal Assistance-helper does MORE THAN HALF the effort. [place] lifts or holds trunk or limbs and provides more than half the effort. 1-Vegmriljc-vriwha does ALL the effort. Patient does none of the effort to complete the activity. Or, the assistance of 2 or more helpers is required for the patient to complete the activity. If activity was not attempted, code reason: 7-Patient Refused. 9-Not Applicable-not attempted and the patient did not perform the activity before the current illness, exacerbation or injury. 10-Not Attempted due to Environmental Limitations-(lack of equipment, weather restraints, etc.). 88-Not Attempted due to Medical Conditions or Safety Concerns. Roll Left to Right (QC): 6 Sit to Lying (QC): 6 Sit to Stand (QC): 4 Chair/Cqk-hr-[place]ax[place] Xfer(QC): 4 Car Transfer (QC): 6 Gait Training Does the Patient Walk?: Yes Distance: 150', 120' Walk 10 feet (QC): 4 Walk 50 ft with 2 Turns(QC): 4 Walk 150 ft (QC): 4 Walking 10ft/uneven surface-QC: 88 Gait Persons Needed: 1 Gait Assistive Device: FWW Wheelchair Training Does the Pt Use a Wheelchair?: No Wheel 50 ft with 2 turns (QC): 4 Wheel 150 ft (QC): 4 Stair Training Stair Training: Handrails/: 2 handrails #of Steps: 4 1 Step (curb) (QC): 4 4 Steps (QC): 4 12 Steps (QC): 88 Stairs: Pattern: Step to Balance Picking up an Object (QC): 88 ADL-Treatment Eating (QC): 6 Oral Hygiene (QC): 4 (SBA in stance at sink.) Bathing Location: L Arm, R Arm, L Upper Leg, R Upper Leg, L Lower Leg (including foot), R Lower Leg (including foot), Chest, Abdomen, Perineal Area Shower/Bathe Self (QC): 3 (min A for bottom hygiene. SBA in stance.) Upper Body Dressing (QC): 5 (s/u) Lower Body Dressing (QC): 4 (SBA in stance, CGA intermittently. ) On/Off Footwear (QC): 6 (Completes with IND edge of chair.) Toileting Hygiene (QC): 2 (max A for BM clean up due to fatigue post-shower. Pt has 3 episodes of loose stool, fatigue post BMs.) Toilet Transfer (QC): 4 (SBA, use of walker.) Assessment/Plan Assessment and Plan Assess & Plan/Chief Complaint Assessment: Parkinson's Weakness Near falls HTN urgency Advanced age Cognitive deficit 23/30 SLUMS Edema-improved Somatic complaints Plan: IRF protocol ST management Evaluate social needs for DC at home Monitor closely especially BP Change Sinemet to Dr Alex mora BM regimen and maintain at home at DC VITA/NOA wraps Increase Norvasc to 5mg daily and schedule Clonidine 0.1mg PO in evening only (1) Parkinson disease (2) Constipation (3) Weakness Status: Acute (4) Hyponatremia Status: Acute (5) Hypertensive emergency Status: Acute (6) Chest pain Status: Acute TIMUR MARTÍNEZ DO Jan 01, 2020 06:21
[2020-01-01] MEDS: GABAPENTIN 300 MG (NEURONTIN) CAP PO SCH ×2 (08:42→20:18)
[2020-01-01] MEDS: SENNA W/DOCUSATE (SENOKOT S) TABLET PO SCH ×2 (08:42→20:22)
[2020-01-01] MEDS: amLODIPine 5 MG (NORVASC) TAB PO SCH (08:42)
[2020-01-01] MEDS: DOCUSATE SODIUM 100 MG (COLACE) CAP PO SCH (08:42)
[2020-01-01] MEDS: PANTOPRAZOLE 40 MG (PROTONIX) TAB PO SCH (08:43)
[2020-01-01] MEDS: polyethylene glycoL POWDER 17 GM (MIRALAX) PACK PO SCH ×2 (08:45→20:22)
[2020-01-01 18:00] VITALS: BP 146/74
[2020-01-01 20:15] VITALS: BP 160/79
[2020-01-01] MEDS: cloNIDine 0.1 MG (CATAPRES) TAB PO SCH (20:18)
[2020-01-01] MEDS: ALPRAZolam 0.5 MG (XANAX) TAB PO SCH (20:18)
[2020-01-01] MEDS ORDERED: POLY17PO31 PO (21:23)
[2020-01-01] MEDS ORDERED: AMLO5TAB9 PO (21:23)
[2020-01-01] MEDS ORDERED: CLON0.1T PO (21:23)
[2020-01-01] MEDS ORDERED: CARB1TAB19 PO ×2 (21:23)
[2020-01-01] MEDS ORDERED: SENN-20 PO (21:23)
[2020-01-01] MEDS ORDERED: LACT20SO2 PO (21:23)
[2020-01-01] MEDS ORDERED: ALPR0.5T PO (21:23)
--- NOTE | 2020-01-01 21:26 | D/C HH Face to Face Order ---
D/C Face to Face Orders Reconcile Patient Problems Problems Reviewed?: Yes Instructions for Patient Integrity Home Health Patient Instructions/FollowUp: [facility] 1 week Physician to follow Patient: [facility] Discharge Diet for Home: No Restrictions Patient Problems: Parkinson's HTN labile and malignant type Anxiety Dementia Somatization Patient Data-Allergies,Ht & Wt Patient Allergies: Coded Allergies: atenolol (Verified Allergy, Intermediate, RASH, 02/04/14) Height (Feet): 5 Height (Inches): 3.00 Weight (Pounds): 140 Weight (Ounces): 0.0 Home Health Need/Face to Face Date of Face to Face: Jan 01, 2020 Clinical Findings: Generalized weakness and fatigue, Instability, Muscle weakness, Unsteady gait I have seen Pt kgbd-gn-kjly: Yes Discharged To: Home Diagnosis/Conditions: Parkinson's HTN labile and malignant type Anxiety Dementia Somatization Patient is Homebound due to: CognItive deficits, Delicia fall risk due to instabilty, Muscle weakness Homebound Status Due to the above stated illness, injury or surgical procedure (medical condition or diagnosis) and associated clinical findings, the patient is homebound because of his/her inability to leave home except with aid of a suppo rtive device and/or person AND leaving the home requires a considerable and taxing effort or is medically contraindicated. Pt req the following assistanc: Walker Home Health Nursing Orders Home Health Services Order: Nursing Services (BP monitoring, Sinemet scheduling, bowel regimen), Molding Machine Operator-Evaluate & Treat, Physical Therapy-Evaluate & Treat Certify Stmt I certify that this patient is under my care and that I, a nurse practitioner or a physician; a orthopedic physician assistant working with me, had a face to face encounter that - meets the physician face to face encounter requirements with this patient as dated. TIMUR MARTÍNEZ DO Jan 01, 2020 21:26
[2020-01-01] MEDS: ENOXAPARIN 40 MG/0.4 ML (LOVENOX) SYR SC SCH (22:57)
[2020-01-02 05:14] VITALS: BP 138/75
[2020-01-02] MEDS: SINEMET 25/100 (CARBIDOPA/LEVODOPA) TAB PO SCH ×3 (06:16→10:47)
[2020-01-02] MEDS: LEVOTHYROXINE 112 MCG (LEVOTHROID) TAB PO SCH (06:16)
--- NOTE | 2020-01-02 06:43 | Discharge Summary ---
Diagnosis/Chief Complaint Date of Admission Dec 20, 2019 at 11:30 Date of Discharge Discharge Date: Jan 02, 2020 Discharge Diagnosis Assessment: Parkinson's Weakness Near falls HTN urgency Advanced age Cognitive deficit SLUMS Edema-improved Somatic complaints Plan: IRF protocol ST management Evaluate social needs for DC at home Monitor closely especially BP Change Sinemet to Dr Alex mora BM regimen and maintain at home at DC VITA/NOA wraps Increase Norvasc to 5mg daily and schedule Clonidine 0.1mg PO in evening only (1) Parkinson disease (2) Constipation (3) Weakness Status: Acute (4) Hyponatremia Status: Acute (5) Hypertensive emergency Status: Acute (6) Chest pain Status: Acute Discharge Summary Discharge Physical Examination Allergies: Coded Allergies: atenolol (Verified Allergy, Intermediate, RASH, 02/04/14) Vitals & I&Os Vital Signs Date Time Temp Pulse Resp B/P (MAP) Pulse Ox O2 Delivery O2 Flow Rate FiO2 01/02/20 11:30 01/02/20 08:10 Room Air 01/02/20 05:14 36.6 77 18 92 General Appearance: Alert, Oriented X3, Cooperative Respiratory: Clear to Auscultation Cardiovascular: Regular Rate Neuro: Normal Gait, Normal Speech, Strength at 5/5 X4 Ext Hospital Course Was the Problem List Reviewed?: Yes Hospital Course: Pt had an uncomplicated hospital course for 13 days. Blood pressure management was paramount. We did obtain stability with Amlodipine increased to 5mg and a Clonidine 0.1 at night only to prevent hypotension. Her sentiment orders were confirmed by Dr. Conrad, her Neurologist. Overall she regained normal bowel function due to Parkinsons and chronic constipation issues. Confusion was noted but she remained lucid for the most part. Heavy family involvement, therapy orders initiated, all medications were sent to her pharmacy and she will have close follow up with her PCP. Labs (last 24 hrs) Laboratory Tests 12/21/19 04:33: White Blood Count 6.2, Red Blood Count 4.15L, Hemoglobin 12.9, Hematocrit 39, Mean Corpuscular Volume 93, Mean Corpuscular Hemoglobin 31, Mean Corpuscular Hemoglobin Concent 34, Red Cell Distribution Width 13.4, Platelet Count 265, Mean Platelet Volume 8.8, Neutrophils (%) (Auto) 54, Lymphocytes (%) (Auto) 32, Monocytes (%) (Auto) 11, Eosinophils (%) (Auto) 3, Basophils (%) (Auto) 0, Neutrophils # (Auto) 3.4, Lymphocytes # (Auto) 2.0, Monocytes # (Auto) 0.7, Eosinophils # (Auto) 0.2, Basophils # (Auto) 0.0, Sodium Level 136, Potassium Level 4.0, Chloride Level 102, Carbon Dioxide Level 26, Anion Gap 8, Blood Urea Nitrogen 22H, Creatinine 0.84, Estimat Glomerular Filtration Rate > 60, BUN/Creatinine Ratio 26, Glucose Level 86, Calcium Level 8.8, Corrected Calcium 9.0, Total Bilirubin 0.6, Aspartate Amino Transf (AST/SGOT) 18, Alanine Aminotransferase (ALT/SGPT) < 6, Alkaline Phosphatase 72, Total Protein 6.3L, Albumin 3.7 12/26/19 05:33: White Blood Count 4.8, Red Blood Count 4.14L, Hemoglobin 12.6, Hematocrit 38, Mean Corpuscular Volume 93, Mean Corpuscular Hemoglobin 30, Mean Corpuscular Hemoglobin Concent 33, Red Cell Distribution Width 13.4, Platelet Count 292, Mean Platelet Volume 8.8, Neutrophils (%) (Auto) 53, Lymphocytes (%) (Auto) 32, Monocytes (%) (Auto) 12, Eosinophils (%) (Auto) 3, Basophils (%) (Auto) 0, Neutrophils # (Auto) 2.6, Lymphocytes # (Auto) 1.6, Monocytes # (Auto) 0.6, Eosinophils # (Auto) 0.1, Basophils # (Auto) 0.0, Sodium Level 136, Potassium Level 4.3, Chloride Level 100, Carbon Dioxide Level 28, Anion Gap 8, Blood Urea Nitrogen 17, Creatinine 0.85, Estimat Glomerular Filtration Rate > 60, BUN/Creatinine Ratio 20, Glucose Level 86, Calcium Level 8.9, Corrected Calcium 9.1, Total Bilirubin 0.3, Aspartate Amino Transf (AST/SGOT) 48H, Alanine Aminotransferase (ALT/SGPT) 27, Alkaline Phosphatase 65, Total Protein 6.3L, Albumin 3.7 12/26/19 10:56: Glucometer 95 12/29/19 06:08: White Blood Count 4.8, Red Blood Count 3.91L, Hemoglobin 12.1, Hematocrit 36, Mean Corpuscular Volume 93, Mean Corpuscular Hemoglobin 31, Mean Corpuscular Hemoglobin Concent 33, Red Cell Distribution Width 13.0, Platelet Count 277, Me an Platelet Volume 8.9, Creatinine 0.80 Pending Labs Laboratory Tests 12/21/19 04:33: White Blood Count 6.2, Red Blood Count 4.15, Hemoglobin 12.9, Hematocrit 39, Mean Corpuscular Volume 93, Mean Corpuscular Hemoglobin 31, Mean Corpuscular Hemoglobin Concent 34, Red Cell Distribution Width 13.4, Platelet Count 265, Mean Platelet Volume 8.8, Neutrophils (%) (Auto) 54, Lymphocytes (%) (Auto) 32, Monocytes (%) (Auto) 11, Eosinophils (%) (Auto) 3, Basophils (%) (Auto) 0, Neutrophils # (Auto) 3.4, Lymphocytes # (Auto) 2.0, Monocytes # (Auto) 0.7, Eosinophils # (Auto) 0.2, Basophils # (Auto) 0.0, Sodium Level 136, Potassium Level 4.0, Chloride Level 102, Carbon Dioxide Level 26, Anion Gap 8, Blood Urea Nitrogen 22, Creatinine 0.84, Estimat Glomerular Filtration Rate > 60, BUN/Creatinine Ratio 26, Glucose Level 86, Calcium Level 8.8, Corrected Calcium 9.0, Total Bilirubin 0.6, Aspartate Amino Transf (AST/SGOT) 18, Alanine Aminotransferase (ALT/SGPT) < 6, Alkaline Phosphatase 72, Total Protein 6.3, Albumin 3.7 12/26/19 05:33: White Blood Count 4.8, Red Blood Count 4.14, Hemoglobin 12.6, Hematocrit 38, Mean Corpuscular Volume 93, Mean Corpuscular Hemoglobin 30, Mean Corpuscular Hemoglobin Concent 33, Red Cell Distribution Width 13.4, Platelet Count 292, Mean Platelet Volume 8.8, Neutrophils (%) (Auto) 53, Lymphocytes (%) (Auto) 32, Monocytes (%) (Auto) 12, Eosinophils (%) (Auto) 3, Basophils (%) (Auto) 0, Neutrophils # (Auto) 2.6, Lymphocytes # (Auto) 1.6, Monocytes # (Auto) 0.6, Eosinophils # (Auto) 0.1, Basophils # (Auto) 0.0, Sodium Level 136, Potassium Level 4.3, Chloride Level 100, Carbon Dioxide Level 28, Anion Gap 8, Blood Urea Nitrogen 17, Creatinine 0.85, Estimat Glomerular Filtration Rate > 60, BUN/C reatinine Ratio 20, Glucose Level 86, Calcium Level 8.9, Corrected Calcium 9.1, Total Bilirubin 0.3, Aspartate Amino Transf (AST/SGOT) 48, Alanine Aminotransferase (ALT/SGPT) 27, Alkaline Phosphatase 65, Total Protein 6.3, Albumin 3.7 12/26/19 10:56: Glucometer 95 12/29/19 06:08: White Blood Count 4.8, Red Blood Count 3.91, Hemoglobin 12.1, Hematocrit 36, Mean Corpuscular Volume 93, Mean Corpuscular Hemoglobin 31, Mean Corpuscular Hemoglobin Concent 33, Red Cell Distribution Width 13.0, Platelet Count 277, Mean Platelet Volume 8.9, Creatinine 0.80 Discharge Home Medications: Active Scripts Active Senna-Time S Tablet (Sennosides/Docusate Sodium) 1 Each Tablet 1 Ea PO BID Polyethylene Glycol 3350 17 Gm Powd.pack 17 Gm PO BID Lactulose 20 Gm/30 Ml Solution 10 Gm PO BID PRN Carbidopa-Levodopa 25-100 Tab (Carbidopa/Levodopa) 1 Each Tablet 1 Ea PO 0600,0800,1000,1200 Carbidopa-Levodopa 25-100 Tab (Carbidopa/Levodopa) 1 Each Tablet 1 Ea PO 1400,1600,1800,2000 Amlodipine Besylate 5 Mg Tablet 5 Mg PO DAILY Clonidine HCl 0.1 Mg Tablet 0.1 Mg PO HS Xanax (Alprazolam) 0.5 Mg Tablet 0.5 Mg PO HS Reported Dok (Docusate Sodium) 100 Mg Capsule 100 Mg PO DAILY Pantoprazole Sodium 40 Mg Tablet.dr 40 Mg PO DAILY Levothyroxine Sodium 112 Mcg Tablet 112 Mcg PO DAILY Neurontin (Gabapentin) 300 Mg Capsule 300 Mg PO DAILY Neurontin (Gabapentin) 300 Mg Capsule 600 Mg PO HS TAKES 2(300MH) CAPS Instructions to patient/family Please see electronic discharge instructions given to patient. Diagnosis/Problems Diagnosis/Problems (1) Parkinson disease (2) Constipation (3) Weakness Status: Acute (4) Hyponatremia Status: Acute (5) Hypertensive emergency Status: Acute (6) Chest pain Status: Acute Clinical Quality Measures DVT/VTE Risk/Contraindication: Risk Factor Score Per Nursin RFS Level Per Nursing on Admit: 4+=Very High TIMUR MARTÍNEZ DO Jan 02, 2020 06:42
[2020-01-02] MEDS: PANTOPRAZOLE 40 MG (PROTONIX) TAB PO SCH (08:57)
[2020-01-02] MEDS: GABAPENTIN 300 MG (NEURONTIN) CAP PO SCH (08:57)
[2020-01-02] MEDS: amLODIPine 5 MG (NORVASC) TAB PO SCH (08:57)
[2020-01-02] MEDS: SENNA W/DOCUSATE (SENOKOT S) TABLET PO SCH (08:57)
[2020-01-02] MEDS: DOCUSATE SODIUM 100 MG (COLACE) CAP PO SCH (09:08)
[2020-01-02] MEDS: polyethylene glycoL POWDER 17 GM (MIRALAX) PACK PO SCH (09:08)
--- NOTE | 2020-01-02 10:49 | Physical Therapy Daily Note ---
PT Daily Note-Current Subjective Patient in recliner upon arrival. Patient states, "My son will be here about 11am to pick me up." Patient excited to be d/c'd today. Pain Numeric Pain Scale: 0-No Pain Location: No Pain Reported Mental Status Patient Orientation: Person, Place, Time, Situation Transfers SCALE: Activities may be completed with or without assistive devices. 8-Pgilxkomyq-uggwyvp completes the activity by him/herself with no assistance from a helper. 5-Set-up or Clean-up Assistance-helper sets up or cleans up; patient completes activity. [place] assists only prior to or following the activity. 4-Supervision or Touching Assistance-helper provides verbal cues and/or touching/steadying and/or contact guard assistance as patient completes activity. Assistance may be provided throughout the activity or intermittently. 3-Partial/Moderate Assistance-helper does LESS THAN HALF the effort. [place] lifts, holds or supports trunk or limbs, but provides less than half the effort. 2-Substantial/Maximal Assistance-helper does MORE THAN HALF the effort. [place] lifts or holds trunk or limbs and provides more than half the effort. 0-Mfysdyerh-gwhujc does ALL the effort. Patient does none of the effort to comp lete the activity. Or, the assistance of 2 or more helpers is required for the patient to complete the activity. If activity was not attempted, code reason: 7-Patient Refused. 9-Not Applicable-not attempted and the patient did not perform the activity before the current illness, exacerbation or injury. 10-Not Attempted due to Environmental Limitations-(lack of equipment, weather restraints, etc.). 88-Not Attempted due to Medical Conditions or Safety Concerns. Roll Left & Right (QC): 6 Sit to Lying (QC): 6 Lying to Sitting/Side of Bed(Q: 6 Sit to Stand (QC): 6 Chair/Zam-em-Uentk Xfer(QC): 6 Toilet Transfer (QC): 6 Car Transfer (QC): 4 Weight Bearing Full Weight Bearing Full Weight Bearing Gait Training Does the Patient Walk?: Yes Walk 10 feet (QC): 4 Walk 50 ft with 2 Turns(QC): 4 Walk 150 ft (QC): 4 Walking 10ft/uneven surface-QC: 4 Gait Persons Needed: 1 Gait Assistive Device: FWW Patient requires SBA to CGA. Patient requires VC's for correct posture and to lift L LE higher when ambulating d/t occasional shuffle. Stair Training Stair Training: Handrails/: uses walker 1 Step (curb) (QC): 4 4 Steps (QC): 88 12 Steps (QC): 88 Stairs: Pattern: Step to Patient completes step up/step down x4 w/ FWW; no LOB but VC's and CGA required. Flight of steps w/ handrails not performed d/t balance and strength issues. Balance Picking up an Object (QC): 88 Treatments Gait, Balance, Bed mobility, Exercise, Balance. Patient in recliner w/ bed alarm ON, call light and bedside table w/in reach and all needs met at end of tx. Assessment Current Status: Good Progress Patient excited and pleased. Has no concerns when leaving today and stated her son would be with her. PT Short Term Goals Short Term Goals Time Frame: Dec 27, 2019 Roll Left & Right: 6 Sit to lyin Lying to sitting on side of be: 4 Sit to stand: 4 Chair/otz-cw-ojjyw transfer: 4 Walk 10 feet: 4 Walk 50 feet with two turns: 4 PT Custodial Goals Custodial Goals PT Custodial Goals Time Frame: Jan 10, 2020 Roll Left & Right (QC): 6 Sit to Lying (QC): 6 Lying-Sitting on Side/Bed(QC): 6 Sit to Stand (QC): 5 Chair/Irw-gq-Mlsty Xfer(QC): 5 Toilet Transfer (QC): 5 Car Transfer (QC): 5 Does the Patient Walk: Yes Walk 10 feet (QC): 5 Walk 50ft with 2 Turns (QC): 5 Walk 150 ft (QC): 5 Walking 10ft on Uneven Surface: 4 1 Step (curb) (QC): 88 4 Steps (QC): 88 12 Steps (QC): 88 Picking up an Object (QC): 88 Wheel 50 feet with 2 turns (QC: 9 Wheel 150 feet: 9 PT Plan Problem List Problem List: Activity Tolerance, Functional Strength, Safety, Balance, Gait, Transfer, Bed Mobility Treatment/Plan Treatment Plan: Discontinue PT (Pt discharging from this facility today) Treatment Plan: Bed Mobility, Education, Functional Activity Victor Manuel, Functional Strength, Group Therapy, Gait, Safety, Therapeutic Exercise, Transfers Treatment Duration: Jan 10, 2020 Frequency: At least 5 of 7 days/Wk (IRF) Estimated Hrs Per Day: 1.5 hours per day Patient and/or Family Agrees t: Yes Safety Risks/Education Patient Education: Gait Training, Transfer Techniques, Safety Issues Teaching Recipient: Patient Teaching Methods: Discussion Response to Teaching: Verbalize Understanding, Return Demonstration Time/GCodes Time In: 1030 Time Out: 1050 Total Billed Treatment Time: 20 Total Billed Treatment 1, Ex (20m) GABRIELLA ULRICH ACOUSTICAL CARPENTER Jan 02, 2020 10:49
--- NOTE | 2020-01-02 11:23 | Speech Therapy Daily Note ---
Speech Daily Progress Note Subjective Date Seen by Provider: Jan 02, 2020 Time Seen by Provider: 00:10 Patient stated she was feeling well enough to return home. Objective Patient answered questions related to her daily needs with 95% with minimal cues. Assessment Assessment Current Status: Good Progress Treatment Plan Discontinue ST, Goals Met Speech Short Term Goals Short Term Goals Short Term Goals 1) Patient will complete memory tasks related to her daily needs at 90% with minimal cuing. 2) Patient will complete problem solving tasks related to her daily needs at 90% with minimal cuing. 3) Patient will complete safety awareness tasks related to her daily needs at 90% with minimal cuing. Speech [facility]ci Goals Shipping Clerk/Admin Goals Patient will improve cognitive-communication necessary for safety and daily living tasks with minimal assist. Speech-Plan Patient/Family Goals Patient/Family Goals: Patient is returning to her home today where she lives alone. Her son lives next door and attends to her daily needs. Patient will also begin receiving meals on wheels upon her return home. Treatment Plan Speech Therapy Treatment Plan: Discontinue ST, Goals Met Treatment Duration: Dec 30, 2019 Frequency: 5 times per week Estimated Hrs Per Day: .5 hour per day Rehab Potential: Fair Barriers to Learning: Patient's medical needs Pt/Family Agrees to Plan: Yes Safety Risks/Education Teaching Recipient: Patient Teaching Methods: Demonstration, Discussion Response to Teaching: Verbalize Understanding, Return Demonstration Education Topics Provided: Continued safety upon her return home Time Speech Therapy Time In: 09:30 Speech Therapy Time Out: 09:40 Total Billed Time: 10 Billed Treatment Time 1, FAUSTO Espinoza Jan 02, 2020 11:23
--- NOTE | 2020-01-02 11:44 | Occupational Ther Daily Note ---
OT Current Status-Daily Note Subjective No pain reported. Appearance Pt. up in chair. Agrees to work with OT. Mental Status/Objective Patient Orientation: Person, Place ADL-Treatment Therapy Code Descriptions/Definitions Functional [place] Measure: 0=Not Assessed/NA 4=Minimal Assistance 1=Total Assistance 5=Supervision or Setup 2=Maximal Assistance 6=Modified [place] 3=Moderate Assistance 7=Complete IndependenceSCALE: Activities may be completed with or without assistive devices. 3-Pgjfpavexq-mjdetjy completes the activity by him/herself with no assistance from a helper. 5-Set-up or Clean-up Assistance-helper sets up or cleans up; patient completes activity. Og[place]vie assists only prior to or following the activity. 4-Supervision or Touching Assistance-helper provides verbal cues and/or touching/steadying and/or contact guard assistance as patient completes activity. Assistance may be provided throughout the activity or intermittently. 3-Partial/Moderate Assistance-helper does LESS THAN HALF the effort. Og[place]vie lifts, holds or supports trunk or limbs, but provides less than half the effort. 2-Substantial/Maximal Assistance-helper does MORE THAN HALF the effort. [place] lifts or holds trunk or limbs and provides more than half the effort. 2-Hrosddvgc-ttfbgp does ALL the effort. Patient does none of the effort to complete the activity. Or, the assistance of 2 or more helpers is required for the patient to complete the activity. If activity was not attempted, code reason: 7-Patient Refused. 9-Not Applicable-not attempted and the patient did not perform the activity before the current illness, exacerbation or injury. 10-Not Attempted due to Environmental Limitations-(lack of equipment, weather restraints, etc.). 88-Not Attempted due to Medical Conditions or Safety Concerns. Eating (QC): 6 Oral Hygiene (QC): 4 (SBA seated at sink.) Shower/Bathe Self (QC): 4 (CGA in stance) Upper Body Dressing (QC): 5 Lower Body Dressing (QC): 3 (Min assist and cues for sequencing.) On/Off Footwear: 3 (SBA to don socks and min assist to don shoes.) Toileting Hygiene (QC): 4 Toilet Transfer (QC): 4 Education OT Patient Education: Correct positioning, Modified ADL techniques, Progress toward Goal/Update tx plan, Purpose of tx/functional activities, Reviewed precautions, Rehab process, Transfer techniques Teaching Recipient: Patient Teaching Methods: Demonstration Response to Teaching: Verbalize Understanding, Return Demonstration OT Short Term Goals Short Term Goals Time Frame: Dec 27, 2019 Eatin Oral hygiene: 5 Toileting hygiene: 4 Shower/bathe self: 4 Upper body dressin Lower body dressin Putting on/taking off footwear: 4 OT Snf Goals Section Leader And Machine Setter Goals Time Frame: Jan 03, 2020 Eating (QC): 6 Oral Hygiene (QC): 5 Toileting Hygiene (QC): 4 Shower/Bathe Self (QC): 4 Upper Body Dressing (QC): 5 Lower Body Dressing (QC): 4 On/Off Footwear (QC): 4 Additional Goals: 1-Demonstrate ADL Tasks, 2-Verbalize Understanding, 3- ImproveStrength/Victor Manuel 1=Demonstrate adherence to instructed precautions during ADL tasks. 2=Patient will verbalize/demonstrate understanding of assistive devices/modifications for ADL. 3=Patient will improve strength/tolerance for activity to enable patient to perform ADL's. OT Education/Plan Problem List/Assessment Assessment: Decreased Activ Tolerance, Impaired I ADL's, Impaired Self-Care Skills Discharge Recommendations Plan/Recommendations: Discharge/Goals Met Therapy Discharge Recommendati: Scheduled Assistance, Post Acute OT Treatment Plan/Plan of Care Treatment,Training & Education: Yes Patient would benefit from OT for education, treatment and training to promote independence in ADL's, mobility, safety and/or upper extremity function for ADL's. Plan of Care: ADL Retraining, Functional Mobility, UE Funct Exercise/Act Treatment Duration: Jan 03, 2020 Frequency: At least 5 of 7 days/Wk (IRF) Estimated Hrs Per Day: 1.5 hours per day Agreement: Yes Rehab Potential: Fair Time/GCodes Start Time: 09:45 Stop Time: 10:30 Total Time Billed (hr/min): 45 Billed Treatment Time 1, ADL x 3 LILIAN MOLINA OT Jan 02, 2020 11:44
--- NOTE | 2020-01-02 11:48 | Therapy Team Discharge Summary ---
Therapy Discharge Summary Discharge Recommendations Date of Discharge 01-02-20 Therapy D/C Recommendations: Home w/ Family Support, Occupational Therapy Home Care, Scheduled Assistance Occupational Therapy Pt. has been seen by occupational therapy to increase overall strength and independence with daily tasks. pt. has made progress, and requires CGA/SBA with most ADLs. Does require min assist for LE dressing and footwear. Pt. is more alert from original admission. Pt. is discharging home with son support and recommended scheduled assist as needed. Recommend home health OT. Recommend tub transfer bench and Dressing stick. Decreased Activ Tolerance, Impaired I ADL's, Impaired Self-Care Skills PT Longterm Goals Longterm Goals PT Management Engineer Goals Time Frame: Jan 10, 2020 Roll Left to Right (QC): 6 Sit to Lying (QC): 6 Lying-Sitting on Side/Bed(QC): 6 Sit to Stand (QC): 5 Chair/Ryz-wi-Kiovc Xfer(QC): 5 Car Transfer (QC): 5 Does the Patient Walk: Yes Walk 10 feet (QC): 5 Walk 10ft-Uneven Surface(QC): 4 Walk 50ft with 2 Turns (QC): 5 Walk 150 ft (QC): 5 Wheel 50 feet with 2 turns (QC: 9 1 Step (curb) (QC): 88 4 Steps (QC): 88 12 Steps (QC): 88 Picking up an Object (QC): 88 OT Longterm Goals Management Engineer Goals Time Frame: Jan 03, 2020 Eating (QC): 6 (met) Oral Hygiene (QC): 5 (not met) Shower/Bathe Self (QC): 4 (met) Upper Body Dressing (QC): 5 (met) Lower Body Dressing (QC): 4 (not met) On/Off Footwear (QC): 4 (not met) Toileting Hygiene (QC): 4 (met) Toilet/Commode Transfer (QC): 5 (not met) Additional Goals: 1-Demonstrate ADL Tasks, 2-Verbalize Understanding, 3- ImproveStrength/Victor Manuel 1=Demonstrate adherence to instructed precautions during ADL tasks. 2=Patient will verbalize/demonstrate understanding of assistive devices/modifications for ADL. 3=Patient will improve strength/tolerance for activity to enable patient to perform ADL's. Speech Management Engineer Goals Longterm Goals Patient will improve cognitive-communication necessary for safety and daily living tasks with minimal assist. NACCARATO,LILIAN OT Jan 02, 2020 11:48
--- NOTE | 2020-01-02 13:12 | NUR ---
CM/SS DISCHARGE Patient discharged to home as planned via son Nirav transport. IMM2 reviewed with patient/son, signed, charted. Discharge planned well in advance, no intention to appeal. HHC: Coordinated with [facility] for RN PT OT and BATH AID. Former referral to [facility] cancelled by them late Gus p.m. due to inability to open for services timely. DME: Nirav had taken pictures of bathroom and worked with [facility] about a tub transfer bench, he indicates patient's bathroom is too small to accommodate. [facility] team updated and they will provide bath aid as well as assist with assessment for best set up. Nirav is going to put up grab bars for safety. Unit RN fully advised of all final plans.
--- NOTE | 2020-01-02 15:24 | Therapy Team Discharge Summary ---
Therapy Discharge Summary Discharge Recommendations Date of Discharge Jan 02, 2020 at 11:30 Therapy D/C Recommendations: Home w/ Family Support, Occupational Therapy Home Care, Scheduled Assistance Physical Therapy Patient came to rehab with hypertensive emergency, angina. Upon evaluation patient performed bed mobility with independence, supine to sit with min assist, sit to supine with independence, sit <-> stand min assist, transfers min assist, toilet transfer min assist, car transfer min assist, ambulate 40' with a rolling walker with CGA, dependent for WC mobility, no stairs. Patient has been performing bed mobility and transfer training, balance and endurance training, functional strengthening, stair training, gait training, and education. Patient has made some progress but has only met her nursing home goals for bed mobility and transfers. Now, patient performs bed mobility and transfers with independence, car transfer SBA, ambulates at least 150' with a rolling walker with SBA (including 50' with at least 2 turns of 90 degrees and 10' over an uneven surface), and can go up and down 1 step using a rolling walker with CGA. Patient has been discharged from this facility today and will be discharged from PT at this time. Occupational Therapy Decreased Activ Tolerance, Impaired I ADL's, Impaired Self-Care Skills PT Wiping Cloth Cutter Goals Detention Goals PT Detention Goals Time Frame: Jan 10, 2020 Roll Left to Right (QC): 6 Sit to Lying (QC): 6 Lying-Sitting on Side/Bed(QC): 6 Sit to Stand (QC): 5 Chair/Bml-bv-Spbuo Xfer(QC): 5 Car Transfer (QC): 5 Does the Patient Walk: Yes Walk 10 feet (QC): 5 Walk 10ft-Uneven Surface(QC): 4 Walk 50ft with 2 Turns (QC): 5 Walk 150 ft (QC): 5 Wheel 50 feet with 2 turns (QC: 9 1 Step (curb) (QC): 88 4 Steps (QC): 88 12 Steps (QC): 88 Picking up an Object (QC): 88 OT Wiping Cloth Cutter Goals Wiping Cloth Cutter Goals Time Frame: Jan 03, 2020 Eating (QC): 6 (met) Oral Hygiene (QC): 5 (not met) Shower/Bathe Self (QC): 4 (met) Upper Body Dressing (QC): 5 (met) Lower Body Dressing (QC): 4 (not met) On/Off Footwear (QC): 4 (not met) Toileting Hygiene (QC): 4 (met) Toilet/Commode Transfer (QC): 5 (not met) Additional Goals: 1-Demonstrate ADL Tasks, 2-Verbalize Understanding, 3- ImproveStrength/Victor Manuel 1=Demonstrate adherence to instructed precautions during ADL tasks. 2=Patient will verbalize/demonstrate understanding of assistive devices/modifications for ADL. 3=Patient will improve strength/tolerance for activity to enable patient to perform ADL's. Speech Detention Goals Detention Goals Patient will improve cognitive-communication necessary for safety and daily living tasks with minimal assist. ROBY THOMPSON PT Jan 02, 2020 15:24
--- NOTE | 2020-01-03 08:13 | Therapy Team Discharge Summary ---
Therapy Discharge Summary Discharge Recommendations Date of Discharge Jan 02, 2020 at 11:30 Therapy D/C Recommendations: Home w/ Family Support, Occupational Therapy Home Care, Scheduled Assistance Occupational Therapy Decreased Activ Tolerance, Impaired I ADL's, Impaired Self-Care Skills Speech-Language Pathology Patient was admitted to the ARU for strengthening secondary to Parkinson's. Patient was seen by ST due to mild cognitive deficits so that she could return home safely. Patient met ST goals and was discharged to her home on 01/02/2020. PT Detention Goals Adjunct Professor Goals PT Detention Goals Time Frame: Jan 10, 2020 Roll Left to Right (QC): 6 Sit to Lying (QC): 6 Lying-Sitting on Side/Bed(QC): 6 Sit to Stand (QC): 5 Chair/Wyi-ml-Urfxx Xfer(QC): 5 Car Transfer (QC): 5 Does the Patient Walk: Yes Walk 10 feet (QC): 5 Walk 10ft-Uneven Surface(QC): 4 Walk 50ft with 2 Turns (QC): 5 Walk 150 ft (QC): 5 Wheel 50 feet with 2 turns (QC: 9 1 Step (curb) (QC): 88 4 Steps (QC): 88 12 Steps (QC): 88 Picking up an Object (QC): 88 OT Detention Goals Detention Goals Time Frame: Jan 03, 2020 Eating (QC): 6 (met) Oral Hygiene (QC): 5 (not met) Shower/Bathe Self (QC): 4 (met) Upper Body Dressing (QC): 5 (met) Lower Body Dressing (QC): 4 (not met) On/Off Footwear (QC): 4 (not met) Toileting Hygiene (QC): 4 (met) Toilet/Commode Transfer (QC): 5 (not met) Additional Goals: 1-Demonstrate ADL Tasks, 2-Verbalize Understanding, 3- ImproveStrength/Victor Manuel 1=Demonstrate adherence to instructed precautions during ADL tasks. 2=Patient will verbalize/demonstrate understanding of assistive devices/modifications for ADL. 3=Patient will improve strength/tolerance for activity to enable patient to perform ADL's. Speech Detention Goals Detention Goals Patient will improve cognitive-communication necessary for safety and daily living tasks with minimal assist. FAUSTO ESTES Jan 03, 2020 08:13
== END 2020-01-02 11:30 | disposition home health service (06) | DRG 57 ==
PROVIDERS: ADMIT Internal Medicine; ATTEND Internal Medicine
DX: G20 Parkinson's disease (principal); F02.80 Dementia in other diseases classified elsewhere, unspecified severity, without behavioral disturbance, psychotic disturbance, mood disturbance, and anxiety; I16.0 Hypertensive urgency; I10 Essential (primary) hypertension; F45.0 Somatization disorder; E78.00 Pure hypercholesterolemia, unspecified; R60.9 Edema, unspecified; K59.00 Constipation, unspecified; R32 Unspecified urinary incontinence; F41.9 Anxiety disorder, unspecified; F32.9 Major depressive disorder, single episode, unspecified; M19.91 Primary osteoarthritis, unspecified site; M54.9 Dorsalgia, unspecified; E89.0 Postprocedural hypothyroidism
CPT/HCPCS: 36415; 80053; 82565; 82962; 85025; 85027

== ENCOUNTER → 2020-03-29 | Outpatient (CLI) | payer MEDICARE ==
[~2020-03-29] MED LIST changes: +AMLO5TAB9 PO; +CARB1TAB19 PO; +CLON0.1T PO; +DCS100C PO; +GABA300C PO; +LACT20SO2 PO; +LEVO112T55 PO; +PANT40TA3 PO; +POLY17PO31 PO; +SENN-20 PO
--- NOTE | 2020-03-29 16:54 | Diagnostic Imaging Report ---
INDICATION: Knee pain. COMPARISON: None. EXAMINATION: Three radiographic views of the right knee were obtained. FINDINGS: There is no evidence of acute fracture or dislocation. Osseous structures are intact. Joint spaces are maintained. There is however moderate asymmetric narrowing of the medial tibiofemoral compartment. Osteophyte formation and remodeling of the articular surfaces is also present. There is no large joint effusion. No unexpected radiopaque foreign body is seen. IMPRESSION: 1. No acute fracture or dislocation of the right knee. 2. Moderate osteoarthritis changes. Dictated by: Dictated on workstation # [id number]
== END ==
LOC: RAD FS 14:47
PROVIDERS: ATTEND Nurse Practitioner
DX: M17.11 Unilateral primary osteoarthritis, right knee (principal)
CPT/HCPCS: 73562

== ENCOUNTER 2020-09-09 18:44 | Observation (INO) | payer MEDICARE ==
[~2020-09-09] VITALS: Ht 160 cm; Wt 65.0 kg
[~2020-09-09 18:44] MED LIST changes: +AMLO-250 PO; -AMLO5TAB9 PO; +CLN.1T PO; -CLON0.1T PO; -PANT40TA3 PO; +PANT40TA52 PO; -POLY17PO31 PO; +POLY17PO54 PO
--- NOTE | 2020-09-09 19:04 | ED General ---
General Stated Complaint: WEAKNESS Source of Information: Patient Exam Limitations: No Limitations History of Present Illness Date Seen by Provider: Sep 09, 2020 Time Seen by Provider: 19:04 Initial Comments This is a 89 yo female who presented to the ED via POV by her son. Her son states she lives alone next door to him alone, but he helps her through the evening. States that the past couple days she has been having increasing weakness and shaking to the point that she is unable to get off the couch and walk independently. Notes that she has been having issues with constipation and had not had a BM in 5 days. Reports that he has been giving her laxatives to help her with BM. She had multiple episodes of diarrhea today. Additionally she has been c/o nausea over the past week and had decreased appetite. Denies fevers, chills, cough, shortness of breath, chest pain. No ill contacts. No known COVID exposure. Has not received COVID vaccine. Allergies and Home Medications Allergies Coded Allergies: atenolol (Verified Allergy, Intermediate, RASH, 02/04/14) Home Medications Alprazolam 0.5 Mg Tablet, 0.5 MG PO HS Prescribed by: TIMUR MARTÍNEZ on 01/01/202122 Amlodipine Besylate 5 Mg Tablet, 5 MG PO DAILY Prescribed by: TIMUR MARTÍNEZ on 01/01/202122 Carbidopa/Levodopa 1 Each Tablet, 1 EA PO 1400,1600,1800,2000 Prescribed by: TIMUR MARTÍNEZ on 01/01/202122 Carbidopa/Levodopa 1 Each Tablet, 1 EA PO 0600,0800,1000,1200 Prescribed by: TIMUR MARTÍNEZ on 01/01/202122 Clonidine HCl 0.1 Mg Tablet, 0.1 MG PO HS Prescribed by: TIMUR MARTÍNEZ on 01/01/202122 Docusate Sodium 100 Mg Capsule, 100 MG PO DAILY, (Reported) Gabapentin 300 Mg Capsule, 600 MG PO HS, (Reported) TAKES 2(300MH) CAPS Gabapentin 300 Mg Capsule, 300 MG PO DAILY, (Reported) Lactulose 20 Gm/30 Ml Solution, 10 GM PO BID PRN for CONSTIPATION-2ND LINE Prescribed by: TIMUR MARTÍNEZ on 01/01/202122 Levothyroxine Sodium 112 Mcg Tablet, 112 MCG PO DAILY, (Reported) Pantoprazole Sodium 40 Mg Tablet.dr, 40 MG PO DAILY, (Reported) Polyethylene Glycol 3350 17 Gm Powd.pack, 17 GM PO BID Prescribed by: TIMUR MARTÍNEZ on 01/01/202122 Sennosides/Docusate Sodium 1 Each Tablet, 1 EA PO BID Prescribed by: TIMUR MARTÍNEZ on 01/01/202122 Patient Home Medication List Home Medication List Reviewed: Yes Review of Systems Review of Systems Constitutional: see HPI EENTM: no symptoms reported Respiratory: no symptoms reported Cardiovascular: no symptoms reported Gastrointestinal: see HPI Genitourinary: no symptoms reported Musculoskeletal: see HPI Skin: no symptoms reported Psychiatric/Neurological: See HPI Hematologic/Lymphatic: No Symptoms Reported Immunological/Allergic: no symptoms reported Past Pnoaxqq-Yckfrz-Sxvnsc Hx Patient Social History 2nd Hand Smoke Exposure: Yes ( SMOKED) Recent Hopitalizations: No Immunizations Up To Date Tetanus Booster (TDap): Unknown Date of Pneumonia Vaccine: Apr 19, 2017 Date of Influenza Vaccine: Apr 20, 2019 Seasonal Allergies Seasonal Allergies: No Past Medical History Surgeries: Yes Orthopedic, Thyroidectomy Respiratory: No Cardiac: Yes High Cholesterol, Hypertension Neurological: Yes Parkinson's Disease Reproductive Disorders: No Female Reproductive Disorders: Denies Sexually Transmitted Disease: No HIV/AIDS: No Genitourinary: No Gastrointestinal: No Chronic Constipation Musculoskeletal: No Arthritis, Chronic Back Pain Endocrine: Yes (Graves disease with thyroidectomy ) Hyperthyroidism HEENT: No Loss of Vision: Left Hearing Impairment: Denies Cancer: No Psychosocial: Yes Sleep Difficulties, Anxiety Integumentary: No Blood Disorders: No Adverse Reaction/Blood Tranf: No Family Medical History Arthritis 19 FATHER 19 MOTHER Cardiovascular disease 19 FATHER Dementia 19 MOTHER Hypertension 19 FATHER Myocardial infarction 19 FATHER No Family History of: AIDS Abdominal aortic aneurysm Alcoholism Alzheimer's disease Asthma Completed stroke Congenital disease Diabetes mellitus Parkinson's disease Prostate cancer Psychosocial problem Respiratory disorder Seizure disorder Thyroid disease Tuberculosis Physical Exam Vital Signs Vital Signs - First Documented 09/09/20 19:00 Temp 36.0 Pulse 96 Resp 18 B/P (MAP) 154/78 (103) Pulse Ox 99 O2 Delivery Room Air Capillary Refill : Height, Weight, BMI Height: 5'3.00" Weight: 140lbs. 0.0oz. 63.514251dc; 26.01 BMI Method:Stated General Appearance: No Apparent Distress, WD/WN Eyes: Bilateral Eye Normal Inspection, Bilateral Eye PERRL, Bilateral Eye EOMI HEENT: PERRL/EOMI, TMs Normal, Normal ENT Inspection, Pharynx Normal, Moist Mucous Membranes Neck: Full Range of Motion, Normal Inspection, Non Tender Respiratory: Chest Non Tender, Lungs Clear, Normal Breath Sounds, No Accessory Muscle Use, No Respiratory Distress Cardiovascular: Regular Rate, Rhythm, No Edema, Normal Peripheral Pulses Gastrointestinal: Normal Bowel Sounds, Soft, Tenderness (with deep palpation ) Back: Normal Inspection, No Vertebral Tenderness Extremity: Normal Capillary Refill, Normal Inspection, Normal Range of Motion Neurologic/Psychiatric: Alert, Oriented x3, Normal Mood/Affect, Motor Weakness Skin: Normal Color, Warm/Dry Focused Exam Lactate Level 09/09/20 19:32: Lactic Acid Level 1.58 Lactic Acid Level Laboratory Tests Test 09/09/20 19:32 Lactic Acid Level 1.58 MMOL/L (0.50-2.00) Progress/Results/Core Measures Suspected Sepsis SIRS Temperature: Pulse: Respiratory Rate: Laboratory Tests 09/09/20 19:32: White Blood Count 6.7 Blood Pressure / Mean: 09/09/20 19:32: Lactic Acid Level 1.58 Laboratory Tests 09/09/20 19:32: Creatinine 1.06, Platelet Count 255, Total Bilirubin 0.3 Results/Orders Lab Results Laboratory Tests Test 09/09/20 19:05 09/09/20 19:32 Range/Units Urine Color YELLOW Urine Clarity CLEAR Urine pH 6.0 5-9 Urine Specific [place] 1.020 1.016-1.022 Urine Protein NEGATIVE NEGATIVE Urine Glucose (UA) NEGATIVE NEGATIVE Urine Ketones TRACE H NEGATIVE Urine Nitrite NEGATIVE NEGATIVE Urine Bilirubin NEGATIVE NEGATIVE Urine Urobilinogen 0.2 < = 1.0 MG/DL Urine Leukocyte Esterase 2+ H NEGATIVE Urine RBC (Auto) NEGATIVE NEGATIVE Urine RBC 0-2 /HPF Urine WBC 10-25 H /HPF Urine Crystals PRESENT H /LPF Urine Amorphous Sediment FEW NIDHI URATES H /LPF Urine Bacteria TRACE /HPF Urine Casts NONE /LPF Urine Mucus NEGATIVE /LPF Urine Culture Indicated YES White Blood Count 6.7 4.3-11.0 10^3/uL Red Blood Count 4.46 3.80-5.11 10^6/uL Hemoglobin 13.8 11.5-16.0 g/dL Hematocrit 41 35-52 % Mean Corpuscular Volume 92 80-99 fL Mean Corpuscular Hemoglobin 31 25-34 pg Mean Corpuscular Hemoglobin Concent 34 32-36 g/dL Red Cell Distribution Width 12.8 10.0-14.5 % Platelet Count 255 130-400 10^3/uL Mean Platelet Volume 8.6 L 9.0-12.2 fL Immature Granulocyte % (Auto) 0 % Neutrophils (%) (Auto) 69 42-75 % Lymphocytes (%) (Auto) 22 12-44 % Monocytes (%) (Auto) 9 0-12 % Eosinophils (%) (Auto) 0 0-10 % Basophils (%) (Auto) 0 0-10 % Neutrophils # (Auto) 4.6 1.8-7.8 10^3/uL Lymphocytes # (Auto) 1.5 1.0-4.0 10^3/uL Monocytes # (Auto) 0.6 0.0-1.0 10^3/uL Eosinophils # (Auto) 0.0 0.0-0.3 10^3/uL Basophils # (Auto) 0.0 0.0-0.1 10^3/uL Immature Granulocyte # (Auto) 0.0 0.0-0.1 10^3/uL Sodium Level 135 135-145 MMOL/L Potassium Level 3.8 3.6-5.0 MMOL/L Chloride Level 99 98-107 MMOL/L Carbon Dioxide Level 23 21-32 MMOL/L Anion Gap 13 5-14 MMOL/L Blood Urea Nitrogen 13 7-18 MG/DL Creatinine 1.06 0.60-1.30 MG/DL Estimat Glomerular Filtration Rate 49 BUN/Creatinine Ratio 12 Glucose Level 127 H 70-105 MG/DL Lactic Acid Level 1.58 0.50-2.00 MMOL/L Calcium Level 9.1 8.5-10.1 MG/DL Corrected Calcium 9.0 8.5-10.1 MG/DL Total Bilirubin 0.3 0.1-1.0 MG/DL Aspartate Amino Transf (AST/SGOT) 17 5-34 U/L Alanine Aminotransferase (ALT/SGPT) < 6 0-55 U/L Alkaline Phosphatase 79 40-136 U/L Total Protein 7.1 6.4-8.2 GM/DL Albumin 4.1 3.2-4.5 GM/DL My Orders Orders - MAURO ANGEL IRON BENDER Ua Culture If Indicated (09/09/20 18:47) Comprehensive Metabolic Panel (09/09/20 19:26) Ed Iv/Invasive Line Start (09/09/20 19:26) Cbc With Automated Diff (09/09/20 19:26) Ct Abdomen/Pelvis W (09/09/20 19:26) Lactic Acid Analyzer (09/09/20 19:26) Urine Culture (09/09/20 19:05) Ceftriaxone For Iv Use (Rocephin For I (09/09/20 20:15) Iohexol Injection (Omnipaque 350 Mg/Ml 1 (09/09/20 20:45) Received Contrast (Hold Metformin- Contr (09/09/20 20:45) Ns (Ivpb) (Sodium Chloride 0.9% Ivpb Bag (09/09/20 20:45) Medications Given in ED Current Medications Medications Dose Ordered Sig/Jl Route Start Time Stop Time Status Last Admin Dose Admin Ceftriaxone Sodium 1000 mg/ Sterile Water 10 ml @ 200 mls/hr ONCE ONCE IV 09/09/20 20:15 09/09/20 20:17 DC 09/09/20 20:33 200 MLS/HR Iohexol 100 ml ONCE ONCE IV 09/09/20 20:45 09/09/20 20:46 DC 09/09/20 20:36 83 ML Sodium Chloride 100 ml ONCE ONCE IV 09/09/20 20:45 09/09/20 20:46 DC 09/09/20 20:37 80 ML Vital Signs/I&O 09/09/20 09/09/20 19:00 20:58 Temp 36.0 Pulse 96 97 98 101 Resp 18 B/P (MAP) 154/78 (103) 170/79 (109) 155/84 (107) 138/71 (93) Pulse Ox 99 O2 Delivery Room Air Capillary Refill : Progress Note : Progress Note Pt. examined and in no acute distress. Son reports increasing weakness and shaking, which is likely due to her Parkinson's. However, will initiate basic workup and CT abdomen and pelvis due to history of constipation and abdominal tenderness. Labs reviewed and are unremarkable. UA shows 2+ Leukocyte Est. and pyuria. Will treat with Rocephin. CT abd/pelvis neg for acute pathology. As patient has severe weakness and UTI will discuss admission for observation. Case discussed with Dr. Pichardo, accepted admission. Patient to be Obs for UTI, weakness, and Parkinsons. Will initiate social service consult. Discussed case with son and patient. Son states he is working on 24 hour in home care for his mother, however her symptoms progressed so quickly he has been unable to establish 24 hour care at this time. Diagnostic Imaging Diagonstic Imaging: CT Plain Films/CT/US/NM/MRI: abdomen, pelvis Comments NAME: JOSE ALBERTO [facility] REC#: [id number] PT STATUS: REG ER : 1930 PHYSICIAN: MAURO ANGEL APRN ADMIT DATE: 09/09/20/ER Signed Date of Exam:09/09/20 CT ABDOMEN/PELVIS W PROCEDURE: CT abdomen and pelvis with contrast. TECHNIQUE: Multiple contiguous axial images were obtained through the abdomen and pelvis after administration of intravenous contrast. Auto Exposure Controls were utilized during the CT exam to meet ALARA standards for radiation dose reduction. All CT scans use one or more of the following dose optimizing techniques: automated exposure control, MA and/or KvP adjustment based on patient size and exam type or iterative reconstruction. INDICATION: Abdominal pain, constipation, diarrhea. COMPARISON: None. FINDINGS: Lung bases are clear. The gallbladder is surgically absent. Solid organs are grossly unremarkable. There is mild atherosclerosis of the abdominal aorta without evidence of aneurysm. There is no solid organ or bowel ischemia. The uterus is intact. The course and caliber of the large and small bowel is grossly normal. There is no obstruction, free air or free fluid. There is no significant constipation. Urinary bladder appears grossly unremarkable. There is no hernia. There is diffuse osteopenia and degenerative disc disease. IMPRESSION: 1. No bowel obstruction, free air, free fluid or constipation. 2. Atherosclerosis of the abdominal aorta without evidence of aneurysm. No solid organ or bowel ischemia is seen. 3. Surgically absent gallbladder. Dictated by: Dictated on workstation # [id number] Dict: 09/09/202029 Trans: 09/09/202052 [facility] [id number] Interpreted by: JONATHAN HOSKINS Electronically signed by: JONATHAN HOSKINS 09/09/202052 Departure Impression Primary Impression: UTI (urinary tract infection) Additional Impressions: Weakness Parkinson disease Disposition: ADMITTED INPATIENT Condition: Stable Admissions Decision to Admit Reason: Admit from ER (General) Decision to Admit/Date: Sep 09, 2020 Time/Decision to Admit Time: 20:40 Departure-Patient Inst. Referrals: AVEL TOM MD (PCP/Family) Primary Care Physician Copy Copies To 1: AVEL TOM MD, STORMY D APRN Sep 09, 2020 19:04
[2020-09-09 19:19] LABS: BILIRUBIN,URINE NEGATIVE (NEGATIVE); CLARITY,URINE CLEAR; COLOR,URINE YELLOW; GLUCOSE, URINE (UA) NEGATIVE (NEGATIVE); KETONES,URINE TRACE (NEGATIVE); LEUKOCYTE ESTERASE ,URINE 2+ (NEGATIVE); NITRITE,URINE NEGATIVE (NEGATIVE); PROTEIN,URINE NEGATIVE (NEGATIVE)
[2020-09-09 19:30] LABS: RBC,URINE 0-2 /HPF
[2020-09-09 19:33] LABS: AMORPHOUS SEDIMENT,UR FEW AMOR URATES /LPF; BACTERIA,URINE TRACE /HPF
[2020-09-09 19:44] LABS: BASOPHILS % (AUTO) 0 % (0-10); EOSINOPHILS % (AUTO) 0 % (0-10); HEMATOCRIT 41 % (35-52); HEMOGLOBIN 13.8 g/dL (11.5-16.0); LYMPHOCYTES # (AUTO) 1.5 10^3/uL (1.0-4.0); LYMPHOCYTES % (AUTO) 22 % (12-44); MEAN CORPUSCULAR HEMOGLOBIN 31 pg (25-34); MEAN CORPUSCULAR HGB CONC 34 g/dL (32-36); MEAN CORPUSCULAR VOLUME 92 fL (80-99); MEAN PLATELET VOLUME 8.6 fL (9.0-12.2); MONOCYTES # (AUTO) 0.6 10^3/uL (0.0-1.0); MONOCYTES % (AUTO) 9 % (0-12); NEUTROPHILS # (AUTO) 4.6 10^3/uL (1.8-7.8); NEUTROPHILS % (AUTO) 69 % (42-75); PLATELET COUNT 255 10^3/uL (130-400); WHITE BLOOD COUNT 6.7 10^3/uL (4.3-11.0)
[2020-09-09 20:07] LABS: ALANINE AMINOTRANSFERASE < 6 U/L (0-55); ALBUMIN 4.1 GM/DL (3.2-4.5); ALKALINE PHOSPHATASE 79 U/L (40-136); BILIRUBIN,TOTAL 0.3 MG/DL (0.1-1.0); BUN/CREATININE RATIO 12; CALCIUM 9.1 MG/DL (8.5-10.1); CARBON DIOXIDE 23 MMOL/L (21-32); CHLORIDE 99 MMOL/L (98-107); CREATININE SERUM 1.06 MG/DL (0.60-1.30); GFR ESTIMATED 49; GLUCOSE 127 MG/DL (70-105); POTASSIUM 3.8 MMOL/L (3.6-5.0); SODIUM 135 MMOL/L (135-145); TOTAL PROTEIN 7.1 GM/DL (6.4-8.2)
[2020-09-09] MEDS ORDERED: cefTRIAXone FOR IV USE 1,000 MG in WATER (STERILE) FOR INJECTION 10 ML IV ONE (20:15)
--- NOTE | 2020-09-09 20:41 | Diagnostic Imaging Report ---
PROCEDURE: CT abdomen and pelvis with contrast. TECHNIQUE: Multiple contiguous axial images were obtained through the abdomen and pelvis after administration of intravenous contrast. Auto Exposure Controls were utilized during the CT exam to meet ALARA standards for radiation dose reduction. All CT scans use one or more of the following dose optimizing techniques: automated exposure control, MA and/or KvP adjustment based on patient size and exam type or iterative reconstruction. INDICATION: Abdominal pain, constipation, diarrhea. COMPARISON: None. FINDINGS: Lung bases are clear. The gallbladder is surgically absent. Solid organs are grossly unremarkable. There is mild atherosclerosis of the abdominal aorta without evidence of aneurysm. There is no solid organ or bowel ischemia. The uterus is intact. The course and caliber of the large and small bowel is grossly normal. There is no obstruction, free air or free fluid. There is no significant constipation. Urinary bladder appears grossly unremarkable. There is no hernia. There is diffuse osteopenia and degenerative disc disease. IMPRESSION: 1. No bowel obstruction, free air, free fluid or constipation. 2. Atherosclerosis of the abdominal aorta without evidence of aneurysm. No solid organ or bowel ischemia is seen. 3. Surgically absent gallbladder. Dictated by: Dictated on workstation # [id number]
[2020-09-09] MEDS ORDERED: IOHEXOL 350 MG/ML 100 ML (OMNIPAQUE 350) VIAL IV ONE (20:45)
[2020-09-09] MEDS ORDERED: HOLD METFORMIN - RECEIVED CONTRAST 20 ML VIAL IV SCH (20:45)
[2020-09-09] MEDS ORDERED: NS 100 ML (IVPB) BAG IV ONE (20:45)
[2020-09-09 20:58] VITALS: BP_SYST 138; BP_SYST 155; BP_SYST 170; BP_DIAS 71; BP_DIAS 79; BP_DIAS 84
[2020-09-09 22:10] VITALS: BP 163/78
[2020-09-09] MEDS ORDERED: NS IV 1000 ML 1,000 ML ONE (22:10)
[2020-09-09] MEDS ORDERED: NS IV 1000 ML 1,000 ML IV SCH (22:45)
[2020-09-09] MEDS ORDERED: ACETAMINOPHEN 325 MG TABLET PO PRN (22:45)
[2020-09-09] MEDS ORDERED: ONDANSETRON 4 MG/2 ML (SDV) Z0FRAN IV PRN (22:45)
[2020-09-09] MEDS ORDERED: cefTRIAXone 1,000 MG/SWFI 10 ML IV PUSH IV SCH ×2 (23:00)
[2020-09-10] VITALS: BP 163/78
[2020-09-10 00:52] VITALS: BP 163/78
[2020-09-10] MEDS ORDERED: RT-ALBUTEROL/IPRATROPIUM 3 ML (DUONEB) VIAL INH PRN (01:00)
[2020-09-10 03:52] VITALS: BP 189/78
[2020-09-10] MEDS ORDERED: ALPRAZolam 0.5 MG (XANAX) TAB ONE (04:02)
[2020-09-10] MEDS ORDERED: cloNIDine 0.1 MG (CATAPRES) TAB PO ONE (04:03)
[2020-09-10 06:06] LABS: BASOPHILS % (AUTO) 0 % (0-10); EOSINOPHILS % (AUTO) 0 % (0-10); HEMATOCRIT 42 % (35-52); HEMOGLOBIN 14.1 g/dL (11.5-16.0); LYMPHOCYTES # (AUTO) 0.7 10^3/uL (1.0-4.0); LYMPHOCYTES % (AUTO) 11 % (12-44); MEAN CORPUSCULAR HEMOGLOBIN 31 pg (25-34); MEAN CORPUSCULAR HGB CONC 34 g/dL (32-36); MEAN CORPUSCULAR VOLUME 91 fL (80-99); MEAN PLATELET VOLUME 8.9 fL (9.0-12.2); MONOCYTES # (AUTO) 0.5 10^3/uL (0.0-1.0); MONOCYTES % (AUTO) 7 % (0-12); NEUTROPHILS # (AUTO) 5.3 10^3/uL (1.8-7.8); NEUTROPHILS % (AUTO) 82 % (42-75); PLATELET COUNT 249 10^3/uL (130-400); WHITE BLOOD COUNT 6.5 10^3/uL (4.3-11.0)
[2020-09-10 06:17] LABS: CHLORIDE 100 MMOL/L (98-107); POTASSIUM 3.9 MMOL/L (3.6-5.0); SODIUM 135 MMOL/L (135-145)
[2020-09-10 06:18] LABS: CALCIUM 9.1 MG/DL (8.5-10.1)
[2020-09-10 06:19] LABS: GLUCOSE 109 MG/DL (70-105)
[2020-09-10 06:20] LABS: CARBON DIOXIDE 24 MMOL/L (21-32)
[2020-09-10 06:21] LABS: BILIRUBIN,TOTAL 0.4 MG/DL (0.1-1.0)
[2020-09-10 06:23] LABS: ALKALINE PHOSPHATASE 77 U/L (40-136); CREATININE SERUM 0.81 MG/DL (0.60-1.30); GFR ESTIMATED > 60
[2020-09-10 06:24] LABS: BUN/CREATININE RATIO 12
[2020-09-10 06:26] LABS: ALANINE AMINOTRANSFERASE 17 U/L (0-55)
[2020-09-10] MEDS: SINEMET 25/100 (CARBIDOPA/LEVODOPA) TAB PO SCH ×4 (06:29→12:23)
[2020-09-10 08:10] VITALS: BP 115/72
[2020-09-10] MEDS ORDERED: amLODIPine 10 MG (NORVASC) TAB PO SCH (09:00)
[2020-09-10] MEDS ORDERED: GABAPENTIN 300 MG (NEURONTIN) CAP PO SCH ×2 (09:00→21:00)
[2020-09-10] MEDS ORDERED: ENOXAPARIN 40 MG/0.4 ML (LOVENOX) SYR SC SCH (09:45)
--- NOTE | 2020-09-10 11:19 | Short Stay Summary-Hospitalist ---
NARVAEZRICHBROOKLYNN X MED STUDENT 09/10/20 1119: History of Present Illness HPI/Chief Complaint Per ED: This is a 89 yo female who presented to the ED via POV by her son. Her son states she lives alone next door to him alone, but he helps her through the evening. States that the past couple days she has been having increasing weakness and shaking to the point that she is unable to get off the couch and walk independently. Notes that she has been having issues with constipation and had not had a BM in 5 days. Reports that he has been giving her laxatives to help her with BM. She had multiple episodes of diarrhea today. Additionally she has been c/o nausea over the past week and had decreased appetite. Denies fevers, chills, cough, shortness of breath, chest pain. No ill contacts. No known COVID exposure. Has not received COVID vaccine. When I saw the patient, she states had a headache and nausea but denies vomiting. She states she doesn't remember eating. She hadn't had a BM since being admitted. Yesterday she felt like urinating but was unable to. She denies ambulating. She complains that yesterday she couldn't move her legs and her legs were shaky from the knees down. She also states she was unable to get comfortable. HR 111 bpm 92% O2 on RA BP 189/78 Source: patient Exam Limitations: other (delayed response time) Date Seen 09/10/20 Time Seen by a Provider: 07:15 Attending Physician Rex Pichardo MD PCP Jose Kang MD Referring Physician Date of Admission Sep 09, 2020 at 21:24 Home Medications & Allergies Home Medications Reviewed patient Home Medication Reconciliation performed by pharmacy medication reconciliations sound recording technician and/or nursing. Patients Allergies have been reviewed. Allergies Allergies Coded Allergies atenolol (Verified Allergy, Intermediate, RASH, 02/04/14) Past Ywjhqdy-Imvpoq-Tdzjbv Hx Patient Social History Alcohol Use: Denies Use Recreational Drug Use: No Smoking Status: Never a Smoker 2nd Hand Smoke Exposure: Yes Recent Foreign Travel: No Contact w/other who traveled: No Recent Hopitalizations: No Recent Infectious Disease Expo: No Immunizations Up To Date Tetanus Booster (TDap): Unknown Date of Pneumonia Vaccine: Apr 19, 2017 Date of Influenza Vaccine: Apr 20, 2019 Seasonal Allergies Seasonal Allergies: No Past Medical History Surgeries: Oophorectomy, Orthopedic, Thyroidectomy Cardiac: High Cholesterol, Hypertension Neurological: Parkinson's Disease : No Reproductive: No Sexually Transmitted Disease: No HIV/AIDS: No Female Reproductive Disorders: Denies Menopausal Gastrointestinal: Chronic Constipation Musculoskeletal: Arthritis, Chronic Back Pain Endocrine: Hyperthyroidism Loss of Vision: Left Hearing Impairment: Denies Psychosocial: Sleep Difficulties, Anxiety History of Blood Disorders: No Adverse Reaction to Blood Arnold: No Family History Arthritis 19 FATHER 19 MOTHER Cardiovascular disease 19 FATHER Dementia 19 MOTHER Hypertension 19 FATHER Myocardial infarction 19 FATHER No Family History of: AIDS Abdominal aortic aneurysm Alcoholism Alzheimer's disease Asthma Completed stroke Congenital disease Diabetes mellitus Parkinson's disease Prostate cancer Psychosocial problem Respiratory disorder Seizure disorder Thyroid disease Tuberculosis Review of Systems Constitutional: weakness EENTM: no symptoms reported Respiratory: no symptoms reported Cardiovascular: no symptoms reported Gastrointestinal: constipation, nausea; No vomiting Genitourinary: no symptoms reported Musculoskeletal: other (weakness of legs, shaky legs from knees down.) Skin: no symptoms reported Psychiatric/Neurological: Tremors, Weakness Physical Exam Physical Exam Vital Signs Vital Signs - First Documented 09/09/20 09/10/20 19:00 00:52 Temp 36.0 Pulse 96 Resp 18 B/P (MAP) 154/78 (103) Pulse Ox 99 O2 Delivery Room Air FiO2 21 Capillary Refill : Less Than 3 Seconds Height, Weight, BMI Height: 5'3.00" Weight: 140lbs. 0.0oz. 63.217576zz; 25.39 BMI Method:Stated General Appearance: No Apparent Distress, WD/WN, Other (delayed response when responding to comments/questions) Respiratory: Chest Non Tender, Lungs Clear, Normal Breath Sounds, No Accessory Muscle Use, No Respiratory Distress Cardiovascular: Regular Rate, Rhythm, No Edema, Normal Peripheral Pulses Extremity: Normal Inspection, Normal Range of Motion, Non Tender Neurologic/Psychiatric: Alert, Oriented x3, Normal Mood/Affect, Motor Weakness; No Sensory Deficit Skin: Normal Color, Warm/Dry Results Results/Procedures Labs Laboratory Tests 09/09/20 19:32 09/10/20 05:41 Patient resulted labs reviewed. Imaging: Reviewed Imaging Report Imaging NAME: JOSE ALBERTO DOWD [facility] REC#: [id number] PT STATUS: REG ER : 1930 PHYSICIAN: MAURO ANGEL STATISTICAL GENETICIST ADMIT DATE: 09/09/20/ER Signed Date of Exam:09/09/20 CT ABDOMEN/PELVIS W PROCEDURE: CT abdomen and pelvis with contrast. TECHNIQUE: Multiple contiguous axial images were obtained through the abdomen and pelvis after administration of intravenous contrast. Auto Exposure Controls were utilized during the CT exam to meet ALARA standards for radiation dose reduction. All CT scans use one or more of the following dose optimizing techniques: automated exposure control, MA and/or KvP adjustment based on patient size and exam type or iterative reconstruction. INDICATION: Abdominal pain, constipation, diarrhea. COMPARISON: None. FINDINGS: Lung bases are clear. The gallbladder is surgically absent. Solid organs are grossly unremarkable. There is mild atherosclerosis of the abdominal aorta without evidence of aneurysm. There is no solid organ or bowel ischemia. The uterus is intact. The course and caliber of the large and small bowel is grossly normal. There is no obstruction, free air or free fluid. There is no significant constipation. Urinary bladder appears grossly unremarkable. There is no hernia. There is diffuse osteopenia and degenerative disc disease. IMPRESSION: 1. No bowel obstruction, free air, free fluid or constipation. 2. Atherosclerosis of the abdominal aorta without evidence of aneurysm. No solid organ or bowel ischemia is seen. 3. Surgically absent gallbladder. Dictated by: Dictated on workstation # [id number] Dict: 09/09/202029 Trans: 09/09/202052 [facility] [id number] Interpreted by: JONATHAN HOSKINS Electronically signed by: JONATHAN HOSKINS 09/09/202052 Short Stay Diagnosis Discharge Diagnosis-Short Stay Admission Diagnosis 1. UTI 2. weakness 3. Parkinson's disease 4. BM difficulties Conclusion Plan 1. UTI - continue antibiotics. monitor urinary symptoms 2. weakness - transfer to Rehab for PT/OT 3. Parkinson's disease 4. BM difficulties - Constipation/Diarrhea issues. monitor BM. use stool softeners as needed. Diagnosis/Problems Diagnosis/Problems (1) Constipation (2) Parkinson disease (3) Weakness Status: Acute (4) UTI (urinary tract infection) Status: Acute MAJO MARTÍNEZ DO 09/11/20 0533: History of Present Illness HPI/Chief Complaint CC: Weakness HPI: This is a patient known to me from 12/2019 IRF stay due to PD who presents with weakness. Patient denies pain and is wiling to go to IRF to increase strength. Source: patient Past Mpqmhyx-Fgcwba-Xzyqsq Hx Past Med/Social Hx: Reviewed Nursing Past Med/Soc Hx, Reviewed and Corrections made Patient Social History Marrital Status: single Employed/Student: retired Alcohol Use: Denies Use Smoking Status: Never a Smoker Past Medical History Cardiac: Hypertension Neurological: Parkinson's Disease Genitourinary: Bladder Infection Family History Arthritis 19 FATHER 19 MOTHER Cardiovascular disease 19 FATHER Dementia 19 MOTHER Hypertension 19 FATHER Myocardial infarction 19 FATHER No Family History of: AIDS Abdominal aortic aneurysm Alcoholism Alzheimer's disease Asthma Completed stroke Congenital disease Diabetes mellitus Parkinson's disease Prostate cancer Psychosocial problem Respiratory disorder Seizure disorder Thyroid disease Tuberculosis Review of Systems Constitutional: see HPI, weakness Physical Exam Physical Exam General Appearance: No Apparent Distress, WD/WN, Chronically ill Respiratory: Lungs Clear Cardiovascular: Regular Rate, Rhythm Short Stay Diagnosis Discharge Diagnosis-Short Stay Admission Diagnosis UTI PD Final Discharge Diagnosis UTI PD Conclusion Plan Abx IRF Supervisory-Addendum Brief Verification & Attestation Participated in pt care: history, MDM, physical Personally performed: exam, history, MDM, supervision of care Care discussed with: Medical Student Procedures: n/a Results interpretation: Verified all documentation Verification and Attestation of Medical Student E/M Service A medical student performed and documented this service in my presence. I reviewed and verified all information documented by the medical student and made modifications to such information, when appropriate. I personally performed the physical exam and medical decision making. Majo Martínez, Sep 11, 2020,05:33 BROOKLYNN NARVAEZ MED STUDENT Sep 10, 2020 11:19 MAJO MARTÍNEZ DO Sep 11, 2020 05:33
--- NOTE | 2020-09-10 11:26 | Occupational Therapy Eval ---
OT Evaluation-General/PLF Medical Diagnosis Admission Date Sep 09, 2020 at 21:24 Medical Diagnosis: UTI, weakness Onset Date: Sep 09, 2020 Therapy Diagnosis Therapy Diagnosis: Decreased ADL status Height/Weight Height (Feet): 5 Height (Inches): 3.00 Weight (Pounds): 140 Weight (Ounces): 0.0 Precautions Precautions/Isolations: Fall Prevention, Standard Precautions Weight Bear Status Weight Bearing Restriction: Full Weight Bearing Referral Physician: Fabian Referral Reason: Activity Tolerance, Self Care, Evaluation/Treatment, Strengthening/ROM Medical History Pertinent Medical History: HTN, Parkinson's Current History Pt admits to ED via private vehicle. Per son/ pt, pt has experienced increased weakening and shaking. Reviewed History: Yes Social History Home: Single Level Current Living Status: Alone (son lives next door) Entry Into Home: Stairs With Railing Steps Into Home: 3 ADL-Prior Level of Function SCALE: Activities may be completed with or without assistive devices. 8-Donbqlippm-awvtsrs completes the activity by him/herself with no assistance from a helper. 5-Set-up or Clean-up Assistance-helper sets up or cleans up; patient completes activity. [place] assists only prior to or following the activity. 4-Supervision or Touching Assistance-helper provides verbal cues and/or touching/steadying and/or contact guard assistance as patient completes activity. Assistance may be provided throughout the activity or intermittently. 3-Partial/Moderate Assistance-helper does LESS THAN HALF the effort. [place] lifts, holds or supports trunk or limbs, but provides less than half the effort. 2-Substantial/Maximal Assistance-helper does MORE THAN HALF the effort. [place] lifts or holds trunk or limbs and provides more than half the effort. 0-Joqqeuayu-tbxgwu does ALL the effort. Patient does none of the effort to complete the activity. Or, the assistance of 2 or more helpers is required for the patient to complete the activity. If activity was not attempted, code reason: 7-Patient Refused. 9-Not Applicable-not attempted and the patient did not perform the activity before the current illness, exacerbation or injury. 10-Not Attempted due to Environmental Limitations-(lack of equipment, weather restraints, etc.). 88-Not Attempted due to Medical Conditions or Safety Concerns. ADL PLOF Comments Pt utilizes walker in the home. Pt completes sponge baths, toileting, and dressing IND. States receives help from son and caregiver for medication management, meal prep and s/u, and cleaning. Pt has assistance from caregiver M- F from 9-10, 12-12:30, then son assists in evening/ at night. Self Care: Needed Some Help Functional Cognition: Independent DME/Equipment: Bath Chair, Grab Bars, Shower DME/Equipment Comments Pt has walk in shower with gbs/ sc though states she is "afraid to use it," pt sponge bathes as she does not want assist from her male caregiver during shower. Is able to sponge bathe IND. Pt has walker at home. Occupation: retired. Drive Self: No OT Current Status Subjective Pt AxO. Upright in recliner with aide present. Pt was just assisted in shower per aide, aide assisted with LB and bottom/ briana care and LB dressing/ footwear. Pt agrees to OT tx. Denies pain. Pt states last night she had a "rough night" and had "activity" from elbow-distal and knees-distal, stating not a tingling/ numbness but more of a "restlessness." Pt expresses this sx has improved, though is still present. Pt does not know if she received her normal medication yesterday, nursing is notified of pt's concerns. Mental Status/Objective Patient Orientation: Person, Place, Situation, Normal For Age Current Glasses/Contacts: Yes (L fogged- decreased vision L) Hearing Aids: No Dentures/Partials: No Hand Dominance: Right Upper Extremity ROM WFL BUE (Decreased L shoulder flexion, states arthritic/ painful) Upper Extremity Coordination WFL BUE Upper Extremity Sensation continues with slight "restlessness" per pt. Upper Extremity Strength Decreased BUE ADL-Treatment Eating (QC): 5 (requires s/u (PLOF), denies use of weighted utensils.) Shower/Bathe Self (QC): 2 (max A bottom/ briana/ LB ) Upper Body Dressing (QC): 5 (s/u gown.) Lower Body Dressing (QC): 2 (per aide, aide threaded. Pt toilets with OT. Able to doff to knees and pull up in stance with CGA.) Toileting Hygiene (QC): 4 (CGA- pt completes briana care in stance with CGA (min A to right at times).) Other Treatments Pt completes evaluation, providing good hx. Pt agrees to toileting. Sit to stand from recliner with mod A, slight retropulsion, ambulates with kyphotic posture to [facility] (CGA with walker). Pt sits with control. Pt urinates and completes sit to stand with mod A (requires increased time to regain balance). Able to wipe/ pull up garments. Pt sits in recliner with all needs met, call light in reach. Education OT Patient Education: Correct positioning, Purpose of tx/functional activities, Safety issues, Transfer techniques Teaching Recipient: Patient Teaching Methods: Demonstration, Discussion Response to Teaching: Verbalize Understanding, Return Demonstration OT Alf Goals Alf Goals Time Frame: Sep 17, 2020 Eating (QC): 5 Oral Hygiene (QC): 5 Toileting Hygiene (QC): 6 Shower/Bathe Self (QC): 6 Upper Body Dressing (QC): 6 Lower Body Dressing (QC): 6 On/Off Footwear (QC): 6 Additional Goals: 1-Demonstrate ADL Tasks, 2-Verbalize Understanding, 3- ImproveStrength/Victor Manuel 1=Demonstrate adherence to instructed precautions during ADL tasks. 2=Patient will verbalize/demonstrate understanding of assistive devices/modifications for ADL. 3=Patient will improve strength/tolerance for activity to enable patient to perform ADL's. OT Education/Plan Problem List/Assessment Assessment: Decreased Activ Tolerance, Decreased UE Strength, Dependent Transfers, Impaired Funct Balance, Impaired I ADL's, Impaired Self-Care Skills Discharge Recommendations Plan/Recommendations: Continue POC Therapy Discharge Recommendati: Post Acute OT Treatment Plan/Plan of Care Treatment,Training & Education: Yes Patient would benefit from OT for education, treatment and training to promote independence in ADL's, mobility, safety and/or upper extremity function for ADL's. Plan of Care: ADL Retraining, Caregiver Training, Functional Mobility, UE Funct Exercise/Act, UE Neuromus Re-Ed/Coord Treatment Duration: Sep 17, 2020 Frequency: 5 times per week Estimated Hrs Per Day: .25 hour per day Agreement: Yes Rehab Potential: Fair Time/GCodes Start Time: 10:05 Stop Time: 10:26 Total Time Billed (hr/min): 21 Billed Treatment Time 1, EVM (21) JAZIEL COOK OTR Sep 10, 2020 11:26
[2020-09-10 12:00] VITALS: BP 102/62
[2020-09-10] MEDS ORDERED: SINEMET 25/100 (CARBIDOPA/LEVODOPA) TAB PO SCH (14:00)
[2020-09-10] MEDS ORDERED: BISA5TAB PO (14:30)
[2020-09-10] MEDS ORDERED: ALPR0.5T7 PO (14:30)
[2020-09-10] MEDS ORDERED: CLN.1T PO (14:30)
[2020-09-10] MEDS ORDERED: CARB1TAB19 PO ×2 (14:30)
[2020-09-10] MEDS ORDERED: ASPI-1238 PO (14:30)
[2020-09-10] MEDS ORDERED: DOCU-238 PO (14:30)
[2020-09-10] MEDS ORDERED: AMLO-251 PO (14:30)
[2020-09-10] MEDS ORDERED: AMLO-250 PO (14:32)
[2020-09-10] MEDS ORDERED: cloNIDine 0.1 MG (CATAPRES) TAB PO SCH (21:00)
[2020-09-10] MEDS ORDERED: cefTRIAXone 1,000 MG/SWFI 10 ML IV PUSH IV SCH ×2 (21:00)
[2020-09-10] MEDS ORDERED: ALPRAZolam 0.5 MG (XANAX) TAB PO SCH (21:00)
== END 2020-09-10 13:13 ==
LOC: EDUNIT# 18:44 → ER 18:46 → UNDOADMOB 21:24 → 4TH 21:24 → UNDODISOB 09-10 13:00
PROVIDERS: ADMIT Internal Medicine; ATTEND Internal Medicine
DX: N39.0 Urinary tract infection, site not specified (principal); G20 Parkinson's disease; K59.09 Other constipation; I10 Essential (primary) hypertension; I70.0 Atherosclerosis of aorta; F41.9 Anxiety disorder, unspecified; R19.7 Diarrhea, unspecified; Z88.8 Allergy status to other drugs, medicaments and biological substances; Z79.2 Long term (current) use of antibiotics; Z79.899 Other long term (current) drug therapy; Z98.890 Other specified postprocedural states; Z90.721 Acquired absence of ovaries, unilateral; Z90.89 Acquired absence of other organs
CPT/HCPCS: 74177; 80053 ×2; 81000; 83605; 85025 ×2; 87088; 96374; 97166; 99284; G0378; 36415

== ENCOUNTER 2020-09-10 11:32 | Inpatient (IN) | payer MEDICARE ==
[~2020-09-10] VITALS: Ht 160 cm; Wt 64.4 kg
[~2020-09-10 11:32] MED LIST changes: +POLY17PO31 PO; -POLY17PO54 PO
[2020-09-10] MEDS ORDERED: DOCUSATE SODIUM 100 MG (COLACE) CAP PO PRN (12:00)
[2020-09-10] MEDS ORDERED: ALPRAZolam 0.25 MG (XANAX) TAB PO PRN (12:00)
[2020-09-10] MEDS ORDERED: ACETAMINOPHEN 500 MG TAB (TYLENOL) PO PRN (12:00)
[2020-09-10] MEDS ORDERED: FLEET ENEMA ADULT 1 EA BTL PR PRN (12:00)
[2020-09-10] MEDS ORDERED: LOPERAMIDE 2 MG (IMODIUM) TABLET PO PRN (12:00)
[2020-09-10] MEDS ORDERED: guaiFENesin/CODEINE (ROBITUSSIN AC) 10ML UDC PO PRN (12:00)
[2020-09-10] MEDS ORDERED: MELATONIN 3 MG TABLET PO PRN (12:00)
[2020-09-10] MEDS ORDERED: diphenhydrAMINE 25 MG TAB (BENADRYL) PO PRN (12:00)
[2020-09-10] MEDS ORDERED: CALCIUM CARBONATE 500 MG (TUMS) TAB.CHEW PO PRN (12:00)
[2020-09-10 13:56] VITALS: BP 102/62
[2020-09-10] MEDS ORDERED: RT-ALBUTEROL/IPRATROPIUM 3 ML (DUONEB) VIAL INH PRN (14:00)
--- NOTE | 2020-09-10 14:02 | Occupational Therapy Eval ---
OT Evaluation-General/PLF Medical Diagnosis Admission Date Sep 10, 2020 at 13:33 Medical Diagnosis: Parkinson's Disease Onset Date: Sep 09, 2020 Therapy Diagnosis Therapy Diagnosis: weakness, decreased ADL Status Height/Weight Height (Feet): 5 Height (Inches): 3.00 Weight (Pounds): 140 Weight (Ounces): 0.0 Referral Physician: Fabian Referral Reason: Evaluation/Treatment Medical History Pertinent Medical History: HTN, Parkinson's Current History ED due to increased weakness and shaking. Pt transferred to ARU 09/10/20 for skilled therapies and continued medication management. Social History Home: Single Level Current Living Status: Alone (son next door) Steps Into Home: 4 ADL-Prior Level of Function SCALE: Activities may be completed with or without assistive devices. 3-Xhwbqjymkc-pspazdl completes the activity by him/herself with no assistance from a helper. 5-Set-up or Clean-up Assistance-helper sets up or cleans up; patient completes activity. [place] assists only prior to or following the activity. 4-Supervision or Touching Assistance-helper provides verbal cues and/or touching/steadying and/or contact guard assistance as patient completes activity. Assistance may be provided throughout the activity or intermittently. 3-Partial/Moderate Assistance-helper does LESS THAN HALF the effort. [place] lifts, holds or supports trunk or limbs, but provides less than half the effort. 2-Substantial/Maximal Assistance-helper does MORE THAN HALF the effort. [place] lifts or holds trunk or limbs and provides more than half the effort. 9-Nhplagndx-pzlpla does ALL the effort. Patient does none of the effort to complete the activity. Or, the assistance of 2 or more helpers is required for the patient to complete the activity. If activity was not attempted, code reason: 7-Patient Refused. 9-Not Applicable-not attempted and the patient did not perform the activity before the current illness, exacerbation or injury. 10-Not Attempted due to Environmental Limitations-(lack of equipment, weather restraints, etc.). 88-Not Attempted due to Medical Conditions or Safety Concerns. ADL PLOF Comments Pt indicates she is independent with sponge bathing, toileting, and dressing. She has caregiver assistance M-F from 9-10 am & 12-1230. The hearing care practitioner and her son assist [facility] medication management, meal prepping/set up, and cleaning. She performs sponge baths as she is "afraid to use" the shower. Self Care: Needed Some Help Functional Cognition: Independent DME/Equipment: Bath Chair, Shower Drive Self: No OT Current Status Subjective Pt agreeable to OT evaluation and OT/PT cotreat. Does not verbalize any pain. Mental Status/Objective Patient Orientation: Person, Place, Time, Situation Current Glasses/Contacts: Yes Dentures/Partials: No Hand Dominance: Right Upper Extremity ROM WFL, BUE shoulder flexion to approx 130 degrees, able to touch back of head with hands. With L shoulder flexion, states arthritic/ painful Upper Extremity Coordination WFL Upper Extremity Sensation WFL, pt does not report any tingling/numbness Upper Extremity Strength grossly 3+/5 ADL-Treatment Eating (QC): 6 (Ind) Oral Hygiene (QC): 4 (due to decreased vision, pt required assist to manage toothpaste on brush. CGA for standing at sink) Shower/Bathe Self (QC): 2 (Per nurse aide: max A bottom/ briana/ LB. Pt declined showering this PM as she had showered this morning prior to transferring to ARU.) Upper Body Dressing (QC): 3 (Liss, due to decreased vision, pt required to be shown the back of the shirt and also assist to manage down trunk) Lower Body Dressing (QC): 3 (ModA, pt able to thread feet through required assistance to perform pants hike while standing. Min A standing balance) On/Off Footwear (QC): 3 (Liss, pt able to thread socks on, assistance required to manage gripper on bottom) Toileting Hygiene (QC): 3 (Pt required CGA while standing to complete hygiene, assist to perform pants hike while standing) Other Treatments OT evaluation complete, then OT/PT cotreat due to skill of 2 clinicians required which a clinical tech could not perform in order to coordinate UE/LEs, and due to pt's limitations in activity tolerance, mobility, dynamic balance, and to decrease fall risk. OT focused on ADLS, UE placement, cues for sequencing and safety, while PT focused on LE placement, gross overall movement, and standing balance. Pt began tx in recliner and ambulated with FWW out of room down hallway before sitting in w/c. Pt performed car transfer and ambulated with FWW over uneven surfaces. Pt then ambulated to therapy gym and performed bed mobility on mat. Pt ambulated to room with FWW and sat EOB to complete dressing. Upon finis robbi, pt ambulated to bathroom to complete oral hygiene, hair brushing, and toilet hygiene. During toilet hygiene, pt attempted to stand, but was unsuccessful. OT redirected pt to push up from the grab bars instead of walker, pt succeed and finished task. Pt then ambulated to recliner to rest and then ambulated to therapy gym. Pt participated in ring exercise with no resistance, alternating hands to roll picker a ring and place the ring in different planes. This is to increase BUE ROM & dynamic standing balance, to increase visual scanning/attention due to low vision, and to improve posture while standing. Pt then completed ring arch activity to increase BUE ROM and improve standing posture. Pt was instructed to alternate hands, but when attempting to move her L arm overhead, pt had severe cracking in shoulder, so pt was instructed to just use her R hand. Pt completed minimal resistance theraputty activity to remove all beads from the putty. This is to increase fine motor coordination and activity tolerance. Pt ambulated to room with FWW and transferred to recliner and at the end of tx, in recliner with call light in reach and all needs met. With each sit <-> stand transfer, pt required skilled cues for UE placement. Please refer to PT eval for QC scores on functional mobility and transfers. Education OT Patient Education: Correct positioning, Modified ADL techniques, Progress toward Goal/Update tx plan, Purpose of tx/functional activities, Rehab process, Transfer techniques Teaching Recipient: Patient Teaching Methods: Discussion Response to Teaching: Verbalize Understanding OT Short Term Goals Short Term Goals Time Frame: Sep 26, 2020 Oral hygiene: 4 Toileting hygiene: 4 Shower/bathe self: 3 Upper body dressin Lower body dressin Putting on/taking off footwear: 4 OT Manager Cosmetics Goals Manager Cosmetics Goals Time Frame: Oct 05, 2020 Eating (QC): 6 Oral Hygiene (QC): 6 Toileting Hygiene (QC): 6 Shower/Bathe Self (QC): 4 Upper Body Dressing (QC): 5 Lower Body Dressing (QC): 5 On/Off Footwear (QC): 5 Additional Goals: 1-Demonstrate ADL Tasks, 2-Verbalize Understanding, 3- ImproveStrength/Victor [place] 1=Demonstrate adherence to instructed precautions during ADL tasks. 2=Patient will verbalize/demonstrate understanding of assistive devices/modifications for ADL. 3=Patient will improve strength/tolerance for activity to enable patient to perform ADL's. OT Education/Plan Problem List/Assessment Assessment: Decreased Activ Tolerance, Decreased UE Strength, Impaired Bed Mobility, Impaired Coordination, Impaired Funct Balance, Impaired I ADL's, Impaired Self-Care Skills, Restricted Funct UE ROM, Visual-Perceptual Deficit Discharge Recommendations Plan/Recommendations: Continue POC Treatment Plan/Plan of Care Patient would benefit from OT for education, treatment and training to promote independence in ADL's, mobility, safety and/or upper extremity function for ADL's. Plan of Care: ADL Retraining, Functional Mobility, Group Exercise/Act as Ind, UE Funct Exercise/Act Treatment Duration: Oct 05, 2020 Frequency: At least 5 of 7 days/Wk (IRF) Estimated Hrs Per Day: 1.5 hours per day Rehab Potential: Good Time/GCodes Start Time: 13:20 Stop Time: 14:50 Total Time Billed (hr/min): 90 Billed Treatment Time OT eval [id number] (10'), OT/PT cotreat [id number] (80')\\ 1, EVM (10'), ADL 2 (35'), FA 3 (45') ISRA SHIPMAN OT Sep 10, 2020 14:02
[2020-09-10 14:09] VITALS: BP 154/70
[2020-09-10] MEDS ORDERED: DOCU-238 PO (14:30)
[2020-09-10] MEDS ORDERED: ALPR0.5T7 PO (14:30)
[2020-09-10] MEDS ORDERED: CLN.1T PO (14:30)
[2020-09-10] MEDS ORDERED: AMLO-251 PO (14:30)
[2020-09-10] MEDS ORDERED: BISA5TAB PO (14:30)
[2020-09-10] MEDS ORDERED: CARB1TAB19 PO ×2 (14:30)
[2020-09-10] MEDS ORDERED: ASPI-1238 PO (14:30)
[2020-09-10] MEDS ORDERED: AMLO-250 PO (14:32)
[2020-09-10] MEDS ORDERED: ALPRAZolam 0.5 MG (XANAX) TAB PO PRN (14:45)
[2020-09-10] MEDS ORDERED: SINEMET 25/100 (CARBIDOPA/LEVODOPA) TAB PO PRN (14:45)
--- NOTE | 2020-09-10 14:54 | Physical Therapy Evaluation ---
PT Evaluation-General Medical Diagnosis Admission Date Sep 10, 2020 at 13:33 Medical Diagnosis: Parkinson's Disease Onset Date: Sep 09, 2020 Therapy Diagnosis Therapy Diagnosis: impaired mobility, strength, endurance, balance Height/Weight Height (Feet): 5 Height (Inches): 3.00 Weight (Pounds): 140 Weight (Ounces): 0.0 Precautions Precautions/Isolations: Fall Prevention, Standard Precautions Referral Physician: Majo Peralta DO Reason for Referral: Evaluation/Treatment Medical History Pertinent Medical History: HTN, Parkinson's Reviewed History: Yes Social History Home: Single Level Current Living Status: Alone (son next door) Entry Into Home: Stairs With Railing PT Steps Into Home: 4 Prior Prior Level of Function SCALE: Activities may be completed with or without assistive devices. 1-Bdgajcdexv-rywpmex completes the activity by him/herself with no assistance from a helper. 5-Set-up or Clean-up Assistance-helper sets up or cleans up; patient completes activity. [place] assists only prior to or following the activity. 4-Supervision or Touching Assistance-helper provides verbal cues and/or touching/steadying and/or contact guard assistance as patient completes activity. Assistance may be provided throughout the activity or intermittently. 3-Partial/Moderate Assistance-helper does LESS THAN HALF the effort. [place] lifts, holds or supports trunk or limbs, but provides less than half the effort. 2-Substantial/Maximal Assistance-helper does MORE THAN HALF the effort. [place] lifts or holds trunk or limbs and provides more than half the effort. 1-Ricsxmsan-xprrzq does ALL the effort. Patient does none of the effort to complete the activity. Or, the assistance of 2 or more helpers is required for the patient to complete the activity. If activity was not attempted, code reason: 7-Patient Refused. 9-Not Applicable-not attempted and the patient did not perform the activity before the current illness, exacerbation or injury. 10-Not Attempted due to Environmental Limitations-(lack of equipment, weather restraints, etc.). 88-Not Attempted due to Medical Conditions or Safety Concerns. Bed Mobility: 6 Transfers (B,C,W/C): 6 Gait: 6 Indoor Mobility (Ambulation): Independent Prior Devices Use: Walker PT Evaluation-Current Subjective Patient in recliner pre tx, agrees to PT, has no complaints of pain. Pt/Family Goals to be independent at home Objective Patient Orientation: Person, Place, Situation ROM/Strength ROM Lower Extremities WNL except both knees lack 10 degrees from full extension Strength Lower Extremities LLE (hip flexion 3/5, knee flexion 4/5, knee extension 4/5, dorsiflexion 4/5), RLE (hip flexion 3/5, knee flexion 4/5, knee extension 4/5, dorsiflexion 4/5) Sensory Vision: Hearing: Functional Sensation Right Lower Extremit: Intact Sensation Left Lower Extremity: Intact Transfers Roll Left & Right (QC): 6 Sit to Lying (QC): 3 Lying to Sitting/Side of Bed(Q: 3 Sit to Stand (QC): 3 Chair/Qbc-rx-Zlwky Xfer(QC): 3 Toilet Transfer (QC): 3 Car Transfer (QC): 3 Patient performs bed mobility with independence, sit to supine with mod assist, supine to sit with min assist, sit <-> stand min assist, transfers min assist, car transfer mod assist. Patient is initially retropulsive with standing until she has a chance to shift her weight forward. Patient needs cues for hand placement and safety due to poor vision. Gait Does the Patient Walk?: Yes Mode of Locomotion: Walk Anticipated Mode of Locomotion: Walk Walk 10 feet (QC): 3 Walk 50 ft with 2 Turns(QC): 3 Walk 150 ft (QC): 3 Walking 10ft/uneven surface-QC: 3 Distance: 150'x3, 100', 80' Gait Assistive Device: FWW Comments/Gait Description Patient can ambulate 150' with a rolling walker with min assist (including 50' with at least 2 turns of 90 degrees and 10' over an uneven surface). Patient needs assist often to help guide the walker and careful cues for direction due to her poor vision. Wheelchair Training Does the Pt Use a Wheelchair?: No Wheel 50 ft with 2 turns (QC): 9 Wheel 150 ft (QC): 9 Stairs #of Steps: 1 1 Step (curb) (QC): 3 4 Steps (QC): 88 12 Steps (QC): 88 Walking Assistive Device: Walker Patient can go up and down 1 step using a rolling walker with min assist. Balance Sitting Static: Normal Sitting Dynamic: Normal Standing Static: Fair Standing Dynamic: Fair Picking up an Object (QC): 88 Treatment standing balance and endurance training moving rings, toileting, and ADL's at the sink. PT performed bed mobility and transfer training, gait training, standing and positioning safely during dressing and toileting and ADL's and endurance training, OT performed toileting, ADL's, dressing, UE activity during standing, UE positioning and safety during activity. Assessment/Needs Patient has impaired mobility, strength, endurance, balance. She needs careful cues for direction and tactile cues and assist due to her poor eyesight. Patient in recliner post tx with nurse call, phone, tray, all needs met. Rehab Potential: Fair PT Short Term Goals Short Term Goals Time Frame: Sep 17, 2020 Roll Left & Right: 6 Sit to lyin Lying to sitting on side of be: 6 Sit to stand: 4 Chair/eot-rs-atlyy transfer: 4 Walk 10 feet: 4 Walk 50 feet with two turns: 4 Walk 150 feet: 4 PT Dry Room Operator Goals Dry Room Operator Goals PT Skilled Nursing Goals Time Frame: Oct 01, 2020 Roll Left & Right (QC): 6 Sit to Lying (QC): 6 Lying-Sitting on Side/Bed(QC): 6 Sit to Stand (QC): 4 (SBA) Chair/Cyd-yq-Oakgq Xfer(QC): 4 (SBA) Toilet Transfer (QC): 4 (SBA) Car Transfer (QC): 4 (SBA) Does the Patient Walk: Yes Walk 10 feet (QC): 4 (SBA) Walk 50ft with 2 Turns (QC): 4 (SBA) Walk 150 ft (QC): 4 (SBA) Walking 10ft on Uneven Surface: 4 (CGA) 1 Step (curb) (QC): 4 (CGA) 4 Steps (QC): 4 (CGA) 12 Steps (QC): 88 Picking up an Object (QC): 88 Wheel 50 feet with 2 turns (QC: 9 Wheel 150 feet: 9 PT Plan Problem List Problem List: Activity Tolerance, Functional Strength, Safety, Balance, Gait, Transfer, Bed Mobility, ROM Treatment/Plan Treatment Plan: Continue Plan of Care Treatment Plan: Bed Mobility, Education, Functional Activity Victor Manuel, Functional Strength, Group Therapy, Gait, Safety, Therapeutic Exercise, Transfers Treatment Duration: Oct 01, 2020 Frequency: At least 5 of 7 days/Wk (IRF) Estimated Hrs Per Day: 1.5 hours per day Patient and/or Family Agrees t: Yes Safety Risks/Education Patient Education: Gait Training, Transfer Techniques, Steps, Correct Positioning, Safety Issues Teaching Recipient: Patient Teaching Methods: Demonstration, Discussion Response to Teaching: Reinforcement Needed Discharge Recommendations Plan Patient will perform bed mobility and transfer training, balance and endurance training, functional strengthening, stair training, gait training, and education, to improve functional mobility and independence at home. Therapy Discharge Recommendati: Scheduled Assistance, Home & Family Time/GCodes Time In: 1310 Time Out: 1450 Total Billed Treatment Time: 90 Total Billed Treatment 1 visit EVM 10' GT 30' FA 50' PT eval from [id number], OT eval from [id number], co-treat from [id number] (80min) ROBY THOMPSON PT Sep 10, 2020 14:54
--- NOTE | 2020-09-10 15:29 | ST Cognitive Linguistic Eval ---
Speech Evaluation-General Medical Diagnosis Parkinson's Disease Onset Date: Sep 09, 2020 Therapy Diagnosis Therapy Diagnosis: Cognitive-communication Referral Referring Physician: Dr. Peralta Medical History Pertinent Medical History: HTN, Parkinson's Reviewed History: Yes Social History Current Living Status: Alone (son next door) Speech PLF-Current Status Prior Level of Function Patient lives in her own home with her son living next door for support as needed Subjective Patient was pleasant and cooperative with the cognitive assessment. Language Eval: Auditory Comprehends Simple Yes/No Ques: Functional Indent/Objects Multiple Rahman: Functional Ident/Pics in Multiple Rahman: Functional Follows 1-Step Commands: Functional Follows Complex Directions: Functional Follows General Conversations: Functional Language Eval: Verbal Language Completes Spontaneous Greeting: Functional Produces Auto, Serial Info: Functional Imitates Simple Words/Phrases: Functional Word Finding: Functional Requests Basic Needs: Functional States Basic Personal Info: Functional Expresses Complex Ideas: Functional Objective Cognitive Domain Attention: WNL Memory: Mild Problem Solving: Functional Executive Functions: WNL Visuospatial Skills: WNL Composite Severity Rating: WNL Clock Drawing Severity Rating: WNL Objective Formal/Standardized Tests [facility] Mental Status ([facility]) Results 27/30, within normal range of function Oral Motor/Speech Production Within Normal Limits Impression Patient is a pleasant 89 y/o female who was admitted to the ARU due to her Parkinson's disease and the need to get stronger. The patient has been a patient on the ARU previously for strengthening. She was given the SLUMS with a score of 27/30 obtained. This score is within the normal range of function and does not indicate further need for ST. Speech Patient Assess Expression of Ideas/Wants: Expression (4) Understanding Verbal Content: Understands (4) Brief Interview-Mental Status: Yes Repetition of Three Words: Three (3) Temporal Orientation: Year: Correct (3) Temporal Orientation: Month: Accurate within 5 days(2) Temporal Orientation: Day: Correct (1) Recall : Wear to say "Sock": Yes, no cue required (2) Recall : Color: Yes, after cueing (1) Recall : Bed: Yes,after cueing (1) Memory/Recall Ability: Current season, That he or she is in a hsp/hsp unit Speech-Plan Patient/Family Goals Patient/Family Goals: Patient plans on returning to her home upon discharge. Treatment Plan Speech Therapy Treatment Plan: Discontinue ST Treatment Duration: Sep 10, 2020 Frequency: 1 time per week Estimated Hrs Per Day: .25 hour per day Rehab Potential: Fair Barriers to Learning: Patient's age Pt/Family Agrees to Plan: Yes Safety Risks/Education Teaching Recipient: Patient Teaching Methods: Discussion Response to Teaching: Verbalize Understanding Education Topics Provided: Safety and communication Time Speech Therapy Time In: 15:15 Speech Therapy Time Out: 15:30 Total Billed Time: 15 Billed Treatment Time 1, GISELLENDCOMFAUSTO Ambrosio Sep 10, 2020 15:29
[2020-09-10] MEDS: SINEMET 25/100 (CARBIDOPA/LEVODOPA) TAB PO SCH ×4 (16:48→22:00)
[2020-09-10 18:28] VITALS: BP 177/77
[2020-09-10] MEDS: polyethylene glycoL POWDER 17 GM (MIRALAX) PACK PO SCH (20:04)
[2020-09-10] MEDS: cloNIDine 0.1 MG (CATAPRES) TAB PO SCH (20:10)
[2020-09-10] MEDS: GABAPENTIN 300 MG (NEURONTIN) CAP PO SCH (20:10)
[2020-09-10] MEDS: PANTOPRAZOLE 40 MG (PROTONIX) TAB PO SCH (20:10)
[2020-09-10] MEDS: SENNA W/DOCUSATE (SENOKOT S) TABLET PO SCH (20:16)
[2020-09-10] MEDS: DOCUSATE SODIUM 100 MG (COLACE) CAP PO SCH (20:16)
[2020-09-11] MEDS: SINEMET 25/100 (CARBIDOPA/LEVODOPA) TAB PO SCH ×12 (00:24→22:19)
[2020-09-11 05:10] VITALS: BP 103/54
[2020-09-11 05:27] LABS: BASOPHILS % (AUTO) 1 % (0-10); EOSINOPHILS # (AUTO) 0.1 10^3/uL (0.0-0.3); EOSINOPHILS % (AUTO) 2 % (0-10); HEMATOCRIT 40 % (35-52); HEMOGLOBIN 13.3 g/dL (11.5-16.0); LYMPHOCYTES % (AUTO) 31 % (12-44); MEAN CORPUSCULAR HEMOGLOBIN 31 pg (25-34); MEAN CORPUSCULAR HGB CONC 33 g/dL (32-36); MEAN CORPUSCULAR VOLUME 93 fL (80-99); MEAN PLATELET VOLUME 8.9 fL (9.0-12.2); MONOCYTES # (AUTO) 0.7 10^3/uL (0.0-1.0); MONOCYTES % (AUTO) 11 % (0-12); NEUTROPHILS # (AUTO) 3.4 10^3/uL (1.8-7.8); NEUTROPHILS % (AUTO) 55 % (42-75); PLATELET COUNT 253 10^3/uL (130-400); WHITE BLOOD COUNT 6.3 10^3/uL (4.3-11.0)
[2020-09-11 05:41] LABS: ALBUMIN 3.9 GM/DL (3.2-4.5); CHLORIDE 98 MMOL/L (98-107); POTASSIUM 4.5 MMOL/L (3.6-5.0); SODIUM 133 MMOL/L (135-145)
[2020-09-11 05:42] LABS: CALCIUM 8.8 MG/DL (8.5-10.1)
[2020-09-11 05:43] LABS: GLUCOSE 92 MG/DL (70-105)
[2020-09-11 05:44] LABS: TOTAL PROTEIN 6.6 GM/DL (6.4-8.2)
[2020-09-11 05:45] LABS: BILIRUBIN,TOTAL 0.4 MG/DL (0.1-1.0); CARBON DIOXIDE 24 MMOL/L (21-32)
--- NOTE | 2020-09-11 05:45 | PM&R Post Admission Assessment ---
PM&R HP Date of Visit: Sep 11, 2020 Time of Visit: 11:00 History of Present Illness CC: Debility from Parkinsons HPI: This is an 89yoWF with known Parkinsons Disease who presented to the ER with weakness and early UTI. She was placed on gentle IV fluids and Rocephin antibiotic and pt will have PT and OT and will be in need of inpatient rehab evaluation and management. Previously had done very well in inpatient rehab and had been discharged home with family in December of 2019. Home meds will be restarted. Patient difficult to arouse this morning so will monitor closely since VSS and labs normal. Past Fdgrofq-Nkucfs-Rlmwjp Hx Past Med/Social Hx: Reviewed Nursing Past Med/Soc Hx, Reviewed and Corrections made Patient Social History Marrital Status: single Employed/Student: retired Alcohol Use: Denies Use Smoking Status: Never a Smoker 2nd Hand Smoke Exposure: Yes Recent Hopitalizations: No Immunizations Up To Date Tetanus Booster (TDap): Unknown Date of Pneumonia Vaccine: Apr 19, 2017 Date of Influenza Vaccine: Apr 19, 2020 Seasonal Allergies Seasonal Allergies: No Past Medical History Surgeries: Oophorectomy, Orthopedic, Thyroidectomy Cardiac: High Cholesterol, Hypertension Neurological: Parkinson's Disease Reproductive: No Sexually Transmitted Disease: No HIV/AIDS: No Female Reproductive Disorders: Denies Menopausal Gastrointestinal: Chronic Constipation Musculoskeletal: Arthritis, Chronic Back Pain Endocrine: Hyperthyroidism Loss of Vision: Left Hearing Impairment: Denies Psychosocial: Sleep Difficulties, Anxiety History of Blood Disorders: No Adverse Reaction to Blood Arnold: No Family History Arthritis 19 FATHER 19 MOTHER Cardiovascular disease 19 FATHER Dementia 19 MOTHER Hypertension 19 FATHER Myocardial infarction 19 FATHER No Family History of: AIDS Abdominal aortic aneurysm Alcoholism Alzheimer's disease Asthma Completed stroke Congenital disease Diabetes mellitus Parkinson's disease Prostate cancer Psychosocial problem Respiratory disorder Seizure disorder Thyroid disease Tuberculosis Prior Level of Function Bed Mobility: 6 Transfers: 6 Gait: 6 Indoor Mobility (Ambulation): Independent Prior Devices Use: Walker Self Care: Needed Some Help Functional Cognition: Independent Drive Self: No Current Level of Fuctioning Roll Left to Right: 6 Sit to Lyin Lying to Sitting/Side of Bed: 3 Sit to Stand: 3 Chair/Kwx-ua-Mzsxs Xfer: 3 Car Transfer: 3 Does the Patient Walk: Yes Mode of Locomotion: Walk Anticipated Mode of Locomotion: Walk Walk 10 feet: 3 Walk 50 ft with 2 Turns: 3 Walk 150 ft: 3 Walking 10ft on uneven surface: 3 Gait Assistive Device: FWW Does the Pt Use a Wheelchair: No Wheel 50 ft with 2 turns: 9 Wheel 150 ft: 9 #of Steps: 1 1 Step (curb): 3 4 Steps: 88 Walking Assistive Device: Walker 12 Steps: 88 Picking up an Object: 88 Eatin (Ind) Oral Hygiene: 4 (due to decreased vision, pt required assist to manage toothpaste on brush. CGA for standing at sink) Shower/Bathe Self: 2 (Per nurse aide: max A bottom/ briana/ LB. Pt declined showering this PM as she had showered this morning prior to transferring to ARU.) Upper Body Dressin (Liss, due to decreased vision, pt required to be shown the back of the shirt and also assist to manage down trunk) Lower Body Dressin (ModA, pt able to thread feet through required assistance to perform pants hike while standing. Min A standing balance) On/Off Footwear: 3 (Liss, pt able to thread socks on, assistance required to manage gripper on bottom) Toileting Hygiene: 3 (Pt required CGA while standing to complete hygiene, assist to perform pants hike while standing) PM&R Allergy/Meds/Data Review Allergies Coded Allergies: atenolol (Verified Allergy, Intermediate, RASH, 02/04/14) Home Medications Scheduled Amlodipine Besylate (Amlodipine Besylate), 5 MG PO DAILY, (Reported) Aspirin (Aspirin EC), 81 MG PO DAILY, (Reported) Bisacodyl (Women's Laxative), 5 MG PO DAILY, (Reported) Carbidopa/Levodopa (Carbidopa-Levodopa 25-100 Tab), 1 EACH PO Q2H WHILE AWAKE, (Reported) Clonidine HCl (Clonidine HCl), 0.1 MG PO HS, (Reported) Docusate Sodium (Stool Softener), 100 MG PO DAILY, (Reported) Gabapentin (Neurontin), 600 MG PO HS, (Reported) Gabapentin (Neurontin), 300 MG PO DAILY, (Reported) Levothyroxine Sodium (Levothyroxine Sodium), 112 MCG PO DAILY, (Reported) Pantoprazole Sodium (Pantoprazole Sodium), 40 MG PO BID, (Reported) Scheduled PRN Alprazolam (Alprazolam), 0.25-0.5 MG PO HS PRN for SLEEP, (Reported) Carbidopa/Levodopa (Carbidopa-Levodopa 25-100 Tab), 1 EACH PO TID PRN for TREMORS, (Reported) Discontinued Medications Alprazolam (Xanax), 0.5 MG PO HS Discontinued Reason: Duplicate Order Amlodipine Besylate (Amlodipine Besylate), 5 MG PO DAILY Discontinued Reason: Duplicate Order Amlodipine Besylate (Amlodipine Besylate), 10 MG PO DAILY, (Reported) Discontinued Reason: Prescription changed Carbidopa/Levodopa (Carbidopa-Levodopa 25-100 Tab), 1 EA PO 1400,1600,1800,2000 Discontinued Reason: Duplicate Order Carbidopa/Levodopa (Carbidopa-Levodopa 25-100 Tab), 1 EA PO 0600,0800,1000,1200 Discontinued Reason: Duplicate Order Clonidine HCl (Clonidine HCl), 0.1 MG PO HS Discontinued Reason: Duplicate Order Docusate Sodium (Dok), 100 MG PO DAILY, (Reported) Discontinued Reason: Duplicate Order Lactulose (Lactulose), 10 GM PO BID PRN for CONSTIPATION-2ND LINE Discontinued Reason: Duplicate Order Polyethylene Glycol 3350 (Polyethylene Glycol 3350), 17 GM PO BID Discontinued Reason: Duplicate Order Sennosides/Docusate Sodium (Senna-Time S Tablet), 1 EA PO BID Discontinued Reason: Duplicate Order Current Medications Current Medications Reviewed Laboratory Data Laboratory Tests 09/11/20 04:54: Review of Systems Constitutional: see HPI, malaise, weakness EENTM: no symptoms reported Respiratory: no symptoms reported Cardiovascular: no symptoms reported Gastrointestinal: constipation Genitourinary: no symptoms reported Musculoskeletal: back pain Skin: no symptoms reported Psychiatric/Neurological: Depressed All Other Systems Reviewed Negative Unless Noted: Yes Physical Exam Physical Exam Vital Signs Vital Signs - First Documented 09/10/20 09/10/20 09/10/20 13:56 14:00 14:09 Temp 36.1 Pulse 72 Resp 18 B/P (MAP) 154/70 (98) Pulse Ox 96 O2 Delivery Room Air FiO2 21 Capillary Refill : Height, Weight, BMI Height: 5'3.00" Weight: 140lbs. 0.0oz. 63.961831pl; 25.39 BMI Method:Stated General Appearance: No Apparent Distress, WD/WN, Chronically ill Eyes: Bilateral Eye Normal Inspection, Bilateral Eye PERRL HEENT: PERRL/EOMI, Normal ENT Inspection, Pharynx Normal Neck: Full Range of Motion, Normal Inspection, Non Tender, Supple, Carotid Bruit Respiratory: Chest Non Tender, Lungs Clear, Normal Breath Sounds, No Accessory Muscle Use, No Respiratory Distress Cardiovascular: Regular Rate, Rhythm, No Edema, No Gallop, No JVD, No Murmur, Normal Peripheral Pulses Gastrointestinal: Normal Bowel Sounds, No Organomegaly, No Pulsatile Mass, Non Tender, Soft Back: Normal Inspection, No CVA Tenderness, No Vertebral Tenderness Extremity: Normal Capillary Refill, Normal Inspection, Normal Range of Motion, Non Tender, No Calf Tenderness, No Pedal Edema Neurologic/Psychiatric: Alert, Oriented x3, No Motor/Sensory Deficits, Normal Mood/Affect, Abnormal Gait, Disoriented (poor recall), Motor Weakness Skin: Normal Color, Warm/Dry Lymphatic: No Adenopathy PM&R Medical Assessment & Plan REHAB/MEDICAL ASSESSMENT AND PLAN: REHAB IMPAIRMENT GROUP: Parkinson's ETIOLOGIC DIAGNOSIS: Parkinson's The comorbidities that impact the patients function and/or functional outcome by: advanced age, fall risk, severe PD, malignant HTN, severe weakness REHAB PLAN: The patient is being admitted to our comprehensive inpatient rehabilitation facility and can tolerate the intensity of service consisting of at least: 180 minutes of therapy a day, 5 out of 7 days a week Rehab treatment will consist of: PT OT will focus on regaining function and ambulatory skills while maintaining home PD meds whil increasing ADL independence The patient/family has a good understanding of our discharge process and will benefit from an interdisciplinary inpatient rehabilitation program. The patient has potential to make improvement and is in need of at least two of the following multidisciplinary therapies including but not limited to physical, occupational, speech, and prosthetics and orthotics. Additionally the patient will need services from respiratory, nutritional services, wound care, psychology, etc. (Customize this to each patient). Given the patients complex condition and risk of further medical complications, rehabilitation services cannot be safely or effectively provided at a lower level of care such as a senior living facility. BARRIERS TO DISCHARGE: Advanced age ESTIMATED LOS: 10 days DISPOSITION: Home RELEVANT CHANGES SINCE PREADMISSION SCREENING: I have compared the patients medical and functional status at the time of the preadmission screening and there are: no changes PROGNOSIS: Good REHABILITATION GOALS: 1.PT OT will focus on regaining function and ambulatory skills while maintaining home PD meds whil increasing ADL independence All the above goals were reviewed with the patient and he/she is in agreement. By signing this document, I acknowledge that I have personally performed a full physical examination on this patient within 24 hours of admission to this inpatient rehabilitation facility and have determined the patient to be able to tolerate the above course of treatment at an intensive level for a reasonable period of time. I will be completing a detailed individualized Plan of Care for this patient by day #4 of the patients stay based upon the Preadmission Screen, the Post-Admission Evaluation, and the therapy evaluations. Admission Dx/Comorbidities: (1) Parkinson disease ICD Codes: G20 - Parkinson's disease (2) Hypertension ICD Codes: I10 - Essential (primary) hypertension (3) Weakness Status: Acute ICD Codes: R53.1 - Weakness (4) Constipation ICD Codes: K59.00 - Constipation, unspecified Assessment/Plan Assessment and Plan Assess & Plan/Chief Complaint Assessment: Parkinson's disease with severe weakness h/o falls HTN malignant type Advanced age Cognitive deficit 23/30 SLUMS Edema Somatic complaints Abnormal UA contaminant on Cx Plan: IRF protocol Monitor closely especially BP Sinemet per home dose BM regimen and maintain at home at DC VITA/NOA TIMUR Antony DO Sep 11, 2020 05:45
[2020-09-11 05:47] LABS: ALKALINE PHOSPHATASE 72 U/L (40-136); CREATININE SERUM 1.64 MG/DL (0.60-1.30); GFR ESTIMATED 30
[2020-09-11 05:48] LABS: BUN/CREATININE RATIO 10
[2020-09-11 05:50] LABS: ALANINE AMINOTRANSFERASE < 6 U/L (0-55)
[2020-09-11 07:00] VITALS: BP 141/67
[2020-09-11 08:37] VITALS: BP 160/77
[2020-09-11] MEDS ORDERED: BISACODYL 5 MG PO SCH (09:00)
[2020-09-11] MEDS: LEVOTHYROXINE 112 MCG (LEVOTHROID) TAB PO SCH (09:19)
[2020-09-11] MEDS: amLODIPine 5 MG (NORVASC) TAB PO SCH (09:20)
[2020-09-11] MEDS: DOCUSATE SODIUM 100 MG (COLACE) CAP PO SCH ×3 (09:20→21:07)
[2020-09-11] MEDS: PANTOPRAZOLE 40 MG (PROTONIX) TAB PO SCH ×2 (09:20→21:07)
[2020-09-11] MEDS: SENNA W/DOCUSATE (SENOKOT S) TABLET PO SCH ×2 (09:20→21:07)
[2020-09-11] MEDS: ASPIRIN E.C. 81 MG (ECOTRIN) TAB PO SCH (09:20)
[2020-09-11] MEDS: polyethylene glycoL POWDER 17 GM (MIRALAX) PACK PO SCH ×2 (09:21→21:24)
[2020-09-11] MEDS: GABAPENTIN 300 MG (NEURONTIN) CAP PO SCH ×2 (09:49→21:08)
[2020-09-11] MEDS ORDERED: ENOXAPARIN 40 MG/0.4 ML (LOVENOX) SYR SC SCH (10:00)
--- NOTE | 2020-09-11 11:05 | Occupational Ther Daily Note ---
OT Current Status-Daily Note Subjective [id number] (10): Pt sleeping in bed upon entry. Pt is unable to wake with vc, tactile cues, cool cloth, change in HOB positioning. Nursing notified. Nursing states attempt of sternal rub with no success of arousal. Pt makes minimal facial expressions though does not open eyes/ respond. OT to attempt again later . [id number] (80): Pt AxO, upright in recliner this am. Pt states no pain, agrees to tx. Pt desires coffee, is given a warm cup of coffee. Pt participates throughout session. Mental Status/Objective Patient Orientation: Person, Place, Situation ADL-Treatment Therapy Code Descriptions/Definitions Functional [place] Measure: 0=Not Assessed/NA 4=Minimal Assistance 1=Total Assistance 5=Supervision or Setup 2=Maximal Assistance 6=Modified [place] 3=Moderate Assistance 7=Complete IndependenceSCALE: Activities may be completed with or without assistive devices. 1-Aybmjulrmf-rwqeagf completes the activity by him/herself with no assistance from a helper. 5-Set-up or Clean-up Assistance-helper sets up or cleans up; patient completes activity. [place] assists only prior to or following the activity. 4-Supervision or Touching Assistance-helper provides verbal cues and/or touching/steadying and/or contact guard assistance as patient completes activity. Assistance may be provided throughout the activity or intermittently. 3-Partial/Moderate Assistance-helper does LESS THAN HALF the effort. [place] lifts, holds or supports trunk or limbs, but provides less than half the effort. 2-Substantial/Maximal Assistance-helper does MORE THAN HALF the effort. [place] lifts or holds trunk or limbs and provides more than half the effort. 8-Ubhnjsaxt-zzjafs does ALL the effort. Patient does none of the effort to complete the activity. Or, the assistance of 2 or more helpers is required for the patient to complete the activity. If activity was not attempted, code reason: 7-Patient Refused. 9-Not Applicable-not attempted and the patient did not perform the activity before the current illness, exacerbation or injury. 10-Not Attempted due to Environmental Limitations-(lack of equipment, weather restraints, etc.). 88-Not Attempted due to Medical Conditions or Safety Concerns. Eating (QC): 5 Bathing Location: L Arm, R Arm, L Upper Leg, R Upper Leg, Chest, Abdomen, Buttocks, Perineal Area Shower/Bathe Self (QC): 3 (min A for back/ rinsing of pt and CGA-SBA in stance at gb level.) Upper Body Dressing (QC): 3 (doffs with IND. dons with min A due to dampened back.) Lower Body Dressing (QC): 3 (Pt attempts to thread pants from sc. Pt states unable due to too high, completes at recliner chair - able to thread BLE, requires assist in stance to pull fully over hips with min A.) On/Off Footwear: 2 (VITA hose donned for pt (pt did not complete prior- CG or son compeltes this task)Socks donned with max A this date as pt's VITA hose continue to bunch up over toes.) Toileting Hygiene (QC): 4 (CGA in stance post urination.) Toilet Transfer (QC): 4 (CGA with use of gbs.) Other Treatment [id number] (10): Attempt to wake pt, nursing is notified and nursing states likely medication affect. Plan of pt care discussed. OT attempts later time. [id number] (80) with OT/ PT co-treat from [id number] (45): OT addresses UE strength, ADLs, use of environmental assist to complete ADLs, balance and problem solving while PT addresses LE movement, fx transfers, balance and gait. Pt completes drinking coffee with IND, agrees to tx. Pt sit to stand from recliner with mod A, ambulates with CGA throughout. Toilets / showers (requires min A for process/ shower transfer)/ dresses as outlined. Pt states she has not utilized AE prior for LB dressing, educated that AE could be of benefit, will attempt at later session. Pt requires increased time for all tasks. Pt returns to recliner to don pants and socks; sits with all needs met, call light in reach. Education OT Patient Education: Correct positioning, Modified ADL techniques, Progress toward Goal/Update tx plan, Purpose of tx/functional activities, Safety issues, Transfer techniques Teaching Recipient: Patient Teaching Methods: Demonstration, Discussion Response to Teaching: Verbalize Understanding, Return Demonstration, Reinforcement Needed OT Short Term Goals Short Term Goals Time Frame: Sep 26, 2020 Oral hygiene: 4 Toileting hygiene: 4 Shower/bathe self: 3 Upper body dressin Lower body dressin Putting on/taking off footwear: 4 OT [employer] Coordinator Goals Fdc Goals Time Frame: Oct 05, 2020 Eating (QC): 6 Oral Hygiene (QC): 6 Toileting Hygiene (QC): 6 Shower/Bathe Self (QC): 4 Upper Body Dressing (QC): 5 Lower Body Dressing (QC): 5 On/Off Footwear (QC): 5 Additional Goals: 1-Demonstrate ADL Tasks, 2-Verbalize Understanding, 3- ImproveStrength/Victor Manuel 1=Demonstrate adherence to instructed precautions during ADL tasks. 2=Patient will verbalize/demonstrate understanding of assistive devices/modifications for ADL. 3=Patient will improve strength/tolerance for activity to enable patient to perform ADL's. OT Education/Plan Problem List/Assessment Assessment: Decreased Activ Tolerance, Decreased UE Strength, Dependent Transfers, Impaired Coordination, Impaired Funct Balance, Impaired I ADL's, Impaired Self-Care Skills Discharge Recommendations Plan/Recommendations: Continue POC Therapy Discharge Recommendati: Intermittent Supervision, Home & Family, Post Acute OT Treatment Plan/Plan of Care Treatment,Training & Education: Yes Patient would benefit from OT for education, treatment and training to promote independence in ADL's, mobility, safety and/or upper extremity function for ADL's. Plan of Care: ADL Retraining, Functional Mobility, Group Exercise/Act as Ind, UE Funct Exercise/Act Treatment Duration: Oct 05, 2020 Frequency: At least 5 of 7 days/Wk (IRF) Estimated Hrs Per Day: 1.5 hours per day Rehab Potential: Good Time/GCodes Start Time: 07:55 (0940) Stop Time: 08:05 (1100) Total Time Billed (hr/min): 90 Billed Treatment Time [id number] (10): OT individual tx 1, FA (10) [id number] (80) with OT/ PT co-treat from 6159-8055 (45): OT addresses UE strength, ADLs, use of environmental assist to complete ADLs, balance and problem solving while PT addresses LE movement, fx transfers, balance and gait. 1, ADL 5 (80) JAZIEL COOK OTR Sep 11, 2020 11:05
--- NOTE | 2020-09-11 11:07 | Physical Therapy Daily Note ---
PT Daily Note-Current Subjective Pt in shower working with OT upon arrival. Pt agrees to PT/OT co-treat. Pain Location: No Pain Reported Mental Status Patient Orientation: Person, Place, Time, Situation Transfers SCALE: Activities may be completed with or without assistive devices. 4-Xqqwsbmvfd-mwkwyzr completes the activity by him/herself with no assistance f rom a helper. 5-Set-up or Clean-up Assistance-helper sets up or cleans up; patient completes activity. [place] assists only prior to or following the activity. 4-Supervision or Touching Assistance-helper provides verbal cues and/or touching/steadying and/or contact guard assistance as patient completes activity. Assistance may be provided throughout the activity or intermittently. 3-Partial/Moderate Assistance-helper does LESS THAN HALF the effort. [place] lifts, holds or supports trunk or limbs, but provides less than half the effort. 2-Substantial/Maximal Assistance-helper does MORE THAN HALF the effort. [place] lifts or holds trunk or limbs and provides more than half the effort. 3-Xsbcwtmnn-eobpdu does ALL the effort. Patient does none of the effort to complete the activity. Or, the assistance of 2 or more helpers is required for the patient to complete the activity. If activity was not attempted, code reason: 7-Patient Refused. 9-Not Applicable-not attempted and the patient did not perform the activity before the current illness, exacerbation or injury. 10-Not Attempted due to Environmental Limitations-(lack of equipment, weather restraints, etc.). 88-Not Attempted due to Medical Conditions or Safety Concerns. Sit to Stand (QC): 4 Weight Bearing Full Weight Bearing Full Weight Bearing Gait Training Does the Patient Walk?: Yes Distance: 15' x2 Walk 10 feet (QC): 4 Gait Persons Needed: 1 Gait Assistive Device: FWW Treatments OT/ PT co-treat from 2024-5403 (45): OT addresses UE strength, ADLs, use of environmental assist to complete ADLs, balance and problem solving while PT addresses LE movement, fx transfers, balance and gait. Pt completes drinking coffee with IND, agrees to tx. Pt sit to stand from recliner with mod A, ambulates with CGA throughout. Toilets / showers (requires min A for process/ shower transfer)/ dresses as outlined. Pt states she has not utilized AE prior for LB dressing, educated that AE could be of benefit, will attempt at later session. Pt requires increased time for all tasks. Pt returns to recliner to don pants and socks; sits with all needs met, call light in reach. Assessment Current Status: Good Progress Pt takes a little bit to initiate movement but better after moving which is consistent with diagnosis. Pt fatigues and needs RB. PT Short Term Goals Short Term Goals Time Frame: Sep 17, 2020 Roll Left & Right: 6 Sit to lyin Lying to sitting on side of be: 6 Sit to stand: 4 Chair/hul-cx-acajh transfer: 4 Walk 10 feet: 4 Walk 50 feet with two turns: 4 Walk 150 feet: 4 PT Sustainable Products Marketing Manager Goals Sustainable Products Marketing Manager Goals PT Sustainable Products Marketing Manager Goals Time Frame: Oct 01, 2020 Roll Left & Right (QC): 6 Sit to Lying (QC): 6 Lying-Sitting on Side/Bed(QC): 6 Sit to Stand (QC): 4 (SBA) Chair/Epd-oe-Gkrfz Xfer(QC): 4 (SBA) Toilet Transfer (QC): 4 (SBA) Car Transfer (QC): 4 (SBA) Does the Patient Walk: Yes Walk 10 feet (QC): 4 (SBA) Walk 50ft with 2 Turns (QC): 4 (SBA) Walk 150 ft (QC): 4 (SBA) Walking 10ft on Uneven Surface: 4 (CGA) 1 Step (curb) (QC): 4 (CGA) 4 Steps (QC): 4 (CGA) 12 Steps (QC): 88 Picking up an Object (QC): 88 Wheel 50 feet with 2 turns (QC: 9 Wheel 150 feet: 9 PT Plan Problem List Problem List: Activity Tolerance, Functional Strength, Gait, Transfer Treatment/Plan Treatment Plan: Continue Plan of Care Treatment Plan: Bed Mobility, Education, Functional Activity Victor Manuel, Functional Strength, Group Therapy, Gait, Safety, Therapeutic Exercise, Transfers Treatment Duration: Oct 01, 2020 Frequency: At least 5 of 7 days/Wk (IRF) Estimated Hrs Per Day: 1.5 hours per day Patient and/or Family Agrees t: Yes Safety Risks/Education Patient Education: Gait Training, Transfer Techniques, Correct Positioning, Safety Issues Teaching Recipient: Patient Teaching Methods: Discussion Response to Teaching: Verbalize Understanding Time/GCodes Time In: 1015 Time Out: 1100 Total Billed Treatment Time: 45 Total Billed Treatment 1, FA x3 (45m) Co-treat with OT for 45m DAVID SY ELECTRIC SHAVER MECHANIC Sep 11, 2020 11:07
--- NOTE | 2020-09-11 15:15 | Physical Therapy Daily Note ---
PT Daily Note-Current Subjective Pt sitting in recliner upon arrival. Pt agrees to PT. Pain Location: No Pain Reported Mental Status Patient Orientation: Person, Place, Situation Transfers SCALE: Activities may be completed with or without assistive devices. 5-Grocmtrzme-mirluul completes the activity by him/herself with no assistance from a helper. 5-Set-up or Clean-up Assistance-helper sets up or cleans up; patient completes activity. [place] assists only prior to or following the activity. 4-Supervision or Touching Assistance-helper provides verbal cues and/or touching/steadying and/or contact guard assistance as patient completes activity. Assistance may be provided throughout the activity or intermittently. 3-Partial/Moderate Assistance-helper does LESS THAN HALF the effort. [place] lifts, holds or supports trunk or limbs, but provides less than half the effort. 2-Substantial/Maximal Assistance-helper does MORE THAN HALF the effort. [place] lifts or holds trunk or limbs and provides more than half the effort. 3-Uamgroawe-zjmrhw does ALL the effort. Patient does none of the effort to complete the activity. Or, the assistance of 2 or more helpers is required for the patient to complete the activity. If activity was not attempted, code reason: 7-Patient Refused. 9-Not Applicable-not attempted and the patient did not perform the activity before the current illness, exacerbation or injury. 10-Not Attempted due to Environmental Limitations-(lack of equipment, weather restraints, etc.). 88-Not Attempted due to Medical Conditions or Safety Concerns. Sit to Stand (QC): 4 Toilet Transfer (QC): 4 Weight Bearing Full Weight Bearing Full Weight Bearing Gait Training Does the Patient Walk?: Yes Distance: 75' x2 Walk 10 feet (QC): 4 Walk 50 ft with 2 Turns(QC): 4 Gait Persons Needed: 1 Gait Assistive Device: FWW Treatments Pt transfers to standing and uses BR. After short RB, Pt amb in hallway. Pt takes RB then returns to room. Pt rests in recliner with all needs met including Waffle cushion for comfort. Call light in hand. Assessment Current Status: Fair Progress Pt fatigues needing frequent RB. PT Short Term Goals Short Term Goals Time Frame: Sep 17, 2020 Roll Left & Right: 6 Sit to lyin Lying to sitting on side of be: 6 Sit to stand: 4 Chair/udv-vw-ejbrq transfer: 4 Walk 10 feet: 4 Walk 50 feet with two turns: 4 Walk 150 feet: 4 PT Malware Analyst Goals Group Home Goals PT Group Home Goals Time Frame: Oct 01, 2020 Roll Left & Right (QC): 6 Sit to Lying (QC): 6 Lying-Sitting on Side/Bed(QC): 6 Sit to Stand (QC): 4 (SBA) Chair/Tpf-fz-Upxwf Xfer(QC): 4 (SBA) Toilet Transfer (QC): 4 (SBA) Car Transfer (QC): 4 (SBA) Does the Patient Walk: Yes Walk 10 feet (QC): 4 (SBA) Walk 50ft with 2 Turns (QC): 4 (SBA) Walk 150 ft (QC): 4 (SBA) Walking 10ft on Uneven Surface: 4 (CGA) 1 Step (curb) (QC): 4 (CGA) 4 Steps (QC): 4 (CGA) 12 Steps (QC): 88 Picking up an Object (QC): 88 Wheel 50 feet with 2 turns (QC: 9 Wheel 150 feet: 9 PT Plan Problem List Problem List: Activity Tolerance, Functional Strength, Gait Treatment/Plan Treatment Plan: Continue Plan of Care Treatment Plan: Bed Mobility, Education, Functional Activity Victor Manuel, Functional Strength, Group Therapy, Gait, Safety, Therapeutic Exercise, Transfers Treatment Duration: Oct 01, 2020 Frequency: At least 5 of 7 days/Wk (IRF) Estimated Hrs Per Day: 1.5 hours per day Patient and/or Family Agrees t: Yes Safety Risks/Education Patient Education: Gait Training, Correct Positioning, Safety Issues Teaching Recipient: Patient Teaching Methods: Discussion Response to Teaching: Verbalize Understanding Time/GCodes Time In: 1300 Time Out: 1345 Total Billed Treatment Time: 45 Total Billed Treatment 1, FA (20m) & GT x2 (25m) DAVID SY PILEDRIVER CARPENTER Sep 11, 2020 15:15
[2020-09-11 16:19] VITALS: BP 140/80
[2020-09-11] MEDS: cloNIDine 0.1 MG (CATAPRES) TAB PO SCH (21:07)
[2020-09-12] MEDS: SINEMET 25/100 (CARBIDOPA/LEVODOPA) TAB PO SCH ×12 (00:30→22:25)
[2020-09-12 05:16] VITALS: BP 152/65
[2020-09-12] MEDS: DOCUSATE SODIUM 100 MG (COLACE) CAP PO SCH ×3 (08:39→20:52)
[2020-09-12] MEDS: polyethylene glycoL POWDER 17 GM (MIRALAX) PACK PO SCH ×2 (08:40→21:14)
[2020-09-12] MEDS: ASPIRIN E.C. 81 MG (ECOTRIN) TAB PO SCH (08:47)
[2020-09-12] MEDS: amLODIPine 5 MG (NORVASC) TAB PO SCH (08:47)
[2020-09-12] MEDS: PANTOPRAZOLE 40 MG (PROTONIX) TAB PO SCH ×2 (08:47→20:52)
[2020-09-12] MEDS: SENNA W/DOCUSATE (SENOKOT S) TABLET PO SCH ×2 (08:48→20:52)
[2020-09-12] MEDS: LEVOTHYROXINE 112 MCG (LEVOTHROID) TAB PO SCH (08:48)
[2020-09-12] MEDS: GABAPENTIN 300 MG (NEURONTIN) CAP PO SCH ×2 (08:48→20:52)
--- NOTE | 2020-09-12 10:09 | Physical Therapy Daily Note ---
PT Daily Note-Current Subjective Pt sitting in recliner upon arrival. Pt agrees to PT/OT co-treat. Pain Location: No Pain Reported Mental Status Patient Orientation: Person, Place, Situation Transfers SCALE: Activities may be completed with or without assistive devices. 3-Plmozxjsni-jmzqtmz completes the activity by him/herself with no assistance from a helper. 5-Set-up or Clean-up Assistance-helper sets up or cleans up; patient completes activity. [place] assists only prior to or following the activity. 4-Supervision or Touching Assistance-helper provides verbal cues and/or touching/steadying and/or contact guard assistance as patient completes activity. Assistance may be provided throughout the activity or intermittently. 3-Partial/Moderate Assistance-helper does LESS THAN HALF the effort. [place] lifts, holds or supports trunk or limbs, but provides less than half the effort. 2-Substantial/Maximal Assistance-helper does MORE THAN HALF the effort. [place] lifts or holds trunk or limbs and provides more than half the effort. 9-Omwcgcjmw-mtelkj does ALL the effort. Patient does none of the effort to com plete the activity. Or, the assistance of 2 or more helpers is required for the patient to complete the activity. If activity was not attempted, code reason: 7-Patient Refused. 9-Not Applicable-not attempted and the patient did not perform the activity before the current illness, exacerbation or injury. 10-Not Attempted due to Environmental Limitations-(lack of equipment, weather restraints, etc.). 88-Not Attempted due to Medical Conditions or Safety Concerns. Sit to Stand (QC): 4 Toilet Transfer (QC): 4 Weight Bearing Full Weight Bearing Full Weight Bearing Gait Training Does the Patient Walk?: Yes Distance: 75' x2, 150' Walk 10 feet (QC): 4 Walk 50 ft with 2 Turns(QC): 4 Walk 150 ft (QC): 4 Gait Persons Needed: 1 Gait Assistive Device: FWW Pt encouraged to stand tall and walk closer to FWW. Pt shuffles feet due to Parkinson's and as fatigues. Treatments OT/ PT co-treat from [id number] with OT addressing UE movement, ADL status, disease process and education and PT addressing LE movement, gait/ balance. Pt completes dressing in chair, toileting as outlined (CGA) and oral care. Pt ambulates to gym with one rest break. Pt states UEs become fatigued during ambulation. Pt educated on LSVT BIG exercise program for Parkinson's Disease. Completion of 5 sets of 2 exercises. Pt educated on benefits, OT/ PT rotate with exercises (completes 1 set of the following with UE activity: shoulder flexion, shoulder extension, abduction). Pt returns to room, requires 2 rest breaks into room, all needs met, call light in reach, pt positioned for comfort. Pt is assisted to bathroom with CGA, completes as outlined. PT departs and OT continues to work with pt. Assessment Current Status: Good Progress Pt fatigues quickly and needs frequent RB. Parkinson's mannerisms observed. PT Short Term Goals Short Term Goals Time Frame: Sep 17, 2020 Roll Left & Right: 6 Sit to lyin Lying to sitting on side of be: 6 Sit to stand: 4 Chair/wtz-gg-edpfm transfer: 4 Walk 10 feet: 4 Walk 50 feet with two turns: 4 Walk 150 feet: 4 PT Group Home Goals Collet Driller Goals PT Group Home Goals Time Frame: Oct 01, 2020 Roll Left & Right (QC): 6 Sit to Lying (QC): 6 Lying-Sitting on Side/Bed(QC): 6 Sit to Stand (QC): 4 (SBA) Chair/Arb-mi-Pflzw Xfer(QC): 4 (SBA) Toilet Transfer (QC): 4 (SBA) Car Transfer (QC): 4 (SBA) Does the Patient Walk: Yes Walk 10 feet (QC): 4 (SBA) Walk 50ft with 2 Turns (QC): 4 (SBA) Walk 150 ft (QC): 4 (SBA) Walking 10ft on Uneven Surface: 4 (CGA) 1 Step (curb) (QC): 4 (CGA) 4 Steps (QC): 4 (CGA) 12 Steps (QC): 88 Picking up an Object (QC): 88 Wheel 50 feet with 2 turns (QC: 9 Wheel 150 feet: 9 PT Plan Problem List Problem List: Activity Tolerance, Functional Strength, Gait, Transfer Treatment/Plan Treatment Plan: Continue Plan of Care Treatment Plan: Bed Mobility, Education, Functional Activity Victor Manuel, Functional Strength, Group Therapy, Gait, Safety, Therapeutic Exercise, Transfers Treatment Duration: Oct 01, 2020 Frequency: At least 5 of 7 days/Wk (IRF) Estimated Hrs Per Day: 1.5 hours per day Patient and/or Family Agrees t: Yes Safety Risks/Education Patient Education: Gait Training, Transfer Techniques, Correct Positioning, Disease Process, Safety Issues Teaching Recipient: Patient Teaching Methods: Discussion Response to Teaching: Verbalize Understanding Time/GCodes Time In: 900 Time Out: 1000 Total Billed Treatment Time: 60 Total Billed Treatment 1, FA (15m), GT (15m) & EX x2 (30m) Co-treat w/OT for 60m DAVID SY OUTSIDE RESIDENTIAL SALES PROFESSIONAL Sep 12, 2020 10:09
[2020-09-12] MEDS: ENOXAPARIN 30 MG/0.3 ML (LOVENOX) SYR SC SCH (10:41)
--- NOTE | 2020-09-12 11:17 | Occupational Ther Daily Note ---
OT Current Status-Daily Note Subjective Pt AxO upright in recliner. Denies pain, agrees to tx. OT/ PT co-treat from [id number] with OT addressing UE movement, ADL status, disease process and education and PT addressing LE movement, gait/ balance. OT individual tx: [id number] (30): Pt upright in recliner, denies pain, call light on with needs for BR. ADL-Treatment Therapy Code Descriptions/Definitions Functional [place] Measure: 0=Not Assessed/NA 4=Minimal Assistance 1=Total Assistance 5=Supervision or Setup 2=Maximal Assistance 6=Modified [place] 3=Moderate Assistance 7=Complete IndependenceSCALE: Activities may be completed with or without assistive devices. 2-Jssmxukowf-gegefmh completes the activity by him/herself with no assistance from a helper. 5-Set-up or Clean-up Assistance-helper sets up or cleans up; patient completes activity. [place] assists only prior to or following the activity. 4-Supervision or Touching Assistance-helper provides verbal cues and/or touching/steadying and/or contact guard assistance as patient completes activity. Assistance may be provided throughout the activity or intermittently. 3-Partial/Moderate Assistance-helper does LESS THAN HALF the effort. [place] lifts, holds or supports trunk or limbs, but provides less than half the effort. 2-Substantial/Maximal Assistance-helper does MORE THAN HALF the effort. [place] l ifts or holds trunk or limbs and provides more than half the effort. 3-Rjyweficn-ufdjyd does ALL the effort. Patient does none of the effort to complete the activity. Or, the assistance of 2 or more helpers is required for the patient to complete the activity. If activity was not attempted, code reason: 7-Patient Refused. 9-Not Applicable-not attempted and the patient did not perform the activity before the current illness, exacerbation or injury. 10-Not Attempted due to Environmental Limitations-(lack of equipment, weather restraints, etc.). 88-Not Attempted due to Medical Conditions or Safety Concerns. Eating (QC): 5 Oral Hygiene (QC): 4 (CGA at sink) Shower/Bathe Self (QC): 7 Upper Body Dressing (QC): 5 Lower Body Dressing (QC): 3 On/Off Footwear: 3 Toileting Hygiene (QC): 4 Toilet Transfer (QC): 4 Other Treatment Pt completes dressing in chair, toileting as outlined (CGA) and oral care. Pt ambulates to gym with one rest break. Pt states UEs become fatigued during ambulation. Pt educated on LSVT BIG exercise program for Parkinson's Disease. Completion of 5 sets of 2 exercises. Pt educated on benefits, OT/ PT rotate with exercises (completes 1 set of the following with UE activity: shoulder flexion, shoulder extension, abduction). Pt returns to room, requires 2 rest breaks into room, all needs met, call light in reach, pt positioned for comfort. Pt is assisted to bathroom with CGA, completes as outlined. CGA sit to stand from commode. Pt completes hand hygiene SBA and returns to chair, desires to don pants. Pt is educated on energy conservation and use of AE. Educated on with mod cues for use, pt completes with hands rather than AE at this time due to increased cues. Completes 1 set of 10 reps of the following theraband ex in recliner: elbow extension (triceps), back pulls. Pt left in recliner with all needs met, call light in reach. Education OT Patient Education: Correct positioning, Disease process, Exercise program, Home exercise program, Modified ADL techniques, Progress toward Goal/Update tx plan, Purpose of tx/functional activities, Safety issues, Transfer techniques, Use of adapted equipment Teaching Recipient: Patient Teaching Methods: Demonstration, Discussion Response to Teaching: Verbalize Understanding, Return Demonstration, Reinforcement Needed OT Short Term Goals Short Term Goals Time Frame: Sep 26, 2020 Oral hygiene: 4 Toileting hygiene: 4 Shower/bathe self: 3 Upper body dressin Lower body dressin Putting on/taking off footwear: 4 OT Order Entry Goals Order Entry Goals Time Frame: Oct 05, 2020 Eating (QC): 6 Oral Hygiene (QC): 6 Toileting Hygiene (QC): 6 Shower/Bathe Self (QC): 4 Upper Body Dressing (QC): 5 Lower Body Dressing (QC): 5 On/Off Footwear (QC): 5 Additional Goals: 1-Demonstrate ADL Tasks, 2-Verbalize Understanding, 3- ImproveStrength/Victor Manuel 1=Demonstrate adherence to instructed precautions during ADL tasks. 2=Patient will verbalize/demonstrate understanding of assistive devices/modifications for ADL. 3=Patient will improve strength/tolerance for activity to enable patient to perform ADL's. OT Education/Plan Problem List/Assessment Assessment: Decreased Activ Tolerance, Decreased UE Strength, Dependent Transfers, Edema, Impaired Coordination, Impaired Funct Balance, Impaired I ADL's, Impaired Self-Care Skills Discharge Recommendations Plan/Recommendations: Continue POC Therapy Discharge Recommendati: Home & Family, Post Acute OT Treatment Plan/Plan of Care Treatment,Training & Education: Yes Patient would benefit from OT for education, treatment and training to promote independence in ADL's, mobility, safety and/or upper extremity function for ADL's. Plan of Care: ADL Retraining, Functional Mobility, Group Exercise/Act as Ind, UE Funct Exercise/Act Treatment Duration: Oct 05, 2020 Frequency: At least 5 of 7 days/Wk (IRF) Estimated Hrs Per Day: 1.5 hours per day Rehab Potential: Good Time/GCodes Start Time: 08:00 (1115) Stop Time: 09:00 (1145) Total Time Billed (hr/min): 90 Billed Treatment Time OT/ PT co-treat from [id number] with OT addressing UE movement, ADL status, disease process and education and PT addressing LE movement, gait/ balance. 1, ADL, EX 3 (60) OT individual tx : [id number] (30) 1, ADL, EX (30) JAZIEL COOK OTR Sep 12, 2020 11:17
--- NOTE | 2020-09-12 11:57 | Individualized Plan of Care ---
Individualized Plan of Care Rehab Nursing IPOC Order Admission Date Sep 10, 2020 at 13:33 Current Orders Orders Admission Order(Inpt,Obs,Sdc) (09/10/20 11:54) Vital Signs: Per Unit Policy ( 16, (09/10/20 11:54) Skinny Lara (09/10/20 11:54) Sequential Compression Device Q4H (09/10/20 11:54) Lockstitch Tunnel Elastic Operator-Inpt Rehab Con (09/10/20 11:54) Rehab Nursing Orders-Ipoc (09/10/20 11:54) Physical Therapy Rehab Orders (09/10/20 11:54) Occupational Therapy Rehab Ord (09/10/20 11:54) Speech Therapy Rehab Orders (09/10/20 11:54) Cbc With Automated Diff (09/11/20 06:00) Comprehensive Metabolic Panel (09/11/20 06:00) Intake & Output (09/10/20 11:54) Precautions (Aru) (09/10/20 11:54) Weekly Weight WEEK (09/10/20 11:54) Rehab-Intensity Of Therapy (09/10/20 11:54) Initiate Admission Nursing Pro .admission (09/10/20 11:54) Acetaminophen Tablet (Tylenol Tablet) (09/10/20 12:00) Alprazolam Tablet (Xanax Tablet) (09/10/20 12:00) Calcium Carbonate Chew Tablet (Antacid C (09/10/20 12:00) Diphenhydramine Tablet (Benadryl Tablet) (09/10/20 12:00) Docusate Sodium Capsule (Colace Capsule) (09/10/20 21:00) Docusate Sodium Capsule (Colace Capsule) (09/10/20 12:00) Bisacodyl Suppository (Dulcolax Supposit (09/10/20 12:00) Lactulose Oral Solution (Enulose Oral So (09/10/20 12:00) Na Phos/Na Biphos Enema (Fleet Enema Km (09/10/20 12:00) Guaifenesin/Codeine Syrup (Robitussin Ac (09/10/20 12:00) Loperamide Tablet (Imodium Tablet) (09/10/20 12:00) Melatonin Tablet (Melatonin Tablet) (09/10/20 12:00) Polyethylene Glycol Powder Pkt (Miralax (09/10/20 21:00) Ondansetron Oral Dissolve Tab (Zofran (09/10/20 12:00) Senna S Tablet (Senokot S Tablet) (09/10/20 21:00) Admission Arrival Bed Request (09/10/20 13:29) Acetaminophen Tablet/Caplet (Tylenol T (09/10/20 13:45) Mat Initiate Protocol (09/10/20 13:56) Albuterol/Ipra Inhalation Soln (Duoneb I (09/10/20 14:00) Patient Visit (09/10/20 ) Speech Sound Lang Comp (09/10/20 ) Alprazolam Tablet (Xanax Tablet) (09/10/20 14:45) Amlodipine Tablet (Norvasc Tablet) (09/11/20 09:00) Aspirin Enteric Coated Tablet (Ecotrin T (09/11/20 09:00) Carbidopa/Levodopa 25/100 (Sinemet 25/10 (09/10/20 16:00) Carbidopa/Levodopa 25/100 (Sinemet 25/10 (09/10/20 14:45) Clonidine Tablet (Catapres Tablet) (09/10/20 21:00) Docusate Sodium Capsule (Colace Capsule) (09/11/20 09:00) Gabapentin Capsule/Tablet (Neurontin Cap (09/11/20 09:00) Gabapentin Capsule/Tablet (Neurontin Cap (09/10/20 21:00) Levothyroxine Tablet (Synthroid Tablet) (09/11/20 09:00) Pantoprazole Tablet (Protonix Tablet) (09/10/20 21:00) (Nf) Bisacodyl (Women's Laxative) (09/11/20 09:00) Patient Visit (09/10/20 ) Pt Eval Moderate Complexity (09/10/20 ) Gait Training, Ea 15 Min (09/10/20 ) Functional Activities, Ea 15 (09/10/20 ) Enoxaparin Injection (Lovenox Injection) (09/11/20 10:00) General/Regular (09/10/20 Dinner) Enoxaparin Injection (Lovenox Injection) (09/12/20 10:00) Patient Visit (09/11/20 ) Functional Activities, Ea 15 (09/11/20 ) Patient Visit (09/11/20 ) Functional Activities, Ea 15 (09/11/20 ) Gait Training, Ea 15 Min (09/11/20 ) Patient Visit (09/12/20 ) Functional Activities, Ea 15 (09/12/20 ) Gait Training, Ea 15 Min (09/12/20 ) Exercise Therap, Ea 15 Min (09/12/20 ) Rehab Nursing Orders: Ongoing Assess. of Cognitive Status, Ongoing Assess. of Function Status, Bladder Management, Bladder Scan, Bladder Training, Bowel Management, Bowel Training, Disease Management & Educaiton, DVT Prophylaxis, Fall Prevention, Fluid/Electrolyte/Nutrition Mgmt, Infection Prevention, Medication Management & Education, Management of Risks & Complications, Management of Skin Intergrity, Nutrition Management, Pain Management, Patient/Family Support, Safety Management, Swallow Precautions Intensity of Therapy to be met Patient to be seen: Min.3h per day/5 of 7d PT IPOC Problem List: Activity Tolerance, Functional Strength, Gait Treatment Plan: Continue Plan of Care Bed Mobility, Education, Functional Activity Victor Manuel, Functional Strength, Group Therapy, Gait, Safety, Therapeutic Exercise, Transfers Treatment Duration: Oct 01, 2020 Frequency: At least 5 of 7 days/Wk (IRF) Estimated Hrs Per Day: 1.5 hours per day OT IPOC Problems: Decreased Activ Tolerance, Decreased UE Strength, Dependent Transfers, Edema, Impaired Coordination, Impaired Funct Balance, Impaired I ADL's, Impaired Self-Care Skills OT Treatment, Training and Edu: Yes Plan of Care: ADL Retraining, Functional Mobility, Group Exercise/Act as Ind, UE Funct Exercise/Act Treatment Duration: Oct 05, 2020 Frequency: At least 5 of 7 days/Wk (IRF) Estimated Hrs Per Day: 1.[address] IPOC Speech Therapy Treatment Plan: Discontinue ST Treatment Duration: Sep 10, 2020 Frequency: 1 time per week Estimated Hrs Per Day: .25 hour per day Lockstitch Tunnel Elastic Operator/Case Mgmt Lockstitch Tunnel Elastic Operator/Case Managemen: Discharge Planning Dietitian/Computer Applications Instructor Dietitian/Computer Applications Instructor to monitor nutritional status and make changes and/or recommendations as needed and work with speech pathology on dietary upgrades as the occur. Physician IPOC Medical Issues being managed closely and that require the 24 hour availability of a physician: Severe PD with labile BP and high risk for falls will be at high risk for decompensation along with advanced age will place at risk for further decline Medical Issues: Bowel/Bladder Function, DVT Prophylaxis, Falls Precautions, Fluid/Electrolyte/Nutrition Balance, Infection Protection Brief Synthesis of Preadmission Screen, Post-Admission Evaluation, and Therapy Evaluations: PT OT will focus on regaining function in order to improve ambulation, decrease fall risk and increase use of AD Medical Prognosis: Good Anticipated Length of Stay: 7 days TIMUR MARTÍNEZ DO Sep 12, 2020 11:57
--- NOTE | 2020-09-12 11:57 | PM&R Progress Note ---
Subjective HPI/CC On Admission Date Seen by Provider: Sep 12, 2020 Time Seen by Provider: 11:10 Subjective/Events-last exam 09/12/20: Pt doing pretty well Levodopa maintained every two hours Asked me about Parkinsons and I updated her on some details Bowels moved two days ago so will initiate laxatives Review of Systems General: Fatigue Gastrointestinal: Constipation Neurological: Weakness, Incoordination Objective Exam Vital Signs Vital Signs Date Time Temp Pulse Resp B/P (MAP) Pulse Ox O2 Delivery O2 Flow Rate FiO2 09/12/20 21:00 Room Air 09/12/20 20:48 85 125/77 (93) 09/12/20 17:05 36.6 18 94 09/10/20 13:56 21 Capillary Refill : General Appearance: No Apparent Distress, WD/WN, Chronically ill HEENT: PERRL/EOMI, Normal ENT Inspection, Pharynx Normal Neck: Full Range of Motion, Normal Inspection, Non Tender, Supple, Carotid Bruit Respiratory: Chest Non Tender, Lungs Clear, Normal Breath Sounds, No Accessory Muscle Use, No Respiratory Distress Cardiovascular: Regular Rate, Rhythm, No Edema, No Gallop, No JVD, No Murmur, Normal Peripheral Pulses Gastrointestinal: Normal Bowel Sounds, No Organomegaly, No Pulsatile Mass, Non Tender, Soft Back: Normal Inspection, No CVA Tenderness, No Vertebral Tenderness Extremity: Normal Capillary Refill, Normal Inspection, Normal Range of Motion, Non Tender, No Calf Tenderness, No Pedal Edema Neurologic/Psychiatric: Alert, Oriented x3, No Motor/Sensory Deficits, Normal Mood/Affect, Abnormal Gait, Disoriented (poor recall), Motor Weakness Skin: Normal Color, Warm/Dry Lymphatic: No Adenopathy Results/Procedures Lab Patient resulted labs reviewed. FIM Transfers Therapy Code Descriptions/Definitions Functional [place] Measure: 0=Not Assessed/NA 4=Minimal Assistance 1=Total Assistance 5=Supervision or Setup 2=Maximal Assistance 6=Modified [place] 3=Moderate Assistance 7=Complete IndependenceSCALE: Activities may be completed with or without assistive devices. 3-Orvktjlosx-sioidmb completes the activity by him/herself with no assistance from a helper. 5-Set-up or Clean-up Assistance-helper sets up or cleans up; patient completes activity. [place] assists only prior to or following the activity. 4-Supervision or Touching Assistance-helper provides verbal cues and/or touching/steadying and/or contact guard assistance as patient completes activity. Assistance may be provided throughout the activity or intermittently. 3-Partial/Moderate Assistance-helper does LESS THAN HALF the effort. [place] lifts, holds or supports trunk or limbs, but provides less than half the effort. 2-Substantial/Maximal Assistance-helper does MORE THAN HALF the effort. [place] lifts or holds trunk or limbs and provides more than half the effort. 7-Wmmavkaqx-vfsqsa does ALL the effort. Patient does none of the effort to complete the activity. Or, the assistance of 2 or more helpers is required for the patient to complete the activity. If activity was not attempted, code reason: 7-Patient Refused. 9-Not Applicable-not attempted and the patient did not perform the activity befo re the current illness, exacerbation or injury. 10-Not Attempted due to Environmental Limitations-(lack of equipment, weather re straints, etc.). 88-Not Attempted due to Medical Conditions or Safety Concerns. Roll Left to Right (QC): 6 Sit to Lying (QC): 3 Sit to Stand (QC): 4 Chair/Jdx-bx-Opgqt Xfer(QC): 3 Car Transfer (QC): 3 Gait Training Does the Patient Walk?: Yes Distance: 75' x2, 150' Walk 10 feet (QC): 4 Walk 50 ft with 2 Turns(QC): 4 Walk 150 ft (QC): 4 Walking 10ft/uneven surface-QC: 3 Gait Persons Needed: 1 Gait Assistive Device: FWW Wheelchair Training Does the Pt Use a Wheelchair?: No Wheel 50 ft with 2 turns (QC): 9 Wheel 150 ft (QC): 9 Stair Training #of Steps: 1 1 Step (curb) (QC): 3 4 Steps (QC): 88 12 Steps (QC): 88 Balance Picking up an Object (QC): 88 ADL-Treatment Eating (QC): 5 Oral Hygiene (QC): 4 (CGA at sink) Bathing Location: L Arm, R Arm, L Upper Leg, R Upper Leg, Chest, Abdomen, Buttocks, Perineal Area Shower/Bathe Self (QC): 7 Upper Body Dressing (QC): 5 Lower Body Dressing (QC): 3 On/Off Footwear (QC): 3 Toileting Hygiene (QC): 4 Toilet Transfer (QC): 4 Assessment/Plan Assessment and Plan Assess & Plan/Chief Complaint Assessment: Parkinson's disease with severe weakness h/o falls HTN malignant type Advanced age Cognitive deficit SLUMS Edema Somatic complaints Abnormal UA contaminant on Cx Plan: IRF protocol Monitor closely especially BP Sinemet per home dose BM regimen and maintain at home at DC VITA/NOA wraps 09/12/20: Monitor edema BM regimen Fall risk Monitor BP closely (1) Parkinson disease (2) Hypertension (3) Weakness Status: Acute (4) Constipation TIMUR MARTÍNEZ DO Sep 12, 2020 11:57
--- NOTE | 2020-09-12 16:01 | Physical Therapy Daily Note ---
PT Daily Note-Current Subjective Pt sitting in recliner upon arrival. Pt agrees to PT. Pain Location: No Pain Reported Mental Status Patient Orientation: Person, Place, Situation Transfers SCALE: Activities may be completed with or without assistive devices. 1-Yakbjnqbns-pekezbi completes the activity by him/herself with no assistance from a helper. 5-Set-up or Clean-up Assistance-helper sets up or cleans up; patient completes activity. [place] assists only prior to or following the activity. 4-Supervision or Touching Assistance-helper provides verbal cues and/or touching/steadying and/or contact guard assistance as patient completes activity. Assistance may be provided throughout the activity or intermittently. 3-Partial/Moderate Assistance-helper does LESS THAN HALF the effort. [place] lifts, holds or supports trunk or limbs, but provides less than half the effort. 2-Substantial/Maximal Assistance-helper does MORE THAN HALF the effort. [place] lifts or holds trunk or limbs and provides more than half the effort. 6-Bhcuklrcw-vuyfew does ALL the effort. Patient does none of the effort to complete the activity. Or, the assistance of 2 or more helpers is required for the patient to complete the activity. If activity was not attempted, code reason: 7-Patient Refused. 9-Not Applicable-not attempted and the patient did not perform the activity before the current illness, exacerbation or injury. 10-Not Attempted due to Environmental Limitations-(lack of equipment, weather restraints, etc.). 88-Not Attempted due to Medical Conditions or Safety Concerns. Weight Bearing Full Weight Bearing Full Weight Bearing Exercises Supine Ex: Ankle pumps, Quad Set, Heel Slides, Straight leg raise, Hip abd/add Supine Reps: 15 Seated Therapy Exercises: Ankle pumps, Long arc quads, Hip flexion, Kicking activity Seated Reps: 15 Treatments Pt declines needing BR. Pt completes Supine & Seated Ex with written HEP given by CONTAINER WASHER. Pt is repositioned to comfort. All needs met, call light in hand. Assessment Current Status: Good Progress Pt freddy. tx well but fatigued but end of tx. PT Short Term Goals Short Term Goals Time Frame: Sep 17, 2020 Roll Left & Right: 6 Sit to lyin Lying to sitting on side of be: 6 Sit to stand: 4 Chair/tnc-yt-amjwp transfer: 4 Walk 10 feet: 4 Walk 50 feet with two turns: 4 Walk 150 feet: 4 PT Forest Examiner Goals Forest Examiner Goals PT Snf Goals Time Frame: Oct 01, 2020 Roll Left & Right (QC): 6 Sit to Lying (QC): 6 Lying-Sitting on Side/Bed(QC): 6 Sit to Stand (QC): 4 (SBA) Chair/Ton-qy-Ublzp Xfer(QC): 4 (SBA) Toilet Transfer (QC): 4 (SBA) Car Transfer (QC): 4 (SBA) Does the Patient Walk: Yes Walk 10 feet (QC): 4 (SBA) Walk 50ft with 2 Turns (QC): 4 (SBA) Walk 150 ft (QC): 4 (SBA) Walking 10ft on Uneven Surface: 4 (CGA) 1 Step (curb) (QC): 4 (CGA) 4 Steps (QC): 4 (CGA) 12 Steps (QC): 88 Picking up an Object (QC): 88 Wheel 50 feet with 2 turns (QC: 9 Wheel 150 feet: 9 PT Plan Problem List Problem List: Activity Tolerance, Functional Strength Treatment/Plan Treatment Plan: Continue Plan of Care Treatment Plan: Bed Mobility, Education, Functional Activity Victor Manuel, Functional Strength, Group Therapy, Gait, Safety, Therapeutic Exercise, Transfers Treatment Duration: Oct 01, 2020 Frequency: At least 5 of 7 days/Wk (IRF) Estimated Hrs Per Day: 1.5 hours per day Patient and/or Family Agrees t: Yes Safety Risks/Education Patient Education: Correct Positioning, Safety Issues Teaching Recipient: Patient Teaching Methods: Discussion Response to Teaching: Verbalize Understanding Time/GCodes Time In: 1300 Time Out: 1330 Total Billed Treatment Time: 30 Total Billed Treatment 1, EX (20m) & FA (10m) DAVID SY CONTAINER WASHER Sep 12, 2020 16:00
[2020-09-12 17:05] VITALS: BP 108/57
[2020-09-12] MEDS: ACETAMINOPHEN 325 MG TABLET PO PRN (19:18)
[2020-09-12 20:48] VITALS: BP 125/77
[2020-09-12] MEDS: cloNIDine 0.1 MG (CATAPRES) TAB PO SCH (20:52)
[2020-09-13] MEDS: SINEMET 25/100 (CARBIDOPA/LEVODOPA) TAB PO SCH ×13 (01:16→23:42)
[2020-09-13 05:28] VITALS: BP 139/75
[2020-09-13] MEDS: ASPIRIN E.C. 81 MG (ECOTRIN) TAB PO SCH (08:39)
[2020-09-13] MEDS: amLODIPine 5 MG (NORVASC) TAB PO SCH (08:39)
[2020-09-13] MEDS: SENNA W/DOCUSATE (SENOKOT S) TABLET PO SCH ×2 (08:39→21:32)
[2020-09-13] MEDS: LEVOTHYROXINE 112 MCG (LEVOTHROID) TAB PO SCH (08:39)
[2020-09-13] MEDS: PANTOPRAZOLE 40 MG (PROTONIX) TAB PO SCH ×2 (08:39→21:32)
[2020-09-13] MEDS: DOCUSATE SODIUM 100 MG (COLACE) CAP PO SCH ×3 (08:39→21:32)
[2020-09-13] MEDS: GABAPENTIN 300 MG (NEURONTIN) CAP PO SCH ×2 (08:39→21:32)
[2020-09-13] MEDS: polyethylene glycoL POWDER 17 GM (MIRALAX) PACK PO SCH ×2 (08:40→21:32)
--- NOTE | 2020-09-13 09:20 | Physical Therapy Daily Note ---
PT Daily Note-Current Subjective Pt in shower working with OT upon arrival. Pt agrees to PT. Pain Location: No Pain Reported Mental Status Patient Orientation: Person, Place, Situation Transfers SCALE: Activities may be completed with or without assistive devices. 5-Ymxfqwkkyd-owbgmwh completes the activity by him/herself with no assistance from a helper. 5-Set-up or Clean-up Assistance-helper sets up or cleans up; patient completes activity. [place] assists only prior to or following the activity. 4-Supervision or Touching Assistance-helper provides verbal cues and/or touching/steadying and/or contact guard assistance as patient completes activity. Assistance may be provided throughout the activity or intermittently. 3-Partial/Moderate Assistance-helper does LESS THAN HALF the effort. [place] lifts, holds or supports trunk or limbs, but provides less than half the effort. 2-Substantial/Maximal Assistance-helper does MORE THAN HALF the effort. [place] lifts or holds trunk or limbs and provides more than half the effort. 3-Brzkqjpxw-aftesf does ALL the effort. Patient does none of the effort to complete the activity. Or, the assistance of 2 or more helpers is required for the patient to complete the activity. If activity was not attempted, code reason: 7-Patient Refused. 9-Not Applicable-not attempted and the patient did not perform the activity bef ore the current illness, exacerbation or injury. 10-Not Attempted due to Environmental Limitations-(lack of equipment, weather r estraints, etc.). 88-Not Attempted due to Medical Conditions or Safety Concerns. Sit to Stand (QC): 4 Toilet Transfer (QC): 4 Weight Bearing Full Weight Bearing Full Weight Bearing Gait Training Does the Patient Walk?: Yes Walk 10 feet (QC): 4 Walk 50 ft with 2 Turns(QC): 4 Walk 150 ft (QC): 4 Gait Assistive Device: FWW Treatments OT/ PT co-treat: [id number] (60): Co-treat completed due to pt's limited fx activity endurance and decreased strength/ need of skilled therapy x2 intermittently. OT addresses showering, ADLs, safety and home modification, and PT addresses LE movement, balance, gait. Pt completes ambulation to bathroom, completes showering and dressing as outlined. Pt sits on toilet for urination, sit to stand with CGA and ambulates to wash hands SBA. Pt sits in recliner for VITA hose donning/ shoe donning. Pt requests to brush teeth- completes with SBA at sink. Pt ambulates through segura with one rest break, returns to room/sits in recliner with all needs met, call light in reach, blanket within reach though pt denies donning at this time, all needs met. Assessment Current Status: Good Progress Pt fatigues and needs RB to recover. PT Short Term Goals Short Term Goals Time Frame: Sep 17, 2020 Roll Left & Right: 6 Sit to lyin Lying to sitting on side of be: 6 Sit to stand: 4 Chair/lpw-hk-uxkir transfer: 4 Walk 10 feet: 4 Walk 50 feet with two turns: 4 Walk 150 feet: 4 PT Residential Goals Crime Laboratory Analyst Goals PT Crime Laboratory Analyst Goals Time Frame: Oct 01, 2020 Roll Left & Right (QC): 6 Sit to Lying (QC): 6 Lying-Sitting on Side/Bed(QC): 6 Sit to Stand (QC): 4 (SBA) Chair/Fcl-oq-Bxsxd Xfer(QC): 4 (SBA) Toilet Transfer (QC): 4 (SBA) Car Transfer (QC): 4 (SBA) Does the Patient Walk: Yes Walk 10 feet (QC): 4 (SBA) Walk 50ft with 2 Turns (QC): 4 (SBA) Walk 150 ft (QC): 4 (SBA) Walking 10ft on Uneven Surface: 4 (CGA) 1 Step (curb) (QC): 4 (CGA) 4 Steps (QC): 4 (CGA) 12 Steps (QC): 88 Picking up an Object (QC): 88 Wheel 50 feet with 2 turns (QC: 9 Wheel 150 feet: 9 PT Plan Problem List Problem List: Activity Tolerance, Functional Strength, Gait Treatment/Plan Treatment Plan: Continue Plan of Care Treatment Plan: Bed Mobility, Education, Functional Activity Victor Manuel, Functional Strength, Group Therapy, Gait, Safety, Therapeutic Exercise, Transfers Treatment Duration: Oct 01, 2020 Frequency: At least 5 of 7 days/Wk (IRF) Estimated Hrs Per Day: 1.5 hours per day Patient and/or Family Agrees t: Yes Safety Risks/Education Patient Education: Transfer Techniques, Correct Positioning Teaching Recipient: Patient Teaching Methods: Discussion Response to Teaching: Verbalize Understanding Time/GCodes Time In: 815 Time Out: 915 Total Billed Treatment Time: 60 Total Billed Treatment 1, FA x3 (40m) & GT (20m) Co-treat for 60m with DAVID CAMPA PTA Sep 13, 2020 09:20
--- NOTE | 2020-09-13 09:25 | Occupational Ther Daily Note ---
OT Current Status-Daily Note Subjective Pt AxO. Upright in recliner. Pt agrees to OT tx, denies pain. Desires showering. OT individual tx: [id number] (15) OT/ PT co-treat: [id number] (60): Co-treat completed due to pt's limited fx activity endurance and decreased strength/ need of skilled therapy x2 intermittently. OT addresses showering, ADLs, safety and home modification, and PT addresses LE movement, balance, gait. OT individual tx: [id number] (30) Mental Status/Objective Patient Orientation: Person, Place, Situation, Normal For Age ADL-Treatment Therapy Code Descriptions/Definitions Functional [place] Measure: 0=Not Assessed/NA 4=Minimal Assistance 1=Total Assistance 5=Supervision or Setup 2=Maximal Assistance 6=Modified [place] 3=Moderate Assistance 7=Complete IndependenceSCALE: Activities may be completed with or without assistive devices. 5-Ziwhfbpvdn-pzcaeqh completes the activity by him/herself with no assistance from a helper. 5-Set-up or Clean-up Assistance-helper sets up or cleans up; patient completes activity. [place] assists only prior to or following the activity. 4-Supervision or Touching Assistance-helper provides verbal cues and/or touching/steadying and/or contact guard assistance as patient completes activity. Assistance may be provided throughout the activity or intermittently. 3-Partial/Moderate Assistance-helper does LESS THAN HALF the effort. [place] lifts, holds or supports trunk or limbs, but provides less than half the effort. 2-Substantial/Maximal Assistance-helper does MORE THAN HALF the effort. [place] lifts or holds trunk or limbs and provides more than half the effort. 7-Hwmoqfhvd-rbwrke does ALL the effort. Patient does none of the effort to complete the activity. Or, the assistance of 2 or more helpers is required for the patient to complete the activity. If activity was not attempted, code reason: 7-Patient Refused. 9-Not Applicable-not attempted and the patient did not perform the activity before the current illness, exacerbation or injury. 10-Not Attempted due to Environmental Limitations-(lack of equipment, weather restraints, etc.). 88-Not Attempted due to Medical Conditions or Safety Concerns. Eating (QC): 5 Oral Hygiene (QC): 4 (SBA at sink.) Bathing Location: L Arm, R Arm, L Upper Leg, R Upper Leg, Chest, Abdomen, Buttocks, Perineal Area Shower/Bathe Self (QC): 4 (SUP in sit, SBA during showering in stance (use of grab bars and sc). Pt completes bottom care in stance. Pt requests bath aide upon d/c, pt would benefit from bath aide with assist for SBA-CGA in stance and CGA during tub/shower transfer (pt feels uncomfortable with male assist). Recommend bath aide assist to decrease fall risk and increase QOL at home. ) Upper Body Dressing (QC): 5 (s/u) Lower Body Dressing (QC): 3 (min A to hike over hips due to increased skin dampness.) On/Off Footwear: 5 (s/u (slippers)) Toileting Hygiene (QC): 4 (SBA in stance, s/u for wipes.) Toilet Transfer (QC): 4 (SBA, use of walker.) Other Treatment OT individual tx: [id number] (15) OT/ PT co-treat: [id number] (60): Co-treat completed due to pt's limited fx activity endurance and decreased strength/ need of skilled therapy x2 intermittently. OT addresses showering, ADLs, safety and home modification, and PT addresses LE movement, balance, gait. Pt completes ambulation to bathroom, completes showering and dressing as outlined. Pt sits on toilet for urination, sit to stand with CGA and ambulates to wash hands SBA. Pt sits in recliner for VITA hose donning/ shoe donning. Pt requests to brush teeth- completes with SBA at sink. Pt ambulates through segura with one rest break, returns to room/sits in recliner with all needs met, call light in reach, blanket within reach though pt denies donning at this time, all needs met. OT individual tx: [id number] (30): Pt asleep in recliner, leaning to L side. Pt agrees to tx upon awaking. Pt is educated on benefits of tub transfer bench during tub transfer. Pt ambulates to shower room CGA, completes tub transfer with CGA and education throughout. Pt stands in shower with use of gbs, pt unsure of gb positioning in own shower. Pt returns out of tub/ shower though states feels unsteady on edge of chair during transfer, educated on safety with transfer. Pt states she would like to have bath aide for supervision/ CGA during transfer. Pt educated on benefits/ safety of this choice, as pt is unsteady/ requires SBA-CGA during this task. Pt states son would be able to supervise at times, though not all the time. Pt ambulates through [facility] with SBA-CGA. Pt ambulates to room, completes toileting with SBA, returns to recliner with all needs met, call light in reach. Pt positioned in chair so leaning with spine in extension and pillow placed to L side for safety during sleep. Pt denies needs. Education OT Patient Education: Correct positioning, Modified ADL techniques, Progress toward Goal/Update tx plan, Purpose of tx/functional activities, Safety issues, Transfer techniques, Use of adapted equipment Teaching Recipient: Patient Teaching Methods: Demonstration, Discussion Response to Teaching: Verbalize Understanding, Return Demonstration OT Short Term Goals Short Term Goals Time Frame: Sep 26, 2020 Oral hygiene: 4 Toileting hygiene: 4 Shower/bathe self: 3 Upper body dressin Lower body dressin Putting on/taking off footwear: 4 OT Prison Goals Contact Centre Supervisor Goals Time Frame: Oct 05, 2020 Eating (QC): 6 Oral Hygiene (QC): 6 Toileting Hygiene (QC): 6 Shower/Bathe Self (QC): 4 Upper Body Dressing (QC): 5 Lower Body Dressing (QC): 5 On/Off Footwear (QC): 5 Additional Goals: 1-Demonstrate ADL Tasks, 2-Verbalize Understanding, 3- ImproveStrength/[place] 1=Demonstrate adherence to instructed precautions during ADL tasks. 2=Patient will verbalize/demonstrate understanding of assistive devices/modifications for ADL. 3=Patient will improve strength/tolerance for activity to enable patient to perform ADL's. OT Education/Plan Problem List/Assessment Assessment: Decreased Activ Tolerance, Decreased UE Strength, Dependent Transfers, Impaired Bed Mobility, Impaired Funct Balance, Impaired I ADL's, Impaired Self-Care Skills Discharge Recommendations Plan/Recommendations: Continue POC Therapy Discharge Recommendati: Bath Aide, Home & Family, Post Acute OT Equpiment Recommendations-D/C: Extended Bath Bench Treatment Plan/Plan of Care Treatment,Training & Education: Yes Patient would benefit from OT for education, treatment and training to promote independence in ADL's, mobility, safety and/or upper extremity function for ADL's. Plan of Care: ADL Retraining, Functional Mobility, Group Exercise/Act as Ind, UE Funct Exercise/Act Treatment Duration: Oct 05, 2020 Frequency: At least 5 of 7 days/Wk (IRF) Estimated Hrs Per Day: 1.5 hours per day Rehab Potential: Good Time/GCodes Start Time: 08:00 Stop Time: 09:15 Total Time Billed (hr/min): 90 Billed Treatment Time OT individual tx: [id number] (15) OT/ PT co-treat: [id number] (60): Co-treat completed due to pt's limited fx activity endurance and decreased strength/ need of skilled therapy x2 intermittently. OT addresses showering, ADLs, safety and home modification, and PT addresses LE movement, balance, gait. 1, ADL 4 (60), EX (15)= 75 OT individual tx:[id number] (30) 1, ADL, FA (30) Total: 105 JAZIEL COOK OTR Sep 13, 2020 09:25
[2020-09-13] MEDS: ENOXAPARIN 30 MG/0.3 ML (LOVENOX) SYR SC SCH (10:28)
--- NOTE | 2020-09-13 11:37 | PM&R Progress Note ---
Subjective HPI/CC On Admission Date Seen by Provider: Sep 13, 2020 Time Seen by Provider: 11:00 Subjective/Events-last exam 09/13/20: Patient in good mood Ambulating better today Feet are "less frozen" per patient BM regimen will be intensified 09/12/20: Pt doing pretty well Levodopa maintained every two hours Asked me about Parkinsons and I updated her on some details Bowels moved two days ago so will initiate laxatives Review of Systems General: Fatigue, Malaise Neurological: Weakness Objective Exam Vital Signs Vital Signs Date Time Temp Pulse Resp B/P (MAP) Pulse Ox O2 Delivery O2 Flow Rate FiO2 09/13/20 20:20 Room Air 09/13/20 16:24 36.4 84 16 139/63 (88) 95 09/10/20 13:56 21 Capillary Refill : General Appearance: No Apparent Distress, WD/WN, Chronically ill HEENT: PERRL/EOMI, Normal ENT Inspection, Pharynx Normal Neck: Full Range of Motion, Normal Inspection, Non Tender, Supple, Carotid Bruit Respiratory: Chest Non Tender, Lungs Clear, Normal Breath Sounds, No Accessory Muscle Use, No Respiratory Distress Cardiovascular: Regular Rate, Rhythm, No Edema, No Gallop, No JVD, No Murmur, Normal Peripheral Pulses Gastrointestinal: Normal Bowel Sounds, No Organomegaly, No Pulsatile Mass, Non Tender, Soft Back: Normal Inspection, No CVA Tenderness, No Vertebral Tenderness Extremity: Normal Capillary Refill, Normal Inspection, Normal Range of Motion, Non Tender, No Calf Tenderness, No Pedal Edema Neurologic/Psychiatric: Alert, Oriented x3, No Motor/Sensory Deficits, Normal Mood/Affect, Abnormal Gait, Disoriented (poor recall), Motor Weakness Skin: Normal Color, Warm/Dry Lymphatic: No Adenopathy Results/Procedures Lab Patient resulted labs reviewed. FIM Transfers Therapy Code Descriptions/Definitions Functional [place] Measure: 0=Not Assessed/NA 4=Minimal Assistance 1=Total Assistance 5=Supervision or Setup 2=Maximal Assistance 6=Modified [place] 3=Moderate Assistance 7=Complete IndependenceSCALE: Activities may be completed with or without assistive devices. 4-Ebjlqmkiiy-dpdarrq completes the activity by him/herself with no assistance from a helper. 5-Set-up or Clean-up Assistance-helper sets up or cleans up; patient completes activity. [place] assists only prior to or following the activity. 4-Supervision or Touching Assistance-helper provides verbal cues and/or touching/steadying and/or contact guard assistance as patient completes activity. Assistance may be provided throughout the activity or intermittently. 3-Partial/Moderate Assistance-helper does LESS THAN HALF the effort. [place] lifts, holds or supports trunk or limbs, but provides less than half the effort. 2-Substantial/Maximal Assistance-helper does MORE THAN HALF the effort. [place] lifts or holds trunk or limbs and provides more than half the effort. 3-[place]af[place]-zunlty does ALL the effort. Patient does none of the effort to complete the activity. Or, the assistance of 2 or more helpers is required for the patient to complete the activity. If activity was not attempted, code reason: 7-Patient Refused. 9-Not Applicable-not attempted and the patient did not perform the activity before the current illness, exacerbation or injury. 10-Not Attempted due to Environmental Limitations-(lack of equipment, weather restraints, etc.). 88-Not Attempted due to Medical Conditions or Safety Concerns. Roll Left to Right (QC): 6 Sit to Lying (QC): 3 Sit to Stand (QC): 4 Chair/Sua-pz-Pijcn Xfer(QC): 3 Car Transfer (QC): 3 Gait Training Does the Patient Walk?: Yes Distance: 75' x2, 150' Walk 10 feet (QC): 4 Walk 50 ft with 2 Turns(QC): 4 Walk 150 ft (QC): 4 Walking 10ft/uneven surface-QC: 3 Gait Persons Needed: 1 Gait Assistive Device: FWW Wheelchair Training Does the Pt Use a Wheelchair?: No Wheel 50 ft with 2 turns (QC): 9 Wheel 150 ft (QC): 9 Stair Training #of Steps: 1 1 Step (curb) (QC): 3 4 Steps (QC): 88 12 Steps (QC): 88 Balance Picking up an Object (QC): 88 ADL-Treatment Eating (QC): 5 Oral Hygiene (QC): 4 (SBA at sink.) Bathing Location: L Arm, R Arm, L Upper Leg, R Upper Leg, Chest, Abdomen, Buttocks, Perineal Area Shower/Bathe Self (QC): 4 (SUP in sit, SBA during showering in stance (use of grab bars and sc). Pt completes bottom care in stance. Pt requests bath aide upon d/c, pt would benefit from bath aide with assist for SBA-CGA in stance and CGA during tub/shower transfer (pt feels uncomfortable with male assist). Recommend bath aide assist to decrease fall risk and increase QOL at home. ) Upper Body Dressing (QC): 5 (s/u) Lower Body Dressing (QC): 3 (min A to hike over hips due to increased skin dampness.) On/Off Footwear (QC): 5 (s/u (slippers)) Toileting Hygiene (QC): 4 (SBA in stance, s/u for wipes.) Toilet Transfer (QC): 4 (SBA, use of walker.) Assessment/Plan Assessment and Plan Assess & Plan/Chief Complaint Assessment: Parkinson's disease with severe weakness h/o falls HTN malignant type Advanced age Cognitive deficit 23/30 SLUMS Edema Somatic complaints Abnormal UA contaminant on Cx Plan: IRF protocol Monitor closely especially BP Sinemet per home dose BM regimen and maintain at home at DC VITA/NOA wraps 09/12/20: Monitor edema BM regimen Fall risk Monitor BP closely 09/13/20: Increase laxatives and assure BM produced Monitor pain Fall risk (1) Parkinson disease (2) Hypertension (3) Weakness Status: Acute (4) Constipation TIMUR MARTÍNEZ DO Sep 13, 2020 11:37
--- NOTE | 2020-09-13 13:32 | Physical Therapy Daily Note ---
PT Daily Note-Current Subjective Pt sitting in recliner upon arrival. Pt agrees to PT but asks to use BR first. Pain Location: No Pain Reported Mental Status Patient Orientation: Person, Place, Situation Transfers SCALE: Activities may be completed with or without assistive devices. 1-Gtdpmauclq-mccalac completes the activity by him/herself with no assistance from a helper. 5-Set-up or Clean-up Assistance-helper sets up or cleans up; patient completes activity. [place] assists only prior to or following the activity. 4-Supervision or Touching Assistance-helper provides verbal cues and/or touching/steadying and/or contact guard assistance as patient completes activity. Assistance may be provided throughout the activity or intermittently. 3-Partial/Moderate Assistance-helper does LESS THAN HALF the effort. [place] lifts, holds or supports trunk or limbs, but provides less than half the effort. 2-Substantial/Maximal Assistance-helper does MORE THAN HALF the effort. [place] lifts or holds trunk or limbs and provides more than half the effort. 3-Ftnacamys-yiirto does ALL the effort. Patient does none of the effort to complete the activity. Or, the assistance of 2 or more helpers is required for the patient to complete the activity. If activity was not attempted, code reason: 7-Patient Refused. 9-Not Applicable-not attempted and the patient did not perform the activity before the current illness, exacerbation or injury. 10-Not Attempted due to Environmental Limitations-(lack of equipment, weather restraints, etc.). 88-Not Attempted due to Medical Conditions or Safety Concerns. Sit to Stand (QC): 4 Toilet Transfer (QC): 4 Weight Bearing Full Weight Bearing Full Weight Bearing Gait Training Does the Patient Walk?: Yes Distance: 15' Walk 10 feet (QC): 4 Gait Persons Needed: 1 Gait Assistive Device: FWW Treatments TF to standing and uses BR. Pt returns to recliner to rest at end of tx. All needs met, call light in hand. Assessment Current Status: Good Progress Pt fatigues easily but recovers after short RB. PT Short Term Goals Short Term Goals Time Frame: Sep 17, 2020 Roll Left & Right: 6 Sit to lyin Lying to sitting on side of be: 6 Sit to stand: 4 Chair/kpu-qa-vcjqh transfer: 4 Walk 10 feet: 4 Walk 50 feet with two turns: 4 Walk 150 feet: 4 PT Detention Goals Video Editing Intern Goals PT Video Editing Intern Goals Time Frame: Oct 01, 2020 Roll Left & Right (QC): 6 Sit to Lying (QC): 6 Lying-Sitting on Side/Bed(QC): 6 Sit to Stand (QC): 4 (SBA) Chair/Tfu-bb-Liymh Xfer(QC): 4 (SBA) Toilet Transfer (QC): 4 (SBA) Car Transfer (QC): 4 (SBA) Does the Patient Walk: Yes Walk 10 feet (QC): 4 (SBA) Walk 50ft with 2 Turns (QC): 4 (SBA) Walk 150 ft (QC): 4 (SBA) Walking 10ft on Uneven Surface: 4 (CGA) 1 Step (curb) (QC): 4 (CGA) 4 Steps (QC): 4 (CGA) 12 Steps (QC): 88 Picking up an Object (QC): 88 Wheel 50 feet with 2 turns (QC: 9 Wheel 150 feet: 9 PT Plan Problem List Problem List: Activity Tolerance Treatment/Plan Treatment Plan: Continue Plan of Care Treatment Plan: Bed Mobility, Education, Functional Activity [place], Functional Strength, Group Therapy, Gait, Safety, Therapeutic Exercise, Transfers Treatment Duration: Oct 01, 2020 Frequency: At least 5 of 7 days/Wk (IRF) Estimated Hrs Per Day: 1.5 hours per day Patient and/or Family Agrees t: Yes Safety Risks/Education Patient Education: Transfer Techniques, Correct Positioning Teaching Recipient: Patient Teaching Methods: Discussion Response to Teaching: Verbalize Understanding Time/GCodes Time In: 1310 Time Out: 1325 Total Billed Treatment Time: 15 Total Billed Treatment 1, ANIL (15m) DAVID SY SKEIN BLEACHER Sep 13, 2020 13:32
[2020-09-13] MEDS: ACETAMINOPHEN 325 MG TABLET PO PRN (14:27)
[2020-09-13] MEDS: BISACODYL 10 MG SUPP (DULCOLAX) PR PRN (15:34)
[2020-09-13] MEDS: LACTULOSE SYRUP 10GM/15ML (ENULOSE) 30ML UDC PO PRN (15:34)
[2020-09-13 16:24] VITALS: BP 139/63
[2020-09-13] MEDS: cloNIDine 0.1 MG (CATAPRES) TAB PO SCH (21:32)
[2020-09-14] MEDS: SINEMET 25/100 (CARBIDOPA/LEVODOPA) TAB PO SCH ×12 (02:08→23:41)
[2020-09-14 05:56] VITALS: BP 147/69
[2020-09-14 07:59] VITALS: BP 129/63
[2020-09-14] MEDS: polyethylene glycoL POWDER 17 GM (MIRALAX) PACK PO SCH ×2 (07:59→20:30)
[2020-09-14] MEDS: amLODIPine 5 MG (NORVASC) TAB PO SCH (08:00)
[2020-09-14] MEDS: LACTULOSE SYRUP 10GM/15ML (ENULOSE) 30ML UDC PO PRN (08:00)
[2020-09-14] MEDS: PANTOPRAZOLE 40 MG (PROTONIX) TAB PO SCH ×2 (08:00→20:26)
[2020-09-14] MEDS: DOCUSATE SODIUM 100 MG (COLACE) CAP PO SCH ×3 (08:00→20:26)
[2020-09-14] MEDS: SENNA W/DOCUSATE (SENOKOT S) TABLET PO SCH ×2 (08:00→20:30)
[2020-09-14] MEDS: LEVOTHYROXINE 112 MCG (LEVOTHROID) TAB PO SCH (08:00)
[2020-09-14] MEDS: GABAPENTIN 300 MG (NEURONTIN) CAP PO SCH ×2 (08:00→20:26)
[2020-09-14] MEDS: ASPIRIN E.C. 81 MG (ECOTRIN) TAB PO SCH (08:00)
--- NOTE | 2020-09-14 09:06 | Physical Therapy Daily Note ---
PT Daily Note-Current Subjective Pt. agrees to co Rx PT OT. Pt. fatigues and needs rest breaks Pain Location: No Pain Reported Transfers SCALE: Activities may be completed with or without assistive devices. 9-Epsggfclsw-qzikwxi completes the activity by him/herself with no assistance from a helper. 5-Set-up or Clean-up Assistance-helper sets up or cleans up; patient completes activity. [place] assists only prior to or following the activity. 4-Supervision or Touching Assistance-helper provides verbal cues and/or t ouching/steadying and/or contact guard assistance as patient completes activity. Assistance may be provided throughout the activity or intermittently. 3-Partial/Moderate Assistance-helper does LESS THAN HALF the effort. [place] lifts, holds or supports trunk or limbs, but provides less than half the effort. 2-Substantial/Maximal Assistance-helper does MORE THAN HALF the effort. [place] lifts or holds trunk or limbs and provides more than half the effort. 6-Krvbikbfv-dtonxl does ALL the effort. Patient does none of the effort to complete the activity. Or, the assistance of 2 or more helpers is required for the patient to complete the activity. If activity was not attempted, code reason: 7-Patient Refused. 9-Not Applicable-not attempted and the patient did not perform the activity before the current illness, exacerbation or injury. 10-Not Attempted due to Environmental Limitations-(lack of equipment, weather restraints, etc.). 88-Not Attempted due to Medical Conditions or Safety Concerns. Roll Left & Right (QC): 4 Sit to Lying (QC): 4 Lying to Sitting/Side of Bed(Q: 4 Sit to Stand (QC): 4 Weight Bearing Full Weight Bearing Full Weight Bearing Gait Training Does the Patient Walk?: Yes Walk 10 feet (QC): 4 Walk 50 ft with 2 Turns(QC): 4 Walk 150 ft (QC): 4 Gait Persons Needed: 1 Gait Assistive Device: FWW Exercises Supine Ex: Bridging, Ankle pumps, Quad Set, Rolling, Glut sets, Lower trunk rotation, Heel Slides, Short Arc Quads, Straight leg raise, Hip abd/add Supine Reps: 15 Seated Therapy Exercises: Ankle pumps, Sit to stand Seated Reps: 15 coordinated U&L extremity reciprocal exercises in supine for trunk rotation and stretching, OT PT coordinated Treatments PT OT co Rx secondary to poor act tolerance, requiring 2 skilled clinicians to complete U&L extremity coordinated Rx Assessment Current Status: Good Progress PT Short Term Goals Short Term Goals Time Frame: Sep 17, 2020 Roll Left & Right: 6 Sit to lyin Lying to sitting on side of be: 6 Sit to stand: 4 Chair/msv-dv-fgesk transfer: 4 Walk 10 feet: 4 Walk 50 feet with two turns: 4 Walk 150 feet: 4 PT Group Home Goals Group Home Goals PT Group Home Goals Time Frame: Oct 01, 2020 Roll Left & Right (QC): 6 Sit to Lying (QC): 6 Lying-Sitting on Side/Bed(QC): 6 Sit to Stand (QC): 4 (SBA) Chair/Bhc-rx-Jdgjr Xfer(QC): 4 (SBA) Toilet Transfer (QC): 4 (SBA) Car Transfer (QC): 4 (SBA) Does the Patient Walk: Yes Walk 10 feet (QC): 4 (SBA) Walk 50ft with 2 Turns (QC): 4 (SBA) Walk 150 ft (QC): 4 (SBA) Walking 10ft on Uneven Surface: 4 (CGA) 1 Step (curb) (QC): 4 (CGA) 4 Steps (QC): 4 (CGA) 12 Steps (QC): 88 Picking up an Object (QC): 88 Wheel 50 feet with 2 turns (QC: 9 Wheel 150 feet: 9 PT Plan Treatment/Plan Treatment Plan: Continue Plan of Care Treatment Plan: Bed Mobility, Education, Functional Activity [place], Functional Strength, Group Therapy, Gait, Safety, Therapeutic Exercise, Transfers Treatment Duration: Oct 01, 2020 Frequency: At least 5 of 7 days/Wk (IRF) Estimated Hrs Per Day: 1.5 hours per day Patient and/or Family Agrees t: Yes Safety Risks/Education Patient Education: Gait Training, Transfer Techniques, Correct Positioning, Disease Process, Safety Issues Teaching Recipient: Patient Teaching Methods: Demonstration, Discussion Response to Teaching: Verbalize Understanding, Return Demonstration, Reinforcement Needed Time/GCodes Time In: 800 Time Out: 900 Total Billed Treatment Time: 60 Total Billed Treatment 1,FA20m,GT15m,EX25m ELOY WARD MOPPER Sep 14, 2020 09:06
[2020-09-14] MEDS: ENOXAPARIN 30 MG/0.3 ML (LOVENOX) SYR SC SCH (09:49)
--- NOTE | 2020-09-14 10:02 | Occupational Ther Daily Note ---
OT Current Status-Daily Note Subjective OT/ PT co-treat from [id number] with OT addressing UE movement, ADLs, and problem solving while PT addresses LE movement/ strength and w/c mob. Pt AxO, denies pain, agrees to tx. OT individual tx: [id number] Mental Status/Objective Patient Orientation: Person, Place, Situation ADL-Treatment Therapy Code Descriptions/Definitions Functional [place] Measure: 0=Not Assessed/NA 4=Minimal Assistance 1=Total Assistance 5=Supervision or Setup 2=Maximal Assistance 6=Modified [place] 3=Moderate Assistance 7=Complete IndependenceSCALE: Activities may be completed with or without assistive devices. 7-Gpgjblhxne-peubqlo completes the activity by him/herself with no assistance from a helper. 5-Set-up or Clean-up Assistance-helper sets up or cleans up; patient completes activity. [place] assists only prior to or following the activity. 4-Supervision or Touching Assistance-helper provides verbal cues and/or touching/steadying and/or contact guard assistance as patient completes activity. Assistance may be provided throughout the activity or intermittently. 3-Partial/Moderate Assistance-helper does LESS THAN HALF the effort. [place] lifts, holds or supports trunk or limbs, but provides less than half the effort. 2-Substantial/Maximal Assistance-helper does MORE THAN HALF the effort. [place] lifts or holds trunk or limbs and provides more than half the effort. 7-Vwckfpqkf-wfrdrq does ALL the effort. Patient does none of the effort to complete the activity. Or, the assistance of 2 or more helpers is required for the patient to complete the activity. If activity was not attempted, code reason: 7-Patient Refused. 9-Not Applicable-not attempted and the patient did not perform the activity before the current illness, exacerbation or injury. 10-Not Attempted due to Environmental Limitations-(lack of equipment, weather restraints, etc.). 88-Not Attempted due to Medical Conditions or Safety Concerns. Eating (QC): 5 Shower/Bathe Self (QC): 7 Upper Body Dressing (QC): 5 Lower Body Dressing (QC): 4 (SBA, completes donning/ threading on toilet with increased IND due to lower surface. ) On/Off Footwear: 6 (IND footwear (slippers)) Toileting Hygiene (QC): 4 (SBA) Toilet Transfer (QC): 4 (CGA) Other Treatment Pt ambulates to toilet CGA. Pt completes toileting/ LB dressing (increased IND with LB dressing due to low surface). Completes ambulation to gym, completes bed mob with cues from PT and completes UE stretching/ strengthening while supine to address fx activity and muscle tightness. Physical and verbal cues utilized throughout. Pt completes diaphragmatic breathing and abdominal massage with education for bowel improvement. Ambulation with physical cues for upright positioning and head positioned up for vision safety. Pt returns to room, sits in recliner and adjusted to comfort, all needs met, call light in reach. OT individual tx: Pt educated on HEP with handout and demonstration/ physical cues. Pt is handed theraband, completes 5-10 reps bilaterally of 5/5 exercises. Upon revisiting, pt able to repeat 1/5 without cues, cues for the 4/5 for remembrance. Pt denies needs, call light in reach. Left in recliner end of session comfortably. Education OT Patient Education: Correct positioning, Exercise program, Home exercise program, Progress toward Goal/Update tx plan, Purpose of tx/functional activities, Safety issues Teaching Recipient: Patient Teaching Methods: Demonstration, Handout, Discussion Response to Teaching: Verbalize Understanding, Return Demonstration OT Short Term Goals Short Term Goals Time Frame: Sep 26, 2020 Oral hygiene: 4 Toileting hygiene: 4 Shower/bathe self: 3 Upper body dressin Lower body dressin Putting on/taking off footwear: 4 OT Hardware Supplies Sales Representative Goals Hardware Supplies Sales Representative Goals Time Frame: Oct 05, 2020 Eating (QC): 6 Oral Hygiene (QC): 6 Toileting Hygiene (QC): 6 Shower/Bathe Self (QC): 4 Upper Body Dressing (QC): 5 Lower Body Dressing (QC): 5 On/Off Footwear (QC): 5 Additional Goals: 1-Demonstrate ADL Tasks, 2-Verbalize Understanding, 3- ImproveStrength/Victor Manuel 1=Demonstrate adherence to instructed precautions during ADL tasks. 2=Patient will verbalize/demonstrate understanding of assistive devices/modifications for ADL. 3=Patient will improve strength/tolerance for activity to enable patient to perform ADL's. OT Education/Plan Problem List/Assessment Assessment: Decreased Activ Tolerance, Decreased UE Strength, Dependent Transfers, Impaired Bed Mobility, Impaired Funct Balance, Impaired I ADL's, Impaired Self-Care Skills Discharge Recommendations Plan/Recommendations: Continue POC Therapy Discharge Recommendati: Bath Aide, Home & Family Treatment Plan/Plan of Care Treatment,Training & Education: Yes Patient would benefit from OT for education, treatment and training to promote independence in ADL's, mobility, safety and/or upper extremity function for ADL's. Plan of Care: ADL Retraining, Functional Mobility, Group Exercise/Act as Ind, UE Funct Exercise/Act Treatment Duration: Oct 05, 2020 Frequency: At least 5 of 7 days/Wk (IRF) Estimated Hrs Per Day: 1.5 hours per day Rehab Potential: Good Time/GCodes Start Time: 08:00 (1400) Stop Time: 09:00 (1430) Total Time Billed (hr/min): 90 Billed Treatment Time OT/ PT co-treat from [id number] with OT addressing UE movement, ADLs, and problem solving while PT addresses LE movement/ strength and w/c mob. 1, ADL, EX 3 (60) OT individual tx: [id number] (30) 1, EX 2 (30) JAZIEL COOK OTR Sep 14, 2020 10:02
--- NOTE | 2020-09-14 10:08 | PM&R Progress Note ---
Subjective HPI/CC On Admission Date Seen by Provider: Sep 14, 2020 Time Seen by Provider: 09:45 Subjective/Events-last exam 09/14/20: Patient doing well Small BM yesterday so will continue to work on that PT OT helping patient regain independence 09/13/20: Patient in good mood Ambulating better today Feet are "less frozen" per patient BM regimen will be intensified 09/12/20: Pt doing pretty well Levodopa maintained every two hours Asked me about Parkinsons and I updated her on some details Bowels moved two days ago so will initiate laxatives Review of Systems General: Fatigue, Malaise Neurological: Weakness Objective Exam Vital Signs Vital Signs Date Time Temp Pulse Resp B/P (MAP) Pulse Ox O2 Delivery O2 Flow Rate FiO2 09/15/20 05:50 36.8 76 18 168/75 (106) 92 Room Air 09/10/20 13:56 21 Capillary Refill : General Appearance: No Apparent Distress, WD/WN, Chronically ill HEENT: PERRL/EOMI, Normal ENT Inspection, Pharynx Normal Neck: Full Range of Motion, Normal Inspection, Non Tender, Supple, Carotid Bruit Respiratory: Chest Non Tender, Lungs Clear, Normal Breath Sounds, No Accessory Muscle Use, No Respiratory Distress Cardiovascular: Regular Rate, Rhythm, No Edema, No Gallop, No JVD, No Murmur, Normal Peripheral Pulses Gastrointestinal: Normal Bowel Sounds, No Organomegaly, No Pulsatile Mass, Non Tender, Soft Back: Normal Inspection, No CVA Tenderness, No Vertebral Tenderness Extremity: Normal Capillary Refill, Normal Inspection, Normal Range of Motion, Non Tender, No Calf Tenderness, No Pedal Edema Neurologic/Psychiatric: Alert, Oriented x3, No Motor/Sensory Deficits, Normal Mood/Affect, Abnormal Gait, Disoriented (poor recall), Motor Weakness Skin: Normal Color, Warm/Dry Lymphatic: No Adenopathy Results/Procedures Lab Patient resulted labs reviewed. FIM Transfers Therapy Code Descriptions/Definitions Functional [place] Measure: 0=Not Assessed/NA 4=Minimal Assistance 1=Total Assistance 5=Supervision or Setup 2=Maximal Assistance 6=Modified [place] 3=Moderate Assistance 7=Complete IndependenceSCALE: Activities may be completed with or without assistive devices. 3-Vzpnwhrzsl-lueiaca completes the activity by him/herself with no assistance from a helper. 5-Set-up or Clean-up Assistance-helper sets up or cleans up; patient completes activity. [place] assists only prior to or following the activity. 4-Supervision or Touching Assistance-helper provides verbal cues and/or touching/steadying and/or contact guard assistance as patient completes activity. Assistance may be provided throughout the activity or intermittently. 3-Partial/Moderate Assistance-helper does LESS THAN HALF the effort. [place] lifts, holds or supports trunk or limbs, but provides less than half the effort. 2-Substantial/Maximal Assistance-helper does MORE THAN HALF the effort. [place] lifts or holds trunk or limbs and provides more than half the effort. 1-Zqmjhpntt-ocmvxn does ALL the effort. Patient does none of the effort to complete the activity. Or, the assistance of 2 or more helpers is required for the patient to complete the activity. If activity was not attempted, code reason: 7-Patient Refused. 9-Not Applicable-not attempted and the patient did not perform the activity before the current illness, exacerbation or injury. 10-Not Attempted due to Environmental Limitations-(lack of equipment, weather restraints, etc.). 88-Not Attempted due to Medical Conditions or Safety Concerns. Roll Left to Right (QC): 6 Sit to Lying (QC): 3 Sit to Stand (QC): 4 Chair/Fyj-mx-Kjnuw Xfer(QC): 3 Car Transfer (QC): 3 Gait Training Does the Patient Walk?: Yes Distance: 15' Walk 10 feet (QC): 4 Walk 50 ft with 2 Turns(QC): 4 Walk 150 ft (QC): 4 Walking 10ft/uneven surface-QC: 3 Gait Persons Needed: 1 Gait Assistive Device: FWW Wheelchair Training Does the Pt Use a Wheelchair?: No Wheel 50 ft with 2 turns (QC): 9 Wheel 150 ft (QC): 9 Stair Training #of Steps: 1 1 Step (curb) (QC): 3 4 Steps (QC): 88 12 Steps (QC): 88 Balance Picking up an Object (QC): 88 ADL-Treatment Eating (QC): 5 Oral Hygiene (QC): 4 (SBA at sink.) Bathing Location: L Arm, R Arm, L Upper Leg, R Upper Leg, Chest, Abdomen, Buttocks, Perineal Area Shower/Bathe Self (QC): 7 Upper Body Dressing (QC): 5 Lower Body Dressing (QC): 4 (SBA, completes donning/ threading on toilet with increased IND due to lower surface. ) On/Off Footwear (QC): 6 (IND footwear (slippers)) Toileting Hygiene (QC): 4 (SBA) Toilet Transfer (QC): 4 (CGA) Assessment/Plan Assessment and Plan Assess & Plan/Chief Complaint Assessment: Parkinson's disease with severe weakness h/o falls HTN malignant type Advanced age Cognitive deficit 23/30 SLUMS Edema Somatic complaints Abnormal UA contaminant on Cx Plan: IRF protocol Monitor closely especially BP Sinemet per home dose BM regimen and maintain at home at DC VITA/NOA wraps 09/12/20: Monitor edema BM regimen Fall risk Monitor BP closely 09/13/20: Increase laxatives and assure BM produced Monitor pain Fall risk 09/14/20: Increase BM regimen to evacuate PD management (1) Parkinson disease (2) Hypertension (3) Weakness Status: Acute (4) Constipation TIMUR MARTÍNEZ DO Sep 14, 2020 10:08
--- NOTE | 2020-09-14 13:28 | Physical Therapy Daily Note ---
PT Daily Note-Current Subjective Agreeable to Rx. Pain Location: No Pain Reported Mental Status Patient Orientation: Normal For Age Transfers SCALE: Activities may be completed with or without assistive devices. 0-Kyohufumkn-herrmis completes the activity by him/herself with no assistance from a helper. 5-Set-up or Clean-up Assistance-helper sets up or cleans up; patient completes activity. [place] assists only prior to or following the activity. 4-Supervision or Touching Assistance-helper provides verbal cues and/or touching/steadying and/or contact guard assistance as patient completes activity. Assistance may be provided throughout the activity or intermittently. 3-Partial/Moderate Assistance-helper does LESS THAN HALF the effort. [place] lifts, holds or supports trunk or limbs, but provides less than half the effort. 2-Substantial/Maximal Assistance-helper does MORE THAN HALF the effort. [place] lifts or holds trunk or limbs and provides more than half the effort. 5-Usglcbtkg-glzwtc does ALL the effort. Patient does none of the effort to complete the activity. Or, the assistance of 2 or more helpers is required for the patient to complete the activity. If activity was not attempted, code reason: 7-Patient Refused. 9-Not Applicable-not attempted and the patient did not perform the activity before the current illness, exacerbation or injury. 10-Not Attempted due to Environmental Limitations-(lack of equipment, weather restraints, etc.). 88-Not Attempted due to Medical Conditions or Safety Concerns. in out chair, on off toilet CGA to SBA Weight Bearing Full Weight Bearing Full Weight Bearing Gait Training Does the Patient Walk?: Yes Gait Assistive Device: FWW [id number] FWW min to CGA with constant cues for position in FWW and broader DENISE, pt. occas on 2 wheels tipping walker to right Exercises NuStep Minutes: 8 NuStep Workload: 3 Treatments toileted with assist for pants up after and min assist at sink for paper towels, nustep used to achieve full ROM and "BIG " movement Assessment Current Status: Good Progress PT Short Term Goals Short Term Goals Time Frame: Sep 17, 2020 Roll Left & Right: 6 Sit to lyin Lying to sitting on side of be: 6 Sit to stand: 4 Chair/pxw-wi-sufzn transfer: 4 Walk 10 feet: 4 Walk 50 feet with two turns: 4 Walk 150 feet: 4 PT Detention Goals Detention Goals PT Attending Pathologist Goals Time Frame: Oct 01, 2020 Roll Left & Right (QC): 6 Sit to Lying (QC): 6 Lying-Sitting on Side/Bed(QC): 6 Sit to Stand (QC): 4 (SBA) Chair/Kfa-mf-Cetoc Xfer(QC): 4 (SBA) Toilet Transfer (QC): 4 (SBA) Car Transfer (QC): 4 (SBA) Does the Patient Walk: Yes Walk 10 feet (QC): 4 (SBA) Walk 50ft with 2 Turns (QC): 4 (SBA) Walk 150 ft (QC): 4 (SBA) Walking 10ft on Uneven Surface: 4 (CGA) 1 Step (curb) (QC): 4 (CGA) 4 Steps (QC): 4 (CGA) 12 Steps (QC): 88 Picking up an Object (QC): 88 Wheel 50 feet with 2 turns (QC: 9 Wheel 150 feet: 9 PT Plan Treatment/Plan Treatment Plan: Continue Plan of Care Treatment Plan: Bed Mobility, Education, Functional Activity Victor Manuel, Functional Strength, Group Therapy, Gait, Safety, Therapeutic Exercise, Transfers Treatment Duration: Oct 01, 2020 Frequency: At least 5 of 7 days/Wk (IRF) Estimated Hrs Per Day: 1.5 hours per day Patient and/or Family Agrees t: Yes Safety Risks/Education Patient Education: Gait Training, Transfer Techniques, Correct Positioning, Disease Process, Safety Issues Teaching Recipient: Patient Teaching Methods: Demonstration, Discussion Response to Teaching: Verbalize Understanding, Return Demonstration, Reinforcement Needed Time/GCodes Time In: 1255 Time Out: 1325 Total Billed Treatment Time: 30 Total Billed Treatment 1,GT15m,EX15m ELOY WARD PAPER [place] MACHINE TENDER Sep 14, 2020 13:27
[2020-09-14] MEDS: ONDANSETRON 4 MG (ZOFRAN) ORAL DISSOLVE TAB PO PRN (15:32)
[2020-09-14 17:02] VITALS: BP 171/74
[2020-09-14] MEDS: BISACODYL 10 MG SUPP (DULCOLAX) PR PRN (17:35)
[2020-09-14] MEDS: cloNIDine 0.1 MG (CATAPRES) TAB PO SCH (20:26)
[2020-09-15] MEDS: SINEMET 25/100 (CARBIDOPA/LEVODOPA) TAB PO SCH ×11 (02:04→21:58)
[2020-09-15 05:50] VITALS: BP 168/75
--- NOTE | 2020-09-15 07:26 | PM&R Progress Note ---
Subjective HPI/CC On Admission Date Seen by Provider: Sep 15, 2020 Time Seen by Provider: 12:15 Subjective/Events-last exam 09/15/20: Patient in a good mood No pain reported Checked meds and labs Laxatives will continue 09/14/20: Patient doing well Small BM yesterday so will continue to work on that PT OT helping patient regain independence 09/13/20: Patient in good mood Ambulating better today Feet are "less frozen" per patient BM regimen will be intensified 09/12/20: Pt doing pretty well Levodopa maintained every two hours Asked me about Parkinsons and I updated her on some details Bowels moved two days ago so will initiate laxatives Review of Systems General: Fatigue Gastrointestinal: Constipation Neurological: Weakness, Incoordination Objective Exam Vital Signs Vital Signs Date Time Temp Pulse Resp B/P (MAP) Pulse Ox O2 Delivery O2 Flow Rate FiO2 09/15/20 16:00 36.4 84 16 144/63 (90) 94 Room Air 09/10/20 13:56 21 Capillary Refill : General Appearance: No Apparent Distress, WD/WN, Chronically ill HEENT: PERRL/EOMI, Normal ENT Inspection, Pharynx Normal Neck: Full Range of Motion, Normal Inspection, Non Tender, Supple, Carotid Bruit Respiratory: Chest Non Tender, Lungs Clear, Normal Breath Sounds, No Accessory Muscle Use, No Respiratory Distress Cardiovascular: Regular Rate, Rhythm, No Edema, No Gallop, No JVD, No Murmur, Normal Peripheral Pulses Gastrointestinal: Normal Bowel Sounds, No Organomegaly, No Pulsatile Mass, Non Tender, Soft Back: Normal Inspection, No CVA Tenderness, No Vertebral Tenderness Extremity: Normal Capillary Refill, Normal Inspection, Normal Range of Motion, Non Tender, No Calf Tenderness, No Pedal Edema Neurologic/Psychiatric: Alert, Oriented x3, No Motor/Sensory Deficits, Normal Mood/Affect, Abnormal Gait, Disoriented (poor recall), Motor Weakness Skin: Normal Color, Warm/Dry Lymphatic: No Adenopathy Results/Procedures Lab Patient resulted labs reviewed. FIM Transfers Therapy Code Descriptions/Definitions Functional [place] Measure: 0=Not Assessed/NA 4=Minimal Assistance 1=Total Assistance 5=Supervision or Setup 2=Maximal Assistance 6=Modified [place] 3=Moderate Assistance 7=Complete IndependenceSCALE: Activities may be completed with or without assistive devices. 1-Tzehtqifbx-jzffqjd completes the activity by him/herself with no assistance from a helper. 5-Set-up or Clean-up Assistance-helper sets up or cleans up; patient completes activity. [place] assists only prior to or following the activity. 4-Supervision or Touching Assistance-helper provides verbal cues and/or touching/steadying and/or contact guard assistance as patient completes activity. Assistance may be provided throughout the activity or intermittently. 3-Partial/Moderate Assistance-helper does LESS THAN HALF the effort. [place] lifts, holds or supports trunk or limbs, but provides less than half the effort. 2-Substantial/Maximal Assistance-helper does MORE THAN HALF the effort. [place] lifts or holds trunk or limbs and provides more than half the effort. 9-Pvvhtcqvb-rwtewn does ALL the effort. Patient does none of the effort to complete the activity. Or, the assistance of 2 or more helpers is required for the patient to complete the activity. If activity was not attempted, code reason: 7-Patient Refused. 9-Not Applicable-not attempted and the patient did not perform the activity before the current illness, exacerbation or injury. 10-Not Attempted due to Environmental Limitations-(lack of equipment, weather restraints, etc.). 88-Not Attempted due to Medical Conditions or Safety Concerns. Roll Left to Right (QC): 4 Sit to Lying (QC): 4 Sit to Stand (QC): 4 Chair/Dkc-mq-Uwcaa Xfer(QC): 3 Car Transfer (QC): 3 Gait Training Does the Patient Walk?: Yes Distance: 15' Walk 10 feet (QC): 4 Walk 50 ft with 2 Turns(QC): 4 Walk 150 ft (QC): 4 Walking 10ft/uneven surface-QC: 3 Gait Persons Needed: 1 Gait Assistive Device: FWW Wheelchair Training Does the Pt Use a Wheelchair?: No Wheel 50 ft with 2 turns (QC): 9 Wheel 150 ft (QC): 9 Stair Training #of Steps: 1 1 Step (curb) (QC): 3 4 Steps (QC): 88 12 Steps (QC): 88 Balance Picking up an Object (QC): 88 ADL-Treatment Eating (QC): 5 Oral Hygiene (QC): 4 (SBA at sink.) Bathing Location: L Arm, R Arm, L Upper Leg, R Upper Leg, Chest, Abdomen, Buttocks, Perineal Area Shower/Bathe Self (QC): 7 Upper Body Dressing (QC): 5 Lower Body Dressing (QC): 4 (SBA, completes donning/ threading on toilet with increased IND due to lower surface. ) On/Off Footwear (QC): 6 (IND footwear (slippers)) Toileting Hygiene (QC): 4 (SBA) Toilet Transfer (QC): 4 (CGA) Assessment/Plan Assessment and Plan Assess & Plan/Chief Complaint Assessment: Parkinson's disease with severe weakness h/o falls HTN malignant type Advanced age Cognitive deficit SLUMS Edema Somatic complaints Abnormal UA contaminant on Cx Plan: IRF protocol Monitor closely especially BP Sinemet per home dose BM regimen and maintain at home at DC VITA/NOA wraps 09/12/20: Monitor edema BM regimen Fall risk Monitor BP closely 09/13/20: Increase laxatives and assure BM produced Monitor pain Fall risk 09/14/20: Increase BM regimen to evacuate PD management 09/15/20: Want to go home soon Son will help her at home (1) Parkinson disease (2) Hypertension (3) Weakness Status: Acute (4) Constipation TIMUR MARTÍNEZ DO Sep 15, 2020 07:26
[2020-09-15] MEDS: SENNA W/DOCUSATE (SENOKOT S) TABLET PO SCH ×2 (08:19→20:05)
[2020-09-15] MEDS: PANTOPRAZOLE 40 MG (PROTONIX) TAB PO SCH ×2 (08:19→20:05)
[2020-09-15] MEDS: GABAPENTIN 300 MG (NEURONTIN) CAP PO SCH ×2 (08:19→20:05)
[2020-09-15] MEDS: LEVOTHYROXINE 112 MCG (LEVOTHROID) TAB PO SCH (08:19)
[2020-09-15] MEDS: ONDANSETRON 4 MG (ZOFRAN) ORAL DISSOLVE TAB PO PRN (08:19)
[2020-09-15] MEDS: amLODIPine 5 MG (NORVASC) TAB PO SCH (08:19)
[2020-09-15] MEDS: ASPIRIN E.C. 81 MG (ECOTRIN) TAB PO SCH (08:19)
[2020-09-15] MEDS: DOCUSATE SODIUM 100 MG (COLACE) CAP PO SCH ×3 (09:09→20:05)
[2020-09-15] MEDS: polyethylene glycoL POWDER 17 GM (MIRALAX) PACK PO SCH ×2 (09:42→20:05)
[2020-09-15] MEDS: ENOXAPARIN 30 MG/0.3 ML (LOVENOX) SYR SC SCH (09:43)
--- NOTE | 2020-09-15 11:53 | Physical Therapy Daily Note ---
PT Daily Note-Current Subjective Pt up in chair, agreeable. Denies pain. Mental Status Patient Orientation: Person, Place, Time, Situation Transfers SCALE: Activities may be completed with or without assistive devices. 0-Buqbcffizk-wyshddt completes the activity by him/herself with no assistance from a helper. 5-Set-up or Clean-up Assistance-helper sets up or cleans up; patient completes activity. [place] assists only prior to or following the activity. 4-Supervision or Touching Assistance-helper provides verbal cues and/or touc robbi/steadying and/or contact guard assistance as patient completes activity. Assistance may be provided throughout the activity or intermittently. 3-Partial/Moderate Assistance-helper does LESS THAN HALF the effort. [place] lifts, holds or supports trunk or limbs, but provides less than half the effort. 2-Substantial/Maximal Assistance-helper does MORE THAN HALF the effort. [place] lifts or holds trunk or limbs and provides more than half the effort. 8-Fmkhngtdu-okezkj does ALL the effort. Patient does none of the effort to complete the activity. Or, the assistance of 2 or more helpers is required for the patient to complete the activity. If activity was not attempted, code reason: 7-Patient Refused. 9-Not Applicable-not attempted and the patient did not perform the activity before the current illness, exacerbation or injury. 10-Not Attempted due to Environmental Limitations-(lack of equipment, weather restraints, etc.). 88-Not Attempted due to Medical Conditions or Safety Concerns. Sit to Stand (QC): 4 Toilet Transfer (QC): 4 CGA for sit<->stand and toilet transfers Weight Bearing Right Lower Extremity: Right Full Weight Bearing Left Lower Extremity: Left Full Weight Bearing Gait Training Does the Patient Walk?: Yes Distance: 100 Walk 10 feet (QC): 4 Walk 50 ft with 2 Turns(QC): 4 Gait Persons Needed: 1 Gait Assistive Device: FWW Pt ambulated 100' x 2 with FWW with CGA x 1. Occasional VCS for directing walker. Exercises Seated Reps: 12 Seated scapular retractions, thoracic extensions and trunk rotations. Treatments Gait training, postural exercises. Returned to chair with needs met. Assessment Current Status: Good Progress Pt tolerated well. No LOB, safe use of walker this date. PT Short Term Goals Short Term Goals Time Frame: Sep 17, 2020 Roll Left & Right: 6 Sit to lyin Lying to sitting on side of be: 6 Sit to stand: 4 Chair/wbq-bc-ciijo transfer: 4 Walk 10 feet: 4 Walk 50 feet with two turns: 4 Walk 150 feet: 4 PT Nursing Home Goals Nurse Sexual Assault Goals PT Nursing Home Goals Time Frame: Oct 01, 2020 Roll Left & Right (QC): 6 Sit to Lying (QC): 6 Lying-Sitting on Side/Bed(QC): 6 Sit to Stand (QC): 4 (SBA) Chair/Zin-rb-Pywmj Xfer(QC): 4 (SBA) Toilet Transfer (QC): 4 (SBA) Car Transfer (QC): 4 (SBA) Does the Patient Walk: Yes Walk 10 feet (QC): 4 (SBA) Walk 50ft with 2 Turns (QC): 4 (SBA) Walk 150 ft (QC): 4 (SBA) Walking 10ft on Uneven Surface: 4 (CGA) 1 Step (curb) (QC): 4 (CGA) 4 Steps (QC): 4 (CGA) 12 Steps (QC): 88 Picking up an Object (QC): 88 Wheel 50 feet with 2 turns (QC: 9 Wheel 150 feet: 9 PT Plan Problem List Problem List: Activity Tolerance, Functional Strength, Safety, Balance, Gait, Transfer, Bed Mobility Treatment/Plan Treatment Plan: Continue Plan of Care Treatment Plan: Bed Mobility, Education, Functional Activity Victor Manuel, Functional Strength, Group Therapy, Gait, Safety, Therapeutic Exercise, Transfers Treatment Duration: Oct 01, 2020 Frequency: At least 5 of 7 days/Wk (IRF) Estimated Hrs Per Day: 1.5 hours per day Patient and/or Family Agrees t: Yes Time/GCodes Time In: 928 Time Out: 947 Total Billed Treatment Time: 19 Total Billed Treatment 1, GT x 12' (Ex x 7') EDOUARD BLOCK DPHerman Sep 15, 2020 11:53
[2020-09-15 16:00] VITALS: BP 144/63
[2020-09-15] MEDS: cloNIDine 0.1 MG (CATAPRES) TAB PO SCH (20:04)
[2020-09-16] MEDS: SINEMET 25/100 (CARBIDOPA/LEVODOPA) TAB PO SCH ×12 (00:01→22:25)
[2020-09-16 06:06] VITALS: BP 157/67
[2020-09-16] MEDS: PANTOPRAZOLE 40 MG (PROTONIX) TAB PO SCH ×2 (07:37→20:16)
[2020-09-16] MEDS: GABAPENTIN 300 MG (NEURONTIN) CAP PO SCH ×2 (07:37→20:16)
[2020-09-16] MEDS: ASPIRIN E.C. 81 MG (ECOTRIN) TAB PO SCH (07:37)
[2020-09-16] MEDS: DOCUSATE SODIUM 100 MG (COLACE) CAP PO SCH ×3 (07:37→20:15)
[2020-09-16] MEDS: amLODIPine 5 MG (NORVASC) TAB PO SCH (07:37)
[2020-09-16] MEDS: LEVOTHYROXINE 112 MCG (LEVOTHROID) TAB PO SCH (07:37)
[2020-09-16] MEDS: polyethylene glycoL POWDER 17 GM (MIRALAX) PACK PO SCH ×2 (07:38→20:15)
[2020-09-16] MEDS: SENNA W/DOCUSATE (SENOKOT S) TABLET PO SCH ×2 (07:38→20:15)
[2020-09-16] MEDS: ENOXAPARIN 30 MG/0.3 ML (LOVENOX) SYR SC SCH (10:11)
--- NOTE | 2020-09-16 12:45 | PM&R Progress Note ---
Subjective HPI/CC On Admission Date Seen by Provider: Sep 16, 2020 Time Seen by Provider: 12:45 Subjective/Events-last exam 09/16/20: Not having evacuation of bowels SSE will be ordered No falls 09/15/20: Patient in a good mood No pain reported Checked meds and labs Laxatives will continue 09/14/20: Patient doing well Small BM yesterday so will continue to work on that PT OT helping patient regain independence 09/13/20: Patient in good mood Ambulating better today Feet are "less frozen" per patient BM regimen will be intensified 09/12/20: Pt doing pretty well Levodopa maintained every two hours Asked me about Parkinsons and I updated her on some details Bowels moved two days ago so will initiate laxatives Review of Systems General: Fatigue Gastrointestinal: Constipation Neurological: Weakness Objective Exam Vital Signs Vital Signs Date Time Temp Pulse Resp B/P (MAP) Pulse Ox O2 Delivery O2 Flow Rate FiO2 09/16/20 09:00 Room Air 09/16/20 06:06 36.2 74 17 157/67 (97) 93 09/10/20 13:56 21 Capillary Refill : General Appearance: No Apparent Distress, WD/WN, Chronically ill HEENT: PERRL/EOMI, Normal ENT Inspection, Pharynx Normal Neck: Full Range of Motion, Normal Inspection, Non Tender, Supple, Carotid Bruit Respiratory: Chest Non Tender, Lungs Clear, Normal Breath Sounds, No Accessory Muscle Use, No Respiratory Distress Cardiovascular: Regular Rate, Rhythm, No Edema, No Gallop, No JVD, No Murmur, Normal Peripheral Pulses Gastrointestinal: Normal Bowel Sounds, No Organomegaly, No Pulsatile Mass, Non Tender, Soft Back: Normal Inspection, No CVA Tenderness, No Vertebral Tenderness Extremity: Normal Capillary Refill, Normal Inspection, Normal Range of Motion, Non Tender, No Calf Tenderness, No Pedal Edema Neurologic/Psychiatric: Alert, Oriented x3, No Motor/Sensory Deficits, Normal Mood/Affect, Abnormal Gait, Disoriented (poor recall), Motor Weakness Skin: Normal Color, Warm/Dry Lymphatic: No Adenopathy Results/Procedures Lab Patient resulted labs reviewed. FIM Transfers Therapy Code Descriptions/Definitions Functional [place] Measure: 0=Not Assessed/NA 4=Minimal Assistance 1=Total Assistance 5=Supervision or Setup 2=Maximal Assistance 6=Modified [place] 3=Moderate Assistance 7=Complete IndependenceSCALE: Activities may be completed with or without assistive devices. 6-Nwnfptedxv-dljbqfb completes the activity by him/herself with no assistance from a helper. 5-Set-up or Clean-up Assistance-helper sets up or cleans up; patient completes activity. [place] assists only prior to or following the activity. 4-Supervision or Touching Assistance-helper provides verbal cues and/or touching/steadying and/or contact guard assistance as patient completes activity. Assistance may be provided throughout the activity or intermittently. 3-Partial/Moderate Assistance-helper does LESS THAN HALF the effort. [place] lifts, holds or supports trunk or limbs, but provides less than half the effort. 2-Substantial/Maximal Assistance-helper does MORE THAN HALF the effort. [place] lifts or holds trunk or limbs and provides more than half the effort. 4-Iezfaxhot-vslijl does ALL the effort. Patient does none of the effort to complete the activity. Or, the assistance of 2 or more helpers is required for the patient to complete the activity. If activity was not attempted, code reason: 7-Patient Refused. 9-Not Applicable-not attempted and the patient did not perform the activity before the current illness, exacerbation or injury. 10-Not Attempted due to Environmental Limitations-(lack of equipment, weather restraints, etc.). 88-Not Attempted due to Medical Conditions or Safety Concerns. Roll Left to Right (QC): 4 Sit to Lying (QC): 4 Sit to Stand (QC): 4 Chair/Phy-qx-Mvsol Xfer(QC): 3 Car Transfer (QC): 3 Gait Training Does the Patient Walk?: Yes Distance: 100 Walk 10 feet (QC): 4 Walk 50 ft with 2 Turns(QC): 4 Walk 150 ft (QC): 4 Walking 10ft/uneven surface-QC: 3 Gait Persons Needed: 1 Gait Assistive Device: FWW Wheelchair Training Does the Pt Use a Wheelchair?: No Wheel 50 ft with 2 turns (QC): 9 Wheel 150 ft (QC): 9 Stair Training #of Steps: 1 1 Step (curb) (QC): 3 4 Steps (QC): 88 12 Steps (QC): 88 Balance Picking up an Object (QC): 88 ADL-Treatment Eating (QC): 5 Oral Hygiene (QC): 4 (SBA at sink.) Bathing Location: L Arm, R Arm, L Upper Leg, R Upper Leg, Chest, Abdomen, Buttocks, Perineal Area Shower/Bathe Self (QC): 7 Upper Body Dressing (QC): 5 Lower Body Dressing (QC): 4 (SBA, completes donning/ threading on toilet with increased IND due to lower surface. ) On/Off Footwear (QC): 6 (IND footwear (slippers)) Toileting Hygiene (QC): 4 (SBA) Toilet Transfer (QC): 4 (CGA) Assessment/Plan Assessment and Plan Assess & Plan/Chief Complaint Assessment: Parkinson's disease with severe weakness h/o falls HTN malignant type Advanced age Cognitive deficit SLUMS Edema Somatic complaints Abnormal UA contaminant on Cx Plan: IRF protocol Monitor closely especially BP Sinemet per home dose BM regimen and maintain at home at DC VITA/NOA wraps 09/12/20: Monitor edema BM regimen Fall risk Monitor BP closely 09/13/20: Increase laxatives and assure BM produced Monitor pain Fall risk 09/14/20: Increase BM regimen to evacuate PD management 09/15/20: Want to go home soon Son will help her at home 09/16/20: Constipation SSE Monitor closely (1) Parkinson disease (2) Hypertension (3) Weakness Status: Acute (4) Constipation TIMUR MARTÍNEZ DO Sep 16, 2020 12:45
[2020-09-16] MEDS: LACTULOSE SYRUP 10GM/15ML (ENULOSE) 30ML UDC PO PRN ×2 (13:48→20:16)
[2020-09-16 17:03] VITALS: BP 166/74
[2020-09-16] MEDS: BISACODYL 10 MG SUPP (DULCOLAX) PR PRN (17:16)
[2020-09-16 20:00] VITALS: BP 140/65
[2020-09-16] MEDS: cloNIDine 0.1 MG (CATAPRES) TAB PO SCH (20:15)
[2020-09-16 20:21] VITALS: BP 140/65
[2020-09-17] MEDS: SINEMET 25/100 (CARBIDOPA/LEVODOPA) TAB PO SCH ×12 (02:18→22:27)
[2020-09-17 05:35] LABS: BASOPHILS % (AUTO) 1 % (0-10); EOSINOPHILS % (AUTO) 0 % (0-10); HEMATOCRIT 37 % (35-52); HEMOGLOBIN 12.3 g/dL (11.5-16.0); LYMPHOCYTES # (AUTO) 1.3 10^3/uL (1.0-4.0); LYMPHOCYTES % (AUTO) 26 % (12-44); MEAN CORPUSCULAR HEMOGLOBIN 31 pg (25-34); MEAN CORPUSCULAR HGB CONC 33 g/dL (32-36); MEAN CORPUSCULAR VOLUME 93 fL (80-99); MEAN PLATELET VOLUME 8.8 fL (9.0-12.2); MONOCYTES # (AUTO) 0.5 10^3/uL (0.0-1.0); MONOCYTES % (AUTO) 10 % (0-12); NEUTROPHILS # (AUTO) 3.1 10^3/uL (1.8-7.8); NEUTROPHILS % (AUTO) 63 % (42-75); PLATELET COUNT 213 10^3/uL (130-400)
[2020-09-17 05:47] VITALS: BP 168/77
[2020-09-17 06:04] LABS: ALANINE AMINOTRANSFERASE 6 U/L (0-55); ALBUMIN 3.4 GM/DL (3.2-4.5); ALKALINE PHOSPHATASE 61 U/L (40-136); BILIRUBIN,TOTAL 0.2 MG/DL (0.1-1.0); BUN/CREATININE RATIO 21; CALCIUM 8.4 MG/DL (8.5-10.1); CARBON DIOXIDE 23 MMOL/L (21-32); CHLORIDE 101 MMOL/L (98-107); CREATININE SERUM 0.86 MG/DL (0.60-1.30); GFR ESTIMATED > 60; GLUCOSE 95 MG/DL (70-105); POTASSIUM 4.3 MMOL/L (3.6-5.0); SODIUM 134 MMOL/L (135-145); TOTAL PROTEIN 5.7 GM/DL (6.4-8.2)
[2020-09-17 07:46] VITALS: BP 99/50
[2020-09-17] MEDS: PANTOPRAZOLE 40 MG (PROTONIX) TAB PO SCH ×2 (07:48→20:06)
[2020-09-17] MEDS: LEVOTHYROXINE 112 MCG (LEVOTHROID) TAB PO SCH (07:48)
[2020-09-17] MEDS: DOCUSATE SODIUM 100 MG (COLACE) CAP PO SCH ×3 (07:49→20:06)
[2020-09-17] MEDS: GABAPENTIN 300 MG (NEURONTIN) CAP PO SCH ×2 (07:49→20:05)
[2020-09-17] MEDS: ASPIRIN E.C. 81 MG (ECOTRIN) TAB PO SCH (07:49)
[2020-09-17] MEDS: SENNA W/DOCUSATE (SENOKOT S) TABLET PO SCH ×2 (08:27→20:06)
[2020-09-17] MEDS: polyethylene glycoL POWDER 17 GM (MIRALAX) PACK PO SCH ×2 (08:27→20:06)
--- NOTE | 2020-09-17 08:49 | Physical Therapy Daily Note ---
PT Daily Note-Current Subjective Pt. agrees to PT OT co Rx. States she has been having some difficulty having a complete BM. Feels she is making progress Pain Location: No Pain Reported Mental Status Patient Orientation: Normal For Age Transfers SCALE: Activities may be completed with or without assistive devices. 0-Kwvqcfqbap-ddqagra completes the activity by him/herself with no assistance from a helper. 5-Set-up or Clean-up Assistance-helper sets up or cleans up; patient completes activity. [place] assists only prior to or following the activity. 4-Supervision or Touching Assistance-helper provides verbal cues and/or touching/steadying and/or contact guard assistance as patient completes activity. Assistance may be provided throughout the activity or intermittently. 3-Partial/Moderate Assistance-helper does LESS THAN HALF the effort. [place] lifts, holds or supports trunk or limbs, but provides less than half the effort. 2-Substantial/Maximal Assistance-helper does MORE THAN HALF the effort. [place] lifts or holds trunk or limbs and provides more than half the effort. 6-Lvlnvtoad-pnydek does ALL the effort. Patient does none of the effort to complete the activity. Or, the assistance of 2 or more helpers is required for the patient to complete the activity. If activity was not attempted, code reason: 7-Patient Refused. 9-Not Applicable-not attempted and the patient did not perform the activity before the current illness, exacerbation or injury. 10-Not Attempted due to Environmental Limitations-(lack of equipment, weather restraints, etc.). 88-Not Attempted due to Medical Conditions or Safety Concerns. Sit to Stand (QC): 5 Chair/Byh-kf-Pfglh Xfer(QC): 4 Toilet Transfer (QC): 5 pt. utilizes rails in shower and at toilet for TRFs with good technique Weight Bearing Right Lower Extremity: Right Full Weight Bearing Left Lower Extremity: Left Full Weight Bearing Gait Training Does the Patient Walk?: Yes Walk 10 feet (QC): 4 Walk 50 ft with 2 Turns(QC): 4 Walk 150 ft (QC): 4 Gait Persons Needed: 1 Gait Assistive Device: FWW improved step length berna in open areas, still needs some cuing to steer around objects. better alignment in FWW Stair Training Stair Training: Handrails/: 2 handrails #of Steps: 4 4 Steps (QC): 4 Stairs: Pattern: Step to CGA and instruction with good results Treatments PT OT co Rx for showering and dressing for balance coordination for sit to stand . Pt. progressing, Assessment Current Status: Good Progress PT Short Term Goals Short Term Goals Time Frame: Sep 17, 2020 Roll Left & Right: 6 Sit to lyin Lying to sitting on side of be: 6 Sit to stand: 4 Chair/tmf-ez-bzqqr transfer: 4 Walk 10 feet: 4 Walk 50 feet with two turns: 4 Walk 150 feet: 4 PT Manager Application Goals Assisted Goals PT Manager Application Goals Time Frame: Oct 01, 2020 Roll Left & Right (QC): 6 Sit to Lying (QC): 6 Lying-Sitting on Side/Bed(QC): 6 Sit to Stand (QC): 4 (SBA) Chair/Tnd-zl-Yyerf Xfer(QC): 4 (SBA) Toilet Transfer (QC): 4 (SBA) Car Transfer (QC): 4 (SBA) Does the Patient Walk: Yes Walk 10 feet (QC): 4 (SBA) Walk 50ft with 2 Turns (QC): 4 (SBA) Walk 150 ft (QC): 4 (SBA) Walking 10ft on Uneven Surface: 4 (CGA) 1 Step (curb) (QC): 4 (CGA) 4 Steps (QC): 4 (CGA) 12 Steps (QC): 88 Picking up an Object (QC): 88 Wheel 50 feet with 2 turns (QC: 9 Wheel 150 feet: 9 PT Plan Treatment/Plan Treatment Plan: Continue Plan of Care Treatment Plan: Bed Mobility, Education, Functional Activity Victor Manuel, Functional Strength, Group Therapy, Gait, Safety, Therapeutic Exercise, Transfers Treatment Duration: Oct 01, 2020 Frequency: At least 5 of 7 days/Wk (IRF) Estimated Hrs Per Day: 1.5 hours per day Patient and/or Family Agrees t: Yes Safety Risks/Education Patient Education: Gait Training, Transfer Techniques, Steps, Correct Positioning, Disease Process, Safety Issues Teaching Recipient: Patient Teaching Methods: Demonstration, Discussion Response to Teaching: Verbalize Understanding, Return Demonstration, Reinforcement Needed Time/GCodes Time In: 800 Time Out: 845 Total Billed Treatment Time: 45 Total Billed Treatment 1,GT15m,FA30m PT OT co Rx 45 m ELOY [employer] Sep 17, 2020 08:48
--- NOTE | 2020-09-17 09:29 | Occupational Ther Daily Note ---
OT Current Status-Daily Note Subjective OT individual tx: [id number] OT/ PT co-treat: [id number]: OT addresses ADLs, problem solving, UE strength and PT addresses LE movement, gait/ balance, fx transfers. OT individual tx: Total: 90 min Pt upright in room upon entry, expresses had "great weekend"and relaxing. Pt expresses no pain and agrees to shower this date. States had enema yesterday with minimal luck. Pt expresses need for BM on/off through tx with minimal BM (half dollar size) each attempt. Mental Status/Objective Patient Orientation: Person, Place, Situation, Normal For Age ADL-Treatment Therapy Code Descriptions/Definitions Functional [place] Measure: 0=Not Assessed/NA 4=Minimal Assistance 1=Total Assistance 5=Supervision or Setup 2=Maximal Assistance 6=Modified [place] 3=Moderate Assistance 7=Complete IndependenceSCALE: Activities may be completed with or without assistive devices. 4-Ktetzzdply-wulwzcf completes the activity by him/herself with no assistance from a helper. 5-Set-up or Clean-up Assistance-helper sets up or cleans up; patient completes activity. [place] assists only prior to or following the activity. 4-Supervision or Touching Assistance-helper provides verbal cues and/or touching/steadying and/or contact guard assistance as patient completes activity. Assistance may be provided throughout the activity or intermittently. 3-Partial/Moderate Assistance-helper does LESS THAN HALF the effort. [place] lifts, holds or supports trunk or limbs, but provides less than half the effort. 2-Substantial/Maximal Assistance-helper does MORE THAN HALF the effort. [place] lifts or holds trunk or limbs and provides more than half the effort. 6-Vsrqeapkg-jxwnrs does ALL the effort. Patient does none of the effort to complete the activity. Or, the assistance of 2 or more helpers is required for the patient to complete the activity. If activity was not attempted, code reason: 7-Patient Refused. 9-Not Applicable-not attempted and the patient did not perform the activity before the current illness, exacerbation or injury. 10-Not Attempted due to Environmental Limitations-(lack of equipment, weather restraints, etc.). 88-Not Attempted due to Medical Conditions or Safety Concerns. Eating (QC): 5 Oral Hygiene (QC): 4 (SUP standing at sink.) Bathing Location: L Arm, R Arm, L Upper Leg, R Upper Leg, Chest, Abdomen, Buttocks, Perineal Area Shower/Bathe Self (QC): 3 (min A for bottom thoroughness. SBA in stance and SUP in sit. Shower transfer CGA with use of walker/ gbs.) Upper Body Dressing (QC): 5 (s/u, completes most buttons) Lower Body Dressing (QC): 3 (min A threading breifs this date due to damp skin. Min A LB dressing hike in back due to tight pants.) On/Off Footwear: 6 (IND socks/ shoes.VITA hose donned for pt, max A (this is completed for pt at home)) Toileting Hygiene (QC): 3 (min A for thoroughness due to increased BMs this date.) Toilet Transfer (QC): 4 (CGA, use of walker and gbs.) Other Treatment Pt completes toileting/ shower transfer as outlined. PT joins with co-treat during shower. Pt showers/ dresses UB and undergarments in shower, completes pant and sock donning EOB due to lowered surface. Pt ambulates through segura with minimal vc for upright posture, completes stairs with PT (see notes), ambulates back to room with OT. Pt completes UE theraband ex with emphasis on modification due to L shoulder pain (arthritic) and strengthening. Completes each exercise (4/4) with cues and repetitions until moderate fatigue rated by pt. Pt expresses she will be ready to d/c this week with assist from CG/ son and bath aide. Pt states she is at PLOF but expresses she is glad to have strengthening ex for home. States CG can assist if any questions arise with UE ex. Handout is present with pt, all needs met, call light in reach, pt is positioned in chair for comfort/ safety. Education OT Patient Education: Correct positioning, Energy conservation, Exercise program, Home exercise program, Progress toward Goal/Update tx plan, Purpose of tx/functional activities, Safety issues Teaching Recipient: Patient Teaching Methods: Demonstration, Discussion Response to Teaching: Verbalize Understanding, Return Demonstration OT Short Term Goals Short Term Goals Time Frame: Sep 26, 2020 Oral hygiene: 4 Toileting hygiene: 4 Shower/bathe self: 3 Upper body dressin Lower body dressin Putting on/taking off footwear: 4 OT [place] Supervisor Goals Long-Term Goals Time Frame: Oct 05, 2020 Eating (QC): 6 Oral Hygiene (QC): 6 Toileting Hygiene (QC): 6 Shower/Bathe Self (QC): 4 Upper Body Dressing (QC): 5 Lower Body Dressing (QC): 5 On/Off Footwear (QC): 5 Additional Goals: 1-Demonstrate ADL Tasks, 2-Verbalize Understanding, 3-ImproveStrength/Victor Manuel 1=Demonstrate adherence to instructed precautions during ADL tasks. 2=Patient will verbalize/demonstrate understanding of assistive devices/modifications for ADL. 3=Patient will improve strength/tolerance for activity to enable patient to perform ADL's. OT Education/Plan Problem List/Assessment Assessment: Decreased Activ Tolerance, Decreased UE Strength, Dependent Transfers, Impaired Funct Balance, Impaired I ADL's, Impaired Self-Care Skills Discharge Recommendations Plan/Recommendations: Continue POC Therapy Discharge Recommendati: Bath Aide, Home & Family Treatment Plan/Plan of Care Treatment,Training & Education: Yes Patient would benefit from OT for education, treatment and training to promote independence in ADL's, mobility, safety and/or upper extremity function for ADL's. Plan of Care: ADL Retraining, Functional Mobility, Group Exercise/Act as Ind, UE Funct Exercise/Act Treatment Duration: Oct 05, 2020 Frequency: At least 5 of 7 days/Wk (IRF) Estimated Hrs Per Day: 1.5 hours per day Rehab Potential: Good Time/GCodes Start Time: 07:45 Stop Time: 09:15 Total Time Billed (hr/min): 90 Billed Treatment Time OT individual tx: [id number] OT/ PT co-treat: [id number]: OT addresses ADLs, problem solving, UE strength and PT addresses LE movement, gait/ balance, fx transfers. OT individual tx: Total: 90 min 1, ADL 4 (60), EX 2 (30) JAZIEL COOK OTR Sep 17, 2020 09:29
[2020-09-17 09:36] VITALS: BP 113/55
[2020-09-17] MEDS: amLODIPine 5 MG (NORVASC) TAB PO SCH (09:37)
[2020-09-17] MEDS: ENOXAPARIN 30 MG/0.3 ML (LOVENOX) SYR SC SCH (09:41)
--- NOTE | 2020-09-17 10:37 | PM&R Progress Note ---
Subjective HPI/CC On Admission Date Seen by Provider: Sep 17, 2020 Time Seen by Provider: 10:30 Subjective/Events-last exam 09/17/20: Pt doing pretty well Bowels really evacuated after the soap-suds enema Moving around pretty well Labs are doing pretty well Discharge planned for tomorrow 09/16/20: Not having evacuation of bowels SSE will be ordered No falls 09/15/20: Patient in a good mood No pain reported Checked meds and labs Laxatives will continue 09/14/20: Patient doing well Small BM yesterday so will continue to work on that PT OT helping patient regain independence 09/13/20: Patient in good mood Ambulating better today Feet are "less frozen" per patient BM regimen will be intensified 09/12/20: Pt doing pretty well Levodopa maintained every two hours Asked me about Parkinsons and I updated her on some details Bowels moved two days ago so will initiate laxatives Review of Systems General: Fatigue, Malaise Neurological: Weakness Objective Exam Vital Signs Vital Signs Date Time Temp Pulse Resp B/P (MAP) Pulse Ox O2 Delivery O2 Flow Rate FiO2 09/17/20 21:00 Room Air 09/17/20 20:30 82 129/63 (85) 09/17/20 16:49 37.0 18 94 Capillary Refill : General Appearance: No Apparent Distress, WD/WN, Chronically ill HEENT: PERRL/EOMI, Normal ENT Inspection, Pharynx Normal Neck: Full Range of Motion, Normal Inspection, Non Tender, Supple, Carotid Bruit Respiratory: Chest Non Tender, Lungs Clear, Normal Breath Sounds, No Accessory Muscle Use, No Respiratory Distress Cardiovascular: Regular Rate, Rhythm, No Edema, No Gallop, No JVD, No Murmur, Normal Peripheral Pulses Gastrointestinal: Normal Bowel Sounds, No Organomegaly, No Pulsatile Mass, Non Tender, Soft Back: Normal Inspection, No CVA Tenderness, No Vertebral Tenderness Extremity: Normal Capillary Refill, Normal Inspection, Normal Range of Motion, Non Tender, No Calf Tenderness, No Pedal Edema Neurologic/Psychiatric: Alert, Oriented x3, No Motor/Sensory Deficits, Normal Mood/Affect, Abnormal Gait, Disoriented (poor recall), Motor Weakness Skin: Normal Color, Warm/Dry Lymphatic: No Adenopathy Results/Procedures Lab Patient resulted labs reviewed. FIM Transfers Therapy Code Descriptions/Definitions Functional [place] Measure: 0=Not Assessed/NA 4=Minimal Assistance 1=Total Assistance 5=Supervision or Setup 2=Maximal Assistance 6=Modified [place] 3=Moderate Assistance 7=Complete IndependenceSCALE: Activities may be completed with or without assistive devices. 5-Ybhuvqzeot-iotuybv completes the activity by him/herself with no assistance from a helper. 5-Set-up or Clean-up Assistance-helper sets up or cleans up; patient completes activity. [place] assists only prior to or following the activity. 4-Supervision or Touching Assistance-helper provides verbal cues and/or touching/steadying and/or contact guard assistance as patient completes activity. Assistance may be provided throughout the activity or intermittently. 3-Partial/Moderate Assistance-helper does LESS THAN HALF the effort. [place] lifts, holds or supports trunk or limbs, but provides less than half the effort. 2-Substantial/Maximal Assistance-helper does MORE THAN HALF the effort. [place] lifts or holds trunk or limbs and provides more than half the effort. 2-Eajannbkx-hmlvat does ALL the effort. Patient does none of the effort to complete the activity. Or, the assistance of 2 or more helpers is required for the patient to complete the activity. If activity was not attempted, code reason: 7-Patient Refused. 9-Not Applicable-not attempted and the patient did not perform the activity before the current illness, exacerbation or injury. 10-Not Attempted due to Environmental Limitations-(lack of equipment, weather restraints, etc.). 88-Not Attempted due to Medical Conditions or Safety Concerns. Roll Left to Right (QC): 4 Sit to Lying (QC): 4 Sit to Stand (QC): 5 Chair/Pto-uk-Bzqsy Xfer(QC): 4 Car Transfer (QC): 3 Gait Training Does the Patient Walk?: Yes Distance: 100 Walk 10 feet (QC): 4 Walk 50 ft with 2 Turns(QC): 4 Walk 150 ft (QC): 4 Walking 10ft/uneven surface-QC: 3 Gait Persons Needed: 1 Gait Assistive Device: FWW Wheelchair Training Does the Pt Use a Wheelchair?: No Wheel 50 ft with 2 turns (QC): 9 Wheel 150 ft (QC): 9 Stair Training Stair Training: Handrails/: 2 handrails #of Steps: 4 1 Step (curb) (QC): 3 4 Steps (QC): 4 12 Steps (QC): 88 Stairs: Pattern: Step to Balance Picking up an Object (QC): 88 ADL-Treatment Eating (QC): 5 Oral Hygiene (QC): 4 (SUP standing at sink.) Bathing Location: L Arm, R Arm, L Upper Leg, R Upper Leg, Chest, Abdomen, Buttocks, Perineal Area Shower/Bathe Self (QC): 3 (min A for bottom thoroughness. SBA in stance and SUP in sit. Shower transfer CGA with use of walker/ gbs.) Upper Body Dressing (QC): 5 (s/u, completes most buttons) Lower Body Dressing (QC): 3 (min A threading breifs this date due to damp skin. Min A LB dressing hike in back due to tight pants.) On/Off Footwear (QC): 6 (IND socks/ shoes.VITA hose donned for pt, max A (this is completed for pt at home)) Toileting Hygiene (QC): 3 (min A for thoroughness due to increased BMs this date.) Toilet Transfer (QC): 4 (CGA, use of walker and gbs.) Assessment/Plan Assessment and Plan Assess & Plan/Chief Complaint Assessment: Parkinson's disease with severe weakness h/o falls HTN malignant type Advanced age Cognitive deficit SLUMS Edema Somatic complaints Abnormal UA contaminant on Cx Plan: IRF protocol Monitor closely especially BP Sinemet per home dose BM regimen and maintain at home at DC VITA/NOA wraps 09/12/20: Monitor edema BM regimen Fall risk Monitor BP closely 09/13/20: Increase laxatives and assure BM produced Monitor pain Fall risk 09/14/20: Increase BM regimen to evacuate PD management 09/15/20: Want to go home soon Son will help her at home 09/16/20: Constipation SSE Monitor closely 09/17/20: Monitor BP DC tomorrow (1) Parkinson disease (2) Hypertension (3) Weakness Status: Acute (4) Constipation TIMUR MARTÍNEZ DO Sep 17, 2020 10:36
--- NOTE | 2020-09-17 15:00 | Physical Therapy Daily Note ---
PT Daily Note-Current Subjective Pt agrees to PT treatment, no complaints of pain noted. Requests to use the restroom prior to ambulating to gym Appearance Following session, pt reclined in chair with pillow under knees. Call light, phone and tray within reach, all needs met Mental Status Patient Orientation: Person, Place, Situation Transfers SCALE: Activities may be completed with or without assistive devices. 6-Kxumklokxa-vmvsoee completes the activity by him/herself with no assistance from a helper. 5-Set-up or Clean-up Assistance-helper sets up or cleans up; patient completes activity. Lesage assists only prior to or following the activity. 4-Supervision or Touching Assistance-helper provides verbal cues and/or touching/steadying and/or contact guard assistance as patient completes activity. Assistance may be provided throughout the activity or intermittently. 3-Partial/Moderate Assistance-helper does LESS THAN HALF the effort. Lesage lifts, holds or supports trunk or limbs, but provides less than half the effort. 2-Substantial/Maximal Assistance-helper does MORE THAN HALF the effort. Lesage lifts or holds trunk or limbs and provides more than half the effort. 9-Dfwbchhto-ebinoi does ALL the effort. Patient does none of the effort to complete the activity. Or, the assistance of 2 or more helpers is required for the patient to complete the activity. If activity was not attempted, code reason: 7-Patient Refused. 9-Not Applicable-not attempted and the patient did not perform the activity before the current illness, exacerbation or injury. 10-Not Attempted due to Environmental Limitations-(lack of equipment, weather restraints, etc.). 88-Not Attempted due to Medical Conditions or Safety Concerns. Roll Left & Right (QC): 6 Sit to Lying (QC): 4 Lying to Sitting/Side of Bed(Q: 3 Sit to Stand (QC): 5 Chair/Xzc-vj-Zbvrn Xfer(QC): 5 Toilet Transfer (QC): 4 Weight Bearing Right Lower Extremity: Right Full Weight Bearing Left Lower Extremity: Left Full Weight Bearing Gait Training Distance: 150' x 2 Walk 10 feet (QC): 4 Walk 50 ft with 2 Turns(QC): 4 Walk 150 ft (QC): 4 Gait Assistive Device: FWW Pt with good stride pattern in open spaces, she tends to take small shuffling steps with navigating around a chair and turning Stair Training Stair Training: Handrails/: 2 handrails #of Steps: 4 1 Step (curb) (QC): 4 4 Steps (QC): 4 12 Steps (QC): 4 Stairs: Pattern: Step to Balance Picking up an Object (QC): 3 Exercises Seated Therapy Exercises: Ankle pumps, Long arc quads, Hip flexion, Glut set Seated Reps: 20 Treatments Pt requests to use restroom, and ambulates to bathroom where she has a BM, pt requests assistance with cleaning. Brief doffed, clean brief donned with little physical assistance prior to ambulating to gym to complete remainder of session. Assessment Current Status: Good Progress Pt required multiple seated breaks due to activity tolerance this date, overall good performance with activities. PT Short Term Goals Short Term Goals Time Frame: Sep 17, 2020 Roll Left & Right: 6 Sit to lyin Lying to sitting on side of be: 6 Sit to stand: 4 Chair/qtn-mc-zmsrp transfer: 4 Walk 10 feet: 4 Walk 50 feet with two turns: 4 Walk 150 feet: 4 PT Afterschool Goals Afterschool Goals PT Afterschool Goals Time Frame: Oct 01, 2020 Roll Left & Right (QC): 6 Sit to Lying (QC): 6 Lying-Sitting on Side/Bed(QC): 6 Sit to Stand (QC): 4 (SBA) Chair/Hsc-mr-Uavpr Xfer(QC): 4 (SBA) Toilet Transfer (QC): 4 (SBA) Car Transfer (QC): 4 (SBA) Does the Patient Walk: Yes Walk 10 feet (QC): 4 (SBA) Walk 50ft with 2 Turns (QC): 4 (SBA) Walk 150 ft (QC): 4 (SBA) Walking 10ft on Uneven Surface: 4 (CGA) 1 Step (curb) (QC): 4 (CGA) 4 Steps (QC): 4 (CGA) 12 Steps (QC): 88 Picking up an Object (QC): 88 Wheel 50 feet with 2 turns (QC: 9 Wheel 150 feet: 9 PT Plan Problem List Problem List: Activity Tolerance, Functional Strength, Safety, Balance, Gait, Transfer, Bed Mobility, ROM Treatment/Plan Treatment Plan: Continue Plan of Care Treatment Plan: Bed Mobility, Education, Functional Activity Victor Manuel, Functional Strength, Group Therapy, Gait, Safety, Therapeutic Exercise, Transfers Treatment Duration: Oct 01, 2020 Frequency: At least 5 of 7 days/Wk (IRF) Estimated Hrs Per Day: 1.5 hours per day Patient and/or Family Agrees t: Yes Time/GCodes Time In: 1410 Time Out: 1455 Total Billed Treatment Time: 45 Total Billed Treatment 1 visit EX (30') FA (15') JANEY TOMPKINS PT Sep 17, 2020 15:00
[2020-09-17 16:49] VITALS: BP 179/75
[2020-09-17] MEDS: cloNIDine 0.1 MG (CATAPRES) TAB PO SCH (20:06)
[2020-09-17 20:30] VITALS: BP 129/63
[2020-09-18] MEDS: SINEMET 25/100 (CARBIDOPA/LEVODOPA) TAB PO SCH ×8 (02:06→14:02)
[2020-09-18] MEDS: amLODIPine 5 MG (NORVASC) TAB PO SCH (05:47)
[2020-09-18 05:50] VITALS: BP 184/82
--- NOTE | 2020-09-18 06:19 | Discharge Summary ---
Diagnosis/Chief Complaint Date of Admission Sep 10, 2020 at 13:33 Date of Discharge Discharge Date: Sep 18, 2020 Discharge Diagnosis Assessment: Parkinson's disease with severe weakness h/o falls HTN malignant type Advanced age Cognitive deficit SLUMS Edema Somatic complaints Abnormal UA contaminant on Cx Plan: IRF protocol Monitor closely especially BP Sinemet per home dose BM regimen and maintain at home at DC VITA/NOA wraps 09/12/20: Monitor edema BM regimen Fall risk Monitor BP closely 09/13/20: Increase laxatives and assure BM produced Monitor pain Fall risk 09/14/20: Increase BM regimen to evacuate PD management 09/15/20: Want to go home soon Son will help her at home 09/16/20: Constipation SSE Monitor closely 09/17/20: Monitor BP DC tomorrow (1) Parkinson disease (2) Hypertension (3) Weakness Status: Acute (4) Constipation Discharge Summary Discharge Physical Examination Allergies: Coded Allergies: atenolol (Verified Allergy, Intermediate, RASH, 02/04/14) Vitals & I&Os Vital Signs Date Time Temp Pulse Resp B/P (MAP) Pulse Ox O2 Delivery O2 Flow Rate FiO2 09/18/20 14:38 36.7 83 18 121/56 92 Room Air General Appearance: Alert, Oriented X3, Cooperative Respiratory: Clear to Auscultation Cardiovascular: Regular Rate Psych/Mental Status: Mental Status NL Hospital Course Was the Problem List Reviewed?: Yes Hospital Course: Pt had an uneventful hospital course, she was admitted to rehab from 4th floor after an abnormal UA. Antibiotics maintained until urine culture was no growth to date. She underwent aggressive PT, she restarted all of her home medication, she had no events during hospital course and she was deemed stable for Dc after participating and having good bowel function and was discharged with home health. Labs (last 24 hrs) Laboratory Tests 09/11/20 04:54: White Blood Count 6.3, Red Blood Count 4.32, Hemoglobin 13.3, Hematocrit 40, Mean Corpuscular Volume 93, Mean Corpuscular Hemoglobin 31, Mean Corpuscular Hemoglobin Concent 33, Red Cell Distribution Width 13.1, Platelet Count 253, Mean Platelet Volume 8.9L, Immature Granulocyte % (Auto) 0, Neutrophils (%) (Auto) 55, Lymphocytes (%) (Auto) 31, Monocytes (%) (Auto) 11, Eosinophils (%) (Auto) 2, Basophils (%) (Auto) 1, Neutrophils # (Auto) 3.4, Lymphocytes # (Auto) 2.0, Monocytes # (Auto) 0.7, Eosinophils # (Auto) 0.1, Basophils # (Auto) 0.0, Immature Granulocyte # (Auto) 0.0, Sodium Level 133L, Potassium Level 4.5, Chloride Level 98, Carbon Dioxide Level 24, Anion Gap 11, Blood Urea Nitrogen 16, Creatinine 1.64H, Estimat Glomerular Filtration Rate 30, BUN/Creatinine Ratio 10, Glucose Level 92, Calcium Level 8.8, Corrected Calcium 8.9, Total Bilirubin 0.4, Aspartate Amino Transf (AST/SGOT) 21, Alanine Aminotransferase (ALT/SGPT) < 6, Alkaline Phosphatase 72, Total Protein 6.6, Albumin 3.9 09/17/20 05:18: White Blood Count 5.0, Red Blood Count 4.01, Hemoglobin 12.3, Hematocrit 37, Mean Corpuscular Volume 93, Mean Corpuscular Hemoglobin 31, Mean Corpuscular Hemoglobin Concent 33, Red Cell Distribution Width 12.9, Platelet Count 213, Mean Platelet Volume 8.8L, Immature Granulocyte % (Auto) 0, Neutrophils (%) (Auto) 63, Lymphocytes (%) (Auto) 26, Monocytes (%) (Auto) 10, Eosinophils (%) (Auto) 0, Basophils (%) (Auto) 1, Neutrophils # (Auto) 3.1, Lymphocytes # (Auto) 1.3, Monocytes # (Auto) 0.5, Eosinophils # (Auto) 0.0, Basophils # (Auto) 0.0, Immature Granulocyte # (Auto) 0.0, Sodium Level 134L, Potassium Level 4.3, Chloride Level 101, Carbon Dioxide Level 23, Anion Gap 10, Blood Urea Nitrogen 18, Creatinine 0.86, Estimat Glomerular Filtration Rate > 60, BUN/Creatinine Ratio 21, Glucose Level 95, Calcium Level 8.4L, Corrected Calcium 8.9, Total Bilirubin 0.2, Aspartate Amino Transf (AST/SGOT) 20, Alanine Aminotransferase (ALT/SGPT) 6, Alkaline Phosphatase 61, Total Protein 5.7L, Albumin 3.4 Pending Labs Laboratory Tests 09/11/20 04:54: White Blood Count 6.3, Red Blood Count 4.32, Hemoglobin 13.3, Hematocrit 40, Mean Corpuscular Volume 93, Mean Corpuscular Hemoglobin 31, Mean Corpuscular Hemoglobin Concent 33, Red Cell Distribution Width 13.1, Platelet Count 253, Mean Platelet Volume 8.9, Immature Granulocyte % (Auto) 0, Neutrophils (%) (Auto) 55, Lymphocytes (%) (Auto) 31, Monocytes (%) (Auto) 11, Eosinophils (%) (Auto) 2, Basophils (%) (Auto) 1, Neutrophils # (Auto) 3.4, Lymphocytes # (Auto) 2.0, Monocytes # (Auto) 0.7, Eosinophils # (Auto) 0.1, Basophils # (Auto) 0.0, Immature Granulocyte # (Auto) 0.0, Sodium Level 133, Potassium Level 4.5, Chloride Level 98, Carbon Dioxide Level 24, Anion Gap 11, Blood Urea Nitrogen 16, Creatinine 1.64, Estimat Glomerular Filtration Rate 30, BUN/Creatinine Ratio 10, Glucose Level 92, Calcium Level 8.8, Corrected Calcium 8.9, Total Bilirubin 0.4, Aspartate Amino Transf (AST/SGOT) 21, Alanine Aminotransferase (ALT/SGPT) < 6, Alkaline Phosphatase 72, Total Protein 6.6, Albumin 3.9 09/17/20 05:18: White Blood Count 5.0, Red Blood Count 4.01, Hemoglobin 12.3, Hematocrit 37, Mean Corpuscular Volume 93, Mean Corpuscular Hemoglobin 31, Mean Corpuscular Hemoglobin Concent 33, Red Cell Distribution Width 12.9, Platelet Count 213, Mean Platelet Volume 8.8, Immature Granulocyte % (Auto) 0, Neutrophils (%) (Auto) 63, Lymphocytes (%) (Auto) 26, Monocytes (%) (Auto) 10, Eosinophils (%) (Auto) 0, Basophils (%) (Auto) 1, Neutrophils # (Auto) 3.1, Lymphocytes # (Auto) 1.3, Monocytes # (Auto) 0.5, Eosinophils # (Auto) 0.0, Basophils # (Auto) 0.0, Immature Granulocyte # (Auto) 0.0, Sodium Level 134, Potassium Level 4.3, Chloride Level 101, Carbon Dioxide Level 23, Anion Gap 10, Blood Urea Nitrogen 18, Creatinine 0.86, Estimat Glomerular Filtration Rate > 60, BUN/Creatinine Ratio 21, Glucose Level 95, Calcium Level 8.4, Corrected Calcium 8.9, Total Bilirubin 0.2, Aspartate Amino Transf (AST/SGOT) 20, Alanine Aminotransferase (ALT/SGPT) 6, Alkaline Phosphatase 61, Total Protein 5.7, Albumin 3.4 Discharge Home Medications: Active Scripts Active Reported Amlodipine Besylate 5 Mg Tablet 5 Mg PO DAILY Stool Softener (Docusate Sodium) 100 Mg Capsule 100 Mg PO DAILY Women's Laxative (Bisacodyl) 5 Mg Tablet 5 Mg PO DAILY Aspirin EC (Aspirin) 81 Mg Tablet.dr 81 Mg PO DAILY Clonidine HCl 0.1 Mg Tablet 0.1 Mg PO HS Carbidopa-Levodopa 25-100 Tab (Carbidopa/Levodopa) 1 Each Tablet 1 Each PO TID PRN MAY TAKE DURING THE DAY OR AT NIGHT Carbidopa-Levodopa 25-100 Tab (Carbidopa/Levodopa) 1 Each Tablet 1 Each PO Q2H WHILE AWAKE Alprazolam 0.5 Mg Tablet 0.25-0.5 Mg PO HS PRN TAKES TO 1 (0.5MG) TAB Pantoprazole Sodium 40 Mg Tablet.dr 40 Mg PO BID Levothyroxine Sodium 112 Mcg Tablet 112 Mcg PO DAILY Neurontin (Gabapentin) 300 Mg Capsule 300 Mg PO DAILY Neurontin (Gabapentin) 300 Mg Capsule 600 Mg PO HS TAKES 2(300MG) CAPS Instructions to patient/family Please see electronic discharge instructions given to patient. Diagnosis/Problems Diagnosis/Problems (1) Parkinson disease (2) Hypertension (3) Weakness Status: Acute (4) Constipation TIMUR MARTÍNEZ DO Sep 18, 2020 06:19
--- NOTE | 2020-09-18 06:19 | D/C HH Face to Face Order ---
D/C Face to Face Orders Reconcile Patient Problems Problems Reviewed?: Yes Instructions for Patient Home Health Patient Instructions/FollowUp: [facility] 1 week Physician to follow Patient: [facility] Discharge Diet for Home: No Restrictions Patient Problems: Parkinson's Patient Data-Allergies,Ht & Wt Patient Allergies: Coded Allergies: atenolol (Verified Allergy, Intermediate, RASH, 02/04/14) Height (Feet): 5 Height (Inches): 3.00 Weight (Pounds): 140 Weight (Ounces): 0.0 Home Health Need/Face to Face Date of Face to Face: Sep 18, 2020 Clinical Findings: Generalized weakness and fatigue, Instability, Muscle weakness, Unsteady gait I have seen Pt [id number]: Yes Discharged To: Home Diagnosis/Conditions: PD Patient is Homebound due to: Delicia fall risk due to instabilty, Muscle weakness Homebound Status Due to the above stated illness, injury or surgical procedure (medical condition or diagnosis) and associated clinical findings, the patient is homebound because of his/her inability to leave home except with aid of a supportive device and/or person AND leaving the home requires a considerable and taxing effort or is medically contraindicated. Pt req the following assistanc: Walker Home Health Nursing Orders Home Health Services Order: Nursing Services, Physical Therapy-Evaluate & Treat, Other (bath aide) Certify Stmt I certify that this patient is under my care and that I, a nurse practitioner or a physician; a design assistant working with me, had a face to face encounter that - meets the physician face to face encounter requirements with this patient as dated. TIMUR MARTÍNEZ DO Sep 18, 2020 06:19
[2020-09-18 06:41] VITALS: BP 151/66
--- NOTE | 2020-09-18 07:54 | Therapy Team Discharge Summary ---
Therapy Discharge Summary Discharge Recommendations Date of Discharge Occupational Therapy Pt admits to ARU with Parkinson's Disease and post-UTI/ weakness. Pt required max A with showering and min-mod A with UB dressing, LB dressing, footwear, and toilet hygiene upon admission. Pt and OT staff work toward higher fx IND through ADLs, safety training, Parkinson's Disease education with HEP, strengthening and endurance training, energy conservation, etc. Pt limited by endurance at times. Pt d/c's home with recommendations of bath aide; pt has CG during day (on/off) and son lives next door to check in on pt at night/ weekends. Pt d/c's with all ADLs improved, with showering min A, dressing supervision to s/u, toileting min A to SUP, and footwear IND. D/c at this time. Decreased Activ Tolerance, Decreased UE Strength, Dependent Transfers, Impaired Funct Balance, Impaired I ADL's, Impaired Self-Care Skills PT Railway Track Worker Goals Shelter Goals PT Railway Track Worker Goals Time Frame: Oct 01, 2020 Roll Left to Right (QC): 6 Sit to Lying (QC): 6 Lying-Sitting on Side/Bed(QC): 6 Sit to Stand (QC): 4 (SBA) Chair/Pfi-dd-Dphmx Xfer(QC): 4 (SBA) Car Transfer (QC): 4 (SBA) Does the Patient Walk: Yes Walk 10 feet (QC): 4 (SBA) Walk 10ft-Uneven Surface(QC): 4 (CGA) Walk 50ft with 2 Turns (QC): 4 (SBA) Walk 150 ft (QC): 4 (SBA) Wheel 50 feet with 2 turns (QC: 9 1 Step (curb) (QC): 4 (CGA) 4 Steps (QC): 4 (CGA) 12 Steps (QC): 88 Picking up an Object (QC): 88 OT Shelter Goals Railway Track Worker Goals Time Frame: Oct 05, 2020 Eating (QC): 6 Oral Hygiene (QC): 6 Shower/Bathe Self (QC): 4 Upper Body Dressing (QC): 5 Lower Body Dressing (QC): 5 On/Off Footwear (QC): 5 Toileting Hygiene (QC): 6 Toilet/Commode Transfer (QC): 4 (SBA) Additional Goals: 1-Demonstrate ADL Tasks, 2-Verbalize Understanding, 3- ImproveStrength/Victor Manuel 1=Demonstrate adherence to instructed precautions during ADL tasks. 2=Patient will verbalize/demonstrate understanding of assistive devices/modifications for ADL. 3=Patient will improve strength/tolerance for activity to enable patient to perform ADL's. JAZIEL COOK OTR Sep 18, 2020 07:54
[2020-09-18] MEDS: GABAPENTIN 300 MG (NEURONTIN) CAP PO SCH (08:08)
[2020-09-18] MEDS: LEVOTHYROXINE 112 MCG (LEVOTHROID) TAB PO SCH (08:09)
[2020-09-18] MEDS: PANTOPRAZOLE 40 MG (PROTONIX) TAB PO SCH (08:09)
[2020-09-18] MEDS: DOCUSATE SODIUM 100 MG (COLACE) CAP PO SCH ×2 (08:09)
[2020-09-18] MEDS: polyethylene glycoL POWDER 17 GM (MIRALAX) PACK PO SCH (08:09)
[2020-09-18] MEDS: ASPIRIN E.C. 81 MG (ECOTRIN) TAB PO SCH (08:09)
[2020-09-18] MEDS: SENNA W/DOCUSATE (SENOKOT S) TABLET PO SCH (08:10)
[2020-09-18 08:11] VITALS: BP 121/56
[2020-09-18] MEDS ORDERED: ENOXAPARIN 40 MG/0.4 ML (LOVENOX) SYR SC SCH (10:00)
[2020-09-18 14:38] VITALS: BP 121/56
--- NOTE | 2020-09-18 15:04 | Therapy Team Discharge Summary ---
Therapy Discharge Summary Discharge Recommendations Date of Discharge Sep 18, 2020 at 14:41 Physical Therapy Patient came to rehab with Parkinson's disease. Upon evaluation patient performed bed mobility with independence, sit to supine with mod assist, supine to sit with min assist, sit <-> stand min assist, transfers min assist, car transfer mod assist, ambulated 150' with a rolling walker with min assist (including 50' with at least 2 turns of 90 degrees and 10' over an uneven surface), and went up and down 1 step using a rolling walker with min assist. Patient has been performing bed mobility and transfer training, balance and endurance training, functional strengthening, stair training, gait training, and education. Patient has made fair progress and has met all of her terminal supervisor goals except for supine <-> sit. Now, patient performs bed mobility with independence, sit to supine with SBA, supine to sit with min assist, sit <-> stand setup, transfers setup, ambulates 150' with a rolling walker with SBA (including 50' with at least 2 turns of 90 degrees and 10' over an uneven surface), and can picker packer an object from the floor with min assist and go up and down 12 steps using 2 handrails with CGA. Patient has discharged from this facility today and will be discharged from PT at this time. Occupational Therapy Decreased Activ Tolerance, Decreased UE Strength, Dependent Transfers, Impaired Funct Balance, Impaired I ADL's, Impaired Self-Care Skills PT Senior Living Goals Rebeamer Goals PT Rebeamer Goals Time Frame: Oct 01, 2020 Roll Left to Right (QC): 6 Sit to Lying (QC): 6 Lying-Sitting on Side/Bed(QC): 6 Sit to Stand (QC): 4 (SBA) Chair/Uai-qg-Ckiuc Xfer(QC): 4 (SBA) Car Transfer (QC): 4 (SBA) Does the Patient Walk: Yes Walk 10 feet (QC): 4 (SBA) Walk 10ft-Uneven Surface(QC): 4 (CGA) Walk 50ft with 2 Turns (QC): 4 (SBA) Walk 150 ft (QC): 4 (SBA) Wheel 50 feet with 2 turns (QC: 9 1 Step (curb) (QC): 4 (CGA) 4 Steps (QC): 4 (CGA) 12 Steps (QC): 88 Picking up an Object (QC): 88 OT Rebeamer Goals Senior Living Goals Time Frame: Oct 05, 2020 Eating (QC): 6 Oral Hygiene (QC): 6 Shower/Bathe Self (QC): 4 Upper Body Dressing (QC): 5 Lower Body Dressing (QC): 5 On/Off Footwear (QC): 5 Toileting Hygiene (QC): 6 Toilet/Commode Transfer (QC): 4 (SBA) Additional Goals: 1-Demonstrate ADL Tasks, 2-Verbalize Understanding, 3- ImproveStrength/Victor Manuel 1=Demonstrate adherence to instructed precautions during ADL tasks. 2=Patient will verbalize/demonstrate understanding of assistive devices/modifications for ADL. 3=Patient will improve strength/tolerance for activity to enable patient to perform ADL's. ROBY THOMPSON PT Sep 18, 2020 15:04
== END 2020-09-18 14:41 | disposition home health service (06) | DRG 57 ==
PROVIDERS: ADMIT Internal Medicine; ATTEND Internal Medicine
DX: G20 Parkinson's disease (principal); I10 Essential (primary) hypertension; K59.09 Other constipation; F32.9 Major depressive disorder, single episode, unspecified; F41.9 Anxiety disorder, unspecified; H54.62 Unqualified visual loss, left eye, normal vision right eye; E78.00 Pure hypercholesterolemia, unspecified; M19.91 Primary osteoarthritis, unspecified site; M54.9 Dorsalgia, unspecified; E05.90 Thyrotoxicosis, unspecified without thyrotoxic crisis or storm; Z91.81 History of falling; Z79.82 Long term (current) use of aspirin; Z88.8 Allergy status to other drugs, medicaments and biological substances
CPT/HCPCS: 36415; 80053; 85025; 94760

== ENCOUNTER → 2020-11-05 | Outpatient (CLI) | payer MEDICARE ==
[~2020-11-05] MED LIST changes: +ALPR0.5T7 PO; +AMLO-251 PO; +ASPI-1238 PO; +BISA5TAB PO; +DOCU-238 PO; -POLY17PO31 PO; +POLY17PO54 PO
[2020-11-05 13:47] LABS: CLARITY,URINE SL CLOUDY; COLOR,URINE DARK YELLOW; GLUCOSE, URINE (UA) NEGATIVE (NEGATIVE); KETONES,URINE TRACE (NEGATIVE); PROTEIN,URINE NEGATIVE (NEGATIVE)
[2020-11-05 13:48] LABS: BACTERIA,URINE FEW /HPF; BILIRUBIN,URINE NEGATIVE (NEGATIVE); LEUKOCYTE ESTERASE ,URINE TRACE (NEGATIVE); NITRITE,URINE NEGATIVE (NEGATIVE); RBC,URINE 0-2 /HPF
== END ==
LOC: LAB FS 13:13
PROVIDERS: ATTEND Family Medicine
DX: R35.0 Frequency of micturition (principal); R39.89 Other symptoms and signs involving the genitourinary system
CPT/HCPCS: 81000; 87088

== ENCOUNTER 2021-05-01 11:13 | Emergency (ER) | payer MEDICARE ==
[2021-05-01 11:13] VITALS: BP 144/64
[~2021-05-01 11:13] MED LIST changes: -DCS100C PO; -DOCU-238 PO; +DOCU-239 PO; +DOCU-26 PO
--- NOTE | 2021-05-01 11:32 | ED Neurological Problem ---
General Chief Complaint: Altered Mental Status Stated Complaint: AMS Source: patient, EMS Exam Limitations: no limitations History of Present Illness Date Seen by Provider: May 01, 2021 Time Seen by Provider: 11:13 Initial Comments 89-year-old female with past medical history of thyroid disorder, Parkinson's, hypertension, GERD coming in via EMS from home due to altered mental status. She does live at home, ambulates with a walker normally, and gets assistance from her son. Reportedly, she was less responsive for roughly 5 to 10 minutes. No seizure-like activity after that. On EMS arrival she was completely alert and oriented and back to baseline which was shortly after the event. Glucose was 119. They stated her first blood pressure was 96/60, heart rate normal, afebrile. They started an IV and give her 400 cc of IV fluids. She is denying any symptoms at this time including any chest pain, shortness of breath, abdominal pain, nausea, vomiting, diarrhea, fever, chills, weakness, numbness, vision changes, headache, recent falls, or any other concerns. 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 She does not take any blood thinners. Allergies and Home Medications Allergies Coded Allergies: atenolol (Verified Allergy, Intermediate, RASH, 02/04/14) Patient Home Medication List Home Medication List Reviewed: Yes Alprazolam (Alprazolam) 0.5 Mg Tablet, 0.25-0.5 MG PO HS PRN for SLEEP, (Reported) Entered as Reported by: JON CALLEJAS on 09/10/20 1430 Amlodipine Besylate (Amlodipine Besylate) 5 Mg Tablet, 5 MG PO DAILY, (Reported) Entered as Reported by: JON CALLEJAS on 09/10/20 1432 Aspirin (Aspirin EC) 81 Mg Tablet.dr, 81 MG PO DAILY, (Reported) Entered as Reported by: JON CALLEJAS on 09/10/20 1430 Bisacodyl (Women's Laxative) 5 Mg Tablet, 5 MG PO DAILY, (Reported) Entered as Reported by: JON CALLEJAS on 09/10/20 1430 Carbidopa/Levodopa (Carbidopa-Levodopa 25-100 Tab) 1 Each Tablet, 1 EACH PO Q2H WHILE AWAKE, (Reported) Entered as Reported by: JON CALLEJAS on 09/10/20 143 Carbidopa/Levodopa (Carbidopa-Levodopa 25-100 Tab) 1 Each Tablet, 1 EACH PO TID PRN for TREMORS, (Reported) Entered as Reported by: JON CALLEJAS on 09/10/20 143 Clonidine HCl (Clonidine HCl) 0.1 Mg Tablet, 0.1 MG PO HS, (Reported) Entered as Reported by: JON CALLEJAS on 09/10/20 143 Docusate Sodium (Stool Softener) 100 Mg Capsule, 100 MG PO DAILY, (Reported) Entered as Reported by: JON CALLEJAS on 09/10/20 143 Gabapentin (Neurontin) 300 Mg Capsule, 600 MG PO HS, (Reported) Entered as Reported by: JON CALLEJAS on 12/20/19 135 Gabapentin (Neurontin) 300 Mg Capsule, 300 MG PO DAILY, (Reported) Entered as Reported by: JON CALLEJAS on 12/20/19 135 Levothyroxine Sodium (Levothyroxine Sodium) 112 Mcg Tablet, 112 MCG PO DAILY, (Reported) Entered as Reported by: JON CALLEJAS on 12/20/191349 Pantoprazole Sodium (Pantoprazole Sodium) 40 Mg Tablet.dr, 40 MG PO BID, (Reported) Entered as Reported by: JON CALLEJAS on 12/20/19 135 Review of Systems Review of Systems Constitutional: No fever Eyes: Blindness Ears, Nose, Mouth, Throat: no symptoms reported Respiratory: No cough, No short of breath Cardiovascular: No chest pain Gastrointestinal: No abdominal pain, No diarrhea, No nausea, No vomiting Genitourinary: No dysuria, No frequency Musculoskeletal: no symptoms reported, joint pain (Chronic right knee pain) Skin: No rash Psychiatric/Neurological: No Symptoms Reported Endocrine: No Symptoms Reported Hematologic/Lymphatic: No Symptoms Reported All Other Systems Reviewed Negative Unless Noted: Yes Past Fhvnusp-Vngqfk-Qedwae Hx Patient Social History Tobacco Use?: No Immunizations Up To Date Tetanus Booster (TDap): Unknown Seasonal Allergies Seasonal Allergies: No Past Medical History Surgeries: Yes Oophorectomy, Orthopedic, Thyroidectomy Respiratory: No Cardiac: Yes High Cholesterol, Hypertension Neurological: Yes Parkinson's Disease Reproductive Disorders: No 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 Sexually Transmitted Disease: No HIV/AIDS: No Genitourinary: No Gastrointestinal: No Chronic Constipation Musculoskeletal: No Arthritis, Chronic Back Pain Endocrine: Yes Hyperthyroidism HEENT: No Loss of Vision: Left Hearing Impairment: Denies Cancer: No Psychosocial: Yes Sleep Difficulties, Anxiety Integumentary: No Blood Disorders: No Adverse Reaction/Blood Tranf: No Family Medical History Arthritis 19 FATHER 19 MOTHER Cardiovascular disease 19 FATHER Dementia 19 MOTHER Hypertension 19 FATHER Myocardial infarction 19 FATHER No Family History of: AIDS Abdominal aortic aneurysm Alcoholism Alzheimer's disease Asthma Completed stroke Congenital disease Diabetes mellitus Parkinson's disease Prostate cancer Psychosocial problem Respiratory disorder Seizure disorder Thyroid disease Tuberculosis Physical Exam Vital Signs Vital Signs - First Documented 05/01/21 11:13 Temp 36.0 Pulse 75 Resp 15 B/P (MAP) 144/64 (90) Pulse Ox 99 O2 Delivery Room Air Capillary Refill : Height, Weight, BMI Height: 5'3.00" Weight: 140lbs. 0.0oz. [id number]; 25.39 BMI Method:Stated General Appearance: WD/WN HEENT: PERRL/EOMI, normal ENT inspection, pharynx normal Neck: non-tender, full range of motion, supple, normal inspection Respiratory: chest non-tender, lungs clear, normal breath sounds, no respiratory distress, no accessory muscle use Cardiovascular: regular rate, rhythm, no edema, no murmur Gastrointestinal: normal bowel sounds, non tender, soft; No guarding, No rebound Back: normal inspection, no CVA tenderness, no vertebral tenderness Extremities: normal range of motion, non-tender, normal inspection, no pedal edema, no calf tenderness, normal capillary refill Neurologic/Psychiatric: fancy packer II-XII nml as tested, no motor/sensory deficits, alert, normal mood/affect, oriented x 3, other (Blind in left eye at baseline, does lean to the left) Crainal Nerves: normal hearing, normal speech, PERRL Coordination/Gait: normal finger to nose Motor/Sensory: no motor deficit, no sensory deficit, no pronator drift Skin: normal color, warm/dry Lymphatic: no adenopathy Progress/Results/Core Measures Results/Orders Lab Results Laboratory Tests Test 05/01/21 11:30 05/01/21 12:34 Range/Units White Blood Count 6.1 4.3-11.0 10^3/uL Red Blood Count 4.37 3.80-5.11 10^6/uL Hemoglobin 13.4 11.5-16.0 g/dL Hematocrit 41 35-52 % Mean Corpuscular Volume 94 80-99 fL Mean Corpuscular Hemoglobin 31 25-34 pg Mean Corpuscular Hemoglobin Concent 33 32-36 g/dL Red Cell Distribution Width 14.4 10.0-14.5 % Platelet Count 239 130-400 10^3/uL Mean Platelet Volume 9.3 9.0-12.2 fL Immature Granulocyte % (Auto) 0 % Neutrophils (%) (Auto) 64 42-75 % Lymphocytes (%) (Auto) 25 12-44 % Monocytes (%) (Auto) 9 0-12 % Eosinophils (%) (Auto) 1 0-10 % Basophils (%) (Auto) 1 0-10 % Neutrophils # (Auto) 3.9 1.8-7.8 X 10^3 Lymphocytes # (Auto) 1.5 1.0-4.0 X 10^3 Monocytes # (Auto) 0.6 0.0-1.0 X 10^3 Eosinophils # (Auto) 0.1 0.0-0.3 10^3/uL Basophils # (Auto) 0.0 0.0-0.1 10^3/uL Immature Granulocyte # (Auto) 0.0 0.0-0.1 10^3/uL Sodium Level 137 135-145 MMOL/L Potassium Level 4.4 3.6-5.0 MMOL/L Chloride Level 102 98-107 MMOL/L Carbon Dioxide Level 26 21-32 MMOL/L Anion Gap 9 5-14 MMOL/L Blood Urea Nitrogen 16 7-18 MG/DL Creatinine 0.73 0.60-1.30 MG/DL Estimat Glomerular Filtration Rate 75 BUN/Creatinine Ratio 22 Glucose Level 118 H 70-105 MG/DL Calcium Level 8.8 8.5-10.1 MG/DL Magnesium Level 2.1 1.6-2.4 MG/DL Troponin I < 0.30 <0.30 NG/ML Urine Color YELLOW Urine Clarity CLEAR Urine pH 7.0 5-9 Urine Specific [place] 0.015 1.016-1.022 Urine Protein NEGATIVE NEGATIVE Urine Glucose (UA) NEGATIVE NEGATIVE Urine Ketones NEGATIVE NEGATIVE Urine Nitrite NEGATIVE NEGATIVE Urine Bilirubin NEGATIVE NEGATIVE Urine Urobilinogen 0.2 < = 1.0 MG/DL Urine Leukocyte Esterase NEGATIVE NEGATIVE Urine RBC (Auto) NEGATIVE NEGATIVE Urine RBC 0-2 /HPF Urine WBC 0-2 /HPF Urine Squamous Epithelial Cells 0-2 /HPF Urine Crystals NONE /LPF Urine Bacteria NEGATIVE /HPF Urine Casts PRESENT /LPF Urine Hyaline Casts 0-2 H /LPF Urine Mucus NEGATIVE /LPF Urine Culture Indicated NO My Orders Orders - DESIREE HARRIS MD Basic Metabolic Panel (05/01/21 11:21) Cbc With Automated Diff (05/01/21 11:21) Magnesium (05/01/21 11:21) Ua Culture If Indicated (05/01/21 11:21) Troponin I Fs (05/01/21 11:21) Ct Head Wo (05/01/21 11:21) Ekg Tracing (05/01/21 11:21) Vital Signs/I&O 05/01/21 11:13 Temp 36.0 Pulse 75 Resp 15 B/P (MAP) 144/64 (90) Pulse Ox 99 O2 Delivery Room Air Progress Progress Note : Progress Note 89-year-old female with above history coming in due to transient mental status change that is now improved. There is no seizure-like activity and she was not postictal making seizure very unlikely. Glucose was normal. She is at her baseline neuro exam including no weakness or numbness making stroke unlikely. CT head ordered and interpreted by me without any obvious bleeding or large mass. Electrolytes normal, kidney function normal, troponin negative, and urinalysis normal. EKG without any ischemic changes, no delta wave, normal QTC. Overall, her work-up is negative for any acute findings, she has back to her baseline, and I believe she is stable for discharge with outpatient follow-up. She was sent home with strict return precautions. Initial ECG Impression Date: May 01, 2021 Initial ECG Impression Time: 11:29 Initial ECG Rate: 75 Initial ECG Rhythm: Normal Sinus Comment Narrow QRS, normal axis, no significant ST changes or T wave abnormalities, QTC 436 Diagnostic Imaging Diagonstic Imaging: CT Plain Films/CT/US/NM/MRI: head Comments [facility] [place], [place] NAME: JOSE ALBERTO [facility]D [facility] REC#: [id number] PT STATUS: REG ER : 1930 PHYSICIAN: DESIREE HARRIS MD ADMIT DATE: 05/01/21/ER FS Draft Date of Exam:05/01/21 CT HEAD WO PROCEDURE: CT head without contrast. TECHNIQUE: Multiple contiguous axial images were obtained through the brain without the use of intravenous contrast. Auto Exposure Controls were utilized during the CT exam to meet ALARA standards for radiation dose reduction. INDICATION: Altered metal status. COMPARISON: No prior studies are available for comparison. FINDINGS: Ventricles and sulci are within normal limits. No sulcal effacement or midline shift is identified. There is periventricular hypodensity noted consistent with senescent change. No acute intra-axial or extra-axial hemorrhage is detected. Cisterns are patent. Visualized paranasal sinuses are clear. IMPRESSION: Senescent changes. No acute intracranial process is detected. Dictated on workstation # [id number] Dict: 05/01/21 1210 Trans: 05/01/21 1218 [id number] Interpreted by: ÁLVARO GARZON MD Electronically signed by: Departure Impression Primary Impression: Transient confusion Additional Impression: Syncope Qualified Codes: R55 - Syncope and collapse Disposition: 01 HOME, SELF-CARE Condition: Stable Departure-Patient Inst. Decision time for Depature: 12:55 Referrals: AVEL TOM MD (PCP/Family) Primary Care Physician Patient Instructions: Altered Mental Status (DC), Syncope (Fainting) (DC) Add. Discharge Instructions: You were seen in the emergency department because you were unresponsive for a short period of time. All of your lab work is reassuring. There is no signs of infection, electrolytes all appear normal, your kidney function is normal. He had a CT of your head which was normal and you do not have any evidence of any type of stroke. Is often when these types of events happened that we are unable to find the exact cause. Please be sure to follow-up with your primary care provider in the next couple of days. If you get any fever, chest pain, vomiting, new weakness or numbness, or any other concerns then please come back to the ER. I do think you would benefit from at home physical therapy which you can ask your primary care provider to prescribe. They would help get you out of your chair and walk you around often 1-3 times per week. All discharge instructions reviewed with patient and/or family. Voiced understanding. DESIREE HARRIS MD May 01, 2021 11:31
[2021-05-01 11:41] LABS: HEMATOCRIT 41 % (35-52); HEMOGLOBIN 13.4 g/dL (11.5-16.0); MEAN CORPUSCULAR HEMOGLOBIN 31 pg (25-34); MEAN CORPUSCULAR HGB CONC 33 g/dL (32-36); MEAN CORPUSCULAR VOLUME 94 fL (80-99); MEAN PLATELET VOLUME 9.3 fL (9.0-12.2); PLATELET COUNT 239 10^3/uL (130-400); WHITE BLOOD COUNT 6.1 10^3/uL (4.3-11.0)
[2021-05-01 11:42] LABS: BASOPHILS % (AUTO) 1 % (0-10); EOSINOPHILS # (AUTO) 0.1 10^3/uL (0.0-0.3); EOSINOPHILS % (AUTO) 1 % (0-10); LYMPHOCYTES # (AUTO) 1.5 X 10^3 (1.0-4.0); LYMPHOCYTES % (AUTO) 25 % (12-44); MONOCYTES # (AUTO) 0.6 X 10^3 (0.0-1.0); MONOCYTES % (AUTO) 9 % (0-12); NEUTROPHILS # (AUTO) 3.9 X 10^3 (1.8-7.8); NEUTROPHILS % (AUTO) 64 % (42-75)
--- NOTE | 2021-05-01 12:18 | Diagnostic Imaging Report ---
PROCEDURE: CT head without contrast. TECHNIQUE: Multiple contiguous axial images were obtained through the brain without the use of intravenous contrast. Auto Exposure Controls were utilized during the CT exam to meet ALARA standards for radiation dose reduction. INDICATION: Altered metal status. COMPARISON: No prior studies are available for comparison. FINDINGS: Ventricles and sulci are within normal limits. No sulcal effacement or midline shift is identified. There is periventricular hypodensity noted consistent with senescent change. No acute intra-axial or extra-axial hemorrhage is detected. Cisterns are patent. Visualized paranasal sinuses are clear. IMPRESSION: Senescent changes. No acute intracranial process is detected. Dictated by: Dictated on workstation # [id number]
[2021-05-01 12:49] LABS: BUN/CREATININE RATIO 22; CALCIUM 8.8 MG/DL (8.5-10.1); CARBON DIOXIDE 26 MMOL/L (21-32); CHLORIDE 102 MMOL/L (98-107); CREATININE SERUM 0.73 MG/DL (0.60-1.30); GFR ESTIMATED 75; GLUCOSE 118 MG/DL (70-105); MAGNESIUM 2.1 MG/DL (1.6-2.4); POTASSIUM 4.4 MMOL/L (3.6-5.0); SODIUM 137 MMOL/L (135-145)
[2021-05-01 12:50] LABS: BILIRUBIN,URINE NEGATIVE (NEGATIVE); CLARITY,URINE CLEAR; COLOR,URINE YELLOW; GLUCOSE, URINE (UA) NEGATIVE (NEGATIVE); KETONES,URINE NEGATIVE (NEGATIVE); LEUKOCYTE ESTERASE ,URINE NEGATIVE (NEGATIVE); NITRITE,URINE NEGATIVE (NEGATIVE); PROTEIN,URINE NEGATIVE (NEGATIVE)
[2021-05-01 12:51] LABS: BACTERIA,URINE NEGATIVE /HPF; HYALINE CASTS, URINE 0-2 /LPF; RBC,URINE 0-2 /HPF; SQUAMOUS EPITHELIAL CELL,UR 0-2 /HPF; WBC,URINE 0-2 /HPF
== END 2021-05-01 13:03 | disposition home or self-care (01) ==
LOC: EDUNIT# 11:13 → ER FS 11:14
DX: R41.0 Disorientation, unspecified (principal); R55 Syncope and collapse; I10 Essential (primary) hypertension; G20 Parkinson's disease; E05.90 Thyrotoxicosis, unspecified without thyrotoxic crisis or storm; F41.9 Anxiety disorder, unspecified; K21.9 Gastro-esophageal reflux disease without esophagitis; Z79.82 Long term (current) use of aspirin; Z79.899 Other long term (current) drug therapy
CPT/HCPCS: 36415; 70450; 80048; 81000; 83735; 84484; 85025; 93005

== ENCOUNTER → 2021-05-07 | Outpatient (CLI) | payer MEDICARE ==
--- NOTE | 2021-05-07 16:35 | Diagnostic Imaging Report ---
INDICATION: Soft tissue injury. Ulcer. COMPARISON: None FINDINGS: Multiple radiographic views of the right foot were obtained. Small soft tissue defect is identified involving the heel consistent with provided history of ulcer. Underlying osseous structures are intact. No osteolytic process is identified. There is no acute fracture or dislocation. Joint spaces are maintained. No unexpected radiopaque foreign bodies are seen. IMPRESSION: 1. Soft tissue ulcer, but no underlying acute osseous abnormality. Please note, osteomyelitis cannot be excluded based on radiographs alone. If there is concern for osteomyelitis, correlation with MRI is recommended. Dictated by: Dictated on workstation # [id number]
== END ==
LOC: RAD FS 15:56
PROVIDERS: ATTEND Family Medicine
DX: L97.412 Non-pressure chronic ulcer of right heel and midfoot with fat layer exposed (principal)
CPT/HCPCS: 73630

== ENCOUNTER 2021-07-15 14:01 | Emergency (ER) | payer MEDICARE ==
[~2021-07-15] VITALS: Ht 162 cm; Wt 65.0 kg
--- NOTE | 2021-07-15 14:12 | ED General ---
General Stated Complaint: WEAKNESS History of Present Illness Date Seen by Provider: Jul 15, 2021 Time Seen by Provider: 14:08 Initial Comments 89-year-old female brought in by EMS. Patient was brought in due to generalized weakness. Patient was at home her son reports that she came a bathroom was walking back to her chair when she just cannot stop and sit down. She did not fall. She complains of just some generalized weakness but no focal complaints. She denies any chest pain, shortness of breath, fever, cough, chills. She reports maybe some mild nausea but really is vague on that. She later added that she has a little bit of right heel pain. Allergies and Home Medications Allergies Coded Allergies: atenolol (Verified Allergy, Intermediate, RASH, 02/04/14) Patient Home Medication List Home Medication List Reviewed: Yes Alprazolam (Alprazolam) 0.5 Mg Tablet, 0.25-0.5 MG PO HS PRN for SLEEP, (Reported) Entered as Reported by: JON CALLEJAS on 09/10/20 1430 Amlodipine Besylate (Amlodipine Besylate) 5 Mg Tablet, 5 MG PO DAILY, (Reported) Entered as Reported by: JON CALLEJAS on 09/10/20 1432 Aspirin (Aspirin EC) 81 Mg Tablet.dr, 81 MG PO DAILY, (Reported) Entered as Reported by: JON CALLEJAS on 09/10/20 1430 Bisacodyl (Women's Laxative) 5 Mg Tablet, 5 MG PO DAILY, (Reported) Entered as Reported by: JON CALLEJAS on 09/10/20 1430 Carbidopa/Levodopa (Carbidopa-Levodopa 25-100 Tab) 1 Each Tablet, 1 EACH PO Q2H WHILE AWAKE, (Reported) Entered as Reported by: JON CALLEJAS on 09/10/20 1430 Carbidopa/Levodopa (Carbidopa-Levodopa 25-100 Tab) 1 Each Tablet, 1 EACH PO TID PRN for TREMORS, (Reported) Entered as Reported by: JON CALLEJAS on 09/10/20 1430 Clonidine HCl (Clonidine HCl) 0.1 Mg Tablet, 0.1 MG PO HS, (Reported) Entered as Reported by: JON CALLEJAS on 09/10/20 1430 Docusate Sodium (Stool Softener) 100 Mg Capsule, 100 MG PO DAILY, (Reported) Entered as Reported by: JON CALLEJAS on 09/10/20 1430 Gabapentin (Neurontin) 300 Mg Capsule, 600 MG PO HS, (Reported) Entered as Reported by: JON CALLEJAS on 12/20/19 1350 Gabapentin (Neurontin) 300 Mg Capsule, 300 MG PO DAILY, (Reported) Entered as Reported by: JON CALLEJAS on 12/20/19 135 Levothyroxine Sodium (Levothyroxine Sodium) 112 Mcg Tablet, 112 MCG PO DAILY, (Reported) Entered as Reported by: JON CALLEJAS on 12/20/19 135 Pantoprazole Sodium (Pantoprazole Sodium) 40 Mg Tablet.dr, 40 MG PO BID, (Reported) Entered as Reported by: JON CALLEJAS on 12/20/19 135 Review of Systems Review of Systems Constitutional: No chills, No fever; weakness Respiratory: no symptoms reported Cardiovascular: no symptoms reported Gastrointestinal: no symptoms reported Genitourinary: no symptoms reported Musculoskeletal: see HPI Skin: no symptoms reported Psychiatric/Neurological: See HPI Hematologic/Lymphatic: No Symptoms Reported Immunological/Allergic: no symptoms reported Past Nizmsdi-Qbcdio-Njiozc Hx Immunizations Up To Date Tetanus Booster (TDap): Unknown First/Initial COVID19 Vaccinat: Early 2020 Second COVID19 Vaccination Ronnie: Early 2020 Seasonal Allergies Seasonal Allergies: No Past Medical History Surgery/Hospitalization HX: Parkinsons, Hypothyroidism, anxiety, hypertension Surgeries: Yes Oophorectomy, Orthopedic, Thyroidectomy Respiratory: No Cardiac: Yes High Cholesterol, Hypertension Neurological: Yes Parkinson's Disease Reproductive Disorders: No 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 Sexually Transmitted Disease: No HIV/AIDS: No Genitourinary: No Gastrointestinal: No Chronic Constipation Musculoskeletal: No Arthritis, Chronic Back Pain Endocrine: Yes Hyperthyroidism HEENT: No Loss of Vision: Left Hearing Impairment: Denies Cancer: No Psychosocial: Yes Sleep Difficulties, Anxiety Integumentary: No Blood Disorders: No Adverse Reaction/Blood Tranf: No Family Medical History Arthritis 19 FATHER 19 MOTHER Cardiovascular disease 19 FATHER Dementia 19 MOTHER Hypertension 19 FATHER Myocardial infarction 19 FATHER No Family History of: AIDS Abdominal aortic aneurysm Alcoholism Alzheimer's disease Asthma Completed stroke Congenital disease Diabetes mellitus Parkinson's disease Prostate cancer Psychosocial problem Respiratory disorder Seizure disorder Thyroid disease Tuberculosis Physical Exam Vital Signs Vital Signs - First Documented 07/15/21 14:16 Temp 36.9 Pulse 78 Resp 16 B/P (MAP) 132/76 (94) O2 Delivery Room Air Capillary Refill : Height, Weight, BMI Height: 5'3.00" Weight: 140lbs. 0.0oz. 63.417360xs; 25.39 BMI Method:Stated General Appearance: No Apparent Distress, Chronically ill HEENT: PERRL/EOMI Neck: Non Tender, Supple Respiratory: Lungs Clear, Normal Breath Sounds Cardiovascular: Regular Rate, Rhythm, No Edema Gastrointestinal: Non Tender Extremity: Normal Capillary Refill, Normal Inspection Neurologic/Psychiatric: Alert, Oriented x3, No Motor/Sensory Deficits, Normal Mood/Affect, conference interpreter II-XII Norm as Tested Skin: Normal Color, Warm/Dry Focused Exam Lactate Level 07/15/21 14:33: Lactic Acid Level 1.72 Lactic Acid Level Laboratory Tests Test 07/15/21 14:33 Lactic Acid Level 1.72 MMOL/L (0.50-2.00) Progress/Results/Core Measures Suspected Sepsis SIRS Temperature: Pulse: Respiratory Rate: Laboratory Tests 07/15/21 14:07: White Blood Count 10.4 Blood Pressure / Mean: 07/15/21 14:33: Lactic Acid Level 1.72 Laboratory Tests 07/15/21 14:07: Creatinine 1.18, Platelet Count 318, Total Bilirubin 0.3 Results/Orders Lab Results Laboratory Tests Test 07/15/21 14:07 07/15/21 14:33 07/15/21 15:00 Range/Units White Blood Count 10.4 4.3-11.0 10^3/uL Red Blood Count 4.75 3.80-5.11 10^6/uL Hemoglobin 15.0 11.5-16.0 g/dL Hematocrit 45 35-52 % Mean Corpuscular Volume 94 80-99 fL Mean Corpuscular Hemoglobin 32 25-34 pg Mean Corpuscular Hemoglobin Concent 34 32-36 g/dL Red Cell Distribution Width 13.6 10.0-14.5 % Platelet Count 318 130-400 10^3/uL Mean Platelet Volume 8.7 L 9.0-12.2 fL Immature Granulocyte % (Auto) 1 % Neutrophils (%) (Auto) 69 42-75 % Lymphocytes (%) (Auto) 24 12-44 % Monocytes (%) (Auto) 7 0-12 % Eosinophils (%) (Auto) 0 0-10 % Basophils (%) (Auto) 0 0-10 % Neutrophils # (Auto) 7.2 1.8-7.8 X 10^3 Lymphocytes # (Auto) 2.5 1.0-4.0 X 10^3 Monocytes # (Auto) 0.7 0.0-1.0 X 10^3 Eosinophils # (Auto) 0.0 0.0-0.3 10^3/uL Basophils # (Auto) 0.0 0.0-0.1 10^3/uL Immature Granulocyte # (Auto) 0.1 0.0-0.1 10^3/uL Sodium Level 135 135-145 MMOL/L Potassium Level 4.0 3.6-5.0 MMOL/L Chloride Level 98 98-107 MMOL/L Carbon Dioxide Level 26 21-32 MMOL/L Anion Gap 11 5-14 MMOL/L Blood Urea Nitrogen 22 H 7-18 MG/DL Creatinine 1.18 0.60-1.30 MG/DL Estimat Glomerular Filtration Rate 43 BUN/Creatinine Ratio 19 Glucose Level 113 H 70-105 MG/DL Calcium Level 9.1 8.5-10.1 MG/DL Corrected Calcium 9.0 8.5-10.1 MG/DL Magnesium Level 2.1 1.6-2.4 MG/DL Total Bilirubin 0.3 0.1-1.0 MG/DL Aspartate Amino Transf (AST/SGOT) 15 5-34 U/L Alanine Aminotransferase (ALT/SGPT) 5 0-55 U/L Alkaline Phosphatase 105 40-136 U/L Troponin I < 0.30 <0.30 NG/ML Total Protein 7.5 6.4-8.2 GM/DL Albumin 4.1 3.2-4.5 GM/DL Lactic Acid Level 1.72 0.50-2.00 MMOL/L Urine Color YELLOW Urine Clarity CLOUDY Urine pH 6.0 5-9 Urine Specific [place] 1.015 L 1.016-1.022 Urine Protein NEGATIVE NEGATIVE Urine Glucose (UA) NEGATIVE NEGATIVE Urine Ketones TRACE H NEGATIVE Urine Nitrite POSITIVE H NEGATIVE Urine Bilirubin NEGATIVE NEGATIVE Urine Urobilinogen 0.2 < = 1.0 MG/DL Urine Leukocyte Esterase 2+ H NEGATIVE Urine RBC (Auto) TRACE H NEGATIVE Urine RBC RARE /HPF Urine WBC 50-100 H /HPF Urine Squamous Epithelial Cells 0-2 /HPF Urine Crystals NONE /LPF Urine Bacteria LARGE H /HPF Urine Casts NONE /LPF Urine Mucus NEGATIVE /LPF Urine Culture Indicated YES My Orders Orders - GURJIT NICHOLS DO Cbc With Automated Diff (07/15/21 14:12) Comprehensive Metabolic Panel (07/15/21 14:12) Lactic Acid Analyzer (07/15/21 14:12) Magnesium (07/15/21 14:12) Ua Culture If Indicated (07/15/21 14:12) Accucheck Stat ONCE (07/15/21 14:12) Ed Iv/Invasive Line Start (07/15/21 14:12) Ns Iv 500 Ml (Sodium Chloride 0.9%) (07/15/21 14:15) Chest 1 View Ap/Pa Only (07/15/21 14:12) Heel 2 View Right (07/15/21 14:12) Troponin I Fs (07/15/21 14:12) Vital Signs (07/15/21 14:12) Ekg Tracing (07/15/21 14:12) Urine Culture (07/15/21 15:00) Medications Given in ED Current Medications Medications Dose Ordered Sig/Jl Route Start Time Stop Time Status Last Admin Dose Admin Sodium Chloride 500 ml @ 0 mls/hr Q0M ONCE IV 07/15/21 14:15 07/15/21 14:16 DC 07/15/21 14:31 999 MLS/HR Vital Signs/I&O 07/15/21 14:16 Temp 36.9 Pulse 78 Resp 16 B/P (MAP) 132/76 (94) O2 Delivery Room Air Capillary Refill : Progress Note : Progress Note Patient urine is consistent with an acute cystitis. This is likely the cause of her weakness and symptoms. I will start her on Macrobid for 5 days. She should follow-up with Dr. Kang next Thursday to have her urine rechecked. Patient stable and discharged ECG Initial ECG Impression Date: Jul 15, 2021 Initial ECG Impression Time: 14:17 Initial ECG Rate: 82 Initial ECG Rhythm: Normal Sinus Initial ECG Intervals: Normal Initial ECG Impression: Normal Comment no acute st elevation or changes Departure Impression Primary Impression: Acute cystitis with hematuria Disposition: 01 HOME, SELF-CARE Condition: Stable Departure-Patient Inst. Referrals: AVEL KANG MD (PCP/Family) Primary Care Physician Patient Instructions: Urinary Tract Infection, Adult (DC) Add. Discharge Instructions: Encourage her to drink plenty of fluids Follow-up with Dr. Kang next week for recheck Scripts Nitrofurantoin Macrocrystal (Nitrofurantoin) 100 Mg Capsule 100 MG PO BID, #14 CAP 0 Refills Prov: GURJIT NICHOLS DO 07/15/21 GURJIT NICHOLS DO Jul 15, 2021 14:12
[2021-07-15] MEDS ORDERED: NS IV 500 ML 500 ML IV ONE (14:15)
[2021-07-15 14:16] VITALS: BP 132/76
[2021-07-15 14:25] LABS: MEAN CORPUSCULAR HEMOGLOBIN 32 pg (25-34); WHITE BLOOD COUNT 10.4 10^3/uL (4.3-11.0)
[2021-07-15 14:26] LABS: BASOPHILS % (AUTO) 0 % (0-10); EOSINOPHILS % (AUTO) 0 % (0-10); HEMATOCRIT 45 % (35-52); LYMPHOCYTES # (AUTO) 2.5 X 10^3 (1.0-4.0); LYMPHOCYTES % (AUTO) 24 % (12-44); MEAN CORPUSCULAR HGB CONC 34 g/dL (32-36); MEAN CORPUSCULAR VOLUME 94 fL (80-99); MEAN PLATELET VOLUME 8.7 fL (9.0-12.2); MONOCYTES # (AUTO) 0.7 X 10^3 (0.0-1.0); MONOCYTES % (AUTO) 7 % (0-12); NEUTROPHILS # (AUTO) 7.2 X 10^3 (1.8-7.8); NEUTROPHILS % (AUTO) 69 % (42-75); PLATELET COUNT 318 10^3/uL (130-400)
[2021-07-15 14:36] LABS: BUN/CREATININE RATIO 19; CARBON DIOXIDE 26 MMOL/L (21-32); CHLORIDE 98 MMOL/L (98-107); CREATININE SERUM 1.18 MG/DL (0.60-1.30); GFR ESTIMATED 43; GLUCOSE 113 MG/DL (70-105); SODIUM 135 MMOL/L (135-145)
[2021-07-15 14:37] LABS: ALANINE AMINOTRANSFERASE 5 U/L (0-55); ALBUMIN 4.1 GM/DL (3.2-4.5); ALKALINE PHOSPHATASE 105 U/L (40-136); BILIRUBIN,TOTAL 0.3 MG/DL (0.1-1.0); CALCIUM 9.1 MG/DL (8.5-10.1); MAGNESIUM 2.1 MG/DL (1.6-2.4); TOTAL PROTEIN 7.5 GM/DL (6.4-8.2)
--- NOTE | 2021-07-15 14:41 | Diagnostic Imaging Report ---
INDICATION: Generalized weakness. TIME OF EXAM: 02:25 p.m. COMPARISON: Correlation is made with prior chest of 12/19/2019. FINDINGS: The heart size is normal. The pulmonary vascularity is unremarkable. The lungs are clear. No infiltrate, effusion or pneumothorax is detected. IMPRESSION: No acute cardiopulmonary process is detected. Dictated by: Dictated on workstation # [id number]
--- NOTE | 2021-07-15 14:42 | Diagnostic Imaging Report ---
INDICATION: Right heel pain. TIME OF EXAM: 2:28 PM. FINDINGS: Two views of the right calcaneus were obtained. No fracture is seen. There is a small plantar calcaneal spur. No stress reaction is identified. IMPRESSION: No acute abnormality is detected. Dictated by: Dictated on workstation # [id number]
[2021-07-15 15:33] LABS: BACTERIA,URINE LARGE /HPF; BILIRUBIN,URINE NEGATIVE (NEGATIVE); CLARITY,URINE CLOUDY; COLOR,URINE YELLOW; GLUCOSE, URINE (UA) NEGATIVE (NEGATIVE); KETONES,URINE TRACE (NEGATIVE); LEUKOCYTE ESTERASE ,URINE 2+ (NEGATIVE); NITRITE,URINE POSITIVE (NEGATIVE); PROTEIN,URINE NEGATIVE (NEGATIVE); RBC,URINE RARE /HPF; WBC,URINE 50-100 /HPF
[2021-07-15 15:34] LABS: SQUAMOUS EPITHELIAL CELL,UR 0-2 /HPF
[2021-07-15] MEDS ORDERED: NITR100C PO (15:40)
== END 2021-07-15 15:55 | disposition home or self-care (01) ==
LOC: EDUNIT# 14:01 → ER FS 14:02
DX: N30.01 Acute cystitis with hematuria (principal); I10 Essential (primary) hypertension; E03.9 Hypothyroidism, unspecified; F41.9 Anxiety disorder, unspecified; G20 Parkinson's disease; K59.09 Other constipation; G89.29 Other chronic pain; M54.9 Dorsalgia, unspecified; Z79.890 Hormone replacement therapy; Z79.82 Long term (current) use of aspirin; Z79.899 Other long term (current) drug therapy
CPT/HCPCS: 36415; 71045; 73650; 80053; 81000; 83605; 83735; 84484; 85025; 87077; 87088; 87186; 93005

== ENCOUNTER 2021-09-09 16:21 | Emergency (ER) | payer MEDICARE ==
[~2021-09-09] VITALS: Ht 160 cm; Wt 65.0 kg
[~2021-09-09 16:21] MED LIST changes: +NITR100C PO
--- NOTE | 2021-09-09 16:34 | ED GI ---
General Chief Complaint: Abdominal/GI Problems Stated Complaint: BLOODY STOOL History of Present Illness Date Seen by Provider: Sep 09, 2021 Time Seen by Provider: 16:28 Initial Comments 89-year-old female presents with bright red blood per rectum. She has had a couple episodes on her brief. Started yesterday. Does not appear to be associated necessarily with stooling. Patient did have some straining bowel movements yesterday afternoon. She denies any abdominal pain, fever chills or other systemic complaint Allergies and Home Medications Allergies Coded Allergies: atenolol (Verified Allergy, Intermediate, RASH, 02/04/14) Patient Home Medication List Home Medication List Reviewed: Yes Alprazolam (Alprazolam) 0.5 Mg Tablet, 0.25-0.5 MG PO HS PRN for SLEEP, (Rep orted) Entered as Reported by: JON CALLEJAS on 09/10/20 143 Amlodipine Besylate (Amlodipine Besylate) 5 Mg Tablet, 5 MG PO DAILY, (Reported) Entered as Reported by: JON CALLEJAS on 09/10/20 143 Aspirin (Aspirin EC) 81 Mg Tablet.dr, 81 MG PO DAILY, (Reported) Entered as Reported by: JON CALLEJAS on 09/10/20 1430 Bisacodyl (Women's Laxative) 5 Mg Tablet, 5 MG PO DAILY, (Reported) Entered as Reported by: JON CALLEJAS on 09/10/20 143 Carbidopa/Levodopa (Carbidopa-Levodopa 25-100 Tab) 1 Each Tablet, 1 EACH PO Q2H WHILE AWAKE, (Reported) Entered as Reported by: JON CALLEJAS on 09/10/20 1430 Carbidopa/Levodopa (Carbidopa-Levodopa 25-100 Tab) 1 Each Tablet, 1 EACH PO TID PRN for TREMORS, (Reported) Entered as Reported by: JON CALLEJAS on 09/10/20 1430 Clonidine HCl (Clonidine HCl) 0.1 Mg Tablet, 0.1 MG PO HS, (Reported) Entered as Reported by: JON CALLEJAS on 09/10/20 143 Docusate Sodium (Stool Softener) 100 Mg Capsule, 100 MG PO DAILY, (Reported) Entered as Reported by: JON CALLEJAS on 09/10/20 1430 Gabapentin (Neurontin) 300 Mg Capsule, 600 MG PO HS, (Reported) Entered as Reported by: JON CALLEJAS on 12/20/19 135 Gabapentin (Neurontin) 300 Mg Capsule, 300 MG PO DAILY, (Reported) Entered as Reported by: JON CALLEJAS on 12/20/19 1350 Levothyroxine Sodium (Levothyroxine Sodium) 112 Mcg Tablet, 112 MCG PO DAILY, (Reported) Entered as Reported by: JON CALLEJAS on 12/20/19 135 Nitrofurantoin Macrocrystal (Nitrofurantoin) 100 Mg Capsule, 100 MG PO BID Prescribed by: GURJIT NICHOLS on 07/15/21 1540 Pantoprazole Sodium (Pantoprazole Sodium) 40 Mg Tablet.dr, 40 MG PO BID, (Reported) Entered as Reported by: JON CALLEJAS on 12/20/19 135 Review of Systems Review of Systems Constitutional: No chills, No fever Respiratory: Denies Cough, Denies Shortness of Air Cardiovascular: Denies Chest Pain, Denies Palpitations Gastrointestinal: Denies Abdominal Pain; Constipated; Denies Nausea; Rectal Bleeding; Denies Other Genitourinary: No Symptoms Reported Musculoskeletal: no symptoms reported Skin: no symptoms reported Psychiatric/Neurological: No Symptoms Reported Endocrine: No Symptoms Reported Past Wpekskh-Sytccl-Pdsraa Hx Immunizations Up To Date Tetanus Booster (TDap): Unknown First/Initial COVID19 Vaccinat: Early 2020 Second COVID19 Vaccination Ronnie: Early 2020 Seasonal Allergies Seasonal Allergies: No Past Medical History Surgery/Hospitalization HX: Parkinsons, Hypothyroidism, anxiety, hypertension Surgeries: Yes Oophorectomy, Orthopedic, Thyroidectomy Respiratory: No Cardiac: Yes High Cholesterol, Hypertension Neurological: Yes Parkinson's Disease Reproductive Disorders: No 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 Sexually Transmitted Disease: No HIV/AIDS: No Genitourinary: No Gastrointestinal: No Chronic Constipation Musculoskeletal: No Arthritis, Chronic Back Pain Endocrine: Yes Hyperthyroidism HEENT: No Loss of Vision: Left Hearing Impairment: Denies Cancer: No Psychosocial: Yes Sleep Difficulties, Anxiety Integumentary: No Blood Disorders: No Adverse Reaction/Blood Tranf: No Family Medical History Arthritis 19 FATHER 19 MOTHER Cardiovascular disease 19 FATHER Dementia 19 MOTHER Hypertension 19 FATHER Myocardial infarction 19 FATHER No Family History of: AIDS Abdominal aortic aneurysm Alcoholism Alzheimer's disease Asthma Completed stroke Congenital disease Diabetes mellitus Parkinson's disease Prostate cancer Psychosocial problem Respiratory disorder Seizure disorder Thyroid disease Tuberculosis Physical Exam Vital Signs Vital Signs - First Documented 09/09/21 16:25 Temp 35.8 Pulse 79 Resp 18 B/P (MAP) 131/50 (77) Pulse Ox 93 O2 Delivery Room Air Capillary Refill : Height/Weight/BMI Height: 5'3.00" Weight: 140lbs. 0.0oz. 63.718025gk; 24.00 BMI Method:Stated General Appearance: WD/WN, no apparent distress Respiratory: lungs clear, normal breath sounds Cardiovascular: normal peripheral pulses, regular rate, rhythm Rectal: hemorrhoids, other (Bright red blood per) Extremities: normal capillary refill Neurologic/Psychiatric: alert, normal mood/affect, oriented x 3 Skin: normal color, warm/dry Progress/Results/Core Measures Results/Orders Lab Results Laboratory Tests Test 09/09/21 16:35 Range/Units White Blood Count 8.9 4.3-11.0 10^3/uL Red Blood Count 4.53 3.80-5.11 10^6/uL Hemoglobin 14.2 11.5-16.0 g/dL Hematocrit 43 35-52 % Mean Corpuscular Volume 94 80-99 fL Mean Corpuscular Hemoglobin 31 25-34 pg Mean Corpuscular Hemoglobin Concent 33 32-36 g/dL Red Cell Distribution Width 13.2 10.0-14.5 % Platelet Count 250 130-400 10^3/uL Mean Platelet Volume 8.6 L 9.0-12.2 fL Immature Granulocyte % (Auto) 0 % Neutrophils (%) (Auto) 64 42-75 % Lymphocytes (%) (Auto) 29 12-44 % Monocytes (%) (Auto) 7 0-12 % Eosinophils (%) (Auto) 0 0-10 % Basophils (%) (Auto) 0 0-10 % Neutrophils # (Auto) 5.6 1.8-7.8 10^3/uL Lymphocytes # (Auto) 2.5 1.0-4.0 10^3/uL Monocytes # (Auto) 0.7 0.0-1.0 10^3/uL Eosinophils # (Auto) 0.0 0.0-0.3 10^3/uL Basophils # (Auto) 0.0 0.0-0.1 10^3/uL Immature Granulocyte # (Auto) 0.0 0.0-0.1 10^3/uL Prothrombin Time 13.2 12.2-14.7 SEC INR Comment 1.0 0.8-1.4 Activated Partial Thromboplast Time 26 24-35 SEC Sodium Level 136 135-145 MMOL/L Potassium Level 4.7 3.6-5.0 MMOL/L Chloride Level 99 98-107 MMOL/L Carbon Dioxide Level 25 21-32 MMOL/L Anion Gap 12 5-14 MMOL/L Blood Urea Nitrogen 24 H 7-18 MG/DL Creatinine 1.32 H 0.60-1.30 MG/DL Estimat Glomerular Filtration Rate 39 BUN/Creatinine Ratio 18 Glucose Level 107 H 70-105 MG/DL Calcium Level 8.6 8.5-10.1 MG/DL Corrected Calcium 8.8 8.5-10.1 MG/DL Total Bilirubin 0.3 0.1-1.0 MG/DL Aspartate Amino Transf (AST/SGOT) 17 5-34 U/L Alanine Aminotransferase (ALT/SGPT) < 5 0-55 U/L Alkaline Phosphatase 101 40-136 U/L Total Protein 6.7 6.4-8.2 GM/DL Albumin 3.8 3.2-4.5 GM/DL My Orders Orders - NICHOLS,GURJIT L DO Cbc With Automated Diff (09/09/21 16:35) Comprehensive Metabolic Panel (09/09/21 16:35) Protime With Inr (09/09/21 16:35) Partial Thromboplastin Time (09/09/21 16:35) Abdomen Flat & Upright/Decub (09/09/21 16:35) Vital Signs/I&O 09/09/21 16:25 Temp 35.8 Pulse 79 Resp 18 B/P (MAP) 131/50 (77) Pulse Ox 93 O2 Delivery Room Air Progress Progress Note : Progress Note Patient had what appears to be a very irritated internal hemorrhoid that appears to be where the bleeding came from. This would coincide with symptoms starting after a hard bowel movement. Patient did not have bloody stools while she was here. We did keep her and monitor her for a while to see if she would have a bloody stool. Patient blood on her depends looks much more like a fresh blood consistent with a hemorrhoid versus a darker blood with mild order that you typically see with a GI bleed. I did discuss this with her family. I recommend that they follow-up with her regular doctor in a couple days for recheck. If she starts having more bloody stools she should return to the ER for further evaluation. Recommend they use some [id number] hemorrhoid medications. Patient stable and discharged home Diagnostic Imaging Diagonstic Imaging: Xray Comments Date of Exam:09/09/21 ABDOMEN FLAT & UPRIGHT/DECUB EXAMINATION: Abdomen 1 view HISTORY: Constipation, rectal bleeding. COMPARISON: None available. FINDINGS: Bowel gas pattern is normal. No free air. Cholecystectomy clips are seen. There are degenerative changes in the lumbar spine. IMPRESSION: 1. No dilated bowel or free air. Reviewed: Reviewed by Me, Reviewed/Discussed Departure Impression Primary Impression: Bleeding internal hemorrhoids Disposition: 01 HOME, SELF-CARE Condition: Stable Departure-Patient Inst. Referrals: AVEL TOM MD (PCP/Family) Primary Care Physician Patient Instructions: Hemorrhoids ED, Bloody Stools, Adult (DC) Add. Discharge Instructions: Follow-up with your primary care provider in 1 to 2 days for recheck Return to the ER as needed or with any concerns All discharge instructions reviewed with patient and/or family. Voiced understanding. GURJIT NICHOLS DO Sep 09, 2021 16:34
[2021-09-09 16:48] LABS: BASOPHILS % (AUTO) 0 % (0-10); EOSINOPHILS % (AUTO) 0 % (0-10); HEMATOCRIT 43 % (35-52); HEMOGLOBIN 14.2 g/dL (11.5-16.0); LYMPHOCYTES # (AUTO) 2.5 10^3/uL (1.0-4.0); LYMPHOCYTES % (AUTO) 29 % (12-44); MEAN CORPUSCULAR HEMOGLOBIN 31 pg (25-34); MEAN CORPUSCULAR HGB CONC 33 g/dL (32-36); MEAN CORPUSCULAR VOLUME 94 fL (80-99); MEAN PLATELET VOLUME 8.6 fL (9.0-12.2); MONOCYTES # (AUTO) 0.7 10^3/uL (0.0-1.0); MONOCYTES % (AUTO) 7 % (0-12); NEUTROPHILS # (AUTO) 5.6 10^3/uL (1.8-7.8); NEUTROPHILS % (AUTO) 64 % (42-75); PLATELET COUNT 250 10^3/uL (130-400); WHITE BLOOD COUNT 8.9 10^3/uL (4.3-11.0)
[2021-09-09 16:55] LABS: PROTHROMBIN TIME PATIENT 13.2 SEC (12.2-14.7)
--- NOTE | 2021-09-09 17:03 | Diagnostic Imaging Report ---
EXAMINATION: Abdomen 1 view HISTORY: Constipation, rectal bleeding. COMPARISON: None available. FINDINGS: Bowel gas pattern is normal. No free air. Cholecystectomy clips are seen. There are degenerative changes in the lumbar spine. IMPRESSION: 1. No dilated bowel or free air. Dictated by: Dictated on workstation # [id number]
[2021-09-09 17:06] LABS: CARBON DIOXIDE 25 MMOL/L (21-32); CHLORIDE 99 MMOL/L (98-107); POTASSIUM 4.7 MMOL/L (3.6-5.0); SODIUM 136 MMOL/L (135-145)
[2021-09-09 17:07] LABS: ALANINE AMINOTRANSFERASE < 5 U/L (0-55); ALBUMIN 3.8 GM/DL (3.2-4.5); ALKALINE PHOSPHATASE 101 U/L (40-136); BILIRUBIN,TOTAL 0.3 MG/DL (0.1-1.0); BUN/CREATININE RATIO 18; CALCIUM 8.6 MG/DL (8.5-10.1); CREATININE SERUM 1.32 MG/DL (0.60-1.30); GFR ESTIMATED 39; GLUCOSE 107 MG/DL (70-105); TOTAL PROTEIN 6.7 GM/DL (6.4-8.2)
[2021-09-09 18:10] VITALS: BP 151/66
== END 2021-09-09 18:15 | disposition home or self-care (01) ==
LOC: EDUNIT# 16:21 → ER FS 16:23
DX: K64.8 Other hemorrhoids (principal); I10 Essential (primary) hypertension; G20 Parkinson's disease; E05.90 Thyrotoxicosis, unspecified without thyrotoxic crisis or storm; F41.9 Anxiety disorder, unspecified
CPT/HCPCS: 36415; 74019; 80053; 85025; 85610; 85730